=== PATIENT | female | born 1935 | race Caucasian/White ===

== ENCOUNTER 2016-08-29 14:42 | Emergency (ER) | payer BC, OTHER ==
[~2016-08-29] VITALS: Ht 165.1 cm; Wt 85.9 kg
[~2016-08-29 14:42] MED LIST: ASPCH81 PO; ATEN-173 PO; CYAN10005 PO; HYDUNK; MAGNTAB4 PO; [UNRECOGNIZED DRUG - OTHER]
[2016-08-29 14:44] VITALS: TEMP 36.7; Ht 165.1 cm; Wt 85.9 kg
--- NOTE | 2016-08-29 15:17 | EMERGENCY ROOM VISIT NOTE ---
History Report prepared by Kathia: Carlyn Lopez Under the Supervision of: Dr. Chemo Wright M.D. First contact with patient: 15:05 Chief Complaint: TACHYCARDIA Stated Complaint: HEART RACING,ANXIETY,PULSE RACING,DIZZINESS Nursing Triage Summary: Denies CP History of Present Illness The patient is a 81 year old female who presents to the Emergency Room with complaints of episodes of palpations that occur nearly everyday. The patient explains the sensation as anxiety and a startling feeling. She states that these episodes occur everyday. During an episode she experiences shortness of breath. The patient has trouble catching her breath during these episodes. She notes that she is prescribed Lorazepam 0.5 mg a night. Yesterday she took 2 pills to help control her anxiety. She denies pain, fevers or chills. The patient stopped taking 90 mg of Prednisone in February. Since then these symptoms have began and she is suffering with her potassium levels and elevated glucose. Source of History: patient Onset: everyday Position: other (global) Quality: other (palpations) Timing: other (episodes) Associated Symptoms: + SOB, No fevers, No chills Note: The patient notes trouble catching her breath. Review of Systems All systems have been listed, reviewed, and are negative other than those previously mentioned. Please see Additional Medical History Sheet. Past Medical & Surgical Medical Problems: (1) Breast cancer Surgical Problems: (1) S/P lumpectomy of breast Family History Hypertension Social History Smoking Status: Current Every Day Smoker Marital Status: Housing Status: lives with significant other Occupation Status: retired Current/Historical Medications Scheduled Amlodipine (Norvasc), 5 MG PO DAILY Atenolol (Tenormin), 25 MG PO DAILY Cholecalciferol (Vitamin D3), 1 CAP PO DAILY Cyanocobalamin (Vitamin B-12), 1,000 MCG PO DAILY Hydrochlorothiazide (Hctz), 50 MG PO DAY Lorazepam (Ativan), 0.5 MG PO PRN UD Magnesium Chloride (Mag64), 1 TAB PO BID Potassium Chloride (Micro-K Ext Rel), 10 MEQ PO BID Vitamin B Cmplx/Vitc/Folic Ac (Nephrocaps), 1 CAP PO DAILY Allergies Coded Allergies: Latex1 -Allergic Contact Dermititis (Verified Allergy, Unknown, RASH, ) Penicillins (Verified Allergy, Unknown, RASH, 03/28/09) Physical Exam Vital Signs Date Time Temp Pulse Resp B/P (MAP) Pulse Ox O2 Delivery O2 Flow Rate FiO2 08/29/16 17:44 80 17 165/80 91 Room Air 08/29/16 16:31 83 18 183/104 96 Room Air 08/29/16 14:59 87 08/29/16 14:47 94 Room Air 08/29/16 14:44 36.7 90 16 164/96 94 Room Air Physical Exam GENERAL: Patient does appear to be anxious. Patient awake, alert, oriented x 3. Patient follows commands. Patient does not appear toxic. Patient is adequately hydrated and well-nourished. SKIN: No erythema, pallor, cyanosis or rash HEENT: Normal head, pupils equal, reactive to light and accommodation. Ears normal. Oral cavity and posterior pharynx appear normal. Neck: Without adenopathy, no neck vein distention. Thyroid without masses or nodules palpated. LUNGS: Clear to auscultation. No wheezes, no rales, no rhonchi. HEART: No murmurs. No gallops. No rubs ABDOMEN: No masses, no rebound, no hepatomegaly or splenomegaly. EXTREMITIES: No signs of trauma. No pedal or pretibial edema. No calf or thigh tenderness. NEUROLOGIC: Cranial nerves II-XII within normal limits. No gross motor sensory function deficits. Medical Decision & Procedures ER Provider Diagnostic Interpretation: X ray results are stated below per my interpretation and the radiologist's interpretation. TWO VIEW CHEST CLINICAL HISTORY: Chest discomfort. Anxiety and tachycardia. FINDINGS: PA and lateral chest radiographs are obtained. No prior studies are available for comparison at the time of dictation. The heart is enlarged and there is atherosclerotic calcification of the thoracic aorta. The pulmonary vasculature is noncongested. Nodular interstitial thickening and nodularity suggested at the lung bases. No lobar consolidation or pleural effusion is seen. There is no pneumothorax. The skeletal structures are osteopenic. The bony thorax appears intact. Surgical clips are noted in the left breast. IMPRESSION: 1. Interstitial thickening is suggested at the lung bases. This is nonspecific and could represent a mild infectious/inflammatory pneumonitis. Clinical correlation will be required and radiographic follow-up to resolution is recommended. 2. Cardiomegaly without radiographic evidence of congestive failure. Electronically signed by: Alexei Gerber M.D. 08/29/2016 4:01 PM Dictated Date/Time: 08/29/2016 3:59 PM Laboratory Results 08/29/16 15:00 Red Blood Count 5.27, Mean Corpuscular Volume 89.9, Mean Corpuscular Hemoglobin 31.9, Mean Corpuscular Hemoglobin Concent 35.4, Mean Platelet Volume 12.8, Neutrophils (%) (Auto) 68.9, Lymphocytes (%) (Auto) 19.8, Monocytes (%) (Auto) 6.7, Eosinophils (%) (Auto) 2.9, Basophils (%) (Auto) 0.9, Neutrophils # (Auto) 5.22, Lymphocytes # (Auto) 1.50, Monocytes # (Auto) 0.51, Eosinophils # (Auto) 0.22, Basophils # (Auto) 0.07 08/29/16 15:00 Test 08/29/16 00:00 08/29/16 15:00 Urine Color YELLOW Urine Appearance CLEAR (CLEAR) Urine pH 6.0 (4.5-7.5) Urine Specific [place] 1.007 (1.000-1.030) Urine Protein NEG (NEG) Urine Glucose (UA) NEG (NEG) Urine Ketones NEG (NEG) Urine Occult Blood NEG (NEG) Urine Nitrite NEG (NEG) Urine Bilirubin NEG (NEG) Urine Urobilinogen NEG (NEG) Urine Leukocyte Esterase NEG (NEG) White Blood Count 7.58 K/uL (4.8-10.8) Red Blood Count 5.27 M/uL (4.2-5.4) Hemoglobin 16.8 g/dL (12.0-16.0) Hematocrit 47.4 % (37-47) Mean Corpuscular Volume 89.9 fL (80-100) Mean Corpuscular Hemoglobin 31.9 pg (25-34) Mean Corpuscular Hemoglobin Concent 35.4 g/dl (32-36) Platelet Count 63 K/uL (130-400) Mean Platelet Volume 12.8 fL (7.4-10.4) Neutrophils (%) (Auto) 68.9 % Lymphocytes (%) (Auto) 19.8 % Monocytes (%) (Auto) 6.7 % Eosinophils (%) (Auto) 2.9 % Basophils (%) (Auto) 0.9 % Neutrophils # (Auto) 5.22 K/uL (1.4-6.5) Lymphocytes # (Auto) 1.50 K/uL (1.2-3.4) Monocytes # (Auto) 0.51 K/uL (0.11-0.59) Eosinophils # (Auto) 0.22 K/uL (0-0.5) Basophils # (Auto) 0.07 K/uL (0-0.2) RDW Standard Deviation 43.9 fL (36.4-46.3) RDW Coefficient of Variation 13.3 % (11.5-14.5) Immature Granulocyte % (Auto) 0.8 % Immature Granulocyte # (Auto) 0.06 K/uL (0.00-0.02) Anion Gap 11.0 mmol/L (3-11) Est Creatinine Clear Calc Drug Dose 50.4 ml/min Estimated GFR () 63.6 Estimated GFR (Non- 54.9 BUN/Creatinine Ratio 13.8 (10-20) Calcium Level 9.1 mg/dl (8.5-10.1) Total Bilirubin 0.6 mg/dl (0.2-1) Aspartate Amino Transf (AST/SGOT) 21 U/L (15-37) Alanine Aminotransferase (ALT/SGPT) 23 U/L (12-78) Alkaline Phosphatase 66 U/L (45-117) Troponin I < 0.015 ng/ml (0-0.045) Total Protein 7.0 gm/dl (6.4-8.2) Albumin 3.4 gm/dl (3.4-5.0) Globulin 3.6 gm/dl (2.5-4.0) Albumin/Globulin Ratio 0.9 (0.9-2) Thyroid Stimulating Hormone (TSH) 1.260 uIu/ml (0.300-4.500) Laboratory results as stated above per my review. ECG Indication: palpitations Rate (beats per minute): 86 Rhythm: normal sinus Findings: no acute ischemic change, no ectopy ED Course 1506: Past medical records reviewed. The patient was evaluated in room C1. A complete history and physical examination was performed. 1720: I spoke with the patient about her test results. She is still feeling anxious. 1738: Upon reevaluation, the patient appeared to have improvement of her symptoms. I discussed today's findings with her. She verbalized agreement of the treatment plan. She was discharged home. Medical Decision Nurses notes reviewed. Medical history sheet reviewed. Differential diagnosis includes but is not limited to: anxiety, panic attack, myocardial infarction, chest wall pain, pericarditis, myocarditis, aortic emergencies, pulmonary embolism, congestive heart failure, GI causes, and other significant cardiopulmonary disorders. Medication Reconciliation: I attest that I have personally reviewed the patient' s current medication list. Blood Pressure Screening: Patient was found to have a slightly elevated blood pressure due to circumstances. I do not believe that the patient requires hypertension monitoring. Multiple labs, urinalysis, EKG and imaging were obtained. Please see above. The patient has no evidence of an acute cardiopulmonary event. She does have some slight atelectasis versus pneumonitis at the bases of her lungs that she is asymptomatic in regard to her lungs. Troponin is not elevated. EKG does not reveal any acute findings. Urinalysis is clean. The patient is very anxious and I believe all of her symptoms stem from that. The patient does have Ativan at home which she can take as needed. She is to follow-up with her family physician tomorrow. Impression Primary Impression: Anxiety Additional Impression: Hypokalemia Scribe Attestation The scribe's documentation has been prepared under my direction and personally reviewed by me in its entirety. I confirm that the note above accurately reflects all work, treatment, procedures, and medical decision making performed by me. Departure Information Dispostion Home / Self-Care Referrals Augustina Hernandez D.O. (PCP) Forms HOME CARE DOCUMENTATION FORM, IMPORTANT VISIT INFORMATION, WORK / SCHOOL INSTRUCTIONS Patient Instructions Anxiety Disorder, Diet High Potassium Ia, [facility] Additional Instructions Continue your current medications as prescribed. You may take 0.5 mg of Ativan every 6 hours as needed for anxiety. Follow-up with your family physician tomorrow. Increase potassium in your diet. Problem Qualifiers
[2016-08-29 15:25] LABS: BASO % 0.9 %; BASO ABS # 0.07 K/uL (0-0.2); EOS % 2.9 %; HEMATOCRIT 47.4 % (37-47); IG% 0.8 %; LYMPH % 19.8 %; MEAN CELL VOLUME 89.9 fL (80-100); MEAN CORPUSCULAR HEMOGLOBIN 31.9 pg (25-34); MEAN CORPUSCULAR HGB CONC 35.4 g/dl (32-36); MEAN PLATELET VOLUME 12.8 fL (7.4-10.4); MONO % 6.7 %; NEUT % 68.9 %; PLATELET COUNT 63 K/uL (130-400); RED BLOOD COUNT 5.27 M/uL (4.2-5.4); WHITE BLOOD COUNT 7.58 K/uL (4.8-10.8)
[2016-08-29 15:35] LABS: ALT/SGPT 23 U/L (12-78); BLOOD UREA NITROGEN 14 mg/dl (7-18); BUN/CREATININE RATIO 13.8 (10-20); CALCIUM 9.1 mg/dl (8.5-10.1); CARBON DIOXIDE 26 mmol/L (21-32); CHLORIDE 102 mmol/L (98-107); CREATININE 0.98 mg/dl (0.60-1.20); GLUCOSE 119 mg/dl (70-99); POTASSIUM 3.3 mmol/L (3.5-5.1); SODIUM 139 mmol/L (136-145)
[2016-08-29 15:46] LABS: ALB/GLOB RATIO 0.9 (0.9-2); ALKALINE PHOSPHATASE 66 U/L (45-117); AST/SGOT 21 U/L (15-37)
[2016-08-29] MEDS ORDERED: MAGN64TA4 PO (15:50)
[2016-08-29] MEDS ORDERED: HYDR50TA3 PO (15:50)
[2016-08-29] MEDS ORDERED: POTA10CA28 PO (15:50)
[2016-08-29] MEDS ORDERED: B-CO1CAP17 PO (15:50)
[2016-08-29] MEDS ORDERED: CYAN10005 PO (15:50)
[2016-08-29] MEDS ORDERED: LORA-741 PO (15:50)
[2016-08-29] MEDS ORDERED: AMLO-110 PO (15:50)
[2016-08-29] MEDS ORDERED: CHOL2000 PO (15:50)
[2016-08-29 15:53] LABS: COMPLETE YES
--- NOTE | 2016-08-29 16:02 | DIAGNOSTIC IMAGING REPORT ---
TWO VIEW CHEST CLINICAL HISTORY: Chest discomfort. Anxiety and tachycardia. FINDINGS: PA and lateral chest radiographs are obtained. No prior studies are available for comparison at the time of dictation. The heart is enlarged and there is atherosclerotic calcification of the thoracic aorta. The pulmonary vasculature is noncongested. Nodular interstitial thickening and nodularity suggested at the lung bases. No lobar consolidation or pleural effusion is seen. There is no pneumothorax. The skeletal structures are osteopenic. The bony thorax appears intact. Surgical clips are noted in the left breast. IMPRESSION: 1. Interstitial thickening is suggested at the lung bases. This is nonspecific and could represent a mild infectious/inflammatory pneumonitis. Clinical correlation will be required and radiographic follow-up to resolution is recommended. 2. Cardiomegaly without radiographic evidence of congestive failure. Electronically signed by: Alexei Gerber M.D. 08/29/2016 4:01 PM Dictated Date/Time: 08/29/2016 3:59 PM
[2016-08-29 16:50] LABS: URINE APPEARANCE CLEAR (CLEAR); URINE BILIRUBIN NEG (NEG); URINE COLOR YELLOW; URINE NITRITE NEG (NEG); URINE SPECIFIC GRAVITY 1.007 (1.000-1.030); UROBILINOGEN NEG (NEG); ZZURINE CULT IF INDIC CATH NO
[2016-08-29 16:52] LABS: MANUAL MICROSCOPIC REQUIRED? NO; REVIEW REQ? NO
[2016-08-29 17:44] VITALS: BP 165/80; PULSE 80; O2SAT 91
== END 2016-08-29 17:57 | disposition home or self-care (01) ==
LOC: C.EDB 14:43 → C.EDC 17:57
DX: F41.9 Anxiety disorder, unspecified (principal); E87.6 Hypokalemia; F17.200 Nicotine dependence, unspecified, uncomplicated

== ENCOUNTER → 2016-10-11 | Outpatient (CLI) | payer BC ==
[~2016-10-11] MED LIST changes: +AMLO-110 PO; -ASPCH81 PO; +B-CO1CAP17 PO; +CHOL2000 PO; +HYDR50TA3 PO; -HYDUNK; +LORA-741 PO; +MAGN64TA4 PO; -MAGNTAB4 PO; +POTA10CA28 PO; -[UNRECOGNIZED DRUG - OTHER]
--- NOTE | 2016-10-11 11:49 | DIAGNOSTIC IMAGING REPORT ---
CHEST 2 VIEWS ROUTINE CLINICAL HISTORY: ANXIETY, POLYCYTHEMIA, ABNORMAL CHEST X-RAY COMPARISON STUDY: Chest radiograph August 29, 2016. FINDINGS: Lung volumes are normal. No pneumothorax or pleural effusion is present. There is no evidence of pulmonary edema. Cardiomediastinal silhouette is stable. Lower lung predominant interstitial thickening and linear opacities has slightly improved since prior exam. IMPRESSION: Interval improvement in lower lung interstitial thickening. Residual findings suggest atelectasis. No acute cardiopulmonary findings. Electronically signed by: Mihai Carter M.D. 10/11/2016 11:48 AM Dictated Date/Time: 10/11/2016 11:46 AM
== END | disposition home or self-care (01) ==
LOC: C.RAD 11:03
PROVIDERS: ATTEND Family Medicine
DX: R93.8 Abnormal findings on diagnostic imaging of other specified body structures (principal); D75.1 Secondary polycythemia; F41.9 Anxiety disorder, unspecified

== ENCOUNTER → 2016-12-14 | Outpatient (CLI) | payer BC ==
[~2016-12-14] VITALS: Ht 162.6 cm; Wt 83.9 kg
[2016-12-14 13:14] VITALS: BP 160/79; PULSE 93; Ht 162.6 cm; Wt 83.9 kg
== END | disposition home or self-care (01) ==
LOC: C.NEUR 12:55
PROVIDERS: ATTEND Internal Medicine Pulmonary Disease
DX: G47.19 Other hypersomnia (principal); F41.9 Anxiety disorder, unspecified; D75.1 Secondary polycythemia; R53.83 Other fatigue; R06.83 Snoring

== ENCOUNTER → 2017-01-04 | Outpatient (CLI) | payer BC ==
--- NOTE | 2017-01-05 06:36 | PAP/PSG TECHNICIAN REPORT ---
[facility] Magazine Supervisor Polysomnogram Report Study name: None Report date: 01/05/2017 Study date: 01/04/2017 Referring Physician: MAKENNA FERNANDEZ D.O. Name: NANCY FANG Interpreting Physician: Manuel Payne M.D. Date of : 1935 Magazine Supervisor: Silvina Nix [facility]. Sex: Female Age: 81 StudyType: PSG Weight: 185 lbs Height: 81 years, Height 5' 4" Neck Circum: 16 INCHES BMI: 31.75 Medications: Atenolol 25 mg, B complex, Clonazepam 0.5 mg, Glucophage XR 500, HCTZ 50 mg, Lorazepam 0.5 mg, Mag 64, Norvasc 5 mg, Paroxetine 20 mg, Potassium Chloride ER 10 MEQ, Spironolactone 25 mg, Ventolin HFA 108 ( 90 Base), Vitamin B-12 1000 MCG, Vitamin D 2000 units Patient History 81 yr. old female here for a Diagnostic sleep study. Patient complains of not feeling rested and loud snoring. ESS 0/24. Parameters Monitored NPSG: E1-M2, E2-M1, Fp1-M2, Fp2-M1, F3-M2, F4-M2, F4-M1, C3-M2, C4-M2, C4-M1, O1-M2, O2-M2, O2-M1, T3-M2, T4-M1, P3-M2, P4-M1, CHIN1, CHIN2, HR, EKG, Legs, PFLOW, SNOR, FLOW, CFLOW, Tidal Volume, THOR, ABDO, SpO2, PLTH, CPRESS, ETCO2 Wave, ETCO2, pH Sleep Architecture Sleep Stages Time at Lights Off 11:01:04 PM STAGES Time (min.) TST (%) Time at Lights On 5:36:04 AM Wake 99.5 -- Total Recording Time (TRT) 395.00 min. N1 43.0 15 Total Sleep Period (TSP) 324.5 min. N2 252.5 85 Total Sleep Time (TST) 295.5min. N3 0.0 0 Awake Time 99.5 min. REM 0.0 0 Wake after Sleep Onset 29.0 min. Sleep Efficiency (SE) 75 % Sleep Onset Latency (NATHAN) 70.5 min. Number of Stage 1 Shifts None Awakenings 26 Stage Changes 84 Number of REM periods N/A REM 0.0 0 REM Latency NONE min. NREM 295.5 100 Body Position Analysis Supine Right Left Side Prone Vertical Total Sleep Time (min.) 135.4 0.0 175.0 174.99 0.0 54.1 Total Sleep Time (%) 41% 0% 59% 59 0% N/A% Total Sleep Time REM (min.) 0.0 0.0 0.0 None 0.0 0.0 Total Sleep Time NREM (min.) 120.5 0.0 175.0 None 0.0 0.0 Intermittent Wake (min.) 14.9 0.0 30.4 None 0.0 54.1 Total Sleep Period (%) 41% None None None None None Arousals Myoclonus (PLM) * Events Count Index Events Count Index Spontaneous 5 1 Events Awake (PLMW) 91 54.9 Respiratory 0 0.4 Events Asleep w/ Arousal (PLMA) 5 1.0 PLM 4 1 Events Asleep w/o Arousal (PLMS) 82 16.6 Snoring 2 0 Total Asleep 87 17.7 Total 11 2 Total 178 27 Respiratory Analysis * CA OA MA CH H RERA Total Count 0 1 0 0 5 0 6 Index 0.0 0.2 0.0 0 1.0 0 1.2 Mean Duration 0.0 10.5 0.0 0.00 19.7 0.0 18.2 Longest Duration 0.0 10.5 0.0 0.00 0.0 0.0 27.8 Respiratory Event Summary Total Supine ~Supine Right Left Prone REM NREM Apneas Count 1 1 0 N/A 0 N/A N/A 1 Index 0.2 0 0 N/A 0.0 N/A N/A 0 Hypopneas (4% Desat) Count 5 4 1 N/A 1 N/A N/A 5 Index 1.0 2.0 0 N/A 0.3 N/A N/A 1.0 Apneas & All Hypopneas Count 6 5 1 N/A 1 N/A N/A 6 Index 1.2 2 0 N/A 0 N/A N/A 1.2 Respiratory Events (Staff Services Manager+All Hyp+RERA) Count 6 5 1 N/A 1 N/A N/A 6 Index 1.2 2 0 N/A 0.3 N/A N/A 1.2 Respiratory Related Arousal Count 0 5 0 N/A 0 N/A N/A 2 Index 0.4 1 0 N/A 0 N/A N/A 0 Snoring Analysis Supine Right Left Prone REM NREM Total Snore duration 21.7 min Snores count 510 N/A 780 N/A N/A 1,290 1,290 Snore mean duration 1.0 Sec Snores index 254 N/A 267 N/A N/A 261.9 261.9 TST with snoring (%) 7.4% Desaturation Event Summary: Minimum %SpO2 Event Count Mean/Min/Max Duration(sec.) Desaturation Index % Time In Bed > 90 3 28.9 / 22.0 / 42.3 2.2 21.2 86 - 90 8 32.6 / 13.0 / 55.0 1.6 78.4 81 - 85 0 N/A 0.0 0.4 76 - 80 0 N/A 0.0 0.0 71 - 75 0 N/A 0.0 0.0 66 - 70 0 N/A 0.0 0.0 61 - 65 0 N/A 0.0 0.0 56 - 60 0 N/A 0.0 0.0 51 - 55 0 N/A 0.0 0.0 < 50 0 N/A 0.0 0.0 Total REM NREM Awake <50% 0.0 min. 0.0 min. 0.0 min. 0.0 min. 51 - 60% 0.0 min. 0.0 min. 0.0 min. 0.0 min. 61 - 70% 0.0 min. 0.0 min. 0.0 min. 0.0 min. 71 - 80% 0.0 min. 0.0 min. 0.0 min. 0.0 min. 81 - 90% 309.7 min. 0.0 min. 280.7 min. 29.0 min. 91 - 100% 83.4 min. 0.0 min. 14.8 min. 68.6 min. Average 89 0 88 91 Minimum SpO2 84 N/A 84 84 Desaturation Event Index 1.5 0.0 0.8 3.6 # Desat. Events below 89% 8 N/A 4 4 Time(%) with Saturation below 89% 46.6 0.0 42.3 4.3 Time(min.) with Saturation below 89% 183.2 0.0 166.5 16.7 Time (mins) REM (mins) NREM (mins) % of TST SpO2 Below 90% 4 N/A N4 81.0 SpO2 Below 88% 3 0 0 25 Heart Rate Analysis Min (bpm) Max (bpm) Average (bpm) Awake 57 81 72 NREM 55 85 65 REM N/A N/A N/A Overall 55 85 65 Supplemental O2 Values Minimum O2 level: None Value Start Time End Time Magazine Supervisor Comments Mrs. Fang slept in the left and supine positions. Cardiac arrhythmia and PLMs noted. No bruxism noted. Snoring was noted and scored as a 3 on a scale of 0 through 5. (0=no snoring, 5=snoring loud enough to be heard through a closed door or down the moore way) Mrs. Fang did not wake to use the restroom during the night. Mrs. Fang stated, that was a normal night. The final report will be interpreted and signed by a sleep physician. The completed physician report will then be placed in the patient medical record. Therapy (cm H2O) 0 TIB (min.) 395.0 TST (min.) 295.5 Sleep Onset (min.) 70.5 REM Onset From Sleep (min.) NONE Sleep Efficiency % 75 Wakefulness (%) 25 Wakefulness (min.) 99.5 NREM 1 (%) 15 NREM 1 (min.) 43.0 NREM 2 (%) 85 NREM 2 (min.) 252.5 NREM 3 (%) 0 NREM 3 (min.) 0.0 REM (%) 0 REM (min.) 0.0 # Arousals 11 Arousal Index 2 # Snore 1,290 Snore Index 261.9 AHI 1.2 AHI Supine 2 AHI Non-Supine 0 NREM AHI 1.2 REM AHI N/A RDI 1.2 # Obstructive Apnea 1 # Central Apnea 0 # Mixed Apnea 0 # Hypopneas 5 RERAs 0 Total Respiratory Events 8 Time Below SpO2 89% (min.) 166.5 Mean NREM SpO2 (%) 88 Mean REM SpO2 (%) N/A Mean Sleep SpO2 (%) 88 Min NREM SpO2 (%) 84 Min REM SpO2 (%) N/A Position Supine (min.) 135.4 Position Non-supine (min.) 175.0 LM Index Sleep 17.7 LM Index NREM 17.7 LM Index REM N/A Mean Heart Rate (bpm) 65 Min Heart Rate (bpm) 55
--- NOTE | 2017-01-06 11:27 | POLYSOMNOGRAPH REPORT ---
CLINICAL DATA: A 81-year-old female with BMI of 31.[address] Augustina Hernandez and myself for evaluation of not feeling rested and loud snoring. SLEEP ARCHITECTURE: Total sleep period was 324.5 minutes. Total sleep time was 295.5 minutes, all non-REM sleep. Sleep onset latency was delayed at 70.5 minutes. REM was not achieved. Sleep efficiency was 75%. Wake after sleep onset was 29 minutes. Sleep consisted of stage N1 15% and stage N2 85%. AROUSAL DATA: Eleven arousals recorded for an index of 2 per hour. PLM DATA: Mildly elevated limb movements during sleep were noted. There were 87 limb movements during sleep noted for an index of 17.7 per hour with arousal index of 1 per hour. RESPIRATORY DATA: There was no evidence of clinically significant sleep apnea seen. The AHI was 1.2. There was 1 obstructive apneic episode, 10.5 seconds in duration. There were 5 hypopneic episodes with a mean duration of 19.7 seconds. OXIMETRY DATA: Transient hypoxemia was seen. The oxygen fadi was 84% during REM. The mean saturation was 89%. Time below 88% was 3 minutes. EKG: Heart rates ranged from 55-85 beats per minute. Occasional PACs were noted. FIRE FIGHTING EQUIPMENT SPECIALIST'S COMMENTS: The patient slept in the right, left, and supine positions. Snoring was moderate, rated 3 on a scale of 1-5. IMPRESSION: No evidence of clinically significant sleep apnea/hypopnea. The patient does have a borderline low saturation with some minimal desaturation through the night. RECOMMENDATIONS: The patient should continue to practice good sleep hygiene. Discontinuation of smoking may also be of benefit. Clinical correlation is needed. CEDD
== END | disposition home or self-care (01) ==
LOC: C.NEUR 21:00
PROVIDERS: ATTEND Internal Medicine Pulmonary Disease
DX: F41.9 Anxiety disorder, unspecified (principal); G47.19 Other hypersomnia; R53.83 Other fatigue; D75.1 Secondary polycythemia; R06.83 Snoring

== ENCOUNTER 2021-03-28 15:49 | Inpatient (IN) ==
[2021-03-28] MEDS ORDERED: SODIUM CHLORIDE 0.9% 1000ML 1,000 ML IV SCH (16:30)
[2021-03-28 16:54] LABS: Hematocrit (blood only) 42.6 % (37-47); Hemoglobin 14.6 g/dL (12.0-16.0); Mean Corpuscular Hemoglobin 32.4 pg (25-34); Mean Corpuscular Hgb Conc 34.3 g/dL (32-36); Mean Corpuscular Volume 94.5 fL (80-100); Platelet Count 103 K/uL (130-400); RDW Coefficient of Variation 13.1 % (11.5-14.5); RDW Standard Deviation 45.5 fL (36.4-46.3); Red Blood Count 4.51 M/uL (4.2-5.4); White Blood Count 10.09 K/uL (4.8-10.8)
--- NOTE | 2021-03-28 16:56 | XRay Report ---
SINGLE VIEW CHEST CLINICAL HISTORY: Dyspnea. FINDINGS: An AP, portable, upright chest radiograph is compared to study dated 10/11/2016. The heart i s enlarged noting atherosclerotic calcification of the thoracic aorta. There is pulmonary vascular co ngestion. There is a layering left pleural effusion with left basilar consolidation. The right lung a ppears clear noting basilar atelectasis. No pneumothorax is seen. The skeletal structures are osteope isac. The bony thorax is grossly intact. Surgical clips are noted in the left axilla. IMPRESSION: 1. Cardiomegaly with pulmonary vascular congestion. 2. Layering left pleural effusion with associated left basilar consolidation. ACT 112: Negative or not required by law. Electronically signed by: Alexei Gerber M.D. 03/28/2021 4:55 PM
[2021-03-28 16:58] LABS: INR 1.2 (0.9-1.1); Partial Thromboplastin Ratio 1.2; Partial Thromboplastin Time 32.8 Seconds (21.0-31.0)
[2021-03-28 17:07] LABS: Troponin I 0.03 ng/ml (0-0.04)
[2021-03-28 17:11] LABS: Alanine Aminotransferase 7 U/L (7-52); Albumin Globulin Ratio 0.9 (0.9-2); Albumin Level 3.3 gm/dl (3.4-5.0); Alkaline Phosphatase 62 U/L (34-104); Anion Gap 10 (3-11); Aspartate Aminotransferase 16 U/L (13-39); BUN Creatinine Ratio 15.7 (10-20); Bilirubin,Total 2.8 mg/dl (0.2-1.0); Blood Urea Nitrogen 17 mg/dl (6-23); Calcium 9.2 mg/dl (8.5-10.1); Carbon Dioxide 26 mmol/L (21-32); Chloride 97 mmol/L (98-107); Est GFR (African American) 54.6 ml/min; Est GFR (Non-African American) 47.1 ml/min; Globulin 3.6 gm/dl (2.5-4.0); Glucose 141 mg/dl (70-99(Fasting)); Magnesium 1.4 mg/dl (1.7-2.4); Potassium 3.4 mmol/L (3.5-5.1); Sodium 133 mmol/L (136-145); Total Protein 6.9 gm/dl (6.0-8.3)
[2021-03-28 17:27] LABS: Basophils # (auto) 0.02 K/uL (0-0.2); Basophils % (auto) 0.2 %; Immature Granulocytes # (auto) 0.02 K/uL (0.00-0.02); Immature Granulocytes % (auto) 0.2 %; Lymphocytes # (auto) 0.48 K/uL (1.2-3.4); Lymphocytes % (auto) 4.8 %; Monocytes # (auto) 0.57 K/uL (0.11-0.59); Monocytes % (auto) 5.6 %; Neutrophils % (auto) 89.2 %
[2021-03-28] MEDS ORDERED: OPTIRAY 320 100ml IV ONE (18:01)
[2021-03-28] MEDS: MAGNESIUM SULFATE / D5W 1 GM/100 ML BAG IV SCH ×2 (18:09→18:39)
--- NOTE | 2021-03-28 19:07 | CT Scan Report ---
CT SCAN OF THE CHEST WITH IV CONTRAST CLINICAL HISTORY: Pleural effusion. left-sided chest pain. COMPARISON STUDY: Chest x-ray dated 03/28/2021. Abdominal CT dated 01/30/2016. TECHNIQUE: Following the IV administration of 95 cc of Optiray 320, CT scan of the thorax was perform ed from the thoracic inlet to the upper abdomen. Images are reviewed in the axial, sagittal, and loree nal planes. IV contrast was administered without complication. A dose lowering technique was utilize d adhering to the principles of ALARA. CT DOSE: 253.22 mGy.cm FINDINGS: Thyroid: Mildly enlarged and heterogeneous. Thoracic aorta: There is advanced atherosclerotic calcification of the thoracic aorta, which is vilma l in caliber and demonstrates standard 3-vessel arch anatomy. No dissection is seen. Pulmonary vasculature: The pulmonary trunk is normal in caliber. There are no filling defects identif ied in the central pulmonary vessels to indicate pulmonary embolus. Note that this examination was no t protocoled for evaluation of the pulmonary arteries. Heart: The heart is enlarged and without pericardial effusion. The coronary arteries, aortic valve le aflets, and mitral annulus are densely calcified. Lungs and pleural spaces: Evaluation of the lung parenchyma is degraded by motion artifact. Emphysema is noted. Consolidation/fibrosis is noted at the left apex on image #56. There is a moderate and at least partially loculated left pleural effusion with consolidation at the left lung base. A small ple ural effusion is seen on the right. Segmental atelectasis is noted in the right middle lobe. A 9 mm p ulmonary nodule in the right lower lobe as seen on image #172. Additional subcentimeter nodules at th e right lung base are seen on image #229 and at the right apex on image #59. No left-sided pulmonary lesion is clearly identified. Mediastinum: There is infiltrative soft tissue in the left superior mediastinum on image #33 measurin g 2.7 x 3.2 cm. This encases the left subclavian artery. There are several additional subcentimeter m ediastinal lymph nodes. Destiney: Clear. Axillae: There is an enhancing mass within the posterior left breast/infraaxillary region on axial im age #136. This measures 3.3 x 2.8 x 1.7 cm. Surgical clips are noted in the left axilla. A 2.3 x 1.5 cm lesion is seen in the deep left axilla on image #22. An enlarged right axillary node on image #84 measures 2.5 x 2.1 cm. Upper abdomen: A lesion within or adjacent to the left adrenal gland measures 5.0 x 3.4 cm. No right adrenal lesion is seen. An indeterminant soft tissue implant is seen posterior to the right lobe of t he liver below the diaphragm on image #273. This measures 2.6 x 1.6 cm. The spleen appears enlarged. Peritoneal nodularity is suggested in the left upper quadrant on image #254. Skeletal structures: The skeletal structures are osteopenic. No lytic or blastic bony lesions are see n. Degenerative change is noted in the shoulders and thoracic spine. Soft tissues: There are numerous enhancing soft tissue implants identified throughout the chest wall bilaterally. A 3.8 cm lesion in the right chest wall is seen on image #206 and a more inferiorly loca zaid lesion in the right chest wall on image #254 measures 3.2 cm. A 4.1 cm lesion in the left chest w all is seen on image #189, and a subcentimeter lesion in the posterior left chest wall as seen on marilynn ge #255. Numerous additional lesions are noted. Postoperative change and dermal thickening is noted i n the left breast. IMPRESSION: 1. Cardiomegaly and emphysema. 2. There is a moderate and at least partially loculated left pleural effusion with consolidation of t he left lower lung. Additionally, there is fibrotic change/consolidation at the left apex. Correlate clinically for evidence of pneumonia. 3. There is a small right pleural effusion. 4. There is evidence of widespread metastatic disease. There are numerous enhancing soft tissue lesio ns throughout the chest wall, as well as lesions within the posterior left breast/infraaxillary regio n, both axillae, the superior mediastinum, within or adjacent to the left adrenal gland, and within t he peritoneum posterior to the liver. Subcentimeter peritoneal implants are also suggested in the lef t upper quadrant. The primary site of neoplasm is not delineated. Correlate with the patient's oncolo gical history. 5. There are at least 3 pathologically indeterminant right pulmonary nodules which are also suspiciou s for metastatic disease. 6. No pleural lesions are clearly identified. 7. Postoperative change and dermal thickening is noted in the left breast. 8. Additional findings as above. ACT 112: Negative or not required by law. Electronically signed by: Alexei Gerber M.D. 03/28/2021 7:06 PM
[2021-03-28 19:29] LABS: Appearance Urine Clear (Clear); Bilirubin Urine Negative (Negative); Blood Urine Negative (Negative); Color Urine Yellow; Glucose Urine UA Negative (Negative); Ketones Urine Negative (Negative); Leukocyte Esterase Urine Negative (Negative); Nitrite Urine Negative (Negative); Protein Urine Negative (Negative); Specific Gravity Urine 1.022 (1.000-1.030); Urobilinogen Urine Negative (Negative)
[2021-03-28] MEDS ORDERED: NICOTINE 14 MG/24 HR PATCH TD STA (19:35)
--- NOTE | 2021-03-28 19:35 | History & Physical Report ---
Date of Service March 28, 2021 Assessment & Plan (1) Breast cancer: Plan: Elva is an 86-year-old female with a history of previous breast cancer s/p lumpectomy in 2001, type 2 diabetes, hypertension, obesity, previous R osteomyelitis of 5th toe, tobacco abuse who presents for L-sided chest pain, shortness of breath x several days, subsequently found to have evidence concerning for widespread metastatic disease on CT-Chest, with lesions noted throughout: the chest, posterior left breast, axillae, superior mediastinum, left adrenal gland, peritoneum posterior to the liver, and 3 pulmonary nodules. She requires admission primarily for management of her L-sided pleural effusion Hypoxia -- in setting of large L sided pleural effusion Patient has required approximately 2 L/min of nasal cannula since arrival for SpO2 between 88-90%; subjectively felt mildly short of breath. HR in 90s. Suspect to be largely secondary to left-sided pleural effusion. Patient also noted to have significant tobacco use history, over 100 pack years; emphysematous changes were also appreciated on CTchest, also likely contributing No signs or symptoms of DVT, though malignancy is noted. Wells 1. No signs of volume overload. Presentation not largely consistent with pneumonia; no leukocytosis, afebrile. Covid negative. Add pro-Luis Miguel, MRSA swab Plan as outlined below DuoNebs every 6 hours as needed Titrate oxygen as needed to maintain SPO2 over 92% Left-sided pleural effusion -- in the setting of suspected metastatic disease Clinically, patient reporting lateral left-sided chest pain for the last several days as well as increasing shortness of breath CT of the chest demonstrating "moderate and at least partially loculated left- sided pleural effusion with consolidation of the left lower lung." In the setting of metastatic disease, suspect that this is likely exudative and likely secondary to malignancy Radiology consulted for aid in pleurocentesis, draining/sampling this fluid and send off for cytology; can also consider pulmonology consultation in future if recurrence occurs/Pleurx needed Titrate oxygen as needed; minimal right now, respiratory status stable High Suspicion for Metastatic Disease In the setting of ongoing fatigue, weight loss, chills over the last several months CT-Chest demonstrating: "...evidence of widespread metastatic disease. There are numerous enhancing soft tissue lesions throughout the chest wall, as well as lesions within the posterior left breast/infraaxillary region, both axillae, the superior mediastinum, within or adjacent to the left adrenal gland, and within the peritoneum posterior to the liver. Subcentimeter peritoneal implants are also suggested in the left upper quadrant." Also noted is moderate/partially loculated left-sided pleural effusion with consolidation of the left lower lung Insetting of patient's known history of breast cancer, is well as changes noted within the left breast on scan, concerned that this may be primary site; review of outpatient records do appear that last mammogram was over 5 years ago. Attempt to sample/drain pleural effusion for further characterization, as above Patient informed of the results, as noted above. Will require hematology/oncology consultation once further characterized Weight Loss Patient reporting approximately 25 pound weight loss over the past year, also noted in outpatient notes In the setting of the above; likely due to ongoing metastatic disease and generalized inflammation Boost supplementation, consider band head saw operator consultation while here or as outpatient History of Breast Cancer -Review of records within our system (2001) reveal h/o [id number] ER+/WA+/[HER2/jenna]-neg IDC s/p lumpectomy and radiation in 2001, no chemo/immunotherapy Last mammogram appears to be over 5 years ago. See above. 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 Hyperbilirubinemia On arrival here, found to have total bilirubin 2.8 in setting of suspected Gilbert's, known radiologic cirrhosis thought to be secondary to NAFLD/WARREN Has followed with [facility] for this and cirrhosis. Elevated total bilirubin has been noted intermittently over the last number of years. Last measurement 1.1 in 12/2020. Their impression is secondary to Gilbert's, h/o cirrhosis noted. Ultrasound 02/2021 demonstrating cirrhosis without hepatic lesions Monitor while here Type 2 diabetes - last A1c 5.4% in 02/2021 via [facility] Hold home medications ACHS glucose checks for 1 day; if persistently over 140, consider adding SSI Hypertension Continue amlodipine, atenolol Anxiety Continue home Ativan, Paxil Hypokalemia, Hypomagnesemia Suspect secondary to poor p.o. intake recently. Encourage boost supplementation. Replete potassium, magnesium Code: Full code. Discussed at length with patient and her . They would like to think about this more as a family, but be marked as full code until discussed further Dispo: MedSurg with telemetry Diet: Carb consistent diet Prophylaxis: Lovenox (2) S/P lumpectomy of breast: (3) Encounter for pre-operative examination: (4) Type 2 diabetes mellitus, controlled: (5) Hypertension: (6) Obesity: (7) Metastatic cancer: (8) Hypoxia: History of Present Illness Primary Care Provider: Augustina Hernandez DO Stevenson is an 86-year-old female with a history of previous breast cancer s/p lumpectomy in 2001, type 2 diabetes, hypertension, obesity, R osteomyelitis of 5th toe, tobacco abuse (>100 pack-year), and hepatic cirrhosis who presents for L-sided chest pain, shortness of breath x several days. Patient says the pain is primarily located along her left midaxillary line/center of chest. It does not radiate and she denies substernal chest pain. She also endorses feeling more winded during this time. She denies leg pain or swelling. Denies recent travel. She says that over the last year, she has had a poor appetite and has lost approx. 25 lb. She denies nausea or vomiting. Her last mammogram appears to be over 5 years ago on review of [facility] records. She confirms this. She denies history of colon cancer screening in the past. She endorses smoking 2ppd x 50 years = >100pack-year history. No regular use of EtOH or recreational drugs. She underwent a lumpectomy in 2001 with subsequent radiation therapy but denies undergoing chemotherapy or immunotherapy at that time. On presentation, patient was found to be tachycardic with saturations in the low 90s. She did require 2 L of oxygen. Her K was 3.4 and Mg at 1.4. TBili noted to be elevated at 2.8. CT scan performed in the ED did demonstrate moderate left-sided loculated appearing pleural effusion alongside fibrotic change at the left apex. Further, there is evidence of widespread metastatic disease with lesions noted throughout the chest, posterior left breast, axillae, superior mediastinum, left adrenal gland, peritoneum posterior to the liver, and 3 pulmonary nodules concerning for metastatic disease. Allergies Allergy/AdvReac Type Severity Reaction Status Date / Time atorvastatin Allergy Mild aches Verified 03/28/21 16:26 cephalexin [From Keflex] Allergy Mild Aches,drows Verified 03/28/21 16:26 iness clarithromycin Allergy Mild Hives Verified 03/28/21 16:26 escitalopram [From Lexapro] Allergy Mild Shakiness Verified 03/28/21 16:26 fluoxetine Allergy Mild Increased Verified 03/28/21 16:26 anxiety latex Allergy Mild RASH Verified 03/28/21 16:26 lisinopril Allergy Mild Cough Verified 03/28/21 16:26 nefazodone [From Serzone] Allergy Mild ankle Verified 03/28/21 16:26 swelling olmesartan [From Benicar] Allergy Mild Rash Verified 03/28/21 16:26 paroxetine Allergy Mild Bad Verified 03/28/21 16:26 dreams, low energy Penicillins Allergy Mild RASH Verified 03/28/21 16:26 Home Medications Medication Instructions Recorded Confirmed Type cyanocobalamin (vitamin B-12) 1,000 mcg PO QDL tab 12/27/18 03/28/21 History 1,000 mcg tablet lorazepam 0.5 mg tablet 0.5 mg PO HS tab 12/27/18 03/28/21 History magnesium chloride 64 mg 64 mg PO BID tab 12/27/18 03/28/21 History (magnesium chloride) tablet,delayed release zdycastn-giy-moayox 5 mg-zeaxanth 1 cap PO QAM 04/28/20 03/28/21 History 1 mg-bilberry 7.5 mg-herbal capsule (Macular Health Formula) cholecalciferol (vitamin D3) 50 4,000 unit PO QDL cap 11/19/20 03/28/21 History mcg (2,000 unit) capsule atenolol 25 mg tablet 50 mg PO QAM tab 01/06/21 03/28/21 History blood sugar diagnostic (OneTouch 01/06/21 03/03/21 History Ultra Test) paroxetine HCl 10 mg tablet (Paxil) 10 mg PO QAM 01/06/21 03/28/21 History amlodipine 10 mg tablet 10 mg PO QAM 03/28/21 03/28/21 History potassium chloride 10 mEq 10 - 20 meq PO UD 03/28/21 03/28/21 History tablet,extended release(part/cryst) sitagliptin 100 mg tablet (Januvia) 100 mg 03/28/21 History Past Med/Surg History Medical History Anxiety Breast cancer, left breast 2001--SX AND RADIATION, NO CHEMO Chronic back pain Chronic ITP (idiopathic thrombocytopenia) Elevated bilirubin per pt reason for scheduled EGD Hearing deficit BILT Hypertension Obesity Spinal stenosis Statin myopathy Type 2 diabetes mellitus, controlled Surgical History Difficult airway for intubation SMALL AIRWAY H/O left breast biopsy History of angioplasty (~01/29/19) stenting of bilateral common iliac artery by Dr. Allred History of bilateral tubal ligation History of cholecystectomy History of dilatation and curettage History of tooth extraction WISDOM TEETH Hx of lumpectomy 2001--L BREAST CANCER Status post epidural steroid injection Family History Daughter Family history of reaction to anesthesia NAUSEA/VOMITING Social History Smoking Status: Current every day smoker Cigarettes Per Day: 15; Second Hand Exposure: No; Do You Dip or Chew Tobacco: No; Hx Alcohol Use: No Hx Substance Use: No Preferred Language: Cook Islander Communication Ability: Effective Cupola Worker Required: No Beliefs That Will Affect Care: None Current Living Situation: Spouse Other Information That Helps Us Care for You: No Feels Safe at Home: Yes Safety Concerns: Feels Safe At This Time Assistive Devices: Glasses Review of Systems Review of Systems: as per HPI Physical Exam Physical Exam: General: Well-appearing 86-year-old female in no acute distress HEENT: Trachea midline. Mucous membranes moist. No JVD Cardiac: Normal rate, regular rhythm. S1 and S2 are present with grade 1 out of 6 systolic ejection murmur best heard at the right upper sternal border Pulmonary: Easy respiratory effort with symmetric expansion of the chest. Nasal cannula in place. There are diminished lung sounds at the left base with associated crackles. Otherwise clear to auscultation throughout Abdominal: Abdomen is soft, nontender, nondistended to palpation Extremities: There is no significant peripheral edema in the lower extremities bilaterally Results & Data Results & Data ([facility]) Vital Signs (Past 12 Hours) Vital Signs Temp Pulse Pulse Resp BP BP Pulse Ox 03/28/21 17:53 92 03/28/21 17:50 91 H 22 146/82 H 88 L 03/28/21 16:51 93 03/28/21 16:44 92 03/28/21 15:53 36.8 C 92 H 20 149/64 H 90 Supervising Physician Co-Signing Physician Notes Attending addendum: I have physically seen this patient, have supervised the medical residents activities, and agree with the H&P unless as otherwise noted. Assessment and Plan: Hypoxia/large left loculated pleural effusion- Concern regarding malignant pleural effusion due to history of breast cancer and ongoing tobacco abuse Radiology consult for diagnostic/therapeutic thoracentesis Vancomycin IV and Zosyn IV Duonebs every 4 hours while awake and every 2 hours when necessary Nasal cannula oxygen, titrate to keep pulse ox 90-92% Follow results of all studies Consult pulmonology Electrolyte disturbances- Potassium 3.4 and magnesium 1.4 Replace via IV replacement, recheck laboratories in a.m. Tobacco abuse- Cessation counseling NicoDerm patch Remaining orders and notations as noted Resident Activity Tracking Resident Involvement: Resident Care Provided Care Provided: Adult Hospital Medicine
[2021-03-28] MEDS ORDERED: ONDANSETRON INJ 2 MG/ML 2 ML VIAL IV PRN (19:43)
[2021-03-28] MEDS ORDERED: POTASSIUM CHLORIDE CRTAB 20 MEQ TABCR PO STA (19:44)
[2021-03-28] MEDS ORDERED: MAGNESIUM SULFATE / D5W 1 GM/100 ML BAG IV ONE (19:44)
[2021-03-28] MEDS ORDERED: ENOXAPARIN INJ 40 MG/0.4 ML SYR SQ SCH (19:45)
[2021-03-28] MEDS: MAGNESIUM CHLORIDE 64MG DELAYED REL TAB PO SCH (22:08)
[2021-03-28] MEDS: LORazepam 0.5 MG TAB PO SCH (22:08)
[2021-03-28] MEDS: POTASSIUM CHLORIDE 10 MEQ TABCR PO SCH (22:09)
[2021-03-29 05:54] LABS: Albumin Globulin Ratio 0.9 (0.9-2); Albumin Level 2.9 gm/dl (3.4-5.0); BUN Creatinine Ratio 18.7 (10-20); Bilirubin,Total 2.5 mg/dl (0.2-1.0); Calcium 8.5 mg/dl (8.5-10.1); Creatinine Clr Calc Pharmacy 47.2 ml/min; Est GFR (African American) 67.1 ml/min; Est GFR (Non-African American) 57.9 ml/min; Globulin 3.1 gm/dl (2.5-4.0); Potassium 3.7 mmol/L (3.5-5.1)
[2021-03-29 06:02] LABS: Hematocrit (blood only) 39.8 % (37-47); Hemoglobin 13.5 g/dL (12.0-16.0); Mean Corpuscular Hemoglobin 31.8 pg (25-34); Mean Corpuscular Hgb Conc 33.9 g/dL (32-36); Mean Corpuscular Volume 93.6 fL (80-100); Mean Platelet Volume 12.3 fL (7.4-10.4); Platelet Count 91 K/uL (130-400); RDW Coefficient of Variation 13.2 % (11.5-14.5); RDW Standard Deviation 45.7 fL (36.4-46.3); Red Blood Count 4.25 M/uL (4.2-5.4); White Blood Count 6.95 K/uL (4.8-10.8)
[2021-03-29 06:03] LABS: Basophils # (auto) 0.02 K/uL (0-0.2); Basophils % (auto) 0.3 %; Eosinophils # (auto) 0.06 K/uL (0-0.5); Eosinophils % (auto) 0.9 %; Immature Granulocytes # (auto) 0.02 K/uL (0.00-0.02); Immature Granulocytes % (auto) 0.3 %; Lymphocytes # (auto) 0.56 K/uL (1.2-3.4); Lymphocytes % (auto) 8.1 %; Monocytes # (auto) 0.61 K/uL (0.11-0.59); Monocytes % (auto) 8.8 %; Neutrophils # (auto) 5.68 K/uL (1.4-6.5); Neutrophils % (auto) 81.6 %; Platelet Estimate Decreased (Normal); RBC Morphology Unremarkable
--- NOTE | 2021-03-29 06:45 | Hospitalist Progress Note ---
Date of Service March 29, 2021 Assessment & Plan (1) Breast cancer: Plan: Elva is an 86-year-old female with a history of previous breast cancer s/p lumpectomy in 2001, type 2 diabetes, hypertension, obesity, previous R osteomyelitis of 5th toe, tobacco abuse who presents for L-sided chest pain, shortness of breath x several days, subsequently found to have evidence concerning for widespread metastatic disease on CT-Chest, with lesions noted throughout: the chest, posterior left breast, axillae, superior mediastinum, left adrenal gland, peritoneum posterior to the liver, and 3 pulmonary nodules. She requires admission primarily for management of her L-sided pleural effusion Hypoxia -- in setting of large L sided pleural effusion Patient has required approximately 2 L/min of nasal cannula since arrival for SpO2 between 88-90%; subjectively felt mildly short of breath. HR in 90s. Suspect to be largely secondary to left-sided pleural effusion. Patient also noted to have significant tobacco use history, over 100 pack years; emphysematous changes were also appreciated on CTchest, also likely contributing No signs or symptoms of DVT, though malignancy is noted. Wells 1. No signs of volume overload. Presentation not largely consistent with pneumonia; no leukocytosis, afebrile. Covid negative. Add pro-Luis Miguel, MRSA swab Plan as outlined below DuoNebs every 6 hours as needed Titrate oxygen as needed to maintain SPO2 over 92% Left-sided pleural effusion -- in the setting of suspected metastatic disease Clinically, patient reporting lateral left-sided chest pain for the last several days as well as increasing shortness of breath CT of the chest demonstrating "moderate and at least partially loculated left- sided pleural effusion with consolidation of the left lower lung." In the setting of metastatic disease, suspect that this is likely exudative and likely secondary to malignancy Radiology consulted for aid in pleurocentesis, draining/sampling this fluid and send off for cytology; can also consider pulmonology consultation in future if recurrence occurs/Pleurx needed Titrate oxygen as needed; minimal right now, respiratory status stable High Suspicion for Metastatic Disease In the setting of ongoing fatigue, weight loss, chills over the last several months CT-Chest demonstrating: "...evidence of widespread metastatic disease. There are numerous enhancing soft tissue lesions throughout the chest wall, as well as lesions within the posterior left breast/infraaxillary region, both axillae, the superior mediastinum, within or adjacent to the left adrenal gland, and within the peritoneum posterior to the liver. Subcentimeter peritoneal implants are also suggested in the left upper quadrant." Also noted is moderate/partially loculated left-sided pleural effusion with consolidation of the left lower lung Insetting of patient's known history of breast cancer, is well as changes noted within the left breast on scan, concerned that this may be primary site; review of outpatient records do appear that last mammogram was over 5 years ago. Attempt to sample/drain pleural effusion for further characterization, as above Patient informed of the results, as noted above. Will require hematology/oncology consultation once further characterized Weight Loss Patient reporting approximately 25 pound weight loss over the past year, also noted in outpatient notes In the setting of the above; likely due to ongoing metastatic disease and generalized inflammation Boost supplementation, consider blocker hand consultation while here or as outpatient History of Breast Cancer -Review of records within our system (2001) reveal h/o [id number] ER+/NM+/[HER2/jenna]-neg IDC s/p lumpectomy and radiation in 2001, no chemo/immunotherapy Last mammogram appears to be over 5 years ago. See above. 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 Hyperbilirubinemia On arrival here, found to have total bilirubin 2.8 in setting of suspected Gilbert's, known radiologic cirrhosis thought to be secondary to NAFLD/WARREN Has followed with [facility] for this and cirrhosis. Elevated total bilirubin has been noted intermittently over the last number of years. Last measurement 1.1 in 12/2020. Their impression is secondary to Gilbert's, h/o cirrhosis noted. Ultrasound 02/2021 demonstrating cirrhosis without hepatic lesions Monitor while here Type 2 diabetes - last A1c 5.4% in 02/2021 via [facility] Hold home medications ACHS glucose checks for 1 day; if persistently over 140, consider adding SSI Hypertension Continue amlodipine, atenolol Anxiety Continue home Ativan, Paxil Hypokalemia, Hypomagnesemia Suspect secondary to poor p.o. intake recently. Encourage boost supplementation. Replete potassium, magnesium Code: Full code. Discussed at length with patient and her . They would like to think about this more as a family, but be marked as full code until discussed further Dispo: MedSurg with telemetry Diet: Carb consistent diet Prophylaxis: Lovenox (2) S/P lumpectomy of breast: (3) Encounter for pre-operative examination: (4) Type 2 diabetes mellitus, controlled: (5) Hypertension: (6) Obesity: (7) Metastatic cancer: (8) Hypoxia: Admission and Anticipated Discharge Date Admission Date: March 28, 2021 Results & Data Results & Data ([facility]) Vital Signs (Past 12 Hours) Vital Signs Temp Pulse Pulse Resp BP BP Pulse Ox 03/29/21 03:23 36.9 C 68 16 146/68 H 93 03/29/21 03:18 88 03/28/21 23:56 87 03/28/21 21:30 36.6 C 85 18 157/69 H 95 03/28/21 20:20 88 24 141/68 H 94 03/28/21 19:47 94 03/28/21 19:00 95 H 20 146/73 H 91
[2021-03-29] MEDS: ATENOLOL 50 MG TABLET PO SCH (07:46)
[2021-03-29] MEDS: POTASSIUM CHLORIDE 10 MEQ TABCR PO SCH ×2 (07:46→20:48)
[2021-03-29] MEDS: CYANOCOBALAMIN (B-12) 500 MCG TABLET PO SCH (07:47)
[2021-03-29] MEDS: CHOLECALCIFEROL 1,000 UNITS 25 MCG TAB PO SCH (07:47)
[2021-03-29] MEDS: PARoxetine HCL 10 MG TAB PO SCH (07:47)
[2021-03-29] MEDS: amLODIPine BESYLATE 5 MG TAB PO SCH (07:47)
[2021-03-29] MEDS: MAGNESIUM CHLORIDE 64MG DELAYED REL TAB PO SCH ×2 (07:47→20:46)
--- NOTE | 2021-03-29 08:17 | Hospitalist Progress Note ---
Date of Service March 29, 2021 Assessment & Plan (1) Breast cancer: Plan: Elva is an 86-year-old female with a history of previous breast cancer s/p lumpectomy and radiation in 2001, type 2 diabetes, hypertension & 100 pack-yr history who presented to the ED with L-sided chest pain, of breath x several days, subsequently found to have a large loculated L pleural effusion with evidence concerning for widespread metastatic disease on CT-Chest. Acute Hypoxic Respiratory Failure-- in the setting of suspected metastatic disease Patient reported left-sided chest pain and shortness of breath requiring oxygen supplementation (2L/min NS) on admission Suspect to be largely secondary to left-sided pleural effusion. Patient also noted to have 100 pack-yr history of tobacco use; emphysematous changes were also appreciated on CTchest, also likely contributing No signs or symptoms of DVT, though malignancy is noted. Wells 1; Revised Cherokee Score 6 Presentation not largely consistent with pneumonia; negative Pro-Luis Miguel; no leukocytosis, afebrile. Covid negative; MRSA negative CT of the chest demonstrating "moderate and at least partially loculated left- sided pleural effusion with consolidation of the left lower lung." In the setting of metastatic disease, suspect that this is likely exudative and secondary to malignancy Thoracentesis today (03/29) with cytology to follow DuoNebs every 6 hours as needed Titrate oxygen as needed; minimal right now, respiratory status stable Undifferentiated Metastatic Cancer In the setting of ongoing fatigue, 25 lb unintentional weight loss over course of last year, chills over the last several months CT-Chest demonstrating evidence of widespread metastatic disease In setting of patient's known history of breast cancer, is well as changes noted within the left breast on scan, concerned that this may be primary site Attempt to sample/drain pleural effusion for further characterization, as above Patient informed of the results; will need oncology follow-up outpatient with Dr. 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 On admission, 2.8 CTAP as described above, also to evaluate liver/gallbladder pathology Trend LFTs while admitted History of Breast Cancer -Review of records within our system (2001) reveal h/o [id number] ER+/RI+/[HER2/jenna]-neg IDC s/p lumpectomy and radiation in 2001, no chemo/immunotherapy Last mammogram appears to be over 5 years ago. See above. Type 2 diabetes - last A1c 5.4% in 02/2021 via [facility] Hold home medications ACHS glucose checks for 1 day; if persistently over 140, consider adding SSI Hypertension Continue amlodipine, atenolol Anxiety Continue home Ativan, Paxil Hypokalemia, Hypomagnesemia Resolved. Suspect secondary to poor p.o. intake recently. Continue to encourage boost supplementation. Code: Full code. Discussed at length with patient and her . They would like to think about this more as a family, but be marked as full code until discussed further Dispo: MedSurg with telemetry Diet: Carb consistent diet; Boost supplementation Prophylaxis: Holding Lovenox at this time given thoracentesis (2) S/P lumpectomy of breast: (3) Encounter for pre-operative examination: (4) Type 2 diabetes mellitus, controlled: (5) Hypertension: (6) Obesity: (7) Metastatic cancer: (8) Hypoxia: Admission and Anticipated Discharge Date Admission Date: March 28, 2021 Supervising Physician Co-Signing Physician Notes Resident Attestation: I have seen the patient with Student Doctor Jermain and agree with the assessment and plan as detailed above. Plan as follows, else see above documentation. 86 yo F with 100 pack year smoking history, Hx breast cancer admitted for acute hypoxic respiratory failure and found to have undifferentiated metastatic cancer. Patient is well developed, no acute distress. RUSB systolic murmur. Decreased breath sounds in left lower lung field. Exam otherwise noncontributory. Acute hypoxic respiratory failure: Doing well on 2LNC. Thoracentesis to remove pleural effusion to improve breathing. Incentive spirometry. Pain control with Tylenol/Toradol (declines opiate medications). No evidence of PE or infection. Metastatic cancer: Unknown primary, however most suspicious of breast cancer primary given Hx ER+RI+HER2- breast cancer vs. lung cancer given long smoking history. Thoracentesis and cytology today with Oncology referral in the outpatient setting. CTAP and CT Head to evaluate for distant mets. Hyperbilirubinemia, cirrhosis: Hx of, however significant elevation from baseline (Tbili 2.8 on admit). CTAP for new liver pathology, daily LFTs. No evidence of hepatic encephalopathy. Jovanna Benites D.O. Attending Physician Attestation: I personally examined the patient and verified all gore points of history and exam, discussed case, and agree with decision making with Dr Benites and Josiah GANNON Seen during and after thoracentesispatient tolerated well. Has a decent amount of chest painworse with a deep breath. Extensive discussions headed by Dr. Benites in regards to diagnosis and next steps. Patient and expressed understanding and asked very good questions. We answered to the best of our ability. Vitals noted, in general she is awake and alert hard of hearing but seems to be oriented no distress. HEENT normocephalic atraumatic mucous membranes moist. Breathing unlabored no accessory muscle use good effort. Large volume taken off during thoracentesis. No focal neuro deficits outside of hard of hearing Hypoxiaappears to be due to large effusion, possibly also splinted breathing due to pain. Pain itself seems most likely due to metastatic disease. Metastatic disease either recurrence of breast or primary lungto be determinedhopefully cytology from thoracentesis will provide answers, if not than chest lesions are probably the most accessible for tissue biopsy. Continue pain control, oxygen, supportive care. Work towards home. otherwise as above Subjective Elva is feeling okay this morning. Her breathing and pain on the L side of her chest feels about the same. She states that she has had some diarrhea since arriving last night which she attributes to taking the magnesium. Denies any chills, night sweats, headache, sore throat, cough, hemoptysis, palpitations, abd pain, nausea, or vomiting. Review of Systems Review of Systems: see HPI Physical Exam Constitutional: WN/WD, lying comfortably in bed no acute distress Eyes: PERRL, no scleral icterus Respiratory: Symmetric chest rise, no appreciated increased work of breathing or accessory muscle use. Upper lung newby clear to auscultation bilaterally. Decreased lung sounds in L middle and lower lung new[place], with crackles heard on L side. R lower lung field diminished sounds. Cardiovascular: regular rate and rhythm. 2/6 holosystolic murmur heard best at left upper sternal border. no rubs or gallops. Skin: no rashes, warm and dry Results & Data Results & Data ([facility]) Vital Signs (Past 12 Hours) Vital Signs Temp Pulse Pulse Resp BP BP Pulse Ox 03/29/21 07:11 37.0 C 79 16 136/47 L 91 03/29/21 03:23 36.9 C 68 16 146/68 H 93 03/29/21 03:18 88 03/28/21 23:56 87 03/28/21 21:30 36.6 C 85 18 157/69 H 95 03/28/21 20:20 88 24 141/68 H 94 Resident Activity Tracking Resident Involvement: Resident Care Provided Care Provided: Adult Hospital Medicine
[2021-03-29] MEDS ORDERED: NON-FORMULARY MEDICATION (Mv-Mn-Lutein-Zeax-Bilber-Hb277 [Macular Health Formula] 5-1-7.5 PO SCH (09:00)
--- NOTE | 2021-03-29 09:03 | Pulmonary Consultation ---
Date of Consultation March 29, 2021 Assessment & Plan (1) Pleural effusion: (2) COPD (chronic obstructive pulmonary disease): (3) Abnormal chest CT: (4) Multiple pulmonary nodules: (5) Acute respiratory failure with hypoxia: CT chest 03/28/2021 personally reviewed: Bilateral pleural effusion appreciated, more on the left side with compression atelectasis of the left lower lobe Radiation fibrosis of the left upper lobe is also appreciated Left superior mediastinal lymphadenopathy which encases the left subclavian artery --Bilateral pleural effusion with acute hypoxic respiratory failure More on the left side Likely from underlying malignancy Patient does seem to have cardiomegaly on the CT chest --> recommend 2D echo For thoracentesis today --Abnormal chest CT with multiple pulmonary nodules Patient does seem to have left upper lobe fibrosis from radiation therapy Pulmonary nodules bilaterally Likely representing metastatic disease Possibility of breast cancer with metastasis is on the higher side especially given the history of breast CA in the past Lung cancer is also in the differential --COPD with active smoking We will start Anoro on a daily basis Encouraged to quit smoking Plan: Follow-up labs and cytology from thoracentesis If more tissue is needed then would recommend to have the breast mass or the axillary lymph node biopsied Oral prognosis of the patient is guarded Pain management Recommend palliative care consult as well Case discussed with primary team Please note the above document was generated using voice recognition software. It may contain grammatical, syntax or spelling errors.Any formal questions or co ncerns about the content, text or information contained within the body of this dictation should be directly addressed to the provider for clarification. History of Present Illness Attending Physician: Renzo Box DO History of Present Illness 86-year-old female presented to the hospital with complaints of shortness of breath and generalized lethargy Past medical history: Left-sided breast CA 2002 s/p lumpectomy and radiation, type 2 diabetes, hypertension Patient complains of left-sided chest pain and shortness of breath which has been going on for several days. CT chest was done in the ED which showed bilateral pleural effusion with pulmonary nodules as well as nodule in the left axilla. Pulmonary clinic consulted for pleural effusion At the time of examination patient was lying in the left decubitus position. She is complained of left-sided chest pain which was worse when she took deep breaths. Denied any headache, no nausea or vomiting She does complain of significant weight loss which is approximately 25 pounds in the 6-8 months No nausea vomiting, no blurry vision, no dysuria, no diarrhea. Social history: Greater than [id number] smoking history, currently smoking a pack a day. Allergies Allergy/AdvReac Type Severity Reaction Status Date / Time atorvastatin Allergy Mild aches Verified 03/28/21 16:26 cephalexin [From Keflex] Allergy Mild Aches,drows Verified 03/28/21 16:26 iness clarithromycin Allergy Mild Hives Verified 03/28/21 16:26 escitalopram [From Lexapro] Allergy Mild Shakiness Verified 03/28/21 16:26 fluoxetine Allergy Mild Increased Verified 03/28/21 16:26 anxiety latex Allergy Mild RASH Verified 03/28/21 16:26 lisinopril Allergy Mild Cough Verified 03/28/21 16:26 nefazodone [From Serzone] Allergy Mild ankle Verified 03/28/21 16:26 swelling olmesartan [From Benicar] Allergy Mild Rash Verified 03/28/21 16:26 paroxetine Allergy Mild Bad Verified 03/28/21 16:26 dreams, low energy Penicillins Allergy Mild RASH Verified 03/28/21 16:26 Home Medications Medication Instructions Recorded Confirmed Type cyanocobalamin (vitamin B-12) 1,000 mcg PO QDL tab 12/27/18 03/28/21 History 1,000 mcg tablet lorazepam 0.5 mg tablet 0.5 mg PO HS tab 12/27/18 03/28/21 History magnesium chloride 64 mg 64 mg PO BID tab 12/27/18 03/28/21 History (magnesium chloride) tablet,delayed release [id number] 5 mg-zeaxanth 1 cap PO QAM 04/28/20 03/28/21 History 1 mg-bilberry 7.5 mg-herbal capsule (Macular Health Formula) cholecalciferol (vitamin D3) 50 4,000 unit PO QDL cap 11/19/20 03/28/21 History mcg (2,000 unit) capsule atenolol 25 mg tablet 50 mg PO QAM tab 01/06/21 03/28/21 History blood sugar diagnostic (OneTouch 01/06/21 03/03/21 History Ultra Test) paroxetine HCl 10 mg tablet (Paxil) 10 mg PO QAM 01/06/21 03/28/21 History amlodipine 10 mg tablet 10 mg PO QAM 03/28/21 03/28/21 History potassium chloride 10 mEq 10 - 20 meq PO UD 03/28/21 03/28/21 History tablet,extended release(part/cryst) sitagliptin 100 mg tablet (Januvia) 100 mg 03/28/21 History Patient History Medical History Anxiety Breast cancer, left breast 2001--SX AND RADIATION, NO CHEMO Chronic back pain Chronic ITP (idiopathic thrombocytopenia) Elevated bilirubin per pt reason for scheduled EGD Hearing deficit BILT Hypertension Obesity Spinal stenosis Statin myopathy Type 2 diabetes mellitus, controlled Surgical History Difficult airway for intubation SMALL AIRWAY H/O left breast biopsy History of angioplasty (~01/29/19) stenting of bilateral common iliac artery by Dr. Allred History of bilateral tubal ligation History of cholecystectomy History of dilatation and curettage History of tooth extraction WISDOM TEETH Hx of lumpectomy 2001--L BREAST CANCER Status post epidural steroid injection Family History Daughter Family history of reaction to anesthesia NAUSEA/VOMITING Social History Smoking Status: Current every day smoker Cigarettes Per Day: 15; Second Hand Exposure: No; Do You Dip or Chew Tobacco: No; Hx Alcohol Use: No Hx Substance Use: No Preferred Language: [place]ese Communication Ability: Effective Mining Analyst Required: No Beliefs That Will Affect Care: None Current Living Situation: Spouse Other Information That Helps Us Care for You: No Feels Safe at Home: Yes Safety Concerns: Feels Safe At This Time Assistive Devices: Glasses Review of Systems Review of Systems: All systems reviewed & are unremarkable except as noted in HPI & below Physical Exam Physical Exam: Constitutional: No acute distress HEENT: EOMI, PERRLA Respiratory system: Decreased air entry bilaterally, no wheeze, LAMA, positive crackles bilateral lower lobes CVS: S1-S2 positive, positive 2 out of 6 murmur appreciated best at the aorta Abdomen: Soft, nontender, nondistended, positive bowel sounds x4 Extremities: +2 pulses bilaterally radialis/ dorsalis pedis, no cyanosis, no edema Neuro: Awake alert oriented x3 Psych: Normal mood and affect G/U: No Bray Skin: no rashes, warm and dry Lymphatic: no cervical or axillary lymphadenopathy Results & Data Results & Data ([facility]) Vital Signs (Past 12 Hours) Vital Signs Temp Pulse Pulse Resp BP Pulse Ox 03/29/21 07:11 37.0 C 79 16 136/47 L 91 03/29/21 03:23 36.9 C 68 16 146/68 H 93 03/29/21 03:18 88 03/28/21 23:56 87 03/28/21 21:30 36.6 C 85 18 157/69 H 95 Laboratory Results 03/29/21 05:18 03/29/21 05:18 PG Care Time/CCT Total # of Minutes Spent Total Time Spent with Patient: Total time spent is greater than 50% in coordination of care (as documented) at patient's floor/unit and/or counseling patient: Coding Level of Care Code 75714 Initial Inpt Care Lvl 3 Diagnoses Pleural effusion J90 COPD (chronic obstructive pulmonary disease) J44.[address] R93.89 Multiple pulmonary nodules R91.8 Acute respiratory failure with hypoxia J96.01
--- NOTE | 2021-03-29 09:20 | Electrocardiogram Report ---
Test Reason : Blood Pressure : / mmHG Vent. Rate : 081 BPM Atrial Rate : 081 BPM P-R Int : 156 ms QRS Dur : 084 ms QT Int : 410 ms P-R-T Axes : 038 002 018 degrees QTc Int : 476 ms Normal sinus rhythm Normal ECG When compared with ECG of 29-AUG-2016 14:58, No significant change was found Confirmed by Hilton Soliman ([id number]) on 03/29/2021 9:20:09 AM Referred By: REFERRED SELF Confirmed By:Hilton Soliman
--- NOTE | 2021-03-29 09:24 | Emergency Department Note ---
Impression & Plan Hypoxia, Metastatic adenocarcinoma, Pleural effusion, Tobacco abuse disorder, H/O malignant neoplasm of breast ED Provider Note CHIEF COMPLAINT: Left-sided chest pain, productive cough HISTORY OF PRESENT ILLNESS: This 86-year-old female patient presents to the emergency department with complaints of left-sided chest discomfort that began yesterday as well as a productive cough. She states it is a clearish sputum. The pain is worse with activity, deep breathing and coughing. She denies any fevers or chills. Patient does monitor her pulse ox quite frequently at home. states it has been dropping into the high 80s, particularly when she lies on her right side. The patient is a heavy smoker, up to 2 packs/day. She does have a remote history of breast cancer 20 years ago. Patient was resistant to coming to the hospital today but agreed at the encouragement of her . She denies any substernal chest pressure or radiation of the discomfort into her jaw or arms. She denies nausea and diaphoresis. REVIEW OF SYSTEMS: A review of systems was performed with positives and pertinent negatives listed in the history of present illness. 10 systems were reviewed and are otherwise negative. ALLERGIES: see below MEDICATIONS: see below PMH: see below SOCIAL HISTORY: see below DDx: Cardiac ischemia, aortic dissection, pulmonary embolism, pneumothorax, pneumonia, pericarditis, myocarditis, esophageal rupture, GERD, cholecystitis, pancreatitis, musculoskeletal, as well as other pathologies. PHYSICAL EXAM: Vital signs reviewed. Pulse ox noted to be about 90%, sitting up on room air. General: Well-appearing, elderly 86-year-old female, in no significant distress. HEENT: No scleral icterus, PERRLA, neck supple. Atraumatic. Cardiovascular: Tachycardic rate and regular rhythm, no extra sounds. Pulmonary: Normal work of breathing on room air, diminished left-sided basilar breath sounds crackles to the mid and upper lung nebwy bilaterally. Abdomen: Soft, nontender, nondistended, positive bowel sounds. Musculoskeletal: Atraumatic, no peripheral edema. Neurologic: Patient awake alert and oriented x 3, speech is clear Skin: Warm, dry, no rash EMERGENCY DEPARTMENT COURSE/MDM: This patient was evaluated and appeared to be in no significant distress. Patient seems to be very anxious at baseline but otherwise fairly well-appearing. Patient was placed on a ekg monitor and noted to be in a sinus tachycardia. IV access was obtained and laboratory work was drawn. EKG reveals no evidence of acute ischemia. chest x-ray was performed and reveals a left-sided pleural effusion. Given the patient's heavy smoking history, CT scan of the chest was then performed and reveals diffuse metastatic disease. The patient did become hypoxic to 88% on room air. She will require further diagnostic testing likely thoracentesis. I did discuss the results with the patient and her at the bedside. She has remained stable on 2 L nasal cannula oxygen. Patient was referred to the inpatient team for further evaluation and management. MONITORING: An order for cardiac monitoring was placed and the patient is noted to be in a normal sinus rhythm at 91 beats per minute. RADIOLOGY: See below EKG: Normal sinus rhythm [address] segments, normal axis. Slightly prolonged QTC of 476. No PVC, no PAC. DISPOSITION: Admission Past Med/Surg History Medical History Anxiety Breast cancer, left breast 2001--SX AND RADIATION, NO CHEMO Chronic back pain Chronic ITP (idiopathic thrombocytopenia) Elevated bilirubin per pt reason for scheduled EGD Hearing deficit BILT Hypertension Obesity Spinal stenosis Statin myopathy Type 2 diabetes mellitus, controlled Surgical History Difficult airway for intubation SMALL AIRWAY H/O left breast biopsy History of angioplasty (~01/29/19) stenting of bilateral common iliac artery by Dr. Allred History of bilateral tubal ligation History of cholecystectomy History of dilatation and curettage History of tooth extraction WISDOM TEETH Hx of lumpectomy 2001--L BREAST CANCER Status post epidural steroid injection Family History Daughter Family history of reaction to anesthesia NAUSEA/VOMITING Social History Smoking Status: Current every day smoker Cigarettes Per Day: 15; Second Hand Exposure: No; Do You Dip or Chew Tobacco: No; Hx Alcohol Use: No Hx Substance Use: No Preferred Language: Macedonian Communication Ability: Effective Party Plan Sales Agent Required: No Beliefs That Will Affect Care: None Current Living Situation: Spouse Other Information That Helps Us Care for You: No Feels Safe at Home: Yes Safety Concerns: Feels Safe At This Time Assistive Devices: Glasses, Hearing Aid - Bilateral, Hearing Aid - Left and Hearing Aid - Right Allergies Allergies Allergy/AdvReac Type Severity Reaction Status Date / Time atorvastatin Allergy Mild aches Verified 03/28/21 16:26 cephalexin [From Keflex] Allergy Mild Aches,drows Verified 03/28/21 16:26 iness clarithromycin Allergy Mild Hives Verified 03/28/21 16:26 escitalopram [From Lexapro] Allergy Mild Shakiness Verified 03/28/21 16:26 fluoxetine Allergy Mild Increased Verified 03/28/21 16:26 anxiety latex Allergy Mild RASH Verified 03/28/21 16:26 lisinopril Allergy Mild Cough Verified 03/28/21 16:26 nefazodone [From Serzone] Allergy Mild ankle Verified 03/28/21 16:26 swelling olmesartan [From Benicar] Allergy Mild Rash Verified 03/28/21 16:26 paroxetine Allergy Mild Bad Verified 03/28/21 16:26 dreams, low energy Penicillins Allergy Mild RASH Verified 03/28/21 16:26 Home Meds Home Medications Medication Instructions Recorded Confirmed cyanocobalamin (vitamin B-12) 1,000 mcg PO QDL tab 12/27/18 03/28/21 1,000 mcg tablet lorazepam 0.5 mg tablet 0.5 mg PO HS tab 12/27/18 03/28/21 magnesium chloride 64 mg 64 mg PO BID tab 12/27/18 03/28/21 (magnesium chloride) tablet,delayed release [id number] 5 mg-zeaxanth 1 cap PO QAM 04/28/20 03/28/21 1 mg-bilberry 7.5 mg-herbal capsule (Macular Health Formula) cholecalciferol (vitamin D3) 50 4,000 unit PO QDL cap 11/19/20 03/28/21 mcg (2,000 unit) capsule atenolol 25 mg tablet 50 mg PO QAM tab 01/06/21 03/28/21 blood sugar diagnostic (OneTouch 01/06/21 03/03/21 Ultra Test) paroxetine HCl 10 mg tablet (Paxil) 10 mg PO QAM 01/06/21 03/28/21 amlodipine 10 mg tablet 10 mg PO QAM 03/28/21 03/28/21 potassium chloride 10 mEq 10 - 20 meq PO UD 03/28/21 03/28/21 tablet,extended release(part/cryst) sitagliptin 100 mg tablet (Januvia) 100 mg 03/28/21 Results & Data (ED) Vital Signs Vital Signs - 24 hr 03/28/21 15:53 03/28/21 16:44 03/28/21 16:51 Temperature 36.8 C Temperature Source Temporal Artery Scan Pulse Rate 92 H Pulse Rate [Apical] Pulse Rhythm [Apical] Pulse Strength [Apical] Respiratory Rate 20 Respiratory Effort / Characteristics Spontaneous Respiratory Depth Normal Respiratory Pattern Regular Blood Pressure 149/64 H Blood Pressure [Right Arm] Blood Pressure Mean 92 Blood Pressure Mean [Right Arm] Blood Pressure Position [Right Arm] Pulse Oximetry 90 92 93 Oxygen Delivery Method Room Air Room Air Room Air Oxygen Flow Rate 0 Sepsis Recent Fever Within 48 Hours No Sepsis New/Unexplained Change in Mental Status No Sepsis Action Taken by Nursing No Action Required 03/28/21 17:50 03/28/21 17:53 03/28/21 19:00 Temperature Temperature Source Pulse Rate Pulse Rate [Apical] 91 H 95 H Pulse Rhythm [Apical] Regular Pulse Strength [Apical] Normal Respiratory Rate 22 20 Respiratory Effort / Characteristics Non-Labored Respiratory Depth Normal Respiratory Pattern Regular Blood Pressure Blood Pressure [Right Arm] 146/82 H 146/73 H Blood Pressure Mean Blood Pressure Mean [Right Arm] 103 97 Blood Pressure Position [Right Arm] Lying Pulse Oximetry 88 L 92 91 Oxygen Delivery Method Room Air Nasal Cannula Nasal Cannula Oxygen Flow Rate 0 2 2 Sepsis Recent Fever Within 48 Hours Sepsis New/Unexplained Change in Mental Status Sepsis Action Taken by Nursing Laboratory Data Attestation: I reviewed the patient's lab results. Result diagrams: 03/29/21 05:18 03/29/21 05:18 Lab Results 03/28/21 03/28/21 03/28/21 Range/Units 16:33 16:33 16:33 WBC 10.09 (4.8-10.8) K/uL RBC 4.51 (4.2-5.4) M/uL Hgb 14.6 (12.0-16.0) g/dL Hct 42.6 (37-47) % MCV 94.5 (80-100) fL MCH 32.4 (25-34) pg MCHC 34.3 (32-36) g/dL RDW Std Deviation 45.5 (36.4-46.3) fL RDW Coeff of Ej 13.1 (11.5-14.5) % Plt Count 103 L (130-400) K/uL MPV 13.0 H (7.4-10.4) fL Immature Gran % (Auto) 0.2 % Neut % (Auto) 89.2 % Lymph % (Auto) 4.8 % [place] % (Auto) 5.6 % Eos % (Auto) 0.0 % Baso % (Auto) 0.2 % Neut # (Auto) 9.00 H (1.4-6.5) K/uL Lymph # (Auto) 0.48 L (1.2-3.4) K/uL [place] # (Auto) 0.57 (0.11-0.59) K/uL Eos # (Auto) 0.00 (0-0.5) K/uL Baso # (Auto) 0.02 (0-0.2) K/uL Immature Gran # (Auto) 0.02 (0.00-0.02) K/uL PT 12.0 (9.0-12.0) Seconds INR 1.2 H (0.9-1.1) APTT 32.8 H (21.0-31.0) Seconds PTT Ratio 1.2 Sodium 133 L (136-145) mmol/L Potassium 3.4 L (3.5-5.1) mmol/L Chloride 97 L (98-107) mmol/L Carbon Dioxide 26 (21-32) mmol/L Anion Gap 10 (3-11) BUN 17 (6-23) mg/dl Creatinine 1.08 (0.6-1.2) mg/dl Est Cr Clr Drug Dosing Not Reportable Est GFR ( Amer) 54.6 ml/min Est GFR (Non-Af Amer) 47.1 ml/min BUN/Creatinine Ratio 15.7 (10-20) Glucose 141 H (70-99(Fasting)) mg/dl Calcium 9.2 (8.5-10.1) mg/dl Magnesium 1.4 L (1.7-2.4) mg/dl Total Bilirubin 2.8 H (0.2-1.0) mg/dl AST 16 (13-39) U/L ALT 7 (7-52) U/L Alkaline Phosphatase 62 (34-104) U/L Troponin I 0.03 (0-0.04) ng/ml Total Protein 6.9 (6.0-8.3) gm/dl Albumin 3.3 L (3.4-5.0) gm/dl Globulin 3.6 (2.5-4.0) gm/dl Albumin/Globulin Ratio 0.9 (0.9-2) Procalcitonin (0-0.5) ng/ml Urine Color Urine Appearance (Clear) Urine pH (4.5-7.5) Ur Specific [place] (1.000-1.030) Urine Protein (Negative) Urine Glucose (UA) (Negative) Urine Ketones (Negative) Urine Blood (Negative) Urine Nitrite (Negative) Urine Bilirubin (Negative) Urine Urobilinogen (Negative) Ur Leukocyte Esterase (Negative) SARS-CoV-2, RNA, NAAT (NEGATIVE) 03/28/21 03/28/21 03/28/21 Range/Units 16:33 16:41 19:18 WBC (4.8-10.8) K/uL RBC (4.2-5.4) M/uL Hgb (12.0-16.0) g/dL Hct (37-47) % MCV (80-100) fL MCH (25-34) pg MCHC (32-36) g/dL RDW Std Deviation (36.4-46.3) fL RDW Coeff of Ej (11.5-14.5) % Plt Count (130-400) K/uL MPV (7.4-10.4) fL Immature Gran % (Auto) % Neut % (Auto) % Lymph % (Auto) % [place] % (Auto) % Eos % (Auto) % Baso % (Auto) % Neut # (Auto) (1.4-6.5) K/uL Lymph # (Auto) (1.2-3.4) K/uL [place] # (Auto) (0.11-0.59) K/uL Eos # (Auto) (0-0.5) K/uL Baso # (Auto) (0-0.2) K/uL Immature Gran # (Auto) (0.00-0.02) K/uL PT (9.0-12.0) Seconds INR (0.9-1.1) APTT (21.0-31.0) Seconds PTT Ratio Sodium (136-145) mmol/L Potassium (3.5-5.1) mmol/L Chloride (98-107) mmol/L Carbon Dioxide (21-32) mmol/L Anion Gap (3-11) BUN (6-23) mg/dl Creatinine (0.6-1.2) mg/dl Est Cr Clr Drug Dosing Est GFR ( Amer) ml/min Est GFR (Non-Af Amer) ml/min BUN/Creatinine Ratio (10-20) Glucose (70-99(Fasting)) mg/dl Calcium (8.5-10.1) mg/dl Magnesium (1.7-2.4) mg/dl Total Bilirubin (0.2-1.0) mg/dl AST (13-39) U/L ALT (7-52) U/L Alkaline Phosphatase (34-104) U/L Troponin I (0-0.04) ng/ml Total Protein (6.0-8.3) gm/dl Albumin (3.4-5.0) gm/dl Globulin (2.5-4.0) gm/dl Albumin/Globulin Ratio (0.9-2) Procalcitonin 0.13 (0-0.5) ng/ml Urine Color Yellow Urine Appearance Clear (Clear) Urine pH 6.0 (4.5-7.5) Ur Specific [place] 1.022 (1.000-1.030) Urine Protein Negative (Negative) Urine Glucose (UA) Negative (Negative) Urine Ketones Negative (Negative) Urine Blood Negative (Negative) Urine Nitrite Negative (Negative) Urine Bilirubin Negative (Negative) Urine Urobilinogen Negative (Negative) Ur Leukocyte Esterase Negative (Negative) SARS-CoV-2, RNA, NAAT NEGATIVE (NEGATIVE) Administered Medications Amlodipine Besylate (Amlodipine Besylate 5 Mg Tab) 10 mg PO [facility] Stop: 04/28/21 08:59 Last Admin: 03/29/21 07:47 Dose: 10 mg Documented by: [id number] Atenolol (Atenolol 50 Mg Tablet) 50 mg PO [facility] Stop: 04/28/21 08:59 Last Admin: 03/29/21 07:46 Dose: 50 mg Documented by: [id number] Cyanocobalamin (Cyanocobalamin 500 Mcg Tablet (Vitamin B-12)) 1,000 mcg PO QDL [facility] Stop: 04/28/21 11:29 Last Admin: 03/29/21 07:47 Dose: 1,000 mcg Documented by: [id number] Enoxaparin Sodium (Enoxaparin Inj 40 Mg/0.4 Ml Syr) 40 mg SQ Q24H [facility] Stop: 04/27/21 19:44 Last Admin: 03/28/21 22:09 Dose: 40 mg Documented by: [id number] Lorazepam (Lorazepam 0.5 Mg Tab) 0.5 mg PO HS [facility] Stop: 04/27/21 20:59 Last Admin: 03/28/21 22:08 Dose: 0.5 mg Documented by: [id number] Magnesium Chloride (Magnesium Chloride 64mg Delayed Rel Tab) 64 mg PO BID [facility] Stop: 04/27/21 20:59 Last Admin: 03/29/21 07:47 Dose: 64 mg Documented by: [id number] Admin: 03/28/21 22:08 Dose: 64 mg Documented by: [id number] Miscellaneous (Remove Nicoderm Patch) 1 ea N/A DAILY@0859 [facility] Stop: 04/28/21 08:58 Last Admin: 03/29/21 07:48 Dose: 1 ea Documented by: [id number] Paroxetine HCl (Paroxetine Hcl 10 Mg Tab) 10 mg PO QAM [facility] Stop: 04/28/21 08:59 Last Admin: 03/29/21 07:47 Dose: 10 mg Documented by: [id number] Potassium Chloride (Potassium Chloride 10 Meq Tabcr) 20 meq PO QAM [facility] Stop: 04/28/21 08:59 Last Admin: 03/29/21 07:46 Dose: 20 meq Documented by: [id number] Potassium Chloride (Potassium Chloride 10 Meq Tabcr) 10 meq PO PM [facility] Stop: 04/27/21 20:59 Last Admin: 03/28/21 22:09 Dose: 10 meq Documented by: [id number] Vitamin D (Cholecalciferol 1,000 Units 25 Mcg Tab) 4,000 units PO QDL [facility] Stop: 04/28/21 11:29 Last Admin: 03/29/21 07:47 Dose: 4,000 units Documented by: [id number] Discontinued Medications Sodium Chloride (Nss 1000ml) 1,000 mls @ 100 mls/hr IV .Q10H [facility] Stop: 03/29/21 02:29 Last Infusion: 03/29/21 03:15 Dose: 0 mls/hr Documented by: [id number] Admin: 03/28/21 16:43 Dose: 100 mls/hr Documented by: [id number] Magnesium Sulfate/Dextrose (Magnesium Sulfate / D5w) 1 gm in 100 mls @ 200 mls/hr IV Q30M [facility] Stop: 03/28/21 18:47 Last Infusion: 03/28/21 19:20 Dose: 0 mls/hr Documented by: [id number] Admin: 03/28/21 18:39 Dose: 200 mls/hr Documented by: [id number] Infusion: 03/28/21 18:39 Dose: 200 mls/hr Documented by: [id number] Admin: 03/28/21 18:09 Dose: 200 mls/hr Documented by: [id number] Magnesium Sulfate/Dextrose (Magnesium Sulfate / D5w) 1 gm in 100 mls @ 50 mls/hr IV ONE ONE Stop: 03/28/21 21:43 Last Infusion: 03/28/21 22:13 Dose: 0 mls/hr Documented by: [id number] Admin: 03/28/21 19:58 Dose: 50 mls/hr Documented by: [id number] Ioversol (Optiray 320 100ml) 95 ml IV ONCE ONE Stop: 03/28/21 18:02 Last Admin: 03/28/21 18:01 Dose: 1 ml Documented by: [id number] Nicotine (Nicotine 14 Mg/24 Hr Patch) 14 mg TD NOW STA Stop: 03/28/21 19:36 Last Admin: 03/28/21 19:46 Dose: 14 mg Documented by: [id number] Potassium Chloride (Potassium Chloride Crtab 20 Meq Tabcr) 40 meq PO NOW STA Stop: 03/28/21 19:45 Last Admin: 03/28/21 19:59 Dose: 40 meq Documented by: [id number] Imaging Data Radiologist's Impression: Chest X-Ray 03/28/21 16:23 SINGLE VIEW CHEST CLINICAL HISTORY: Dyspnea. FINDINGS: An AP, portable, upright chest radiograph is compared to study dated 10/11/2016. The heart is enlarged noting atherosclerotic calcification of the thoracic aorta. There is pulmonary vascular congestion. There is a layering left pleural effusion with left basilar consolidation. The right lung appears clear noting basilar atelectasis. No pneumothorax is seen. The skeletal structures are osteopenic. The bony thorax is grossly intact. Surgical clips are noted in the left axilla. IMPRESSION: 1. Cardiomegaly with pulmonary vascular congestion. 2. Layering left pleural effusion with associated left basilar consolidation. ACT 112: Negative or not required by law. Electronically signed by: Alexei Gerber M.D. 03/28/2021 4:[address] 03/28/21 17:48 CT SCAN OF THE CHEST WITH IV CONTRAST CLINICAL HISTORY: Pleural effusion. left-sided chest pain. COMPARISON STUDY: Chest x-ray dated 03/28/2021. Abdominal CT dated 01/30/2016. TECHNIQUE: Following the IV administration of 95 cc of Optiray 320, CT scan of the thorax was performed from the thoracic inlet to the upper abdomen. Images are reviewed in the axial, sagittal, and coronal planes. IV contrast was administered without complication. A dose lowering technique was utilized adhering to the principles of ALARA. CT DOSE: 253.22 mGy.cm FINDINGS: Thyroid: Mildly enlarged and heterogeneous. Thoracic aorta: There is advanced atherosclerotic calcification of the thoracic aorta, which is normal in caliber and demonstrates standard 3-vessel arch anatomy. No dissection is seen. Pulmonary vasculature: The pulmonary trunk is normal in caliber. There are no filling defects identified in the central pulmonary vessels to indicate pulmonary embolus. Note that this examination was not protocoled for evaluation of the pulmonary arteries. Heart: The heart is enlarged and without pericardial effusion. The coronary arteries, aortic valve leaflets, and mitral annulus are densely calcified. Lungs and pleural spaces: Evaluation of the lung parenchyma is degraded by motion artifact. Emphysema is noted. Consolidation/fibrosis is noted at the left apex on image #56. There is a moderate and at least partially loculated left pleural effusion with consolidation at the left lung base. A small pleural effusion is seen on the right. Segmental atelectasis is noted in the right middle lobe. A 9 mm pulmonary nodule in the right lower lobe as seen on image #172. Additional subcentimeter nodules at the right lung base are seen on image #229 and at the right apex on image #59. No left-sided pulmonary lesion is clearly identified. Mediastinum: There is infiltrative soft tissue in the left superior mediastinum on image #33 measuring 2.7 x 3.2 cm. This encases the left subclavian artery. There are several additional subcentimeter mediastinal lymph nodes. [place]ine[place]: Clear. Axillae: There is an enhancing mass within the posterior left breast/infraaxillary region on axial image #136. This measures 3.3 x 2.8 x 1.7 cm. Surgical clips are noted in the left axilla. A 2.3 x 1.5 cm lesion is seen in the deep left axilla on image #22. An enlarged right axillary node on image #84 measures 2.5 x 2.1 cm. Upper abdomen: A lesion within or adjacent to the left adrenal gland measures 5.0 x 3.4 cm. No right adrenal lesion is seen. An indeterminant soft tissue implant is seen posterior to the right lobe of the liver below the diaphragm on image #273. This measures 2.6 x 1.6 cm. The spleen appears enlarged. Peritoneal nodularity is suggested in the left upper quadrant on image #254. Skeletal structures: The skeletal structures are osteopenic. No lytic or blastic bony lesions are seen. Degenerative change is noted in the shoulders and thoracic spine. Soft tissues: There are numerous enhancing soft tissue implants identified throughout the chest wall bilaterally. A 3.8 cm lesion in the right chest wall is seen on image #206 and a more inferiorly located lesion in the right chest wall on image #254 measures 3.2 cm. A 4.1 cm lesion in the left chest wall is seen on image #189, and a subcentimeter lesion in the posterior left chest wall as seen on image #255. Numerous additional lesions are noted. Postoperative change and dermal thickening is noted in the left breast. IMPRESSION: 1. Cardiomegaly and emphysema. 2. There is a moderate and at least partially loculated left pleural effusion with consolidation of the left lower lung. Additionally, there is fibrotic change/consolidation at the left apex. Correlate clinically for evidence of pneumonia. 3. There is a small right pleural effusion. 4. There is evidence of widespread metastatic disease. There are numerous enhancing soft tissue lesions throughout the chest wall, as well as lesions within the posterior left breast/infraaxillary region, both axillae, the superior mediastinum, within or adjacent to the left adrenal gland, and within the peritoneum posterior to the liver. Subcentimeter peritoneal implants are also suggested in the left upper quadrant. The primary site of neoplasm is not delineated. Correlate with the patient's oncological history. 5. There are at least 3 pathologically indeterminant right pulmonary nodules which are also suspicious for metastatic disease. 6. No pleural lesions are clearly identified. 7. Postoperative change and dermal thickening is noted in the left breast. 8. Additional findings as above. ACT 112: Negative or not required by law. Electronically signed by: Alexei Gerber M.D. 03/28/2021 7:06 PM Blood Pressure Blood Pressure Findings: Elevated blood pressure Blood Pressure Disposition: further management by hospitalist Discharge Plan Visit Data Chief Complaint: Rib Injury/Pain Stated Complaint: LOW OXYGEN, HIGH HR, RIB PAIN ED Provider: Adriana Fuentes Discharge Problem: Hypoxia, Metastatic adenocarcinoma, Pleural effusion, Tobacco abuse disorder, H /O malignant neoplasm of breast Patient Disposition: Admitted As Inpatient Discharge Instructions Interventions: ED Discharge Assessment Last Done: 03/28/21 20:20
[2021-03-29] MEDS ORDERED: LORazepam 0.5 MG TAB PO STA (09:45)
[2021-03-29] MEDS: ACETAMINOPHEN 325 MG TAB PO PRN (10:46)
[2021-03-29] MEDS ORDERED: KETOROLAC TROMETHAMINE 15 MG/ML VIAL IV ONE (14:36)
[2021-03-29] MEDS ORDERED: KETOROLAC TROMETHAMINE 15 MG/ML VIAL ONE (14:41)
--- NOTE | 2021-03-29 15:10 | XRay Report ---
XR chest 1V portable CLINICAL HISTORY: Status post left thoracentesis. Evaluate for pneumothorax.. COMPARISON STUDY: 03/28/2021 TECHNIQUE: 1 view of the chest FINDINGS: Single frontal view of the chest demonstrates the heart size to again be enlarged. Compared to previo us study, there is evidence for left thoracentesis with residual left pleural effusion still present. There is no evidence for pneumothorax. There is again evidence for right basilar atelectasis. The re mainder of the lungs are clear. There is no evidence for right pleural effusion. There is no evidence for vascular congestion. There is no acute osseous pathology. IMPRESSION: Status post left thoracentesis with no evidence for pneumothorax. There is significant re sidual left pleural effusion and left basilar atelectasis. ACT 112: Negative or not required by law. Electronically signed by: Redd Vega M.D. 03/29/2021 3:08 PM
--- NOTE | 2021-03-29 15:11 | Procedure Note ---
Procedure Note Date of Service March 29, 2021 Note Procedure: Diagnostic therapeutic ultrasound-guided catheter thoracentesis Dermatology Sales Representative: Dr. Ezio Zabala Indication: Left-sided pleural effusion Consent: Signed by patient and verified with timeout prior to procedure Anesthesia: 1% lidocaine without epinephrine local. Procedure: Consent was verified and timeout performed. Appropriate imaging studies were reviewed prior to the procedure. Patient was placed in a seated position and limited thoracic ultrasound was performed of the left chest. See separate imaging. Appropriate site above the diaphragm for thoracentesis was selected. The skin was prepped and draped in normal sterile fashion. Lidocaine was used for local analgesia. Fluid was aspirated via the finder needle. A small skin julius was made with the scalpel and the catheter over the needle apparatus was advanced over the rib into the pleural space. Using the syringe one-way valve system, a total of 950 mL's of dark cloudy sanguinous fluid was removed. The catheter was removed and observed to be intact. A sterile dressing was applied. Post procedure chest x-ray was ordered. Fluid was sent for labs, culture and cytology. Complications: None Blood loss: None Coding CPT Codes Pulmonary/Thoracic - Pulmonary and Thoracic: 58989 Thoracentesis w imaging ([id number]) [facility] [place]Charges) Pulmonary/Thoracic Procedure 1: Pulmonary and Thoracic: 55449 Thoracentesis w imaging
[2021-03-29 15:34] LABS: Glucose Pleural Fluid 106 mg/dl
[2021-03-29 15:40] LABS: Amylase Pleural Fluid 17 U/L; LDH Pleural Fluid 288 U/L; Total Protein Pleural Fluid 3.4 g/dl
--- NOTE | 2021-03-29 15:42 | Billing Data ---
Date of Service March 29, 2021 Coding Level of Care Code 89570 Subseq Hosp Care Lvl 3
[2021-03-29 16:20] LABS: Albumin Level 2.9 gm/dl (3.4-5.0); Bilirubin,Total 2.3 mg/dl (0.2-1.0); Total Protein 6.1 gm/dl (6.0-8.3)
[2021-03-29 16:40] LABS: Appearance Pleural Fluid HAZY; Basophils, Fluid 0 %; Color Pleural Fluid AMBER; Eosinophils, Fluid 0 %; Lymphocytes, Fluid 7 %; Mono,Macrophage,Mesothelial 8 %; Neutrophils, Fluid 85 %; RBC Pleural Fluid (A) 15000 /uL; Source Pleural Fluid LEFT LUNG; WBC Pleural Fluid (A) 10904 /uL
[2021-03-29] MEDS: LIDOCAINE 5% 1 PATCH TD SCH (16:45)
--- NOTE | 2021-03-29 20:23 | Billing Data ---
Date of Service March 29, 2021 Coding Level of Care Code 72168 Initial Inpt Care Lvl 3
[2021-03-29] MEDS: LORazepam 0.5 MG TAB PO SCH (20:45)
[2021-03-29] MEDS ORDERED: KETOROLAC TROMETHAMINE 15 MG/ML VIAL IV PRN (21:00)
--- NOTE | 2021-03-30 06:05 | Hospitalist Progress Note ---
Date of Service March 30, 2021 Assessment & Plan (1) Breast cancer: Plan: Elva is an 86-year-old female with a history of previous breast cancer s/p lumpectomy and radiation in 2001, type 2 diabetes, hypertension & 100 pack-yr tobacco history who presented with L-sided chest pain and SOB subsequently found to have a moderate loculated L pleural effusion. There is concern for widespread metastatic disease on CT chest, primary source unknown. Acute hypoxic respiratory failure - sec to pleural effusion - continue NC O2 to keep SaO2 >88% Left pleural effusion, Empyema - Moderate L pleural effusion w/ partial loculation s/p thoracentesis 03/29/20 w/ therapeutic relief. -Pleural fluid + for Light's criteria, c/w exudative. -Prelim culture w/ alpha strep. - Starting on Unasyn, chosen because GI upset from clindamycin. Penicillin rash was during childhood. -Per pulmonology, pigtail catheter planned for 03/31/21. - Pleural fluid Pathology pending, Concern of Cancer In the setting of ongoing fatigue, 25 lb unintentional weight loss over course of last year, chills over the last several months - Because of pleural fluid above not showing malignancy: ordered US guided FNA biopsy of left axillary/breast mass and lymph nodes; plan is to determine primary source of mets. This will allow for further goals of care discussion. - CT abd w/ concern for lymphoma - CT head was neg for mets. 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 On admission, 2.8 Trend LFTs while admitted -Low MELD score History of Breast Cancer -Review of records within our system (2001) reveal h/o [id number] ER+/FL+/[HER2/jenna]-neg IDC s/p lumpectomy and radiation in 2001, no chemo/immunotherapy Last mammogram appears to be over 5 years ago. See above. Hyponatremia - x months. Follow BMP. 133->131. Type 2 diabetes - last A1c 5.4% in 02/2021 Hold home medications. ACHS glucose checks for 1 day; SSI not indicated per review of BSGs Hypertension Continue amlodipine, atenolol Anxiety Continue home Ativan, Paxil Hypokalemia, Hypomagnesemia, resolved -Continue 20meq KCl. Follow BMP. Tobacco use disorder - Daily nicotine patch 14mg severe protein-calorie malnutrition - nutrition consult Code: Full code Dispo: MedSurg with telemetry Diet: Regular diet. Boost supplement PRN, dietary consulted. NPO after midnight Prophylaxis: Lovenox held while awaiting pigtail cath placement (2) S/P lumpectomy of breast: (3) Encounter for pre-operative examination: (4) Type 2 diabetes mellitus, controlled: (5) Hypertension: (6) Obesity: (7) Metastatic cancer: (8) Hypoxia: (9) Hyponatremia: Admission and Anticipated Discharge Date Admission Date: March 28, 2021 Supervising Physician Co-Signing Physician Notes Resident Physician Supervision Note: I independently interviewed and examined the patient and verified the gore history and physical, reviewed labs and image studies and agree with resident Dr. Corral findings and care plan. Subjective Feels tired. Breathing is ok. Hungry. No chest pain or fever. Denies other ROS. Only has some pain at mid chest while coughing. Otherwise no pain. Not com plaining of the L upper rib pain she presented w/ on admission. Review of Systems Review of Systems: All systems reviewed & are unremarkable except as noted in HPI & below Physical Exam Physical Exam: General: Grossly A&O. NAD. Cooperative. Eating breakfast. HEENT: Atraumatic, normocephalic. Pulm: Faint crackles and diminished at LLB. Otherwise clear. No respiratory distress. Cardiac: RRR, -mrg. No BLE. Abdominal: Nontender, nondistended, soft. No abd pain. Results & Data Results & Data ([facility]) Vital Signs (Past 12 Hours) Vital Signs 94-96 on 2L NC. BP 150s/50s x2. Temp Pulse Pulse Resp BP Pulse Ox 03/30/21 04:00 36.4 C L 72 18 150/52 H 94 03/29/21 23:00 36.8 C 86 18 138/67 94 03/29/21 22:30 71 03/29/21 19:00 37.0 C 72 18 127/55 L 95 Laboratory Results cbc stable; Hb 12.8 down from 14.6 at admisison. Plts 93 stable. Hold placed on prn toradol. Aptt 33.5H slightly increased (cirrhosis). Na 131, was 133 at admission. K 3.7. Cr .94. t bili 2.5->2.3->1.6. path pending. Pleural fluid c/w exudative. 03/28 ecg nsr. Diagnostic Findings 03/28 cxr: 1. Cardiomegaly with pulmonary vascular congestion. 2. Layering left pleural effusion with associated left basilar consolidation. 03/[address]: IMPRESSION: 1. Cardiomegaly and emphysema. 2. There is a moderate and at least partially loculated left pleural effusion with consolidation of the left lower lung. Additionally, there is fibrotic change/consolidation at the left apex. Correlate clinically for evidence of pneumonia. 3. There is a small right pleural effusion. 4. There is evidence of widespread metastatic disease. There are numerous enhancing soft tissue lesions throughout the chest wall, as well as lesions within the posterior left breast/infraaxillary region, both axillae, the superior mediastinum, within or adjacent to the left adrenal gland, and within the peritoneum posterior to the liver. Subcentimeter peritoneal implants are also suggested in the left upper quadrant. The primary site of neoplasm is not delineated. Correlate with the patient's oncological history. 5. There are at least 3 pathologically indeterminant right pulmonary nodules which are also suspicious for metastatic disease. 6. No pleural lesions are clearly identified. 7. Postoperative change and dermal thickening is noted in the left breast. 03/[address] neg 03/30 ct abd 1. Multiple scattered peritoneal and retroperitoneal nodules as described above. These demonstrate slight increased density and therefore likely represent lymphoma. Tissue sampling recommended for confirmation. 2. Redemonstration of the moderate left and small right pleural effusions which are better appreciated on the recent chest CT. 3. Cirrhotic liver with mild splenomegaly. 4. No bowel wall thickening or obstruction. 5. Additional findings as described above. Resident Activity Tracking Resident Involvement: Resident Care Provided Care Provided: [facility] Medicine
[2021-03-30 06:19] LABS: Hematocrit (blood only) 37.8 % (37-47); Hemoglobin 12.8 g/dL (12.0-16.0); Mean Corpuscular Hemoglobin 32.2 pg (25-34); Mean Corpuscular Hgb Conc 33.9 g/dL (32-36); Platelet Count 93 K/uL (130-400); RDW Coefficient of Variation 13.2 % (11.5-14.5); RDW Standard Deviation 46.3 fL (36.4-46.3); Red Blood Count 3.98 M/uL (4.2-5.4); White Blood Count 5.81 K/uL (4.8-10.8)
[2021-03-30 06:20] LABS: INR 1.1 (0.9-1.1); Partial Thromboplastin Ratio 1.3; Partial Thromboplastin Time 33.5 Seconds (21.0-31.0); Prothrombin Time 11.4 Seconds (9.0-12.0)
[2021-03-30 06:35] LABS: Albumin Globulin Ratio 0.9 (0.9-2); Albumin Level 2.8 gm/dl (3.4-5.0); BUN Creatinine Ratio 25.5 (10-20); Bilirubin,Total 1.6 mg/dl (0.2-1.0); Calcium 8.7 mg/dl (8.5-10.1); Creatinine Clr Calc Pharmacy 45.7 ml/min; Est GFR (African American) 64.6 ml/min; Est GFR (Non-African American) 55.7 ml/min; Potassium 3.7 mmol/L (3.5-5.1); Total Protein 5.8 gm/dl (6.0-8.3)
[2021-03-30 06:52] LABS: Basophils # (auto) 0.02 K/uL (0-0.2); Basophils % (auto) 0.3 %; Eosinophils # (auto) 0.05 K/uL (0-0.5); Eosinophils % (auto) 0.9 %; Immature Granulocytes # (auto) 0.02 K/uL (0.00-0.02); Immature Granulocytes % (auto) 0.3 %; Lymphocytes # (auto) 0.52 K/uL (1.2-3.4); Monocytes # (auto) 0.42 K/uL (0.11-0.59); Monocytes % (auto) 7.2 %; Neutrophils # (auto) 4.78 K/uL (1.4-6.5); Neutrophils % (auto) 82.3 %
[2021-03-30] MEDS ORDERED: OPTIRAY 320 100ml IV ONE (07:24)
[2021-03-30] MEDS: MAGNESIUM CHLORIDE 64MG DELAYED REL TAB PO SCH ×2 (07:45→21:01)
[2021-03-30] MEDS: CHOLECALCIFEROL 1,000 UNITS 25 MCG TAB PO SCH (07:45)
--- NOTE | 2021-03-30 07:48 | CT Scan Report ---
CT head/brain wo con CLINICAL HISTORY: metastatic undifferentiated cancer Technique: Contiguous axial CT images of the head were acquired from the base of the skull to the greg lele without intravenous contrast administration. Images were viewed in brain, subdural and bone [facility]. Automated dose lowering techniques and/or adjustment according to patient size were utilized for this exam. Comparison: None available at the time of this dictation. Findings: The ventricles, basal cisterns, and cerebral sulci are normal. There is no acute intracranial hemorrh age or evidence of acute territorial infarction. Neither mass effect, shift of the midline structures , nor abnormal extra-axial fluid collections are shown. Imaged portions of the paranasal sinuses and mastoid air cells are clear. The orbits appear normal. There are no acute fractures of the calvaria or scalp swelling. Impression: No acute intracranial hemorrhage, no evidence of acute territorial infarction or other acute intracra nial disease process. ACT 112: Negative or not required by law. Electronically signed by: Raj Guerra M.D. 03/30/2021 7:47 AM
[2021-03-30] MEDS: ATENOLOL 50 MG TABLET PO SCH (07:54)
[2021-03-30] MEDS: amLODIPine BESYLATE 5 MG TAB PO SCH (07:54)
[2021-03-30] MEDS: LIDOCAINE 5% 1 PATCH TD SCH (07:54)
[2021-03-30] MEDS: CYANOCOBALAMIN (B-12) 500 MCG TABLET PO SCH (07:54)
[2021-03-30] MEDS: PARoxetine HCL 10 MG TAB PO SCH (07:54)
[2021-03-30] MEDS: POTASSIUM CHLORIDE 10 MEQ TABCR PO SCH ×2 (07:55→21:01)
[2021-03-30] MEDS: UMECLIDINIUM/VILANTEROL 62.5/25MCG 7 PUFFS/INHALER INH SCH (07:55)
--- NOTE | 2021-03-30 08:37 | CT Scan Report ---
ABDOMEN AND PELVIS CT WITH IV AND ORAL CONTRAST CT DOSE: 1123.08 mGy.cm HISTORY: metastatic cancer, nonalcoholic fatty liver disease, elevated TBili TECHNIQUE: Multiaxial CT images of the abdomen and pelvis were performed following the use of intrave nous and oral contrast. A dose lowering technique was utilized adhering to the principles of ALARA. COMPARISON STUDY: Chest CT 03/28/2021. Abdominal CT 01/30/2016. FINDINGS: Partially visualize moderate left and small right pleural effusion is are again noted. The heart remains mildly enlarged. Consolidation within the left lung base favors compressive atelectasis from the pleural effusion. Mild thickening of the distal esophagus, unchanged. There are few subcent imeter pulmonary nodule within the right lung which are better appreciated on the prior chest CT. No pneumoperitoneum. No pneumatosis. No fractures or suspicious osseous lesions identified within the ab domen or pelvis. Mild body wall edema. There are few scattered slightly hyperdense subcutaneous nodul es within the abdomen. Dominant subcutaneous nodule within the left flank on image 17 measures 4.9 x 0.8 cm. Prior cholecystectomy. Cirrhotic liver with mild splenomegaly. No hepatic or splenic lesions. Coarse calcifications within the pancreatic head consistent with chronic pancreatitis. This has prog ressed in the interval. No evidence for acute pancreatitis. Stable 2 cm cyst within the right kidney. No hydronephrosis. Hyperdensity within the bladder could be due to prior contrast. Calcified plaque within the mildly ectatic abdominal aorta. The uterus and bilateral adnexa are unremarkable. Colonic diverticulosis. No evidence for acute diverticulitis. No bowel wall thickening or obstruction. Normal appendix. There are multiple scattered peritoneal and retroperitoneal soft tissue nodule/masses. The majority of these demonstrate subtle increased density. There are few small subcapsular soft tissue masses at the spleen and liver. There is an additional large retroperitoneal lesion which encases the left renal pelvis and left renal vessels and is best seen on image 176. This measures 4.3 x 3.3 cm. There is a large soft tissue lesion within the left upper quadrant adjacent to the adrenal gland violet uring 5.1 x 3.6 cm. Additional large lesion is superior to the right iliac crest on image 237 and elle sures 4.0 x 2.2 cm. There is a soft tissue mass encasing the right iliac vessels measuring 4.5 x 4.0 cm. IMPRESSION: 1. Multiple scattered peritoneal and retroperitoneal nodules as described above. These demonstrate sl ight increased density and therefore likely represent lymphoma. Tissue sampling recommended for confi rmation. 2. Redemonstration of the moderate left and small right pleural effusions which are better appreciate d on the recent chest CT. 3. Cirrhotic liver with mild splenomegaly. 4. No bowel wall thickening or obstruction. 5. Additional findings as described above. ACT 112: Negative or not required by law. Electronically signed by: Desean Sanchez M.D. 03/30/2021 8:36 AM
[2021-03-30] MEDS ORDERED: NICOTINE 14 MG/24 HR PATCH TD STA (14:43)
--- NOTE | 2021-03-30 14:55 | Ultrasound Report ---
ULTRASOUND-GUIDED FINE-NEEDLE ASPIRATION OF A LEFT CHEST WALL MASS HISTORY: Early biopsy to find out type of cancer. L chest, COMPARISON: None. PROCEDURE: Written informed consent was obtained. The neck was prepped and draped in the usual steril e fashion. 1% lidocaine was used for local anesthesia. A total of 2 passes using a 22-gauge needle w ere made through the left chest wall mass under ultrasound guidance. In addition, 2 separate core nee dle biopsies using an 18-gauge by 1 cm biopsy device were also performed. Specimens were given to the on-site pathologist who determined adequate tissue for diagnosis. The patient tolerated the procedur e well. There were no immediate complication. IMPRESSION: Successful ultrasound-guided fine-needle aspiration and core biopsy of a left chest wall mass. ACT 112: Negative or not required by law. Electronically signed by: Desean Sanchez M.D. 03/30/2021 2:54 PM
--- NOTE | 2021-03-30 15:34 | Pulmonology Progress Note ---
Date of Service March 30, 2021 Assessment & Plan (1) Pleural effusion: (2) COPD (chronic obstructive pulmonary disease): (3) Abnormal chest CT: (4) Multiple pulmonary nodules: (5) Acute respiratory failure with hypoxia: Plan: 86-year-old female with a history of extensive tobacco abuse and breast cancer presenting to the hospital due to shortness of breath and a SIRS- like condition. Thoracentesis from yesterday yielded a positive fluid culture with alpha strep. This would indicate a parapneumonic effusion/empyema. I called the primary team and recommended initiation of clindamycin given her allergy to penicillins. Will likely pursue pigtail catheter placement and drainage tomorrow. Please continue to hold Lovenox. Her CT chest and abdomen are concerning for widespread malignancy. She underwent an ultrasound-guided FNA/core needle biopsy of the left-sided subcutaneous chest wall mass. Cytology from the pleural fluid is also pending. Thank you for the consultation. Pulmonary will continue to follow along with you. Admission and Anticipated Discharge Date Admission Date: March 28, 2021 Subjective Patient seen and examined today. Notes improvement in shortness of breath today. Denies chest pain. I saw the patient in the ultrasound suite today prior to her subcutaneous biopsy of the mass. I asked the water resources technical officer to look at her left pleural effusion. I did visualize a moderate size left pleural effusion with compressive atelectasis noted. Effusion appears to be free- flowing. Review of Systems Review of Systems: All systems reviewed & are unremarkable except as noted in HPI & below Physical Exam Physical Exam: Constitutional: No acute distress HEENT: EOMI, PERRLA Respiratory system: Decreased air entry bilaterally, no wheeze, positive crackles bilateral lower lobes CVS: S1-S2 positive, positive 2 out of 6 murmur appreciated best at the aorta Abdomen: Soft, nontender, nondistended, positive bowel sounds x4 Extremities: +2 pulses bilaterally radialis/ dorsalis pedis, no cyanosis, no edema Neuro: Awake alert oriented x3 Psych: Normal mood and affect G/U: No Bray Skin: no rashes, warm and dry Results & Data Results & Data ([facility]) Vital Signs (Past 12 Hours) Vital Signs Temp Pulse Pulse Resp BP Pulse Ox 03/30/21 08:18 36.7 C 72 18 155/56 H 96 03/30/21 07:00 90 03/30/21 04:00 36.4 C L 72 18 150/52 H 94 PG Care Time/CCT Total # of Minutes Spent Total Time Spent with Patient: Total time spent is greater than 50% in coordination of care (as documented) at patient's floor/unit and/or counseling patient: Coding Level of Care Code 48038 Subseq Hosp Care Lvl 3 Diagnoses Pleural effusion J90 COPD (chronic obstructive pulmonary disease) J44.[address] R93.89 Multiple pulmonary nodules R91.8 Acute respiratory failure with hypoxia J96.01
[2021-03-30] MEDS: AMPICILLIN/SULBACTAM SOD 3,000 MG in 0.9 % SODIUM CHLORIDE 100 ML IV SCH ×2 (17:22→23:45)
--- NOTE | 2021-03-30 19:25 | XCELERA ---
[id number] \\[id number]
[2021-03-30] MEDS: LORazepam 0.5 MG TAB PO SCH (21:01)
[2021-03-31] MEDS: AMPICILLIN/SULBACTAM SOD 3,000 MG in 0.9 % SODIUM CHLORIDE 100 ML IV SCH ×3 (05:36→18:39)
[2021-03-31 07:11] LABS: Hematocrit (blood only) 35.9 % (37-47); Mean Corpuscular Hemoglobin 31.6 pg (25-34); Mean Corpuscular Hgb Conc 33.4 g/dL (32-36); Mean Corpuscular Volume 94.5 fL (80-100); Mean Platelet Volume 12.7 fL (7.4-10.4); Platelet Count 117 K/uL (130-400); RDW Coefficient of Variation 13.4 % (11.5-14.5); RDW Standard Deviation 46.4 fL (36.4-46.3); White Blood Count 7.86 K/uL (4.8-10.8)
[2021-03-31 07:15] LABS: Basophils # (auto) 0.02 K/uL (0-0.2); Basophils % (auto) 0.3 %; Eosinophils # (auto) 0.02 K/uL (0-0.5); Eosinophils % (auto) 0.3 %; Immature Granulocytes # (auto) 0.02 K/uL (0.00-0.02); Immature Granulocytes % (auto) 0.3 %; Lymphocytes # (auto) 0.57 K/uL (1.2-3.4); Lymphocytes % (auto) 7.3 %; Monocytes # (auto) 0.73 K/uL (0.11-0.59); Monocytes % (auto) 9.3 %; Neutrophils % (auto) 82.5 %
[2021-03-31 07:16] LABS: Albumin Globulin Ratio 0.9 (0.9-2); Albumin Level 2.6 gm/dl (3.4-5.0); BUN Creatinine Ratio 25.9 (10-20); Bilirubin,Total 1.4 mg/dl (0.2-1.0); Calcium 8.2 mg/dl (8.5-10.1); Creatinine Clr Calc Pharmacy 46.1 ml/min; Est GFR (African American) 72.9 ml/min; Est GFR (Non-African American) 62.9 ml/min; Globulin 2.8 gm/dl (2.5-4.0); Magnesium 1.6 mg/dl (1.7-2.4); Potassium 3.8 mmol/L (3.5-5.1); Total Protein 5.4 gm/dl (6.0-8.3)
--- NOTE | 2021-03-31 07:22 | Hospitalist Progress Note ---
Date of Service March 31, 2021 Assessment & Plan (1) Breast cancer: Plan: Elva is an 86-year-old female with a history of previous breast cancer s/p lumpectomy and radiation in 2001, type 2 diabetes, hypertension & 100 pack-yr tobacco history who presented with L-sided chest pain and SOB subsequently found to have a moderate loculated L pleural effusion. There is concern for widespread metastatic disease on CT chest, primary source unknown. Acute hypoxic respiratory failure - sec to pleural effusion - continue NC O2 to keep SaO2 >90% Left pleural effusion, Empyema - Moderate L pleural effusion w/ partial loculation s/p thoracentesis 03/29/20 w/ therapeutic relief. - Pleural fluid + for Light's criteria, c/w exudative. - Prelim culture w/ strep pneumo, few. - Starting on Unasyn, chosen because GI upset from clindamycin. Penicillin rash was during childhood. - Pigtail catheter placed 03/31/21. Possible hemothorax. Will follow cxr and h/h. - Pleural fluid pathology: Sheets of PMN leukocytes consistent with an empyema and sheets of degenerate mesothelial cells are seen. Microscopy: Malignant cells are not seen. In sum, the changes are consistent with an empyema. Concern of Metastatic Cancer In the setting of ongoing fatigue, 25 lb unintentional weight loss over course of last year, chills over the last several months - Because of pleural fluid above not showing malignancy: ordered US guided FNA biopsy of left axillary/breast mass and lymph nodes; plan is to determine primary source of mets. This will allow for further goals of care discussion. - CT chest concerning for mets. "numerous enhancing soft tissue lesions throughout the chest wall, as well as lesions within the posterior left breast/infraaxillary region, both axillae, the superior mediastinum, within or adjacent to the left adrenal gland, and within the peritoneum posterior to the liver. Subcentimeter peritoneal implants are also suggested in the left upper quadrant." There are also 3 pathologically indeterminate right pulmonary nodules. - CT abd w/ concern for lymphoma - CT head was neg for mets. 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 See above. Hyponatremia - x months. Follow BMP. 133->131>129. SIADH could be contributor, but follow for now. Hypomagnesemia - Repleting Type 2 diabetes - last A1c 5.4% in 02/2021 Hold home medications. ACHS glucose checks for 1 day; SSI not indicated per review of BSGs Hypertension Continue amlodipine, atenolol Anxiety Continue home Ativan, Paxil Hypokalemia, Hypomagnesemia, resolved -Continue 20meq KCl. Follow BMP. Tobacco use disorder - Daily nicotine patch 14mg severe protein-calorie malnutrition - nutrition consult Code: Full code Dispo: MedSurg with telemetry Diet: DM2 diet Prophylaxis: Lovenox held in setting of possible hemothorax (2) S/P lumpectomy of breast: (3) Encounter for pre-operative examination: (4) Type 2 diabetes mellitus, controlled: (5) Hypertension: (6) Obesity: (7) Metastatic cancer: (8) Hypoxia: (9) Hyponatremia: Admission and Anticipated Discharge Date Admission Date: March 28, 2021 Supervising Physician Co-Signing Physician Notes Resident Physician Supervision Note: I independently interviewed and examined the patient and verified the gore history and physical, reviewed labs and image studies and agree with resident Dr. Corral findings and care plan. To review route and duration of abx treatment in am. Subjective Feels better than yesterday. Less SOB when she moves around. No complaints. Mild epigas pain when coughing. No L breast/chest wall pain. Review of Systems Review of Systems: All systems reviewed & are unremarkable except as noted in HPI & below Physical Exam Physical Exam: General: Grossly A&O. NAD. Cooperative. Eating breakfast. HEENT: Atraumatic, normocephalic. Pulm: Very diminished at LLB. Otherwise clear. No respiratory distress. Cardiac: RRR. 3/6 murmur at aortic area. No BLE. Abdominal: Nontender, nondistended, soft. No abd pain. Results & Data Results & Data ([facility]) Vital Signs (Past 12 Hours) Vital Signs 91-97 on 2L NC. 98 HR x1. Fever 38.1C at 19:34. Temp Pulse Pulse Resp BP Pulse Ox 03/31/21 03:31 37.4 C 60 18 134/55 L 97 03/31/21 01:53 85 03/31/21 00:25 36.8 C 80 20 156/61 H 94 Laboratory Results cbc stable. wbc 5.81->7.86. Plts stable 117. Chronic HypoNa slightly worsening. 133->131->129. K 3.8. Cr stable 0.85. Mg 1.6. 03/29 pleural fluid w/ few alpha strep. many wbcs on gram stain. 03/30 echo EF 65-70. No RWMA. Moderate concentric LVH. Mild biatrial dilation. Mild aortic stenosis. Normal estimated RVSP. Resident Activity Tracking Resident Involvement: Resident Care Provided Care Provided: Adult [facility] Medicine
[2021-03-31] MEDS: PARoxetine HCL 10 MG TAB PO SCH (08:38)
[2021-03-31] MEDS: ATENOLOL 50 MG TABLET PO SCH (08:38)
[2021-03-31] MEDS: LIDOCAINE 5% 1 PATCH TD SCH (08:39)
[2021-03-31] MEDS: amLODIPine BESYLATE 5 MG TAB PO SCH (08:39)
[2021-03-31] MEDS: MAGNESIUM CHLORIDE 64MG DELAYED REL TAB PO SCH ×2 (08:39→20:56)
[2021-03-31] MEDS: NICOTINE 14 MG/24 HR PATCH TD SCH (08:40)
[2021-03-31] MEDS: UMECLIDINIUM/VILANTEROL 62.5/25MCG 7 PUFFS/INHALER INH SCH (08:40)
[2021-03-31] MEDS: POTASSIUM CHLORIDE 10 MEQ TABCR PO SCH ×2 (08:43→20:59)
[2021-03-31] MEDS ORDERED: LIDOCAINE 1% LOCAL 20 ML VIAL ONE (12:09)
[2021-03-31] MEDS: CYANOCOBALAMIN (B-12) 500 MCG TABLET PO SCH (13:03)
[2021-03-31] MEDS: CHOLECALCIFEROL 1,000 UNITS 25 MCG TAB PO SCH (13:04)
--- NOTE | 2021-03-31 13:32 | XRay Report ---
XR chest 1V portable CLINICAL HISTORY: status post procedure. However, the type of procedure was not provided. COMPARISON STUDY: 03/29/2021 TECHNIQUE: 1 view of the chest FINDINGS: Single frontal view of the chest demonstrates the heart to again be enlarged. Compared to previous st udy, there is again a moderately large left pleural effusion and left lower lobe atelectasis/collapse . Compared to previous study, there is now what appears to be loculated pleural fluid along the left lateral chest wall more superiorly. The left upper lobe and right hemithorax are otherwise clear. The re is no evidence for pneumothorax. There is no evidence for right pleural effusion. There is no evid ence for vascular congestion. There is no acute osseous pathology. IMPRESSION: Moderately large left pleural effusion with compressive atelectasis/collapse of the left lower lobe is again seen and essentially unchanged. There now appears to be more loculated fluid more superiorly and laterally on the left. There is no evidence for pneumothorax. ACT 112: Negative or not required by law. Electronically signed by: Redd Vega M.D. 03/31/2021 1:31 PM
--- NOTE | 2021-03-31 14:05 | Procedure Note ---
Procedure Note Date of Service March 31, 2021 Note INDICATION: Left empyema/pleural effusion PROCEDURE: Left-sided tube thoracotomy DATE: 03/31/2021 TIME: 12:03 PM PROVIDER: Alexei Bacon PA-C CONSENT: Was obtained prior to the procedure by Alexei Bacon PA-C as delegated by Dr. Tim and placed on the chart PROCEDURE SUMMARY: Bedside ultra sound was performed to identify an appropriate puncture site. Images were saved to the [employer] system. A time out was performed. The patient was prepped and draped in a sterile manner using chlorhexidine scrub after the appropriate level was confirmed by ultrasound. 1% lidocaine was used to numb the region. A finder needle was then used under negative pressure to locate fluid and instill lidocaine into the pleural space. A wire was then passed through the needle into the space. The needle was removed. A small incision was made with a #10 scalpel along the wire. The patient was then serially dilated with 8, 10, 12 hebrew dilators without difficulty. A skater pigtail catheter was then threaded onto the wire. As the catheter was being advanced into the pleural space there was resistance. The catheter was removed and I attempted to dilate with a 14 Mexican dilator and also met resistance. The wire was removed and found to be bent and kinked. A dilator kit was then obtained from the ICU. Fluid was easily found and wire was advanced again through the needle. I then attempted to pass a catheter and the wire was too short. I then attempted a pneumothorax tube (8 Mexican) and also met resistance and some pain from the patient. At this time, the procedure was aborted. The incision site was then covered with 2 x 2 gauze and nylon tape with no evidence of bleeding. A post procedure chest x-ray was obtained and showed no evidence of pneumothorax. Dr. Tim was informed and the patient was agreeable to try again later today with Dr. Tim. The patient tolerated the procedure well with no shortness of breath, no hypotension, no increase in heart rate, and no other acute symptoms. She was on telemetry the entire procedure. Coding CPT Codes Pulmonary/Thoracic - Pulmonary and Thoracic: 23316 Tube thoracostomy ([id number]) Pulmonary/Thoracic - Pulmonary and Thoracic: 29519 US, Chest, real time with imaging documentation ([id number]) [facility] [place] Procedure Codes (Ch[place]es) Pulmonary/Thoracic Procedure 1: Pulmonary and Thoracic: 55727 Tube thoracostomy Procedure 2: Pulmonary and Thoracic: 54476 US, Chest, real time with imaging documentation
--- NOTE | 2021-03-31 17:16 | Pulmonology Progress Note ---
Date of Service March 31, 2021 Assessment & Plan (1) Pleural effusion: (2) COPD (chronic obstructive pulmonary disease): (3) Abnormal chest CT: (4) Multiple pulmonary nodules: (5) Acute respiratory failure with hypoxia: Plan: 86-year-old female with a history of extensive tobacco abuse and breast cancer presenting to the hospital due to shortness of breath and a SIRS- like condition. Thoracentesis from 03/29/2021 yielded Streptococcus pneumonia. Pigtail catheter placed at bedside today in the left hemithorax. Proximately 400 cc of serosanguineous fluid has been suctioned as of now. We will leave this to her drain to -20 cm H2O and repeat a chest x-ray tomorrow. She will likely need TPA/dornase instilled through the pleural catheter to evacuate the pleural effusion which appears to be an empyema. There may also be a pneumothorax component to this as well given the prior pigtail catheter insertion attempt earlier today and possibly related to the chest wall mass needle biopsy from yesterday. Her hemoglobin has remained stable. Hemodynamically she is stable as well. Please continue to hold anticoagulation. Agree with Unasyn at this time for antibiotic coverage. Biopsy results from the chest wall mass are pending. Metastatic malignancy remains high on the differential. Would recommend an MRI of the brain to to rule out metastatic brain lesions. Thank you for the consultation. Pulmonary will continue to follow along with you. Admission and Anticipated Discharge Date Admission Date: March 28, 2021 Subjective Patient seen and examined. She is remained stable. Denies any shortness of breath at rest, but does have dyspnea with exertion. She is spiking temperature 38.1 C. Review of Systems Review of Systems: All systems reviewed & are unremarkable except as noted in HPI & below Physical Exam Physical Exam: Constitutional: No acute distress HEENT: EOMI, PERRLA Respiratory system: Decreased air entry bilaterally, no wheeze, positive crackles bilateral lower lobes CVS: S1-S2 positive, positive 2 out of 6 murmur appreciated best at the aorta Abdomen: Soft, nontender, nondistended, positive bowel sounds x4 Extremities: +2 pulses bilaterally radialis/ dorsalis pedis, no cyanosis, no edema Neuro: Awake alert oriented x3 Psych: Normal mood and affect G/U: No Bray Skin: no rashes, warm and dry Results & Data Results & Data ([facility]) Vital Signs (Past 12 Hours) Vital Signs Temp Pulse Pulse Resp BP Pulse Ox 03/31/21 15:36 38.1 C H 79 18 150/64 H 91 03/31/21 14:55 81 03/31/21 13:17 37.0 C 82 18 124/62 95 03/31/21 11:52 73 03/31/21 07:44 37.1 C 72 18 121/56 L 95 PG Care Time/CCT Total # of Minutes Spent Total Time Spent with Patient: Total time spent is greater than 50% in coordination of care (as documented) at patient's floor/unit and/or counseling patient: Coding Level of Care Code 35780 Subseq Hosp Care Lvl 3 Diagnoses Pleural effusion J90 COPD (chronic obstructive pulmonary disease) J44.[address] R93.89 Multiple pulmonary nodules R91.8 Acute respiratory failure with hypoxia J96.01
--- NOTE | 2021-03-31 17:16 | Procedure Note ---
Procedure Note Date of Service March 31, 2021 Note PIGTAIL CATHETER PLACEMENT NOTE: Procedure: Pigtail Catheter Chest Tube Placement Indication: Left empyema Anesthesia: 15 ml Lidocaine 1% Written consent was obtained and placed on the chart. Timeout was done prior to the procedure. Prior to procedure, chest x-ray films were reviewed by myself and demonstrated moderate sized left pleural effusion with a possible hemothorax component A time-out was completed verifying correct patient, procedure, site, positioning, and implant(s) or special equipment if applicable. Utilizing bedside ultrasound, chest wall was evaluated for location for optimal chest tube placement. Location between the fifth and sixth ribs were marked on the skin using gentle pressure. The left sided chest wall was prepped with chlorhexidine and draped in the typical sterile fashion. 15 mL of 1% Lidocaine without epinephrine was used to anesthetize the skin down to the dorsal surface of the fifth rib. Pleural fluid return confirmed entry into the pleural space. Lidocaine was injected into the pleural space for increased anesthetization. Introducer needle on syringe was inserted in perpendicular fashion taking care to ride just above the dorsal surface of the sixth rib. Entry into the pleural space was heralded by pleural fluid return into the syringe while under gentle aspiration. Guide wire was advanced into the pleural space without resistance and the introducer needle was subsequently removed. Scalpel was used to make small incision of the superficial tissue, parallel to the direction of the rib anatomy. Dilator was advanced uneventfully over the guide wire into the pleural space. 14 Lao Pigtail Catheter was inserted into the pleural space. Inner introducer and guide wire were removed. Drain was immediately connected to pre-prepared BRYN pleur-evac system. Pigtail was sutured securely in place and sterile dressing was applied. Chest tube was placed to -20 cmH2O suction. Patient tolerated procedure well. Blood Loss: Minimal Complications: None Post procedure Chest X-ray was ordered. Pleural fluid will be sent for cultures, cytology and chemistries. I probability of a hemothorax. Coding
[2021-03-31 17:29] LABS: Hematocrit (blood only) 39.2 % (37-47); Hemoglobin 13.3 g/dL (12.0-16.0); Mean Corpuscular Hgb Conc 33.9 g/dL (32-36); Mean Corpuscular Volume 94.5 fL (80-100); Mean Platelet Volume 12.3 fL (7.4-10.4); Platelet Count 131 K/uL (130-400); RDW Coefficient of Variation 13.3 % (11.5-14.5); RDW Standard Deviation 45.7 fL (36.4-46.3); Red Blood Count 4.15 M/uL (4.2-5.4); White Blood Count 10.71 K/uL (4.8-10.8)
--- NOTE | 2021-03-31 17:30 | XRay Report ---
XR chest 1V portable CLINICAL HISTORY: s/p pigtail cath TECHNIQUE: Single frontal radiograph of the chest was obtained. Comparison: Comparison is made to chest radiograph 03/31/2021 FINDINGS: There has been interval placement of a left pigtail catheter. Calcified aortic knob is seen. Interval decrease in left pleural effusion. No evidence of pleural effusion or pneumothorax. IMPRESSION: Status post left pleural catheter with decrease in left pleural effusion. No pneumothorax is seen. ACT 112: Negative or not required by law. Electronically signed by: Raj Guerra M.D. 03/31/2021 5:29 PM
[2021-03-31] MEDS: ACETAMINOPHEN 325 MG TAB PO PRN ×2 (17:40→20:59)
[2021-03-31 17:41] LABS: Appearance Pleural Fluid CLOUDY; Color Pleural Fluid RED; RBC Pleural Fluid (A) 250000 /uL; Source Pleural Fluid LEFT LUNG; WBC Pleural Fluid (A) 1117 /uL
[2021-03-31 17:47] LABS: Glucose Pleural Fluid 48 mg/dl; LDH Pleural Fluid 432 U/L; Total Protein Pleural Fluid 3.6 g/dl
[2021-03-31 18:42] LABS: Basophils, Fluid 0 %; Eosinophils, Fluid 1 %; Lymphocytes, Fluid 6 %; Mono,Macrophage,Mesothelial 6 %; Neutrophils, Fluid 87 %
[2021-03-31] MEDS: MAGNESIUM SULFATE / D5W 1 GM/100 ML BAG IV SCH ×2 (20:55→20:56)
[2021-03-31] MEDS: LORazepam 0.5 MG TAB PO SCH (20:59)
[2021-04-01] MEDS: AMPICILLIN/SULBACTAM SOD 3,000 MG in 0.9 % SODIUM CHLORIDE 100 ML IV SCH ×4 (01:32→17:57)
[2021-04-01 07:08] LABS: Hematocrit (blood only) 35.5 % (37-47); Hemoglobin 11.8 g/dL (12.0-16.0); Mean Corpuscular Hemoglobin 31.5 pg (25-34); Mean Corpuscular Hgb Conc 33.2 g/dL (32-36); Mean Corpuscular Volume 94.7 fL (80-100); Mean Platelet Volume 12.8 fL (7.4-10.4); Platelet Count 110 K/uL (130-400); RDW Coefficient of Variation 13.3 % (11.5-14.5); RDW Standard Deviation 46.1 fL (36.4-46.3); Red Blood Count 3.75 M/uL (4.2-5.4)
--- NOTE | 2021-04-01 07:19 | Hospitalist Progress Note ---
Date of Service April 01, 2021 Assessment & Plan (1) Breast cancer: Plan: Elva is an 86-year-old female with a history of previous breast cancer s/p lumpectomy and radiation in 2001, type 2 diabetes, hypertension & 100 pack-yr tobacco history who presented with L-sided chest pain and SOB subsequently found to have a moderate loculated L pleural effusion. CT chest w/ multiple enhancing lesions; working differential is lymphoma (more likely) vs metastatic disease. Acute hypoxic respiratory failure - secondary to pleural effusion - continue NC O2 to keep SaO2 >90% Left pleural effusion, Empyema - Moderate L pleural effusion w/ partial loculation s/p thoracentesis 03/29/20 w/ therapeutic relief. - Pleural fluid + for Light's criteria, c/w exudative. - culture w/ strep pneumo, few. - Starting on Unasyn, chosen because GI upset from clindamycin. Penicillin rash was during childhood. - Pigtail catheter placed 03/31/21. Hemothorax. Follow serial cxrs. MIST2 protocol. - No cancer cell on path Concern Lymphoma vs Metastatic Cancer In the setting of ongoing fatigue, 25 lb unintentional weight loss over course of last year, chills over the last several months - Because of pleural fluid above not showing malignancy: ordered US guided FNA biopsy of left axillary/breast mass and lymph nodes; plan is to determine primary source of mets. This will allow for further goals of care discussion. - CT chest concerning for mets. "numerous enhancing soft tissue lesions throughout the chest wall, as well as lesions within the posterior left breast/infraaxillary region, both axillae, the superior mediastinum, within or adjacent to the left adrenal gland, and within the peritoneum posterior to the liver. Subcentimeter peritoneal implants are also suggested in the left upper quadrant." There are also 3 pathologically indeterminate right pulmonary nodules. - CT head was neg for mets. - Oncology consult placed - outpatient follow. to get immunoglobulin level in setting of pneumonia for need of IVIG - will follow up on lab order in am. - Left chest wall mass FNA cytology: "The main differential is a follicular lymphoma versus a diffuse large B-cell lymphoma." - in conjunction w/ CT abd concerning for lymphoma, concern for stage III-IV lymphoma - Ordered MRI brain to r/o brain mets History of Breast Cancer - Review of records within our system (2001) reveal h/o [id number] ER+/HI+/[HER2/jenna]-neg IDC s/p lumpectomy and radiation in 2001, no chemo/immunotherapy - Last mammogram appears to be over 5 years ago. 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 Follow BMP. Hypomagnesemia - Repleted. Hold PO Mg because w/ diarrhea. Recheck in AM. Hypokalemia -Continue 20meq KCl. Follow BMP. Type 2 diabetes - last A1c 5.4% in 02/2021 Hold home medications. ACHS glucose checks for 1 day; SSI not indicated per review of BSGs Hypertension Continue amlodipine, atenolol Anxiety Continue home Ativan, Paxil Tobacco use disorder - Daily nicotine patch 14mg Severe protein-calorie malnutrition - nutrition consult Code: Full code Dispo: MedSurg with telemetry Diet: DM2 diet Prophylaxis: Lovenox held in setting of possible hemothorax PT/OT ordered (2) S/P lumpectomy of breast: (3) Encounter for pre-operative examination: (4) Type 2 diabetes mellitus, controlled: (5) Hypertension: (6) Obesity: (7) Metastatic cancer: (8) Hypoxia: (9) Hyponatremia: Admission and Anticipated Discharge Date Admission Date: March 28, 2021 Supervising Physician Co-Signing Physician Notes Resident Physician Supervision Note: I independently interviewed and examined the patient and verified the gore history and physical, reviewed labs and image studies and agree with resident Dr. Corral findings and care plan. Subjective Patient has achy discomfort 7/10 intensity at L chest tube. She is also complaining of diarrhea. She slept somewhat last night. She has mild stomach upset from eating breakfast. Review of Systems Review of Systems: All systems reviewed & are unremarkable except as noted in HPI & below Physical Exam Physical Exam: General: Grossly A&O. NAD. Cooperative. HEENT: Atraumatic, normocephalic. Pulm: Very diminished at LLB. Otherwise clear. No respiratory distress. Cardiac: RRR. 3/6 murmur at aortic and pulmonic areas. No BLE. R banda slightly TTP. Abdominal: Nontender, nondistended, soft. No abd pain. Integ: L lateral back has bndage over chest tube site. Bandage c/d/i. Results & Data Results & Data ([facility]) Vital Signs (Past 12 Hours) Vital Signs vitals reviewed. 92-95% on 1L NC. 38.1C x1 at 1536 03/31/21 Temp Pulse Pulse Resp BP Pulse Ox 04/01/21 04:18 36.4 C L 64 18 127/56 L 92 04/01/21 00:00 69 03/31/21 23:48 36.3 C L 66 18 111/56 L 95 03/31/21 19:34 98 H 19 167/77 H 92 Laboratory Results wbc 10.71->5.30. Hb 13.3->11.8. plts 131->110, stable, chronic. bmp pending. 03/31 cxr w/p Pleurx cath w/ L pleural effusion cytology of left chest wall mass FNA: The cytology slides show a notable mix of small to large lymphocytes with focal aggregations. Flow cytometry has a prominent clonal B-cell population which demonstrates dim/partial expression of CD10. The main differential is a follicular lymphoma versus a diffuse large B- cell lymphoma. Additional FISH studies are being performed and the results of these studies will be correlated into the final report. There is no evidence of metastatic breast carcinoma. blood culture: pending. no new results Diagnostic Findings Chest CT 04/01/21 07:40 CT chest diagnostic wo con CLINICAL HISTORY: eval left pleural effusion . Pleural catheter in place. COMPARISON STUDY: 03/28/2021 and portable chest from 04/01/2021 CT DOSE: 215.57 mGy.cm TECHNIQUE: Standard CT of the Chest was performed without IV contrast. A dose lowering technique was utilized adhering to the principles of ALARA. FINDINGS: Airway: The airway is clear. No endobronchial lesion is identified. Lungs and pleural: Compared to the previous CT examination, left pleural base catheter is seen at the left lung base. There is only slight interval decrease in the amount of pleural fluid present despite the catheter in place. Additionally, there is now loculated pleural fluid present worst superolaterally and within the major fissure. There is again atelectasis/collapse present involving the left lower lobe. Slight increased aeration is present. The remainder of the left hemithorax is clear. Small to moderate size right pleural effusion is again seen and unchanged. There is atelectasis at the right lung base as well. The remainder of the right hemithorax is clear. There is no change in right lower lobe pulmonary nodule as seen on image 244 the current study. Previously identified 9 mm right lower lobe pulmonary nodule is not seen in a be excluded by fluid. 5 mm right apical pulmonary nodule is again seen on image 71. No new pulmonary nodules are identified. Mediastinum: There is no evidence for pathologic adenopathy on these limited noncontrast images. There is again soft tissue density seen in the superior mediastinum to the left which is not well seen on these noncontrast images. Heart size is mildly enlarged. There is extensive coronary artery calcification and calcification of the aortic and mitral valves. The thoracic aorta is within normal limits. Extensive atherosclerotic calcification is present. There is no evidence for pericardial effusion. Surgical clips are again seen in left axilla. Stable soft tissue density is again seen along the left lateral chest wall. Upper abdomen: The adrenal glands are normal bilaterally. Osseous structures: There is no acute osseous pathology. IMPRESSION: 1. Compared to the previous CT examination, placement of a left pleural-based catheter is present. However, there is only slight interval decrease in the size of the left pleural effusion. 2. There is now a more loculated component more superiorly and laterally and there is loculated fluid seen within the fissure. 3. Compressive atelectasis/collapse of the left lower lobe is again seen with slight increased aeration. 4. There is a stable right pleural effusion with right basilar atelectasis. 5. Additional nonacute findings are again seen as delineated above. ACT 112: Negative or not required by law. Electronically signed by: Redd Vega M.D. 04/01/2021 10:47 AM Chest X-Ray 04/01/21 08:00 XR chest 1V not portable at 11:45 AM CLINICAL HISTORY: Follow-up loculated left pleural effusion. COMPARISON STUDY: 04/01/2021 at 7:[address] of the chest from 04/01/2021 TECHNIQUE: 1 view of the chest FINDINGS: Single frontal view of the chest demonstrates the cardiomediastinal silhouette to be within normal limits. Compared to the previous examination, there appears to have been adjustment of the patient's left pigtail catheter. There is interval decrease in moderate-sized left pleural effusion. Loculated pleural fluid more superiorly is unchanged. There is no evidence for pneumothorax. There is no evidence for right pleural effusion. No confluent alveolar opacities are identified. There is no evidence for vascular congestion. There is no acute osseous pathology. IMPRESSION: Compared to the earlier examination, there appears to have been ad justment of the pigtail catheter at the left lung base with interval decrease in left pleural effusion. There is no evidence for pneumothorax. Loculated pleural fluid is again seen more superiorly on the left. There is also again noted to be loculated fluid within the major fissure on the left. There is again left basilar atelectasis as well. ACT 112: Negative or not required by law. Electronically signed by: Redd Vega M.D. 04/01/2021 1:20 PM Resident Activity Tracking Resident Involvement: Resident Care Provided Care Provided: Adult Hospital Medicine
[2021-04-01 07:29] LABS: Albumin Globulin Ratio 0.8 (0.9-2); Albumin Level 2.4 gm/dl (3.4-5.0); BUN Creatinine Ratio 26.2 (10-20); Bilirubin,Total 0.9 mg/dl (0.2-1.0); Calcium 8.2 mg/dl (8.5-10.1); Creatinine Clr Calc Pharmacy 46.7 ml/min; Est GFR (Non-African American) 63.8 ml/min; Globulin 2.9 gm/dl (2.5-4.0); Magnesium 1.9 mg/dl (1.7-2.4); Potassium 3.6 mmol/L (3.5-5.1); Total Protein 5.3 gm/dl (6.0-8.3)
[2021-04-01 07:32] LABS: Basophils # (auto) 0.01 K/uL (0-0.2); Basophils % (auto) 0.2 %; Eosinophils # (auto) 0.08 K/uL (0-0.5); Eosinophils % (auto) 1.5 %; Immature Granulocytes # (auto) 0.04 K/uL (0.00-0.02); Immature Granulocytes % (auto) 0.8 %; Lymphocytes # (auto) 0.41 K/uL (1.2-3.4); Lymphocytes % (auto) 7.7 %; Monocytes # (auto) 0.48 K/uL (0.11-0.59); Monocytes % (auto) 9.1 %; Neutrophils # (auto) 4.28 K/uL (1.4-6.5); Neutrophils % (auto) 80.7 %
[2021-04-01] MEDS: ATENOLOL 50 MG TABLET PO SCH (08:46)
[2021-04-01] MEDS: MAGNESIUM CHLORIDE 64MG DELAYED REL TAB PO SCH ×2 (08:47→08:51)
[2021-04-01] MEDS: NICOTINE 14 MG/24 HR PATCH TD SCH (08:47)
[2021-04-01] MEDS: PARoxetine HCL 10 MG TAB PO SCH (08:47)
[2021-04-01] MEDS: amLODIPine BESYLATE 5 MG TAB PO SCH (08:47)
[2021-04-01] MEDS: UMECLIDINIUM/VILANTEROL 62.5/25MCG 7 PUFFS/INHALER INH SCH (08:48)
[2021-04-01] MEDS: POTASSIUM CHLORIDE 10 MEQ TABCR PO SCH ×2 (08:50→19:55)
[2021-04-01] MEDS: LIDOCAINE 5% 1 PATCH TD SCH (08:52)
--- NOTE | 2021-04-01 09:06 | XRay Report ---
XR chest 1V portable CLINICAL HISTORY: Left chest tube. COMPARISON STUDY: Chest CT March 28, 2021. Chest radiograph March 31, 2021. FINDINGS: Left basilar pleural catheter is in place. Persistent left pleural effusion is noted. This effusion is decreased when compared to chest radiograph prior to catheter placement. This is similar to exam following catheter placement on March 31, 2021. Suspected loculated component is again note d. Cardiomegaly is noted. There is no pneumothorax. Pulmonary vascular congestion persists. IMPRESSION: Left basilar pleural catheter in place. Persistent left pleural effusion with suspected loculated component. No pneumothorax. ACT 112: Negative or not required by law. Electronically signed by: Mihai Carter M.D. 04/01/2021 9:05 AM
--- NOTE | 2021-04-01 10:48 | CT Scan Report ---
CT chest diagnostic wo con CLINICAL HISTORY: eval left pleural effusion . Pleural catheter in place. COMPARISON STUDY: 03/28/2021 and portable chest from 04/01/2021 CT DOSE: 215.57 mGy.cm TECHNIQUE: Standard CT of the Chest was performed without IV contrast. A dose lowering technique was utilized adhering to the principles of ALARA. FINDINGS: Airway: The airway is clear. No endobronchial lesion is identified. Lungs and pleural: Compared to the previous CT examination, left pleural base catheter is seen at the left lung base. There is only slight interval decrease in the amount of pleural fluid present despit e the catheter in place. Additionally, there is now loculated pleural fluid present worst superolater ally and within the major fissure. There is again atelectasis/collapse present involving the left lower lobe. Slight increased aeration is present. The remainder of the left hemithorax is clear. Small to moderate size right pleural effusion is again seen and unchanged. There is atelectasis at th e right lung base as well. The remainder of the right hemithorax is clear. There is no change in right lower lobe pulmonary nodule as seen on image 244 the current study. Previ ously identified 9 mm right lower lobe pulmonary nodule is not seen in a be excluded by fluid. 5 mm r ight apical pulmonary nodule is again seen on image 71. No new pulmonary nodules are identified. Mediastinum: There is no evidence for pathologic adenopathy on these limited noncontrast images. Ther e is again soft tissue density seen in the superior mediastinum to the left which is not well seen on these noncontrast images. Heart size is mildly enlarged. There is extensive coronary artery calcific ation and calcification of the aortic and mitral valves. The thoracic aorta is within normal limits. Extensive atherosclerotic calcification is present. There is no evidence for pericardial effusion. Surgical clips are again seen in left axilla. Stable soft tissue density is again seen along the left lateral chest wall. Upper abdomen: The adrenal glands are normal bilaterally. Osseous structures: There is no acute osseous pathology. IMPRESSION: 1. Compared to the previous CT examination, placement of a left pleural-based catheter is present. Ho wever, there is only slight interval decrease in the size of the left pleural effusion. 2. There is now a more loculated component more superiorly and laterally and there is loculated fluid seen within the fissure. 3. Compressive atelectasis/collapse of the left lower lobe is again seen with slight increased aerati on. 4. There is a stable right pleural effusion with right basilar atelectasis. 5. Additional nonacute findings are again seen as delineated above. ACT 112: Negative or not required by law. Electronically signed by: Redd Vega M.D. 04/01/2021 10:47 AM
--- NOTE | 2021-04-01 11:09 | Pulmonology Progress Note ---
Date of Service April 01, 2021 Assessment & Plan (1) Pleural effusion: (2) COPD (chronic obstructive pulmonary disease): (3) Abnormal chest CT: (4) Multiple pulmonary nodules: (5) Acute respiratory failure with hypoxia: Plan: Attending: Dr. Tim Pression: 86-year-old female with a history of extensive tobacco abuse and breast cancer presenting to the hospital due to shortness of breath and a SIRS-like condition. Status post placement of left pleural pigtail catheter in place to suction at -20 mmHg Thoracentesis from 03/29/2021 yielded Streptococcus pneumonia. We will leave catheter to drain to -20 cm H2O. Will start TPA/dornase instilled through the pleural catheter using MIST 2 protocol to evacuate the pleural effusion which appears to be an empyema. Her hemoglobin has remained stable. Hemodynamically she is stable as well. Please continue to hold anticoagulation. Follow chest x-ray for 4 days. Continue with Unasyn at this time for antibiotic coverage. Biopsy results from the chest wall mass suggest lymphoma. Patient advised of possible diagnosis today. Oncology consulted today. Appreciate their input. Would recommend an MRI of the brain to to rule out metastatic brain lesions. Patient COPD appears to be stable. Continue Umeclidinium/Vilanterol 1 puff daily. Maintain SaO2 between 88 and 92%. Continue nicotine patch for tobacco abuse history. Continue to encourage complete abstinence of tobacco use. Thank you for the consultation. Pulmonary will continue to follow along with you. Please refer to Dr. Tim's addendum for further recommendations. Admission and Anticipated Discharge Date Admission Date: March 28, 2021 Supervising Physician Co-Signing Physician Notes Patient seen and examined with the YUNG. Agree with the note as above. Subjective: Patient describes chest pain around the insertion site of the pigtail catheter and pleuritic-like pain. Physical exam: Constitutional: No acute distress HEENT: EOMI, PERRLA Respiratory system: Decreased air entry bilaterally, no wheeze, positive crackles bilateral lower lobes CVS: S1-S2 positive, positive 2 out of 6 murmur appreciated best at the aorta Abdomen: Soft, nontender, nondistended, positive bowel sounds x4 Extremities: +2 pulses bilaterally radialis/ dorsalis pedis, no cyanosis, no edema Neuro: Awake alert oriented x3 Psych: Normal mood and affect Assessment/plan: Patient with serosanguineous drainage from the pigtail catheter. We will obtain a CBC to monitor for signs of blood loss. Preliminary diagnosis from pathology of the lung mass is suggestive of lymphoma. Oncology consult is placed. Cultures from the pleural fluid are suggestive of Streptococcus pneumonia. Continue with antibiotic treatment. We will continue with serial chest x-rays. Continue with dornase and TPA instillation into the pleural catheter unless hemoglobin has dropped. We will continue to follow along with you. Subjective Attending: Dr. Tim Patient seen and examined in room 287. She is sleeping comfortable on my arrival. She was easily arousable. Patient denies any significant discomfort in the chest. Chest tube is secure at the left flank. Patient denies any further fever, chills, sweats, rigors. No significant cough. No new complaints. Review of Systems Review of Systems: All systems reviewed & are unremarkable except as noted in Subjective Physical Exam Physical Exam: GENERAL : No acute distress EYES: No icterus, gaze conjugate NOSE: No evidence of epistaxis MOUTH: No lesions or candidiasis NECK: Supple LUNGS: Decreased breath sounds at the left base some crackles. No bronchospasm or rhonchi appreciated BACK: Chest tube is secure. No evidence of bleeding through the dressing or tape. HEART: Regular, rate controlled ABDOMEN: Soft, NT, ND, BS Present EXTREMITIES: No LE edema, pedal pulses intact NEURO: A&OX3 Results & Data Results & Data ([facility]) Vital Signs (Past 12 Hours) Vital Signs Temp Pulse Pulse Resp BP Pulse Ox 04/01/21 09:09 71 04/01/21 07:24 36.7 C 72 16 186/69 H 92 04/01/21 04:18 36.4 C L 64 18 127/56 L 92 04/01/21 00:00 69 03/31/21 23:48 36.3 C L 66 18 111/56 L 95 Laboratory Results 04/01/21 06:48 04/01/21 06:48 INR 1.1 (0.9-1.1) 03/30/21 05:53 Diagnostic Findings Chest X-Ray 03/31/21 13:05 XR chest 1V portable CLINICAL HISTORY: status post procedure. However, the type of procedure was not provided. COMPARISON STUDY: 03/29/2021 TECHNIQUE: 1 view of the chest FINDINGS: Single frontal view of the chest demonstrates the heart to again be enlarged. Compared to previous study, there is again a moderately large left pleural effusion and left lower lobe atelectasis/collapse. Compared to previous study, there is now what appears to be loculated pleural fluid along the left lateral chest wall more superiorly. The left upper lobe and right hemithorax are otherwise clear. There is no evidence for pneumothorax. There is no evidence for right pleural effusion. There is no evidence for vascular congestion. There is no acute osseous pathology. IMPRESSION: Moderately large left pleural effusion with compressive atelectasis/collapse of the left lower lobe is again seen and essentially unchanged. There now appears to be more loculated fluid more superiorly and laterally on the left. There is no evidence for pneumothorax. ACT 112: Negative or not required by law. Electronically signed by: Redd Vega M.D. 03/31/2021 1:31 PM Chest X-Ray 03/31/21 17:06 XR chest 1V portable CLINICAL HISTORY: s/p pigtail cath TECHNIQUE: Single frontal radiograph of the chest was obtained. Comparison: Comparison is made to chest radiograph 03/31/2021 FINDINGS: There has been interval placement of a left pigtail catheter. Calcified aortic knob is seen. Interval decrease in left pleural effusion. No evidence of pleural effusion or pneumothorax. IMPRESSION: Status post left pleural catheter with decrease in left pleural effusion. No pneumothorax is seen. ACT 112: Negative or not required by law. Electronically signed by: Raj Guerra M.D. 03/31/2021 5:29 PM Chest X-Ray 04/01/21 07:00 XR chest 1V portable CLINICAL HISTORY: Left chest tube. COMPARISON STUDY: Chest CT March 28, 2021. Chest radiograph March 31, 2021. FINDINGS: Left basilar pleural catheter is in place. Persistent left pleural effusion is noted. This effusion is decreased when compared to chest radiograph prior to catheter placement. This is similar to exam following catheter placement on March 31, 2021. Suspected loculated component is again noted. Cardiomegaly is noted. There is no pneumothorax. Pulmonary vascular congestion persists. IMPRESSION: Left basilar pleural catheter in place. Persistent left pleural effusion with suspected loculated component. No pneumothorax. ACT 112: Negative or not required by law. Electronically signed by: Mihai Carter M.D. 04/01/2021 9:[address] 04/01/21 07:40 CT chest diagnostic wo con CLINICAL HISTORY: eval left pleural effusion . Pleural catheter in place. COMPARISON STUDY: 03/28/2021 and portable chest from 04/01/2021 CT DOSE: 215.57 mGy.cm TECHNIQUE: Standard CT of the Chest was performed without IV contrast. A dose lowering technique was utilized adhering to the principles of ALARA. FINDINGS: Airway: The airway is clear. No endobronchial lesion is identified. Lungs and pleural: Compared to the previous CT examination, left pleural base catheter is seen at the left lung base. There is only slight interval decrease in the amount of pleural fluid present despite the catheter in place. Additionally, there is now loculated pleural fluid present worst superolaterally and within the major fissure. There is again atelectasis/collapse present involving the left lower lobe. Slight increased aeration is present. The remainder of the left hemithorax is clear. Small to moderate size right pleural effusion is again seen and unchanged. There is atelectasis at the right lung base as well. The remainder of the right hemithorax is clear. There is no change in right lower lobe pulmonary nodule as seen on image 244 the current study. Previously identified 9 mm right lower lobe pulmonary nodule is not seen in a be excluded by fluid. 5 mm right apical pulmonary nodule is again seen on image 71. No new pulmonary nodules are identified. Mediastinum: There is no evidence for pathologic adenopathy on these limited noncontrast images. There is again soft tissue density seen in the superior mediastinum to the left which is not well seen on these noncontrast images. Heart size is mildly enlarged. There is extensive coronary artery calcification and calcification of the aortic and mitral valves. The thoracic aorta is within normal limits. Extensive atherosclerotic calcification is present. There is no evidence for pericardial effusion. Surgical clips are again seen in left axilla. Stable soft tissue density is again seen along the left lateral chest wall. Upper abdomen: The adrenal glands are normal bilaterally. Osseous structures: There is no acute osseous pathology. IMPRESSION: 1. Compared to the previous CT examination, placement of a left pleural-based catheter is present. However, there is only slight interval decrease in the size of the left pleural effusion. 2. There is now a more loculated component more superiorly and laterally and there is loculated fluid seen within the fissure. 3. Compressive atelectasis/collapse of the left lower lobe is again seen with slight increased aeration. 4. There is a stable right pleural effusion with right basilar atelectasis. 5. Additional nonacute findings are again seen as delineated above. ACT 112: Negative or not required by law. Electronically signed by: Redd Vega M.D. 04/01/2021 10:47 AM PG Care Time/CCT Total # of Minutes Spent Total Time Spent with Patient: Total time spent is greater than 50% in coordination of care (as documented) at patient's floor/unit and/or counseling patient: 45 minutes Coding Level of Care Code 60378 Subseq Hosp Care Lvl 3 Diagnoses Pleural effusion J90 COPD (chronic obstructive pulmonary disease) J44.[address] R93.89 Multiple pulmonary nodules R91.8 Acute respiratory failure with hypoxia J96.01 Time Spent (min) 45
[2021-04-01] MEDS: CHOLECALCIFEROL 1,000 UNITS 25 MCG TAB PO SCH ×2 (11:39→16:45)
[2021-04-01] MEDS: CYANOCOBALAMIN (B-12) 500 MCG TABLET PO SCH ×2 (11:39→16:45)
[2021-04-01] MEDS: ALTEPLASE, RECOMBINANT 10 MG in SYRINGE 50 ML IPL SCH (11:51)
[2021-04-01] MEDS: DORNASE ALFA 5 ML in SYRINGE 25 ML IPL SCH (13:02)
--- NOTE | 2021-04-01 13:21 | XRay Report ---
XR chest 1V not portable at 11:45 AM CLINICAL HISTORY: Follow-up loculated left pleural effusion. COMPARISON STUDY: 04/01/2021 at 7:[address] of the chest from 04/01/2021 TECHNIQUE: 1 view of the chest FINDINGS: Single frontal view of the chest demonstrates the cardiomediastinal silhouette to be within normal li mits. Compared to the previous examination, there appears to have been adjustment of the patient's le ft pigtail catheter. There is interval decrease in moderate-sized left pleural effusion. Loculated pl eural fluid more superiorly is unchanged. There is no evidence for pneumothorax. There is no evidence for right pleural effusion. No confluent alveolar opacities are identified. There is no evidence for vascular congestion. There is no acute osseous pathology. IMPRESSION: Compared to the earlier examination, there appears to have been adjustment of the pigtail catheter at the left lung base with interval decrease in left pleural effusion. There is no evidence for pneumothorax. Loculated pleural fluid is again seen more superiorly on the left. There is also a gain noted to be loculated fluid within the major fissure on the left. There is again left basilar at electasis as well. ACT 112: Negative or not required by law. Electronically signed by: Redd Vega M.D. 04/01/2021 1:20 PM
[2021-04-01] MEDS: oxyCODONE HCL IR 5 MG TAB (IMMEDIATE RELEASE) PO PRN (16:43)
[2021-04-01 17:38] LABS: Basophils # (auto) 0.03 K/uL (0-0.2); Basophils % (auto) 0.4 %; Eosinophils # (auto) 0.06 K/uL (0-0.5); Eosinophils % (auto) 0.8 %; Hematocrit (blood only) 37.8 % (37-47); Hemoglobin 12.7 g/dL (12.0-16.0); Immature Granulocytes # (auto) 0.03 K/uL (0.00-0.02); Immature Granulocytes % (auto) 0.4 %; Lymphocytes # (auto) 0.45 K/uL (1.2-3.4); Lymphocytes % (auto) 5.7 %; Mean Corpuscular Hemoglobin 31.7 pg (25-34); Mean Corpuscular Hgb Conc 33.6 g/dL (32-36); Mean Corpuscular Volume 94.3 fL (80-100); Monocytes # (auto) 0.61 K/uL (0.11-0.59); Monocytes % (auto) 7.7 %; Neutrophils # (auto) 6.74 K/uL (1.4-6.5); Nucleated RBC # (auto) 0.02 K/uL (0-0); Nucleated RBC % (auto) 0.2 %; Platelet Count 131 K/uL (130-400); RDW Coefficient of Variation 13.3 % (11.5-14.5); RDW Standard Deviation 46.1 fL (36.4-46.3); Red Blood Count 4.01 M/uL (4.2-5.4); White Blood Count 7.92 K/uL (4.8-10.8)
[2021-04-01] MEDS ORDERED: LORazepam 0.5 MG/1 ML VIAL IV STA (18:14)
--- NOTE | 2021-04-01 18:29 | Consultation Report ---
DATE OF SERVICE: 04/01/2021. REASON FOR CONSULTATION: CT chest concerning for metastatic disease. HISTORY OF PRESENT ILLNESS: Ms. Fernandez is an 86-year-old female with medical history significant for ITP, for which she is status post 4 doses of weekly rituximab in 2018, history of left breast cancer, status post lumpectomy and adjuvant radiation treatment. The patient was most recently being followed at [facility] by Dr. Rausch and Beba Youngblood for monoclonal gammopathy . She presented to the ER on 03/28/2021 with complaints of left-sided chest pain. CT chest obtained on 03/28/2021 revealed moderate left-sided pleural effusion with consolidation of the left lung as well as numerous enhancing small soft tissue lesions throughout the chest wall, posterior left breast/infra-axillary region, bilateral axilla, superior mediastinum, within or adjacent to the left adrenal gland and within the peritoneum posterior to the liver as well as subcentimeter peritoneal implants in the left upper quadrant of the abdomen. CT chest also revealed at least 3 pathologically indeterminate right pulmonary nodules, which were suspicious for metastatic disease. CT abdomen and pelvis performed on 03/30/2021 revealed multiple scattered peritoneal and retroperitoneal nodules with slightly increased density, likely representing a lymphoma as well as redemonstration of moderate left and small right pleural effusions. On 03/29/2021, she underwent left-sided thoracentesis due to hypoxia, in which 950 mL of dark cloudy sanguineous fluid was removed. Cytology was, however, negative for malignancy. On 03/31/2021, she had a left pigtail catheter placed. 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 During my evaluation of the patient today, she denies fever, chills, drenching night sweats or palpable lymphadenopathy. She endorses about 25 pounds of weight loss over the past 1 year, which she attributes to poor appetite. PAST MEDICAL HISTORY: 1. Left breast cancer, status post lumpectomy and adjuvant radiation treatment in 2001. 2. 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 3. Hypertension. 4. Type 2 diabetes mellitus. PAST SURGICAL HISTORY: 1. Cholecystectomy. 2. History of lumpectomy. MEDICATIONS PRIOR TO ADMISSION: 1. Vitamin B12, 1000 mcg p.o. daily. 2. Atenolol 50 mg p.o. daily. 3. Paroxetine 10 mg p.o. daily. 4. Amlodipine 10 mg p.o. daily. 5. Sitagliptin 100 mg daily. ALLERGIES: 1. ATORVASTATIN. 2. KEFLEX. 3. CLARITHROMYCIN. 4. ESCITALOPRAM. 5. FLUOXETINE. 6. LISINOPRIL. 7. OLMESARTAN. 8. PAROXETINE. 9. PENICILLIN. SOCIAL HISTORY: Endorses history of smoking. Denies alcohol and illicit drug use. FAMILY HISTORY: Significant family history of ITP. REVIEW OF SYSTEMS: CONSTITUTIONAL: Positive for 25 pounds weight loss. Denies fever, chills, or night sweats. EYES: Negative for change in vision. ENT: Negative for epistaxis, nasal discharge, or sore throat. CARDIOVASCULAR: Endorses occasional shortness of breath and chest pain. RESPIRATORY: Endorses shortness of breath. No hemoptysis or cough. GASTROINTESTINAL: Endorses abdominal pain. Denies change in bowel habits, nausea or vomiting. GENITOURINARY: Negative. NEUROLOGICAL: Endorses occasional headaches. Denies weakness or dizziness. LYMPHATICS/HEMATOLOGIC: Denies palpable adenopathy. PHYSICAL EXAMINATION: VITAL SIGNS: Blood pressure 157/67, heart rate 80, respiratory rate 15, temperature 36.6, oxygen saturation 92% on 1 liter nasal cannula. EYES: Eyes are without conjunctival erythema or icterus. ENT: External examination was negative for masses. RESPIRATORY: Lung sounds were generally clear bilaterally. CARDIOVASCULAR: Heart was regular rate and rhythm without significant murmur, gallops, or rubs. GASTROINTESTINAL: No palpable hepatosplenomegaly. ABDOMEN: Soft with normal bowel sounds. LYMPHATIC: Palpable left axillary adenopathy LABORATORIES: CBC from 04/01/2021 revealed white cell count of 5.3, hemoglobin of 11.8, hematocrit of 35.5, and platelet count of 110. Chemistry significant for sodium of 132, BUN of 22 and creatinine of 0.84 with calcium of 8.2. IMAGING STUDIES: CT chest on 03/28/2021, impression: 1. Cardiomegaly and emphysema. 2. Moderate and at least partially loculated left pleural effusion with consolidation of the left lung. Additionally, there is fibrotic change/consolidation at the left apex. Correlate clinically for evidence of pneumonia. 3. There is a small right pleural effusion. 4. There is evidence of widespread metastatic disease. There are numerous enhancing soft tissue lesions throughout the chest wall as well as lesions within the posterior left breast/infra-axillary region, both axilla, the superior mediastinum, within or adjacent to the left adrenal gland and within the peritoneum posterior to the liver. Subcentimeter peritoneal implants also suggested in the left upper quadrant. The primary site of neoplasm is not delineated. Correlate with the patient's oncologic history. 5. There are at least 3 pathologically indeterminate right pulmonary nodules, which are suspicious for metastatic disease. 6. No pleural lesions are clearly identified. 7. Postoperative change and dermal thickening noted in the left breast. CT abdomen and pelvis on 03/30/2021, impression: 1. Multiple scattered peritoneal and retroperitoneal nodules as described above. These demonstrate slight increased density and therefore likely represent lymphoma. Tissue sampling recommended for confirmation. 2. Redemonstration of the moderate left and small right pleural effusions, which are better appreciated in the recent chest CT. 3. Cirrhotic liver with mild splenomegaly. 4. No bowel wall thickening, no obstruction. CT head on 03/30/2021 revealed no acute intracranial hemorrhage, no evidence of acute territorial infarction or other acute intracranial processes. IMPRESSION: 1. Recently diagnosed lymphoma (DLBCL vs follicular) with additional FISH studies pending. 2. History of idiopathic thrombocytopenic purpura. 3. History of left breast cancer, status post lumpectomy. 4. Secondary polycythemia. 5. 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 Elderly female who presented with respiratory symptoms and was found to have widely metastatic lesions on CT imaging. Biopsy of left chest wall lesion is highly suggestive of CD10 positive B-cell lymphoma with differentials being follicular lymphoma versus diffuse large B-cell lymphoma. Additional FISH studies are pending, which would be helpful in differentiating whether she has follicular lymphoma versus more aggressive diffuse large B-cell lymphoma. Clinically, , I suspect that she has more aggressive diffuse large B-cell lymphoma. I explained to the patient that if FISH studies confirm diffuse large B-cell lymphoma, she would require outpatient PET/CT to evaluate the extent of disease. Treatment will most likely consist of combination chemotherapy with R- CHOP if diffuse large B-cell lymphoma is confirmed. Given her advanced age, we would, however, treat her with mini R-CHOP. If she is, however, found to have follicular lymphoma, could treat her with bendamustine and rituximab, which is fairly well tolerated in the elderly. PLAN: 1. Will schedule outpatient PET/CT. 2. Follow up on additional FISH studies, which are pending. Thank you for this consult. Oncology will follow the patient while in the hospital and set up followup upon discharge from hospital. Please feel free to call if you have any further questions. Job ID: [id number] [facility]
[2021-04-01] MEDS: LORazepam 0.5 MG TAB PO SCH (19:53)
[2021-04-01] MEDS ORDERED: GADOBUTROL 65ML VIAL IV ONE (21:27)
[2021-04-02] MEDS: ALTEPLASE, RECOMBINANT 10 MG in SYRINGE 50 ML IPL SCH ×2 (00:08→13:21)
[2021-04-02] MEDS: AMPICILLIN/SULBACTAM SOD 3,000 MG in 0.9 % SODIUM CHLORIDE 100 ML IV SCH ×4 (00:23→17:25)
[2021-04-02] MEDS: DORNASE ALFA 5 ML in SYRINGE 25 ML IPL SCH ×2 (01:13→14:59)
--- NOTE | 2021-04-02 07:06 | Hospitalist Progress Note ---
Date of Service April 02, 2021 Assessment & Plan (1) Breast cancer: Plan: Elva is an 86-year-old female with a history of previous breast cancer s/p lumpectomy and radiation in 2001, MGUS, type 2 diabetes, hypertension & 100 pack-yr tobacco history who presented with L-sided chest pain and SOB subsequently found to have a moderate loculated L pleural effusion. CT chest w/ multiple enhancing lesions; most likely 2/2 lymphoma. Acute hypoxic respiratory failure - secondary to pleural effusion - continue NC O2 to keep SaO2 >90% Left pleural effusion, Empyema - Moderate L pleural effusion w/ partial loculation s/p thoracentesis 03/29/20 w/ therapeutic relief. - Pleural fluid + for Light's criteria, c/w exudative. - culture w/ strep pneumo, few. - Continue Unasyn, chosen because GI upset from clindamycin. Penicillin rash was during childhood. - Pigtail catheter placed 03/31/21. Hemothorax. Follow serial cxrs. MIST2 protocol. - No cancer cell on path Lymphoma In the setting of ongoing fatigue, 25 lb unintentional weight loss over course of last year, chills over the last several months - CT chest concerning for mets. "numerous enhancing soft tissue lesions through out the chest wall, as well as lesions within the posterior left breast/infraaxillary region, both axillae, the superior mediastinum, within or adjacent to the left adrenal gland, and within the peritoneum posterior to the liver. Subcentimeter peritoneal implants are also suggested in the left upper quadrant." There are also 3 pathologically indeterminate right pulmonary nodules. - Because of pleural fluid above not showing malignancy: ordered US guided FNA biopsy of left axillary/breast mass and lymph nodes; plan is to determine primary source of mets. This will allow for further goals of care discussion. - Left chest wall mass FNA cytology: "The main differential is a follicular lymphoma versus a diffuse large B-cell lymphoma." - in conjunction w/ CT abd concerning for lymphoma, concern for late stage lymphoma - CT head was neg for mets. - Peripheral smear ordered - Oncology consult placed - outpatient follow. waiting on FISH studies - 04/01/21 brain MRI: no parenchymal mets. "1.2 cm T1 hypointense focus within the right frontal bone. Although indeterminate, this is probably benign. A skeletal metastasis is within the differential but considered unlikely." Diarrhea - ordered c diff testing History of Breast Cancer - Review of records within our system (2001) reveal h/o [id number] ER+/PA+/[HER2/jenna]-neg IDC s/p lumpectomy and radiation in 2001, no chemo/immunotherapy - Last mammogram appears to be over 5 years ago. 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 Follow BMP. Hypomagnesemia - Repleted. Hold PO Mg because w/ diarrhea. Recheck in AM. Hypokalemia -Continue 20meq KCl. Follow BMP. Type 2 diabetes - last A1c 5.4% in 02/2021 Hold home medications. ACHS glucose checks for 1 day; SSI not indicated per review of BSGs Hypertension Continue amlodipine, atenolol Anxiety Continue home Ativan, Paxil Tobacco use disorder - Daily nicotine patch 14mg Severe protein-calorie malnutrition - nutrition consult Code: Full code Dispo: MedSurg with telemetry Diet: DM2 diet Prophylaxis: Lovenox held in setting of hemothorax PT/OT ordered (2) S/P lumpectomy of breast: (3) Encounter for pre-operative examination: (4) Type 2 diabetes mellitus, controlled: (5) Hypertension: (6) Obesity: (7) Metastatic cancer: (8) Hypoxia: (9) Hyponatremia: Admission and Anticipated Discharge Date Admission Date: March 28, 2021 Supervising Physician Co-Signing Physician Notes Resident Physician Supervision Note: I independently interviewed and examined the patient and verified the gore history and physical, reviewed labs and image studies and agree with resident Dr. Corral findings and care plan. Subjective Feeling fatigued. Slept well last night. States the oxycodone yesterday afternoon helped her pain significantly. Currently, not complaining of pain at L pleurex cath site while sitting in chair. Denies SOB of chest pain. Ate breakfast. Continues to have frequent diarrhea, q2h despite PO Mg held. Review of Systems Review of Systems: All systems reviewed & are unremarkable except as noted in HPI & below Physical Exam Physical Exam: General: Grossly A&O. NAD. Cooperative. HEENT: Atraumatic, normocephalic. Pulm: R lung field and L upper lung field w/ faint insp crackles. No respiratory distress. Cardiac: RRR. 3/6 murmur at aortic and pulmonic areas. No BLE. Bilat shins slightly TTP. Abdominal: Nontender, nondistended, soft. No abd pain. Integ: L lateral back has bandage over chest tube site. Bandage c/d/i. Results & Data Results & Data ([facility]) Vital Signs (Past 12 Hours) Vital Signs 95% on 1.5L NC. vitals reviewed. Temp Pulse Pulse Resp BP Pulse Ox 04/02/21 04:56 36.6 C 73 20 129/70 95 04/01/21 23:42 36.8 C 89 20 116/67 95 04/01/21 22:51 89 04/01/21 19:32 36.9 C 89 18 145/75 H 91 Laboratory Results cbc stable. Na 131 stable 2/6 pleural fluid w/ few strep pneumo, pansensitive Diagnostic Findings Brain MRI 04/01/21 13:26 MRI OF THE BRAIN WITHOUT AND WITH IV CONTRAST CLINICAL HISTORY: Weakness. History of breast cancer. Evaluate for metastatic disease. COMPARISON STUDY: Head CT March 30, 2021. TECHNIQUE: Utilizing a 1.5 Olga magnet and dedicated coil, multiplanar, multiecho imaging of the brain was performed pre and postcontrast administration. IV administration of 7 mL of Gadavist contrast was uneventful. FINDINGS: There are no foci of restricted diffusion to suggest acute infarct. No acute intracranial hemorrhage, midline shift or mass effect is present. Ventricular system is unremarkable. Basal cisterns are patent. There are no extra-axial collections. Flow-voids for the major intracranial vessels are present. There is no intracranial mass or pathologic enhancement. This exam is mildly compromised by motion artifact. White matter T2 hyperintense foci suggest small vessel disease. There is mild atrophy. Note is made of a 1.2 cm T1 hypointense focus within the medial right frontal bone shown on axial T1- weighted sequence image . No additional calvarial lesions are present. IMPRESSION: 1. No acute intracranial findings. 2. No parenchymal metastases identified. 3. 1.2 cm T1 hypointense focus within the right frontal bone. Although indeterminate, this is probably benign. A skeletal metastasis is within the differential but considered unlikely. ACT 112: Negative or not required by law. Electronically signed by: Mihai Carter M.D. 04/02/2021 9:01 AM Chest X-Ray 04/02/21 08:00 XR chest 1V portable CLINICAL HISTORY: Loculated left pleural effusion TECHNIQUE: Single frontal radiograph of the chest was obtained. Comparison: Comparison is made to chest one view 04/01/2021 FINDINGS: No lines and tubes are seen. Calcified aortic knob is seen. Interval mild reduction in left lower lobe airspace opacity there are possible small bilateral pleural effusions, decreased from prior exam. IMPRESSION: Left lower lung airspace opacity is somewhat improved from prior exam. Left pleural effusion is markedly reduced. ACT 112: Negative or not required by law. Electronically signed by: Raj Guerra M.D. 04/02/2021 9:31 AM Resident Activity Tracking Resident Involvement: Resident Care Provided Care Provided: Adult Hospital Medicine
[2021-04-02 08:01] LABS: Basophils % (auto) 0.5 %; Eosinophils % (auto) 1.2 %; Hematocrit (blood only) 35.4 % (37-47); Immature Granulocytes % (auto) 0.9 %; Lymphocytes % (auto) 9.3 %; Mean Corpuscular Hgb Conc 33.9 g/dL (32-36); Mean Corpuscular Volume 94.4 fL (80-100); Mean Platelet Volume 12.4 fL (7.4-10.4); Monocytes % (auto) 11.6 %; Neutrophils # (auto) 4.33 K/uL (1.4-6.5); Neutrophils % (auto) 76.5 %; Platelet Count 129 K/uL (130-400); RDW Coefficient of Variation 13.4 % (11.5-14.5); RDW Standard Deviation 46.5 fL (36.4-46.3); Red Blood Count 3.75 M/uL (4.2-5.4); White Blood Count 5.67 K/uL (4.8-10.8)
[2021-04-02 08:02] LABS: Basophils # (auto) 0.03 K/uL (0-0.2); Eosinophils # (auto) 0.07 K/uL (0-0.5); Immature Granulocytes # (auto) 0.05 K/uL (0.00-0.02); Lymphocytes # (auto) 0.53 K/uL (1.2-3.4); Monocytes # (auto) 0.66 K/uL (0.11-0.59)
[2021-04-02 08:34] LABS: BUN Creatinine Ratio 23.9 (10-20); Calcium 7.9 mg/dl (8.5-10.1); Creatinine Clr Calc Pharmacy 48.5 ml/min; Est GFR (African American) 69.9 ml/min; Est GFR (Non-African American) 60.3 ml/min; Magnesium 1.7 mg/dl (1.7-2.4); Potassium 3.8 mmol/L (3.5-5.1)
--- NOTE | 2021-04-02 09:03 | Magnetic Resonance Report ---
MRI OF THE BRAIN WITHOUT AND WITH IV CONTRAST CLINICAL HISTORY: Weakness. History of breast cancer. Evaluate for metastatic disease. COMPARISON STUDY: Head CT March 30, 2021. TECHNIQUE: Utilizing a 1.5 Olga magnet and dedicated coil, multiplanar, multiecho imaging of the br ain was performed pre and postcontrast administration. IV administration of 7 mL of Gadavist contras t was uneventful. FINDINGS: There are no foci of restricted diffusion to suggest acute infarct. No acute intracranial h emorrhage, midline shift or mass effect is present. Ventricular system is unremarkable. Basal cistern s are patent. There are no extra-axial collections. Flow-voids for the major intracranial vessels are present. There is no intracranial mass or pathologic enhancement. This exam is mildly compromised by motion artifact. White matter T2 hyperintense foci suggest small vessel disease. There is mild atrop hy. Note is made of a 1.2 cm T1 hypointense focus within the medial right frontal bone shown on axial T1-weighted sequence image 22 of 24. No additional calvarial lesions are present. IMPRESSION: 1. No acute intracranial findings. 2. No parenchymal metastases identified. 3. 1.2 cm T1 hypointense focus within the right frontal bone. Although indeterminate, this is probab ly benign. A skeletal metastasis is within the differential but considered unlikely. ACT 112: Negative or not required by law. Electronically signed by: Mihai Carter M.D. 04/02/2021 9:01 AM
[2021-04-02] MEDS: amLODIPine BESYLATE 5 MG TAB PO SCH (09:29)
[2021-04-02] MEDS: LIDOCAINE 5% 1 PATCH TD SCH (09:30)
[2021-04-02] MEDS: ATENOLOL 50 MG TABLET PO SCH (09:30)
[2021-04-02] MEDS: NICOTINE 14 MG/24 HR PATCH TD SCH (09:32)
[2021-04-02] MEDS: PARoxetine HCL 10 MG TAB PO SCH (09:33)
--- NOTE | 2021-04-02 09:33 | XRay Report ---
XR chest 1V portable CLINICAL HISTORY: Loculated left pleural effusion TECHNIQUE: Single frontal radiograph of the chest was obtained. Comparison: Comparison is made to chest one view 04/01/2021 FINDINGS: No lines and tubes are seen. Calcified aortic knob is seen. Interval mild reduction in left lower lob e airspace opacity there are possible small bilateral pleural effusions, decreased from prior exam. IMPRESSION: Left lower lung airspace opacity is somewhat improved from prior exam. Left pleural effusion is marke dly reduced. ACT 112: Negative or not required by law. Electronically signed by: Raj Guerra M.D. 04/02/2021 9:31 AM
[2021-04-02] MEDS: POTASSIUM CHLORIDE 10 MEQ TABCR PO SCH ×2 (09:34→21:08)
[2021-04-02] MEDS: UMECLIDINIUM/VILANTEROL 62.5/25MCG 7 PUFFS/INHALER INH SCH (09:35)
[2021-04-02] MEDS: CYANOCOBALAMIN (B-12) 500 MCG TABLET PO SCH (11:46)
[2021-04-02] MEDS: oxyCODONE HCL IR 5 MG TAB (IMMEDIATE RELEASE) PO PRN ×2 (11:54)
[2021-04-02] MEDS: CHOLECALCIFEROL 1,000 UNITS 25 MCG TAB PO SCH (12:15)
--- NOTE | 2021-04-02 14:08 | Pulmonology Progress Note ---
Date of Service April 02, 2021 Assessment & Plan (1) Pleural effusion: (2) COPD (chronic obstructive pulmonary disease): (3) Abnormal chest CT: (4) Multiple pulmonary nodules: (5) Acute respiratory failure with hypoxia: Plan: Attending: Dr. Tim Pression: 86-year-old female with a history of extensive tobacco abuse and breast cancer presenting to the hospital due to shortness of breath and a SIRS-like condition. Status post placement of left pleural pigtail catheter in place to suction at -20 mmHg Thoracentesis from 03/29/2021 yielded pansensitive Streptococcus pneumonia. We will leave catheter to drain to -20 cm H2O. Dose #3 of TPA/dornase today at noon. Continue MIST 2 protocol to evacuate the pleural effusion which appears to be an empyema. Her hemoglobin has remained stable. Hemodynamically she is stable as well. Please continue to hold anticoagulation. Follow chest x-ray for 4 days. Continue with Unasyn at this time for antibiotic coverage. Biopsy results from the chest wall mass suggest lymphoma. Patient advised of possible diagnosis today. Oncology consulted today. Appreciate their input. MRI of the brain without metastatic brain lesions. There is a 1.2 cm hypointense focus within the right frontal bone which may be metastasis but unlikely. Patient COPD appears to be stable. Continue Umeclidinium/Vilanterol (AC/LABA) 1 puff daily. Maintain SaO2 between 88 and 92%. Continue nicotine patch for tobacco abuse history. Continue to encourage complete abstinence of tobacco use. Thank you for the consultation. Pulmonary will continue to follow along with you. Admission and Anticipated Discharge Date Admission Date: March 28, 2021 Supervising Physician Co-Signing Physician Notes Chart reviewed. Agree with the note as outlined above. Subjective Attending: Dr. Tim Patient seen and examined in room 287. She is somewhat lethargic after receiving oxycodone and pre-treatment for MRI this morning. She does arouse to verbal stimuli. She states that her breathing is about the same as yesterday. No significant chest pain. No pain at the pigtail catheter insertion site. She continues to drain into a [facility] and has 750 mL of serosanguineous fluid in the container at this point there is no evidence of air leak. She denies any fever, chills. No new acute complaints. Review of Systems Review of Systems: All systems reviewed & are unremarkable except as noted in Subjective Physical Exam Physical Exam: GENERAL : No acute distress EYES: No icterus, gaze conjugate NOSE: No evidence of epistaxis MOUTH: No lesions or candidiasis NECK: Supple LUNGS: CTA B/L, no wheezes, rales or rhonchi BACK: Pigtail catheter site secure. No bleeding or drainage through dressing. HEART: Regular, rate controlled ABDOMEN: Soft, NT, ND, BS Present EXTREMITIES: No LE edema, pedal pulses intact NEURO: A&OX3 Results & Data Results & Data ([facility]) Vital Signs (Past 12 Hours) Vital Signs Temp Pulse Pulse Resp BP Pulse Ox Pulse Ox 04/02/21 11:27 93 04/02/21 07:21 72 04/02/21 07:15 36.6 C 75 20 147/67 H 94 04/02/21 04:56 36.6 C 73 20 129/70 95 Critical Care Results & Data Vital Signs (Past 12 Hours) Vital Signs Temp Pulse Pulse Resp BP Pulse Ox Pulse Ox 04/02/21 11:27 93 04/02/21 07:21 72 04/02/21 07:15 36.6 C 75 20 147/67 H 94 04/02/21 04:56 36.6 C 73 20 129/70 95 Lab & Micro Results (Past 24 Hours) RBC 3.37 M/uL (4.2-5.4) L 04/03/21 WBC 4.28 K/uL (4.8-10.8) L 04/03/21 Hgb 10.7 g/dL (12.0-16.0) L 04/03/21 Hct 32.2 % (37-47) L 04/03/21 MCV 95.5 fL (80-100) 04/03/21 MCH 31.8 pg (25-34) 04/03/21 MCHC 33.2 g/dL (32-36) 04/03/21 RDW Standard Deviation 46.9 fL (36.4-46.3) H 04/03/21 RDW Coefficient of Variation 13.4 % (11.5-14.5) 04/03/21 Plt Count 140 K/uL (130-400) 04/03/21 MPV 12.3 fL (7.4-10.4) H 04/03/21 Neutrophils (%) (Auto) 69.5 % 04/03/21 Lymphocytes (%) (Auto) 16.1 % 04/03/21 Monocytes # (Auto) 0.40 K/uL (0.11-0.59) 04/03/21 Eosinophils # (Auto) 0.16 K/uL (0-0.5) 04/03/21 Immature Granulocyte % (Auto) 0.9 % 04/03/21 Neutrophils # (Auto) 2.97 K/uL (1.4-6.5) 04/03/21 Lymphocytes # (Auto) 0.69 K/uL (1.2-3.4) L 04/03/21 Monocytes # (Auto) 0.40 K/uL (0.11-0.59) 04/03/21 Eosinophils # (Auto) 0.16 K/uL (0-0.5) 04/03/21 Basophils # (Auto) 0.02 K/uL (0-0.2) 04/03/21 Immature Granulocyte # (Auto) 0.04 K/uL (0.00-0.02) H 04/03/21 Na 134 mmol/L (136-145) L 04/03/21 K 4.0 mmol/L (3.5-5.1) 04/03/21 Cl 103 mmol/L (98-107) 04/03/21 CO2 25 mmol/L (21-32) 04/03/21 Anion Gap 6 (3-11) 04/03/21 BUN 22 mg/dl (6-23) 04/03/21 Creatinine 1.01 mg/dl (0.6-1.2) 04/03/21 Estimated GFR ( Amer) 59.2 ml/min 04/03/21 Estimated GFR (Non-Af Amer) 51.1 ml/min 04/03/21 BUN/Creatinine Ratio 21.8 (10-20) H 04/03/21 Glu 111 mg/dl (70-99(Fasting)) H 04/03/21 Ca 7.7 mg/dl (8.5-10.1) L 04/03/21 Total Bilirubin 0.6 mg/dl (0.2-1.0) 04/03/21 AST 23 U/L (13-39) 04/03/21 ALT 11 U/L (7-52) 04/03/21 Alkaline Phosphatase 50 U/L (34-104) 04/03/21 TP 4.7 gm/dl (6.0-8.3) L 04/03/21 Albumin 2.2 gm/dl (3.4-5.0) L 04/03/21 Globulin 2.5 gm/dl (2.5-4.0) 04/03/21 Albumin/Globulin Ratio 0.9 (0.9-2) 04/03/21 Calcium Level 7.7 mg/dl (8.5-10.1) L 04/03/21 06:38 04/03/21 Microbiology 03/31/21 16:45 Gram Stain - Final Pleural Fluid Aerobic and Anaerobic Culture - Preliminary No growth to date. Diagnostic Findings (Past 24 Hours) Brain MRI 04/01/21 13:26 MRI OF THE BRAIN WITHOUT AND WITH IV CONTRAST CLINICAL HISTORY: Weakness. History of breast cancer. Evaluate for metastatic disease. COMPARISON STUDY: Head CT March 30, 2021. TECHNIQUE: Utilizing a 1.5 Olga magnet and dedicated coil, multiplanar, multiecho imaging of the brain was performed pre and postcontrast administration. IV administration of 7 mL of Gadavist contrast was uneventful. FINDINGS: There are no foci of restricted diffusion to suggest acute infarct. No acute intracranial hemorrhage, midline shift or mass effect is present. Ventricular system is unremarkable. Basal cisterns are patent. There are no extra-axial collections. Flow-voids for the major intracranial vessels are present. There is no intracranial mass or pathologic enhancement. This exam is mildly compromised by motion artifact. White matter T2 hyperintense foci suggest small vessel disease. There is mild atrophy. Note is made of a 1.2 cm T1 hypointense focus within the medial right frontal bone shown on axial T1- weighted sequence image . No additional calvarial lesions are present. IMPRESSION: 1. No acute intracranial findings. 2. No parenchymal metastases identified. 3. 1.2 cm T1 hypointense focus within the right frontal bone. Although indeterminate, this is probably benign. A skeletal metastasis is within the differential but considered unlikely. ACT 112: Negative or not required by law. Electronically signed by: Mihai Carter M.D. 04/02/2021 9:01 AM Chest X-Ray 04/02/21 08:00 XR chest 1V portable CLINICAL HISTORY: Loculated left pleural effusion TECHNIQUE: Single frontal radiograph of the chest was obtained. Comparison: Comparison is made to chest one view 04/01/2021 FINDINGS: No lines and tubes are seen. Calcified aortic knob is seen. Interval mild reduction in left lower lobe airspace opacity there are possible small bilateral pleural effusions, decreased from prior exam. IMPRESSION: Left lower lung airspace opacity is somewhat improved from prior exam. Left pleural effusion is markedly reduced. ACT 112: Negative or not required by law. Electronically signed by: Raj Guerra M.D. 04/02/2021 9:31 AM I & O Totals 24 Hours 04/01/21 04/02/21 04/03/21 06:59 06:59 06:59 Intake Total 852.833 / 670.717 3955 / 1577 108 / 108 Output Total 666 / 666 1852 / 1852 Balance 186.833 / 186.833 -275 / -275 108 / 108 Cumulative 03/28/21 15:49 thru 04/02/21 13:25 Intake Total 5091.833 Output Total 2568 Balance 2523.833 RT Ventilator Mngmt (Last Documented) Ventilator Ordered Settings Respiratory Rate 20 04/02/21 07:15 Ventilator - PT Measurements Respiratory Rate 20 PG Care Time/CCT Total # of Minutes Spent Total Time Spent with Patient: Total time spent is greater than 50% in coordination of care (as documented) at patient's floor/unit and/or counseling patient: 30 minutes Coding Level of Care Code 47122 Subseq Hosp Care Lvl 2 Diagnoses Pleural effusion J90 COPD (chronic obstructive pulmonary disease) J44.[address] R93.89 Multiple pulmonary nodules R91.8 Acute respiratory failure with hypoxia J96.01 Time Spent (min) 30
[2021-04-02] MEDS: LORazepam 0.5 MG TAB PO SCH (21:06)
[2021-04-03] MEDS: ALTEPLASE, RECOMBINANT 10 MG in SYRINGE 50 ML IPL SCH ×2 (00:09→12:35)
[2021-04-03] MEDS: AMPICILLIN/SULBACTAM SOD 3,000 MG in 0.9 % SODIUM CHLORIDE 100 ML IV SCH ×4 (00:18→17:21)
[2021-04-03] MEDS: DORNASE ALFA 5 ML in SYRINGE 25 ML IPL SCH ×2 (01:21→16:51)
[2021-04-03] MEDS: POTASSIUM CHLORIDE 10 MEQ TABCR PO SCH ×3 (02:09→20:10)
[2021-04-03 07:07] LABS: Basophils # (auto) 0.02 K/uL (0-0.2); Basophils % (auto) 0.5 %; Eosinophils # (auto) 0.16 K/uL (0-0.5); Eosinophils % (auto) 3.7 %; Hematocrit (blood only) 32.2 % (37-47); Hemoglobin 10.7 g/dL (12.0-16.0); Immature Granulocytes # (auto) 0.04 K/uL (0.00-0.02); Immature Granulocytes % (auto) 0.9 %; Lymphocytes # (auto) 0.69 K/uL (1.2-3.4); Lymphocytes % (auto) 16.1 %; Mean Corpuscular Hemoglobin 31.8 pg (25-34); Mean Corpuscular Hgb Conc 33.2 g/dL (32-36); Mean Corpuscular Volume 95.5 fL (80-100); Mean Platelet Volume 12.3 fL (7.4-10.4); Monocytes % (auto) 9.3 %; Neutrophils # (auto) 2.97 K/uL (1.4-6.5); Neutrophils % (auto) 69.5 %; Platelet Count 140 K/uL (130-400); RDW Coefficient of Variation 13.4 % (11.5-14.5); RDW Standard Deviation 46.9 fL (36.4-46.3); Red Blood Count 3.37 M/uL (4.2-5.4); White Blood Count 4.28 K/uL (4.8-10.8)
[2021-04-03 07:26] LABS: Albumin Globulin Ratio 0.9 (0.9-2); Albumin Level 2.2 gm/dl (3.4-5.0); BUN Creatinine Ratio 21.8 (10-20); Bilirubin,Total 0.6 mg/dl (0.2-1.0); Calcium 7.7 mg/dl (8.5-10.1); Creatinine Clr Calc Pharmacy 42.9 ml/min; Est GFR (African American) 59.2 ml/min; Est GFR (Non-African American) 51.1 ml/min; Globulin 2.5 gm/dl (2.5-4.0); Total Protein 4.7 gm/dl (6.0-8.3)
[2021-04-03] MEDS: NICOTINE 14 MG/24 HR PATCH TD SCH (08:03)
[2021-04-03] MEDS: PARoxetine HCL 10 MG TAB PO SCH (08:04)
[2021-04-03] MEDS: LIDOCAINE 5% 1 PATCH TD SCH (08:04)
[2021-04-03] MEDS: amLODIPine BESYLATE 5 MG TAB PO SCH (08:04)
[2021-04-03] MEDS: ATENOLOL 50 MG TABLET PO SCH (08:04)
[2021-04-03] MEDS: UMECLIDINIUM/VILANTEROL 62.5/25MCG 7 PUFFS/INHALER INH SCH (08:05)
--- NOTE | 2021-04-03 08:39 | XRay Report ---
XR chest 1V portable HISTORY: Loculated left pleural effusion COMPARISON: Chest 2/stent is 22. FINDINGS: No pneumothorax. There are small bilateral pleural effusions, unchanged. Left basilar pleur al catheter is unchanged in position. Left basilar densities also persist. The heart remains mildly e nlarged. Mild emphysema. There is a tortuous thoracic aorta, unchanged. IMPRESSION: 1. No change in the small bilateral pleural effusions and left base airspace opacity. 2. Left basilar pleural catheter is unchanged in position. No definite pneumothorax. ACT 112: Negative or not required by law. Electronically signed by: Desean Sanchez M.D. 04/03/2021 8:38 AM
--- NOTE | 2021-04-03 11:34 | Hospitalist Progress Note ---
Date of Service April 03, 2021 Assessment & Plan (1) Breast cancer: Plan: Elva is an 86-year-old female with a history of previous breast cancer s/p lumpectomy and radiation in 2001, MGUS, type 2 diabetes, hypertension & 100 pack-yr tobacco history who presented with L-sided chest pain and SOB subsequently found to have a moderate loculated L pleural effusion. CT chest w/ multiple enhancing lesions; most likely 2/2 lymphoma. Acute hypoxic respiratory failure: - secondary to pleural effusion - continue NC O2 to Maintain SaO2 between 88 and 92%. Left pleural effusion, Empyema: - Moderate L pleural effusion w/ partial loculation s/p thoracentesis 03/29/20 w/ therapeutic relief. - Pleural fluid + for Light's criteria, c/w exudative. - culture w/ strep pneumo - Continue Unasyn, chosen because GI upset from clindamycin. Penicillin rash was during childhood. - s/p Left Pigtail catheter placed 03/31/21 to suction at -20 mmHg. Hemothorax. Follow serial cxrs. - Pulm continuing MIST2 protocol series - Continue TPA/dornase instillation via chest tube to promote evacuation of the empyema. Nurse to allow the TPA to dwell for 4 hours prior to reopening the chest tube to suction. - No cancer cell on path COPD - Continue Umeclidinium/Vilanterol (ICS/LABA) 1 puff daily. Lymphoma: - Considered metastatic cancer, less likely given biopsy results - In the setting of ongoing fatigue, 25 lb unintentional weight loss over course of last year, chills over the last several months - Because of pleural fluid above not showing malignancy: ordered US guided FNA biopsy of left axillary/breast mass and lymph nodes; plan is to determine primary source of mets. This will allow for further goals of care discussion. - CT chest concerning for mets - CT head was neg for mets - Peripheral smear ordered - Oncology consult placed - outpatient follow. waiting on FISH studies - Left chest wall mass FNA cytology: "The main differential is a follicular lymphoma versus a diffuse large B-cell lymphoma." - in conjunction w/ CT abd concerning for lymphoma, concern for late stage lymphoma - 04/01/21 brain MRI: no parenchymal mets. "1.2 cm T1 hypointense focus within the right frontal bone. Although indeterminate, this is probably benign. A skeletal metastasis is within the differential but considered unlikely." Diarrhea: - ordered c diff testing History of Breast Cancer: - Review of records within our system (2001) reveal h/o [id number] ER+/NM+/[HER2/jenna]-neg IDC s/p lumpectomy and radiation in 2001, no chemo/immunotherapy - Last mammogram appears to be over 5 years ago. 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 - Follow BMP Hypokalemia: - Continue 20meq KCl. - Follow BMP Type 2 diabetes: last A1c 5.4% in 02/2021 - Hold home medications. ACHS glucose checks for 1 day; SSI not indicated per review of BSGs Hypertension: - Continue amlodipine, atenolol Anxiety: - Continue home Ativan, Paxil Tobacco use disorder: - Daily nicotine patch 14mg Severe protein-calorie malnutrition: - nutrition consult Diet: Carb consistent Code: Full code DVT ppx: Lovenox held in setting of hemothorax while undergoing MIST2 protocol (2) S/P lumpectomy of breast: (3) Encounter for pre-operative examination: (4) Type 2 diabetes mellitus, controlled: (5) Hypertension: (6) Obesity: (7) Metastatic cancer: (8) Hypoxia: (9) Hyponatremia: Admission and Anticipated Discharge Date Admission Date: March 28, 2021 Supervising Physician Co-Signing Physician Notes Resident Physician Supervision Note: I independently interviewed and examined the patient and verified the gore history and physical, reviewed labs and image studies and agree with resident Dr. Rich findings and care plan. Subjective Reports that she is doing well this morning, with no acute concerns. Exhausted as the chest tube limits her ability to sleep like she normally would. Review of Systems Review of Systems: All systems reviewed & are unremarkable except as noted in Subjective Physical Exam Constitutional: WD/WN, vitals as above Eyes: PERRL, conjunctivae normal, anicteric sclerae Respiratory: able to speak in complete sentences; no respiratory distress and no labored breathing Auscultation: no crackles, no rales, no rhonchi and no wheezes Cardiovascular: Rate/Rhythm: regular rate and regular rhythm Heart Sounds: no gallop, no murmur and no cardiac rub Vessels: normal peripheral pulses; no JVD Extremities: no edema Gastrointestinal (Abdomen): Inspection/Auscultation: abdomen normal to inspection; abdomen not distended and + abnormal bowel sounds Percussion/Palpation: abdomen soft; abdomen nontender and no guarding Skin: no rashes, warm and dry Psychiatric: Orientation: alert and oriented x 3 Results & Data Results & Data ([facility]) Vital Signs (Past 12 Hours) Vital Signs Temp Pulse Pulse Resp BP Pulse Ox 04/03/21 08:10 36.7 C 74 20 129/68 94 04/03/21 08:00 69 04/03/21 04:12 36.9 C 73 20 110/66 97 04/02/21 23:55 36.8 C 72 20 136/72 95 Laboratory Results 04/03/21 04/03/21 04/03/21 Range/Units 16:23 11:28 07:53 WBC (4.8-10.8) K/uL RBC (4.2-5.4) M/uL Hgb (12.0-16.0) g/dL Hct (37-47) % MCV (80-100) fL MCH (25-34) pg MCHC (32-36) g/dL RDW Std Deviation (36.4-46.3) fL RDW Coeff of Ej (11.5-14.5) % Plt Count (130-400) K/uL MPV (7.4-10.4) fL Immature Gran % (Auto) % Neut % (Auto) % Lymph % (Auto) % Taylor % (Auto) % Eos % (Auto) % Baso % (Auto) % Neut # (Auto) (1.4-6.5) K/uL Lymph # (Auto) (1.2-3.4) K/uL Taylor # (Auto) (0.11-0.59) K/uL Eos # (Auto) (0-0.5) K/uL Baso # (Auto) (0-0.2) K/uL Immature Gran # (Auto) (0.00-0.02) K/uL Sodium (136-145) mmol/L Potassium (3.5-5.1) mmol/L Chloride (98-107) mmol/L Carbon Dioxide (21-32) mmol/L Anion Gap (3-11) BUN (6-23) mg/dl Creatinine (0.6-1.2) mg/dl Est Cr Clr Drug Dosing ml/min Est GFR ( Amer) ml/min Est GFR (Non-Af Amer) ml/min BUN/Creatinine Ratio (10-20) Glucose (70-99(Fasting)) mg/dl POC Glucose 124 H 144 H 133 H (70-99) mg/dl Calcium (8.5-10.1) mg/dl Total Bilirubin (0.2-1.0) mg/dl AST (13-39) U/L ALT (7-52) U/L Alkaline Phosphatase (34-104) U/L Total Protein (6.0-8.3) gm/dl Albumin (3.4-5.0) gm/dl Globulin (2.5-4.0) gm/dl Albumin/Globulin Ratio (0.9-2) 04/03/21 04/03/21 04/02/21 Range/Units 06:38 06:38 20:04 WBC 4.28 L (4.8-10.8) K/uL RBC 3.37 L (4.2-5.4) M/uL Hgb 10.7 L (12.0-16.0) g/dL Hct 32.2 L (37-47) % MCV 95.5 (80-100) fL MCH 31.8 (25-34) pg MCHC 33.2 (32-36) g/dL RDW Std Deviation 46.9 H (36.4-46.3) fL RDW Coeff of Ej 13.4 (11.5-14.5) % Plt Count 140 (130-400) K/uL MPV 12.3 H (7.4-10.4) fL Immature Gran % (Auto) 0.9 % Neut % (Auto) 69.5 % Lymph % (Auto) 16.1 % Taylor % (Auto) 9.3 % Eos % (Auto) 3.7 % Baso % (Auto) 0.5 % Neut # (Auto) 2.97 (1.4-6.5) K/uL Lymph # (Auto) 0.69 L (1.2-3.4) K/uL Taylor # (Auto) 0.40 (0.11-0.59) K/uL Eos # (Auto) 0.16 (0-0.5) K/uL Baso # (Auto) 0.02 (0-0.2) K/uL Immature Gran # (Auto) 0.04 H (0.00-0.02) K/uL Sodium 134 L (136-145) mmol/L Potassium 4.0 (3.5-5.1) mmol/L Chloride 103 (98-107) mmol/L Carbon Dioxide 25 (21-32) mmol/L Anion Gap 6 (3-11) BUN 22 (6-23) mg/dl Creatinine 1.01 (0.6-1.2) mg/dl Est Cr Clr Drug Dosing 42.9 ml/min Est GFR ( Amer) 59.2 ml/min Est GFR (Non-Af Amer) 51.1 ml/min BUN/Creatinine Ratio 21.8 H (10-20) Glucose 111 H (70-99(Fasting)) mg/dl POC Glucose 151 H (70-99) mg/dl Calcium 7.7 L (8.5-10.1) mg/dl Total Bilirubin 0.6 (0.2-1.0) mg/dl AST 23 (13-39) U/L ALT 11 (7-52) U/L Alkaline Phosphatase 50 (34-104) U/L Total Protein 4.7 L (6.0-8.3) gm/dl Albumin 2.2 L (3.4-5.0) gm/dl Globulin 2.5 (2.5-4.0) gm/dl Albumin/Globulin Ratio 0.9 (0.9-2) Medications Administered Current Inpatient Medications Acetaminophen (Acetaminophen 325 Mg Tab) 650 mg PO Q4H PRN PRN Reason: pain/fever Stop: 04/27/21 19:42 Last Admin: 03/31/21 20:59 Dose: 650 mg Documented by: Amlodipine Besylate (Amlodipine Besylate 5 Mg Tab) 10 mg PO [facility] Stop: 04/28/21 08:59 Last Admin: 04/03/21 08:04 Dose: 10 mg Documented by: Atenolol (Atenolol 50 Mg Tablet) 50 mg PO [facility] Stop: 04/28/21 08:59 Last Admin: 04/03/21 08:04 Dose: 50 mg Documented by: Cyanocobalamin (Cyanocobalamin 500 Mcg Tablet (Vitamin B-12)) 1,000 mcg PO QDL [facility] Stop: 04/28/21 11:29 Last Admin: 04/03/21 11:51 Dose: 1,000 mcg Documented by: Enoxaparin Sodium (Enoxaparin Inj 40 Mg/0.4 Ml Syr) 40 mg SQ Q24H [facility] Stop: 04/27/21 19:44 Last Admin: 03/28/21 22:09 Dose: 40 mg Documented by: Ampicillin Sodium/Sulbactam Sodium 3,000 mg/ Sodium Chloride 108 mls @ 200 mls/hr IV Q6H [facility]; Protocol Stop: 04/06/21 17:59 Last Infusion: 04/03/21 12:22 Dose: Infused Documented by: Alteplase, Recombinant 10 mg/ (Syringe) 60 mls @ 0.0006 mls/min IPL Q12H [facility]; Protocol Stop: 04/04/21 11:59 Last Admin: 04/03/21 12:35 Dose: 0.0006 mls/min Documented by: Dornase Alexander 5 ml/ Syringe 30 mls @ 0.0006 mls/min IPL Q12H [facility]; Protocol Stop: 05/08/21 21:19 Last Admin: 04/03/21 16:51 Dose: 0.0006 mls/min Documented by: Lidocaine (Lidocaine 5% 1 Patch) 1 patch TD QAM [facility] Stop: 04/28/21 15:44 Last Admin: 04/03/21 08:04 Dose: 1 patch Documented by: Lorazepam (Lorazepam 0.5 Mg Tab) 0.5 mg PO HS [facility] Stop: 04/27/21 20:59 Last Admin: 04/02/21 21:06 Dose: 0.5 mg Documented by: Magnesium Chloride (Magnesium Chloride 64mg Delayed Rel Tab) 64 mg PO BID [facility] Stop: 04/27/21 20:59 Last Admin: 04/01/21 08:51 Dose: Not Given Documented by: Miscellaneous (Remove Nicoderm Patch) 1 ea N/A DAILY@0859 [facility] Stop: 04/28/21 08:58 Last Admin: 04/03/21 08:04 Dose: 1 ea Documented by: Miscellaneous (Remove Lidoderm Patch) 1 ea N/A DAILY@2100 [facility] Stop: 04/28/21 20:59 Last Admin: 04/02/21 21:06 Dose: 1 ea Documented by: Miscellaneous (Remove Nicoderm Patch) 1 ea N/A DAILY@0859 [facility] Stop: 04/30/21 08:58 Last Admin: 04/03/21 08:04 Dose: Not Given Documented by: Nicotine (Nicotine 14 Mg/24 Hr Patch) 14 mg TD QAM [facility] Stop: 04/30/21 08:59 Last Admin: 04/03/21 08:03 Dose: 14 mg Documented by: Ondansetron HCl (Ondansetron Inj 2 Mg/Ml 2 Ml Vial) 4 mg IV Q6H PRN PRN Reason: Nausea Stop: 04/27/21 19:42 Oxycodone HCl (Oxycodone Hcl Ir 5 Mg Tab (Immediate Release)) 5 mg PO Q6H PRN PRN Reason: Pain Stop: 04/12/21 11:54 Last Admin: 04/02/21 11:54 Dose: 5 mg Documented by: Paroxetine HCl (Paroxetine Hcl 10 Mg Tab) 10 mg PO QAM [facility] Stop: 04/28/21 08:59 Last Admin: 04/03/21 08:04 Dose: 10 mg Documented by: Potassium Chloride (Potassium Chloride 10 Meq Tabcr) 20 meq PO QAM [facility] Stop: 04/28/21 08:59 Last Admin: 04/03/21 08:08 Dose: 20 meq Documented by: Potassium Chloride (Potassium Chloride 10 Meq Tabcr) 10 meq PO PM [facility] Stop: 04/27/21 20:59 Last Admin: 04/03/21 02:09 Dose: Not Given Documented by: Umeclidinium/Vilanterol (Umeclidinium/Vilanterol 62.5/25mcg 7 Puffs/Inhaler) 1 puffs INH DAILY [facility] Stop: 04/29/21 08:59 Last Admin: 04/03/21 08:05 Dose: 1 puffs Documented by: Vitamin D (Cholecalciferol 1,000 Units 25 Mcg Tab) 4,000 units PO QDL [facility] Stop: 04/28/21 11:29 Last Admin: 04/03/21 11:51 Dose: 4,000 units Documented by: Resident Activity Tracking Resident Involvement: Resident Care Provided Care Provided: Adult Hospital Medicine
[2021-04-03] MEDS: CYANOCOBALAMIN (B-12) 500 MCG TABLET PO SCH (11:51)
[2021-04-03] MEDS: CHOLECALCIFEROL 1,000 UNITS 25 MCG TAB PO SCH (11:51)
--- NOTE | 2021-04-03 14:19 | Pulmonology Progress Note ---
Date of Service April 03, 2021 Assessment & Plan (1) Pleural effusion: (2) COPD (chronic obstructive pulmonary disease): (3) Abnormal chest CT: (4) Multiple pulmonary nodules: (5) Acute respiratory failure with hypoxia: Plan: Impression: 86-year-old female with a history of extensive tobacco abuse and breast cancer presenting to the hospital due to shortness of breath and a SIRS-like condition. Status post placement of left pleural pigtail benson ter in place to suction at -20 mmHg Thoracentesis from 03/29/2021 yielded pansensitive Streptococcus pneumonia. Continue TPA/dornase instillation via chest tube to promote evacuation of the empyema. I have instructed the nurse to allow the TPA to dwell for 4 hours prior to reopening the chest tube to suction. Chest wall biopsy revealed evidence of lymphoma. Appreciate oncology input. Continue with Unasyn at this time for antibiotic coverage. COPD appears to be stable. Continue Umeclidinium/Vilanterol (ICS/LABA) 1 puff daily. Maintain SaO2 between 88 and 92%. Continue nicotine patch for tobacco abuse history. Continue to encourage complete abstinence of tobacco use. Pulmonary will continue to follow along with you. Admission and Anticipated Discharge Date Admission Date: March 28, 2021 Subjective Patient seen and examined today. Minimal shortness of breath at rest. Tolerating her diet well. Minimal pain around the pigtail insertion site. No acute events overnight. Requiring 1 to 2 L of oxygen via nasal cannula Review of Systems Review of Systems: All systems reviewed & are unremarkable except as noted in Subjective Physical Exam Physical Exam: GENERAL : No acute distress EYES: No icterus, gaze conjugate NOSE: No evidence of epistaxis MOUTH: No lesions or candidiasis NECK: Supple LUNGS: CTA B/L, no wheezes, rales or rhonchi BACK: Pigtail catheter site secure. No bleeding or drainage through dressing. HEART: Regular, rate controlled ABDOMEN: Soft, NT, ND, BS Present EXTREMITIES: No LE edema, pedal pulses intact NEURO: A&OX3 Results & Data Results & Data ([facility]) Vital Signs (Past 12 Hours) Vital Signs Temp Pulse Pulse Resp BP Pulse Ox 04/03/21 11:47 36.6 C 72 20 136/72 96 04/03/21 08:10 36.7 C 74 20 129/68 94 04/03/21 08:00 69 04/03/21 04:12 36.9 C 73 20 110/66 97 PG Care Time/CCT Total # of Minutes Spent Total Time Spent with Patient: Total time spent is greater than 50% in coordination of care (as documented) at patient's floor/unit and/or counseling patient: Coding Level of Care Code 39837 Subseq Hosp Care Lvl 2 Diagnoses Pleural effusion J90 COPD (chronic obstructive pulmonary disease) J44.[address] R93.89 Multiple pulmonary nodules R91.8 Acute respiratory failure with hypoxia J96.01
[2021-04-03] MEDS: LORazepam 0.5 MG TAB PO SCH (20:06)
[2021-04-03] MEDS: oxyCODONE HCL IR 5 MG TAB (IMMEDIATE RELEASE) PO PRN (23:33)
[2021-04-04] MEDS: ALTEPLASE, RECOMBINANT 10 MG in SYRINGE 50 ML IPL SCH (00:14)
[2021-04-04] MEDS: AMPICILLIN/SULBACTAM SOD 3,000 MG in 0.9 % SODIUM CHLORIDE 100 ML IV SCH ×5 (00:24→23:52)
[2021-04-04] MEDS: DORNASE ALFA 5 ML in SYRINGE 25 ML IPL SCH (04:11)
--- NOTE | 2021-04-04 08:01 | XRay Report ---
XR chest 1V portable HISTORY: Loculated left pleural effusion COMPARISON: Chest 04/03/2021. FINDINGS: No pneumothorax. Left basilar pleural catheter is unchanged in position. Small bilateral pl eural effusions and a left base airspace opacity are not significantly changed. Emphysema. The heart remains mildly enlarged. There is mild central pulmonary vascular congestion without overt edema. IMPRESSION: No change in the small bilateral pleural effusions, left base airspace opacity, and left pleural cath eter. ACT 112: Negative or not required by law. Electronically signed by: Desean Sanchez M.D. 04/04/2021 8:00 AM
[2021-04-04 08:26] LABS: Basophils # (auto) 0.03 K/uL (0-0.2); Basophils % (auto) 0.7 %; Eosinophils # (auto) 0.14 K/uL (0-0.5); Eosinophils % (auto) 3.4 %; Hemoglobin 9.7 g/dL (12.0-16.0); Immature Granulocytes # (auto) 0.05 K/uL (0.00-0.02); Immature Granulocytes % (auto) 1.2 %; Lymphocytes # (auto) 0.47 K/uL (1.2-3.4); Lymphocytes % (auto) 11.3 %; Mean Corpuscular Hemoglobin 30.9 pg (25-34); Mean Corpuscular Hgb Conc 32.3 g/dL (32-36); Mean Corpuscular Volume 95.5 fL (80-100); Mean Platelet Volume 12.6 fL (7.4-10.4); Monocytes # (auto) 0.46 K/uL (0.11-0.59); Monocytes % (auto) 11.1 %; Neutrophils % (auto) 72.3 %; Platelet Count 149 K/uL (130-400); RDW Coefficient of Variation 13.4 % (11.5-14.5); RDW Standard Deviation 46.9 fL (36.4-46.3); Red Blood Count 3.14 M/uL (4.2-5.4); White Blood Count 4.15 K/uL (4.8-10.8)
[2021-04-04 08:45] LABS: Albumin Globulin Ratio 0.9 (0.9-2); Albumin Level 2.2 gm/dl (3.4-5.0); BUN Creatinine Ratio 19.8 (10-20); Bilirubin,Total 0.7 mg/dl (0.2-1.0); Calcium 7.8 mg/dl (8.5-10.1); Creatinine Clr Calc Pharmacy 46.8 ml/min; Est GFR (African American) 67.1 ml/min; Est GFR (Non-African American) 57.9 ml/min; Globulin 2.4 gm/dl (2.5-4.0); Magnesium 1.4 mg/dl (1.7-2.4); Potassium 3.7 mmol/L (3.5-5.1); Total Protein 4.6 gm/dl (6.0-8.3)
--- NOTE | 2021-04-04 10:05 | Hospitalist Progress Note ---
Date of Service April 04, 2021 Assessment & Plan (1) Acute respiratory failure with hypoxia: Plan: 86-year-old female with a history of previous breast cancer s/p lumpectomy and radiation in 2001, MGUS, type 2 diabetes, hypertension & 100 pack-yr tobacco history who presented with L-sided chest pain and SOB subsequently found to have a moderate loculated L pleural effusion. CT chest w/ multiple enhancing lesions; most likely 2/2 lymphoma. Acute hypoxic respiratory failure: - secondary to pleural effusion - continue NC O2 to Maintain O2 saturation between 88 and 92%. Left pleural effusion, empyema: - Moderate L pleural effusion w/ partial loculation s/p thoracentesis 03/29/20 w/ therapeutic relief. - Pleural fluid culture w/ strep pneumo - Continue Unasyn, chosen because GI upset from clindamycin. Penicillin rash was during childhood. - s/p Left Pigtail catheter placed 03/31/21 to suction at -20 mmHg. Hemothorax. Follow serial cxrs. - Pulm. continuing MIST2 protocol series - Continue TPA/dornase instillation via chest tube to promote evacuation of the empyema. Nurse to allow the TPA to dwell for 4 hours prior to reopening the chest tube to suction. COPD - Continue Umeclidinium/Vilanterol (ICS/LABA) 1 puff daily. Lymphoma: - Considered metastatic cancer, less likely given biopsy results - In the setting of ongoing fatigue, 25 lb unintentional weight loss over course of last year, chills over the last several months - Because of pleural fluid above not showing malignancy: ordered US guided FNA biopsy of left axillary/breast mass and lymph nodes; plan is to determine primary source of mets. This will allow for further goals of care discussion. - CT chest concerning for mets - CT head was neg for mets - Peripheral smear, with Lymphopenia - Oncology consult placed - outpatient follow. waiting on FISH studies - Left chest wall mass FNA cytology: "The main differential is a follicular lymphoma versus a diffuse large B-cell lymphoma." - in conjunction w/ CT abd. concerning for lymphoma, concern for late stage lymphoma - 04/01/21 brain MRI: no parenchymal mets. "1.2 cm T1 hypointense focus within the right frontal bone. Although indeterminate, this is probably benign. A skeletal metastasis is within the differential but considered unlikely." Diarrhea: - resolved. History of Breast Cancer: - Review of records within our system (2001) reveal h/o [id number] ER+/NH+/[HER2/jenna]-neg IDC s/p lumpectomy and radiation in 2001, no chemo/immunotherapy - Last mammogram appears to be over 5 years ago. 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 - Follow BMP Hypokalemia, resolved - Continue 20meq KCl. - Follow BMP Type 2 diabetes:last A1c 5.4% in 02/2021 - Hold home medications. ACHS glucose checks for 1 day; SSI not indicated per review of BSGs Hypertension: - Continue amlodipine, atenolol Anxiety: - Continue home Ativan, Paxil Tobacco use disorder: - Daily nicotine patch 14mg Severe protein-calorie malnutrition: - nutrition consult Diet: Carb consistent Code: Full code DVT ppx.: Lovenox held in setting of hemothorax while undergoing MIST2 protocol (2) Multiple pulmonary nodules: (3) Abnormal chest CT: (4) COPD (chronic obstructive pulmonary disease): (5) Hypoxia: (6) Metastatic adenocarcinoma: (7) Pleural effusion: (8) Tobacco abuse disorder: (9) H/O malignant neoplasm of breast: (10) Hypoxia: (11) Metastatic cancer: (12) Statin myopathy: (13) Obesity: (14) Hypertension: (15) Type 2 diabetes mellitus, controlled: (16) Encounter for pre-operative examination: (17) Breast cancer: (18) S/P lumpectomy of breast: Admission and Anticipated Discharge Date Admission Date: March 28, 2021 Supervising Physician Co-Signing Physician Notes Resident Physician Supervision Note: I independently interviewed and examined the patient and verified the gore history and physical, reviewed labs and image studies and agree with resident Dr. Araya findings and care plan. Marbella Fernandez was doing, "okay" today. She did note that she was tired and had some diarrhea that she attributed to Magnesium that she was given. She asked about her MRI brain scan that was done earlier during this admission, and we reviewed the findings. She had no questions or concerns after talking this morning. Daughter, Rox was updated today, she would like to be updated with any changed. #[phone]. Review of Systems Review of Systems: Constitutional: denies fevers, chills admits fatigue Cardiac: denies chest pain, palpitations GI: denies nausea, vomiting, constipations admits diarrhea Physical Exam Constitutional: + not well developed, + not well nourished and no acute distress Eyes: PERRL, conjunctivae normal, anicteric sclerae ENMT: external ear and nose normal, oropharynx normal Neck: normal visual inspection Respiratory: normal respiratory effort, lungs clear to auscultation Cardiovascular: RRR, no murmur, no edema Gastrointestinal (Abdomen): normal bowel sounds, soft, nontender, no hepatosplenomegaly Musculoskeletal: no cyanosis or clubbing, extremities motor strength 5/5 Skin: no rashes, warm and dry Neurologic: no focal motor deficits Psychiatric: Orientation: alert Affect: + flat affect Insight: good insight Judgement: good judgement Results & Data Results & Data ([facility]) Vital Signs (Past 12 Hours) Vital Signs Temp Pulse Pulse Resp BP Pulse Ox 04/04/21 07:43 36.7 C 79 16 133/65 94 04/04/21 03:07 36.7 C 68 18 129/70 96 04/04/21 00:00 91 H 04/03/21 22:12 36.7 C 92 H 18 135/63 95 Resident Activity Tracking Resident Involvement: Resident Care Provided Care Provided: Adult [facility] Medicine
[2021-04-04] MEDS: PARoxetine HCL 10 MG TAB PO SCH (10:06)
[2021-04-04] MEDS: amLODIPine BESYLATE 5 MG TAB PO SCH (10:06)
[2021-04-04] MEDS: ATENOLOL 50 MG TABLET PO SCH (10:06)
[2021-04-04] MEDS: NICOTINE 14 MG/24 HR PATCH TD SCH (10:07)
[2021-04-04] MEDS: LIDOCAINE 5% 1 PATCH TD SCH (10:07)
[2021-04-04] MEDS: UMECLIDINIUM/VILANTEROL 62.5/25MCG 7 PUFFS/INHALER INH SCH (10:08)
[2021-04-04] MEDS: POTASSIUM CHLORIDE 10 MEQ TABCR PO SCH ×2 (10:12→20:35)
[2021-04-04] MEDS: CHOLECALCIFEROL 1,000 UNITS 25 MCG TAB PO SCH (11:43)
[2021-04-04] MEDS: CYANOCOBALAMIN (B-12) 500 MCG TABLET PO SCH (11:44)
--- NOTE | 2021-04-04 14:08 | Pulmonology Progress Note ---
Date of Service April 04, 2021 Assessment & Plan (1) Pleural effusion: (2) COPD (chronic obstructive pulmonary disease): (3) Abnormal chest CT: (4) Multiple pulmonary nodules: (5) Acute respiratory failure with hypoxia: Plan: Attending: Dr. Tim Impression: 86-year-old female with a history of extensive tobacco abuse and breast cancer presenting to the hospital due to shortness of breath and a SIRS-like condition. Status post placement of left pleural pigtail catheter in place to suction at -20 mmHg Thoracentesis from 03/29/2021 yielded pansensitive Streptococcus pneumonia. We will leave catheter to drain to -20 cm H2O. Completed Mist2 protocol. Will discontinue drain once drainage is less than 150 cc per 24 hours. Continue daily chest x-ray. Continue with Unasyn at this time for antibiotic coverage. Biopsy results from the chest wall mass suggest lymphoma. MRI of the brain without metastatic brain lesions. There is a 1.2 cm hypointense focus within the right frontal bone which may be metastasis but unlikely. Patient's COPD appears to be stable. Continue Umeclidinium/Vilanterol (ICS/LABA) 1 puff daily. Maintain SaO2 between 88 and 92%. Thank you for the consultation. Pulmonary will continue to follow along with you. Admission and Anticipated Discharge Date Admission Date: March 28, 2021 Subjective Patient seen and examined. Saturating well on 2 L nasal cannula. No overnight events. Continues to drain from the chest tube. Review of Systems Review of Systems: All systems reviewed & are unremarkable except as noted in HPI & below Physical Exam Physical Exam: GENERAL : No acute distress EYES: No icterus, gaze conjugate NOSE: No evidence of epistaxis MOUTH: No lesions or candidiasis NECK: Supple LUNGS: CTA B/L, no wheezes, rales or rhonchi BACK: Pigtail catheter site secure. No bleeding or drainage through dressing. HEART: Regular, rate controlled ABDOMEN: Soft, NT, ND, BS Present EXTREMITIES: No LE edema, pedal pulses intact NEURO: A&OX3 Results & Data Results & Data ([facility]) Vital Signs (Past 12 Hours) Vital Signs Temp Pulse Pulse Resp BP Pulse Ox 04/04/21 11:30 36.9 C 88 18 134/76 98 04/04/21 07:43 36.7 C 79 16 133/65 94 02/12/22 06:20 72 04/04/21 03:07 36.7 C 68 18 129/70 96 PG Care Time/CCT Total # of Minutes Spent Total Time Spent with Patient: Total time spent is greater than 50% in coordination of care (as documented) at patient's floor/unit and/or counseling patient: Coding Level of Care Code 05302 Subseq Hosp Care Lvl 2 Diagnoses Pleural effusion J90 COPD (chronic obstructive pulmonary disease) J44.[address] R93.89 Multiple pulmonary nodules R91.8 Acute respiratory failure with hypoxia J96.01
[2021-04-04] MEDS: LORazepam 0.5 MG TAB PO SCH (20:36)
[2021-04-04] MEDS: oxyCODONE HCL IR 5 MG TAB (IMMEDIATE RELEASE) PO PRN (20:45)
[2021-04-05] MEDS: AMPICILLIN/SULBACTAM SOD 3,000 MG in 0.9 % SODIUM CHLORIDE 100 ML IV SCH ×4 (05:37→23:19)
--- NOTE | 2021-04-05 06:57 | Hospitalist Progress Note ---
Date of Service April 05, 2021 Assessment & Plan (1) Hyponatremia: Plan: 86-year-old female with a history of previous breast cancer s/p lumpectomy and radiation in 2001, MGUS, type 2 diabetes, hypertension & 100 pack-yr tobacco history who presented with L-sided chest pain and SOB subsequently found to have a moderate loculated L pleural effusion. CT chest w/ multiple enhancing lesions; most likely 2/2 lymphoma. Acute hypoxic respiratory failure: - secondary to pleural effusion - continue NC O2 to Maintain O2 saturation between 88 and 92%. Left pleural effusion, empyema: - Moderate L pleural effusion w/ partial loculation s/p thoracentesis 03/29/20 w/ therapeutic relief. - Pleural fluid culture w/ strep pneumo - Continue Unasyn, chosen because GI upset from clindamycin. Penicillin rash was during childhood. - s/p Left Pigtail catheter placed 03/31/21 to suction at -20 mmHg. Hemothorax. Follow serial cxrs. - Pulm. continuing MIST2 protocol series - Continue TPA/dornase instillation via chest tube to promote evacuation of the empyema. Nurse to allow the TPA to dwell for 4 hours prior to reopening the chest tube to suction. COPD - Continue Umeclidinium/Vilanterol (ICS/LABA) 1 puff daily. Lymphoma: - Considered metastatic cancer, less likely given biopsy results - In the setting of ongoing fatigue, 25 lb unintentional weight loss over course of last year, chills over the last several months - Because of pleural fluid above not showing malignancy: ordered US guided FNA biopsy of left axillary/breast mass and lymph nodes; plan is to determine primary source of mets. This will allow for further goals of care discussion. - CT chest concerning for mets - CT head was neg for mets - Peripheral smear, with Lymphopenia - Oncology consult placed - outpatient follow. waiting on FISH studies - Left chest wall mass FNA cytology: "The main differential is a follicular lymphoma versus a diffuse large B-cell lymphoma." - in conjunction w/ CT abd. concerning for lymphoma, concern for late stage lymphoma - 04/01/21 brain MRI: no parenchymal mets. "1.2 cm T1 hypointense focus within the right frontal bone. Although indeterminate, this is probably benign. A skeletal metastasis is within the differential but considered unlikely." Diarrhea: - resolved. History of Breast Cancer: - Review of records within our system (2001) reveal h/o [id number] ER+/GA+/[HER2/jenna]-neg IDC s/p lumpectomy and radiation in 2001, no chemo/immunotherapy - Last mammogram appears to be over 5 years ago. 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 - Follow BMP Hypokalemia, resolved - Continue 20meq KCl. - Follow BMP Type 2 diabetes:last A1c 5.4% in 02/2021 - Hold home medications. ACHS glucose checks for 1 day; SSI not indicated per review of BSGs Hypertension: - Continue amlodipine, atenolol Anxiety: - Continue home Ativan, Paxil Tobacco use disorder: - Daily nicotine patch 14mg Severe protein-calorie malnutrition: - nutrition consult Diet: Carb consistent Code: Full code DVT ppx.: Lovenox held in setting of hemothorax while undergoing MIST2 protocol (2) Acute respiratory failure with hypoxia: (3) Multiple pulmonary nodules: (4) Abnormal chest CT: (5) COPD (chronic obstructive pulmonary disease): (6) Hypoxia: (7) Metastatic adenocarcinoma: (8) Pleural effusion: (9) H/O malignant neoplasm of breast: (10) Hypoxia: (11) Metastatic cancer: (12) Statin myopathy: (13) Hypertension: (14) Type 2 diabetes mellitus, controlled: Admission and Anticipated Discharge Date Admission Date: March 28, 2021 Supervising Physician Co-Signing Physician Notes Resident Physician Supervision Note: I independently interviewed and examined the patient and verified the gore history and physical, reviewed labs and image studies and agree with resident Dr. Araya findings and care plan. Subjective Elva Fernandez is doing, "okay" this morning. She had no questions for me. Review of Systems Review of Systems: Constitutional: denies fevers, chills admits fatigue Cardiac: denies chest pain, palpitations GI: denies nausea, vomiting, constipations admits diarrhea Physical Exam Constitutional: + not well developed, + not well nourished and no acute distress Eyes: PERRL, conjunctivae normal, anicteric sclerae ENMT: external ear and nose normal, oropharynx normal Neck: normal visual inspection Respiratory: normal respiratory effort, lungs clear to auscultation Cardiovascular: RRR, no murmur, no edema Gastrointestinal (Abdomen): normal bowel sounds, soft, nontender, no hepatosplenomegaly Musculoskeletal: no cyanosis or clubbing, extremities motor strength 5/5 Skin: no rashes, warm and dry Neurologic: no focal motor deficits Psychiatric: Orientation: alert Affect: + flat affect Insight: good insight Judgement: good judgement Results & Data Results & Data ([facility]) Vital Signs (Past 12 Hours) Vital Signs Temp Pulse Pulse Resp BP Pulse Ox 04/05/21 05:09 71 04/05/21 02:24 36.9 C 67 18 120/69 93 04/04/21 22:21 36.8 C 72 18 120/68 95 04/04/21 19:21 36.9 C 82 20 119/68 95
[2021-04-05 07:49] LABS: Basophils # (auto) 0.02 K/uL (0-0.2); Basophils % (auto) 0.6 %; Eosinophils # (auto) 0.18 K/uL (0-0.5); Eosinophils % (auto) 5.1 %; Hematocrit (blood only) 28.6 % (37-47); Hemoglobin 9.3 g/dL (12.0-16.0); Immature Granulocytes # (auto) 0.07 K/uL (0.00-0.02); Lymphocytes # (auto) 0.49 K/uL (1.2-3.4); Lymphocytes % (auto) 13.8 %; Mean Corpuscular Hemoglobin 30.9 pg (25-34); Mean Corpuscular Hgb Conc 32.5 g/dL (32-36); Mean Platelet Volume 12.1 fL (7.4-10.4); Monocytes # (auto) 0.33 K/uL (0.11-0.59); Monocytes % (auto) 9.3 %; Neutrophils # (auto) 2.46 K/uL (1.4-6.5); Neutrophils % (auto) 69.2 %; Platelet Count 152 K/uL (130-400); RDW Coefficient of Variation 13.4 % (11.5-14.5); RDW Standard Deviation 46.3 fL (36.4-46.3); Red Blood Count 3.01 M/uL (4.2-5.4); White Blood Count 3.55 K/uL (4.8-10.8)
[2021-04-05 08:14] LABS: BUN Creatinine Ratio 15.1 (10-20); Calcium 7.9 mg/dl (8.5-10.1); Creatinine Clr Calc Pharmacy 49.9 ml/min; Est GFR (African American) 71.9 ml/min; Potassium 3.8 mmol/L (3.5-5.1)
[2021-04-05] MEDS: UMECLIDINIUM/VILANTEROL 62.5/25MCG 7 PUFFS/INHALER INH SCH (08:34)
[2021-04-05] MEDS: amLODIPine BESYLATE 5 MG TAB PO SCH (08:34)
[2021-04-05] MEDS: PARoxetine HCL 10 MG TAB PO SCH (08:34)
[2021-04-05] MEDS: ATENOLOL 50 MG TABLET PO SCH (08:34)
[2021-04-05] MEDS: LIDOCAINE 5% 1 PATCH TD SCH (08:37)
[2021-04-05] MEDS: NICOTINE 14 MG/24 HR PATCH TD SCH (08:37)
[2021-04-05] MEDS: POTASSIUM CHLORIDE 10 MEQ TABCR PO SCH ×2 (08:42→20:13)
--- NOTE | 2021-04-05 10:03 | XRay Report ---
XR chest 1V portable CLINICAL HISTORY: follow up pleural effusion TECHNIQUE: Single frontal radiograph of the chest was obtained. Comparison: Comparison is made to chest one view 04/04/2021 FINDINGS: Lines and tubes are stable. Calcified aortic knob is seen. Cardiomegaly is seen. Stable airspace opac ities most prominent left lower lobe. No evidence of significant pleural effusion. No pneumothorax. IMPRESSION: Stable left lower lobe airspace opacity likely representing atelectasis with or without superimposed aspiration/pneumonia. Stable left chest tube. ACT 112: Negative or not required by law. Electronically signed by: Raj Guerra M.D. 04/05/2021 10:01 AM
[2021-04-05] MEDS: CYANOCOBALAMIN (B-12) 500 MCG TABLET PO SCH (12:09)
[2021-04-05] MEDS: CHOLECALCIFEROL 1,000 UNITS 25 MCG TAB PO SCH (12:09)
--- NOTE | 2021-04-05 14:13 | Pulmonology Progress Note ---
Date of Service April 05, 2021 Assessment & Plan (1) Pleural effusion: (2) COPD (chronic obstructive pulmonary disease): (3) Abnormal chest CT: (4) Multiple pulmonary nodules: (5) Acute respiratory failure with hypoxia: Plan: Attending: Dr. Tim Impression: 86-year-old female with a history of extensive tobacco abuse and breast cancer presenting to the hospital due to shortness of breath and a SIRS-like condition. Status post placement of left pleural pigtail catheter in place to suction at -20 mmHg Thoracentesis from 03/29/2021 yielded pansensitive Streptococcus pneumonia. We will leave catheter to drain to -20 cm H2O. Completed Mist2 protocol. Will discontinue drain once drainage is less than 150 cc per 24 hours. Drainage has slowed down. Instructed the bedside nurse to flush the pigtail catheter with 20 to 30 cc of saline. Can likely discontinue catheter tomorrow if no further drainage. Continue with Unasyn at this time for antibiotic coverage. Can likely transition to p.o. antibiotics for 2 to 3 weeks upon discharge. Biopsy results from the chest wall mass suggest lymphoma. MRI of the brain without metastatic brain lesions. There is a 1.2 cm hypointense focus within the right frontal bone which may be metastasis but unlikely. Patient's COPD appears to be stable. Continue Umeclidinium/Vilanterol (ICS/LABA) 1 puff daily. Maintain SaO2 between 88 and 92%. Thank you for the consultation. Pulmonary will continue to follow along with you. Admission and Anticipated Discharge Date Admission Date: March 28, 2021 Subjective Patient seen and examined. Denies any shortness of breath. Does have some pain around the catheter insertion site. No recent fevers or chills. Review of Systems Review of Systems: All systems reviewed & are unremarkable except as noted in HPI & below Physical Exam Physical Exam: GENERAL : No acute distress EYES: No icterus, gaze conjugate NOSE: No evidence of epistaxis MOUTH: No lesions or candidiasis NECK: Supple LUNGS: CTA B/L, no wheezes, rales or rhonchi BACK: Pigtail catheter site secure. No bleeding or drainage through dressing. HEART: Regular, rate controlled ABDOMEN: Soft, NT, ND, BS Present EXTREMITIES: No LE edema, pedal pulses intact NEURO: A&OX3 Results & Data Results & Data ([facility]) Vital Signs (Past 12 Hours) Vital Signs Temp Pulse Pulse Resp BP Pulse Ox 04/05/21 11:00 36.8 C 84 20 114/68 96 04/05/21 07:51 36.7 C 71 20 131/68 92 04/05/21 07:21 67 04/05/21 05:09 71 04/05/21 02:24 36.9 C 67 18 120/69 93 PG Care Time/CCT Total # of Minutes Spent Total Time Spent with Patient: Total time spent is greater than 50% in coordination of care (as documented) at patient's floor/unit and/or counseling patient: Coding Level of Care Code 33299 Subseq Hosp Care Lvl 2 Diagnoses Pleural effusion J90 COPD (chronic obstructive pulmonary disease) J44.[address] R93.89 Multiple pulmonary nodules R91.8 Acute respiratory failure with hypoxia J96.01
[2021-04-05] MEDS: LORazepam 0.5 MG TAB PO SCH (20:09)
--- NOTE | 2021-04-06 03:56 | Communication Note ---
Date of Service: April 06, 2021 Night resident note Was notified by RN that patient had a 4.3 second pause seen on telemetry; however, on review of telemetry, there appeared to be three p waves during the pause. Vital signs remained stable and patient was asleep at the time. Due to concern for high-degree AV block, I ordered pacer pad placement in addition to holding patient's atenolol and amlodipine. Theo Sawyer MD, PGY-2
[2021-04-06] MEDS: AMPICILLIN/SULBACTAM SOD 3,000 MG in 0.9 % SODIUM CHLORIDE 100 ML IV SCH (05:31)
[2021-04-06 06:08] LABS: Basophils # (auto) 0.04 K/uL (0-0.2); Basophils % (auto) 1.4 %; Eosinophils # (auto) 0.18 K/uL (0-0.5); Eosinophils % (auto) 6.5 %; Hematocrit (blood only) 28.9 % (37-47); Hemoglobin 9.4 g/dL (12.0-16.0); Immature Granulocytes # (auto) 0.06 K/uL (0.00-0.02); Immature Granulocytes % (auto) 2.2 %; Lymphocytes # (auto) 0.42 K/uL (1.2-3.4); Lymphocytes % (auto) 15.2 %; Mean Corpuscular Hemoglobin 31.2 pg (25-34); Mean Corpuscular Hgb Conc 32.5 g/dL (32-36); Mean Platelet Volume 11.7 fL (7.4-10.4); Monocytes # (auto) 0.23 K/uL (0.11-0.59); Monocytes % (auto) 8.3 %; Neutrophils # (auto) 1.84 K/uL (1.4-6.5); Neutrophils % (auto) 66.4 %; Platelet Count 161 K/uL (130-400); RDW Coefficient of Variation 13.2 % (11.5-14.5); RDW Standard Deviation 46.2 fL (36.4-46.3); Red Blood Count 3.01 M/uL (4.2-5.4); White Blood Count 2.77 K/uL (4.8-10.8)
[2021-04-06 06:35] LABS: BUN Creatinine Ratio 13.4 (10-20); Calcium 7.8 mg/dl (8.5-10.1); Creatinine Clr Calc Pharmacy 51.9 ml/min; Est GFR (African American) 76.2 ml/min; Est GFR (Non-African American) 65.7 ml/min; Potassium 3.7 mmol/L (3.5-5.1)
[2021-04-06] MEDS: UMECLIDINIUM/VILANTEROL 62.5/25MCG 7 PUFFS/INHALER INH SCH (08:37)
[2021-04-06] MEDS: PARoxetine HCL 10 MG TAB PO SCH (08:38)
[2021-04-06] MEDS: LIDOCAINE 5% 1 PATCH TD SCH ×2 (08:38→08:44)
[2021-04-06] MEDS: NICOTINE 14 MG/24 HR PATCH TD SCH (08:39)
[2021-04-06] MEDS: POTASSIUM CHLORIDE 10 MEQ TABCR PO SCH ×2 (08:40→20:54)
--- NOTE | 2021-04-06 09:31 | XRay Report ---
XR chest 1V portable CLINICAL HISTORY: daily f/u of chest tube TECHNIQUE: Single frontal radiograph of the chest was obtained. Comparison: Comparison is made to chest one view 04/05/2021 FINDINGS: Stable left chest tube. Calcified aortic knob is seen. Bilateral atelectasis is seen. No significant left pleural effusion is seen. No pneumothorax. IMPRESSION: Stable position of left chest tube without evidence of pneumothorax. Bilateral atelectasis is seen. ACT 112: Negative or not required by law. Electronically signed by: Raj Guerra M.D. 04/06/2021 9:29 AM
--- NOTE | 2021-04-06 09:31 | Pulmonology Progress Note ---
Date of Service April 06, 2021 Assessment & Plan (1) Acute respiratory failure with hypoxia: (2) Abnormal chest CT: (3) COPD (chronic obstructive pulmonary disease): (4) Pleural effusion: Plan: Impression: 86-year-old female with COPD presenting with pneumococcal empyema status post drainage. She is doing well clinically. Recommendations: 1. Pneumococcal empyema: Minimal output from chest tube over the last 24 hours with stable chest x-ray. Chest tube was pulled this morning without adverse event. Adhesive dressing was applied. The patient tolerated the procedure well. Recommend continued antibiotics for an additional 7 days. No indication for anaerobic coverage so we will discontinue Unasyn and transition to oral amoxicillin. Would recommend follow-up PA and lateral chest x-ray in 1 to 2weeks with her primary care provider. 2. COPD: No evidence of acute bronchospasm. Continue Anoro. No indication for additional steroids. 3. Hypoxemia: Improved significantly. Would assess for supplemental oxygen prior to discharge with formal oxygen desaturation study. Next for the opportunity participating in the care of this patient. Feel free to contact us if we can be of additional assistance, otherwise pulmonary will sign off at this point time. Admission and Anticipated Discharge Date Admission Date: March 28, 2021 Subjective Patient seen and examined. EMR reviewed. Discussed with off going pulmonologcarlos frazier. The patient states that she is feeling well this morning. She denies any chest pain. She is not had any significant output from her chest tube. Her x-ray demonstrates stability with minimal residual left-sided effusion. She has not had any fevers chills or night sweats overnight. Review of Systems Review of Systems: All systems reviewed & are unremarkable except as noted in Subjective Physical Exam Constitutional: WD/WN, vitals as above Neck: trachea midline, no thyromegaly Respiratory: normal respiratory effort, lungs clear to auscultation Cardiovascular: RRR, no murmur, no edema Gastrointestinal (Abdomen): normal bowel sounds, soft, nontender, no hepatosplenomegaly Musculoskeletal: Extremities: extremities normal to inspection Skin: no rashes, warm and dry Neurologic: Nonfocal exam Lymphatic: no cervical lymphadenopathy Results & Data Results & Data ([facility]) Vital Signs (Past 12 Hours) Vital Signs Temp Pulse Pulse Pulse Resp BP Pulse Ox 04/06/21 07:32 36.5 C 68 12 142/72 H 94 04/06/21 07:10 63 04/06/21 04:46 73 04/06/21 04:33 36.6 C 70 18 119/52 L 96 04/05/21 23:10 36.8 C 73 18 115/54 L 95 Laboratory Results 04/06/21 05:37 04/06/21 05:37 Diagnostic Findings Chest x-ray today was independently reviewed. It demonstrates stable placement of the left-sided chest tube with minimal effusion. Chronic changes again noted, not significantly different from prior PG Care Time/CCT Total # of Minutes Spent Total Time Spent with Patient: Total time spent is greater than 50% in coordination of care (as documented) at patient's floor/unit and/or counseling patient: Coding Level of Care Code 92418 Subseq Hosp Care Lvl 3 Diagnoses Acute respiratory failure with hypoxia J96.[address] R93.89 COPD (chronic obstructive pulmonary disease) J44.9 Pleural effusion J90
[2021-04-06] MEDS: CHOLECALCIFEROL 1,000 UNITS 25 MCG TAB PO SCH (12:16)
[2021-04-06] MEDS: CYANOCOBALAMIN (B-12) 500 MCG TABLET PO SCH (12:16)
[2021-04-06] MEDS ORDERED: POTASSIUM CHLORIDE CRTAB 20 MEQ TABCR PO STA (13:38)
--- NOTE | 2021-04-06 13:46 | Medical Student Progress Note ---
Date of Service April 06, 2021 Assessment & Plan (1) Pleural effusion: Plan: 86-year-old female with a history of previous breast cancer s/p lumpectomy and radiation in 2001, MGUS, type 2 diabetes, hypertension & 100 pack-yr tobacco history who presented with empyema s/p drainage and lymphoma. Acute hypoxic respiratory failure: - secondary to pleural effusion - continue NC O2 to Maintain O2 saturation between 88 and 92% as needed. Left pleural effusion, empyema: - Moderate L pleural effusion w/ partial loculation - Pleural fluid culture w/ strep pneumo - Unasyn downgraded to amoxicillin - Pigtail catheter removed 04/06/21 Complete heart block - 4.3-second pause with 3 visible P-waves on telemetry - Holding atenolol and amlodipine - Electrolytes repleted - Continue external pacer pads and telemetry - Consult placed for PSYCHIATRIC cardiology Lymphoma: - Considered metastatic cancer, less likely given biopsy results - In the setting of ongoing fatigue, 25 lb unintentional weight loss over course of last year, chills over the last several months - CT head was neg for mets - Peripheral smear, with Lymphopenia - Oncology consult placed - outpatient follow. waiting on FISH studies. CD10+ - Left chest wall mass FNA cytology: "The main differential is a follicular lymphoma versus a diffuse large B-cell lymphoma." - 04/01/21 brain MRI: no parenchymal mets. "1.2 cm T1 hypointense focus within the right frontal bone. Although indeterminate, this is probably benign. A skeletal metastasis is within the differential but considered unlikely." COPD - Continue Umeclidinium/Vilanterol (ICS/LABA) 1 puff daily. Diarrhea: - resolved. History of Breast Cancer: - Review of records within our system (2001) reveal h/o [id number] ER+/DE+/[HER2/jenna]-neg IDC s/p lumpectomy and radiation in 2001, no chemo/immunotherapy - Last mammogram appears to be over 5 years ago. 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 - Follow BMP Hypokalemia, resolved - Continue 20meq KCl. - Follow BMP Type 2 diabetes:last A1c 5.4% in 02/2021 - Hold home medications. ACHS glucose checks for 1 day; SSI not indicated per review of BSGs Hypertension: - Continue amlodipine, atenolol Anxiety: - Continue home Ativan, Paxil Tobacco use disorder: - Daily nicotine patch 14mg Severe protein-calorie malnutrition: - nutrition consult Diet: Carb consistent Code: Full code DVT ppx.: Lovenox held in setting of recent hemothorax. SCDs ordered. (2) Hyponatremia: (3) Acute respiratory failure with hypoxia: (4) Multiple pulmonary nodules: (5) Abnormal chest CT: (6) COPD (chronic obstructive pulmonary disease): (7) Hypoxia: (8) Tobacco abuse disorder: (9) H/O malignant neoplasm of breast: (10) Hypoxia: (11) Metastatic cancer: (12) Statin myopathy: (13) Obesity: (14) Hypertension: (15) Type 2 diabetes mellitus, controlled: (16) Metastatic adenocarcinoma: Admission and Anticipated Discharge Date Admission Date: March 28, 2021 Supervising Attestation I personally examined the patient and verified all gore points of history and exam, discussed case, and agree with decision making with Fred Hunter MS2 sleeping. pause noted. cardiology input pending vitals noted nad sleeping breathing unlabored no pallor empyema, recurrent lymphoma, hypoxia - improving. continue current care pause - adjust meds, replace mag, cardiology input pending waekness - ongoing PT/OT eval and treat. goal is home DVT proph - lovenox otherwise as above Subjective Reports fatigue, minimal appetite. No SOB or chest pain. Eating small amounts but food does not taste good. Has not been using NC for oxygen supplementation today; she has not felt she has needed it. Patient expressed interest in establishing with [facility] as outpatient. Review of Systems Review of Systems: as per subjective Physical Exam Physical Exam: not on supplemental oxygen Constitutional: no acute distress Eyes: PERRL, conjunctivae normal, anicteric sclerae Respiratory: no respiratory distress Auscultation: lungs clear to auscultation bilaterally and + diminished lung sounds (bilateral bases) mildly shallow breaths without increased work of breathing Cardiovascular: Rate/Rhythm: regular rate and regular rhythm Heart Sounds: + murmur (grade 2/6 systolic, best auscultated at R upper sternal border) Vessels: normal peripheral pulses Extremities: + edema (1+) Gastrointestinal (Abdomen): Inspection/Auscultation: abdomen not distended Percussion/Palpation: + hepatosplenomegaly (questionable) and + abdominal mass (LUQ and RLQ); no guarding Skin: no pallor Trauma: + contusion (various stages of healing, left back) Neurologic: PERRL, EOMI, accommodation nl, no face palsy, no dysarthria moves all extremities and awake Psychiatric: A+Ox3, euthymic affect Results & Data ([facility]) Vital Signs (Past 12 Hours) Vital Signs Temp Pulse Pulse Pulse Resp BP Pulse Ox 04/06/21 11:53 36.7 C 80 18 128/70 92 04/06/21 07:32 36.5 C 68 12 142/72 H 94 04/06/21 07:10 63 04/06/21 04:46 73 04/06/21 04:33 36.6 C 70 18 119/52 L 96
[2021-04-06] MEDS: AMOXICILLIN 500 MG CAP PO SCH ×2 (14:35→21:14)
[2021-04-06 15:20] LABS: Lyme Ab IgG w/WB Rflx Negative (Negative); Lyme Ab IgM w/WB Rflx Negative (Negative)
[2021-04-06] MEDS: MAGNESIUM SULFATE / D5W 1 GM/100 ML BAG IV SCH ×2 (16:10→18:11)
--- NOTE | 2021-04-06 18:17 | Billing Data ---
Date of Service April 06, 2021 Coding Level of Care Code 35186 Subseq Hosp Care Lvl 1
[2021-04-06] MEDS: LORazepam 0.5 MG TAB PO SCH (20:50)
--- NOTE | 2021-04-06 22:47 | Electrocardiogram Report ---
Test Reason : Blood Pressure : / mmHG Vent. Rate : 071 BPM Atrial Rate : 071 BPM P-R Int : 134 ms QRS Dur : 082 ms QT Int : 438 ms P-R-T Axes : 015 025 040 degrees QTc Int : 475 ms Normal sinus rhythm Septal infarct , age undetermined Abnormal ECG When compared with ECG of 28-MAR-2021 16:31, No significant change was found Confirmed by Meño Kennedy ([id number]) on 04/06/2021 10:47:28 PM Referred By: REFERRED SELF Confirmed By:Meño Kennedy
[2021-04-07 06:45] LABS: Basophils # (auto) 0.03 K/uL (0-0.2); Eosinophils # (auto) 0.21 K/uL (0-0.5); Eosinophils % (auto) 6.9 %; Hematocrit (blood only) 28.4 % (37-47); Hemoglobin 9.3 g/dL (12.0-16.0); Immature Granulocytes # (auto) 0.04 K/uL (0.00-0.02); Immature Granulocytes % (auto) 1.3 %; Lymphocytes # (auto) 0.48 K/uL (1.2-3.4); Lymphocytes % (auto) 15.7 %; Mean Corpuscular Hemoglobin 31.4 pg (25-34); Mean Corpuscular Hgb Conc 32.7 g/dL (32-36); Mean Corpuscular Volume 95.9 fL (80-100); Monocytes # (auto) 0.27 K/uL (0.11-0.59); Monocytes % (auto) 8.8 %; Neutrophils # (auto) 2.03 K/uL (1.4-6.5); Neutrophils % (auto) 66.3 %; Platelet Count 186 K/uL (130-400); RDW Coefficient of Variation 13.4 % (11.5-14.5); RDW Standard Deviation 46.3 fL (36.4-46.3); Red Blood Count 2.96 M/uL (4.2-5.4); White Blood Count 3.06 K/uL (4.8-10.8)
[2021-04-07 07:37] LABS: BUN Creatinine Ratio 10.1 (10-20); Creatinine Clr Calc Pharmacy 48.1 ml/min; Est GFR (Non-African American) 59.5 ml/min; Potassium 4.2 mmol/L (3.5-5.1)
[2021-04-07] MEDS: MAGNESIUM SULFATE / D5W 1 GM/100 ML BAG IV SCH ×2 (08:09→10:38)
[2021-04-07] MEDS: POTASSIUM CHLORIDE CRTAB 20 MEQ TABCR PO STA ×2 (08:09→11:25)
[2021-04-07] MEDS: UMECLIDINIUM/VILANTEROL 62.5/25MCG 7 PUFFS/INHALER INH SCH (08:10)
[2021-04-07] MEDS: NICOTINE 14 MG/24 HR PATCH TD SCH (08:11)
[2021-04-07] MEDS: PARoxetine HCL 10 MG TAB PO SCH (08:11)
[2021-04-07] MEDS: LIDOCAINE 5% 1 PATCH TD SCH (08:12)
[2021-04-07] MEDS: POTASSIUM CHLORIDE 10 MEQ TABCR PO SCH (08:39)
--- NOTE | 2021-04-07 09:21 | Cardiology Consultation ---
Date of Consultation April 07, 2021 Assessment & Plan (1) Tachy-génesis syndrome: Impression: 1. 4 second sinus pause on the monitor 04/06 while sleeping. PAT overnight 04/06- 04/07 2. Palpitations secondary to PVC and PAC on Holter monitor. Also with two 4 beat runs of Vtach without symptoms. No afib/flutter 09/2020. 3. 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 Strep pneumoniae pneumonia with empyema 5. Htn 6. ITP 7. Tobacco use Ms. Fernandez's pause coupled with her runs of PAT likely represents tachy-génesis syndrome and AV node dysfunction. At this point, with metastasis throughout her chest, I would not be in a glover to put a pacemaker in. She can resume her atenolol. She should remain on the equipment monitor phototypesetting. She can remove the pacer pads placed after her pause. Her Lyme antibody test was negative. If she has undiagnosed sleep apnea, that may also have contributed to the pause. I have recommended sleep studies in the past but she has declined. Her blood pressure has been problematic outpatient especially with her numerous drug intolerances. She can resume her amlodipine. Blood pressures have been somewhat labile while inpatient. She continues to use tobacco daily. Agree with nicotine patch and encourage cessation though thus far she has not been interested in quitting. Her electrolytes are wnl. TSH is wnl. Echo was reviewed and revealed normal LVF, no wma, mild aortic stenosis. Last EKG 04/06 shows NSR. History of Present Illness Attending Physician: Renzo Box DO History of Present Illness Ms. Fernandez presented to the emergency department on 03/28 for hypoxia. She was subsequently found to have empyema which grew strep pneumoniae after thoracentesis. No malignant cells in the pleural fluid on path. Her chest tube was removed on 04/06. She also had a chest wall biopsy after CT showed concerning signs of metastasis. Biopsy path shows B cell lymphoma vs follicular lymphoma (less likely). cobbler upper before last she had a 4 second pause on the monitor while sleeping. She has been feeling some flutters at times. Review of her telemetry show some short runs of PAT. No chest pain. No edema. No lightheadedness. Allergies Allergy/AdvReac Type Severity Reaction Status Date / Time atorvastatin Allergy Mild aches Verified 03/28/21 16:26 cephalexin [From Keflex] Allergy Mild Aches,drows Verified 03/28/21 16:26 iness clarithromycin Allergy Mild Hives Verified 03/28/21 16:26 escitalopram [From Lexapro] Allergy Mild Shakiness Verified 03/28/21 16:26 fluoxetine Allergy Mild Increased Verified 03/28/21 16:26 anxiety latex Allergy Mild RASH Verified 03/28/21 16:26 lisinopril Allergy Mild Cough Verified 03/28/21 16:26 nefazodone [From Serzone] Allergy Mild ankle Verified 03/28/21 16:26 swelling olmesartan [From Benicar] Allergy Mild Rash Verified 03/28/21 16:26 paroxetine Allergy Mild Bad Verified 03/28/21 16:26 dreams, low energy Penicillins Allergy Mild RASH Verified 03/28/21 16:26 Home Medications Medication Instructions Recorded Confirmed Type cyanocobalamin (vitamin B-12) 1,000 mcg PO QDL tab 12/27/18 03/28/21 History 1,000 mcg tablet lorazepam 0.5 mg tablet 0.5 mg PO HS tab 12/27/18 03/28/21 History magnesium chloride 64 mg 64 mg PO BID tab 12/27/18 03/28/21 History (magnesium chloride) tablet,delayed release [id number] 5 mg-zeaxanth 1 cap PO QAM 04/28/20 03/28/21 History 1 mg-bilberry 7.5 mg-herbal capsule ([employer] Formula) cholecalciferol (vitamin D3) 50 4,000 unit PO QDL cap 11/19/20 03/28/21 History mcg (2,000 unit) capsule atenolol 25 mg tablet 50 mg PO QAM tab 01/06/21 03/28/21 History blood sugar diagnostic (OneTouch 01/06/21 03/03/21 History Ultra Test) paroxetine HCl 10 mg tablet (Paxil) 10 mg PO QAM 01/06/21 03/28/21 History amlodipine 10 mg tablet 10 mg PO QAM 03/28/21 03/28/21 History potassium chloride 10 mEq 10 - 20 meq PO UD 03/28/21 03/28/21 History tablet,extended release(part/cryst) sitagliptin 100 mg tablet (Januvia) 100 mg 03/28/21 History Patient History Medical History Anxiety Breast cancer, left breast 2001--SX AND RADIATION, NO CHEMO Chronic back pain Chronic ITP (idiopathic thrombocytopenia) Elevated bilirubin per pt reason for scheduled EGD Hearing deficit BILT Hypertension Obesity Spinal stenosis Statin myopathy Type 2 diabetes mellitus, controlled Surgical History Difficult airway for intubation SMALL AIRWAY H/O left breast biopsy History of angioplasty (~01/29/19) stenting of bilateral common iliac artery by Dr. Allred History of bilateral tubal ligation History of cholecystectomy History of dilatation and curettage History of tooth extraction WISDOM TEETH Hx of lumpectomy 2001--L BREAST CANCER Status post epidural steroid injection Family History Daughter Family history of reaction to anesthesia NAUSEA/VOMITING Social History Smoking Status: Current every day smoker Cigarettes Per Day: 15; Second Hand Exposure: No; Do You Dip or Chew Tobacco: No; Hx Alcohol Use: No Hx Substance Use: No Preferred Language: Kinyarwanda Communication Ability: Effective Cook Taco Required: No Beliefs That Will Affect Care: None Current Living Situation: Spouse Other Information That Helps Us Care for You: No Feels Safe at Home: Yes Safety Concerns: Feels Safe At This Time Assistive Devices: Glasses, Hearing Aid - Bilateral and Walker Review of Systems Review of Systems: All systems reviewed & are unremarkable except as noted in HPI & below Physical Exam Constitutional: WD/WN, vitals as above Respiratory: normal respiratory effort, lungs clear to auscultation Cardiovascular: Rate/Rhythm: regular rate and regular rhythm Heart Sounds: + murmur (rusb 3/6 systolic murmur) Extremities: no edema Results & Data ([facility]) Vital Signs (Past 12 Hours) Vital Signs Temp Pulse Pulse Resp BP Pulse Ox 04/07/21 07:36 36.3 C L 81 20 156/77 H 92 04/07/21 06:25 152/68 H 91 04/07/21 03:59 36.6 C 87 18 133/71 96 04/07/21 00:51 93 H 04/06/21 23:26 36.6 C 78 18 128/65 92
[2021-04-07] MEDS: AMOXICILLIN 500 MG CAP PO SCH ×2 (10:38→15:13)
[2021-04-07] MEDS: CYANOCOBALAMIN (B-12) 500 MCG TABLET PO SCH (10:39)
[2021-04-07] MEDS: CHOLECALCIFEROL 1,000 UNITS 25 MCG TAB PO SCH (10:39)
--- NOTE | 2021-04-07 11:05 | Discharge Summary ---
Date of Service April 07, 2021 Admission HPI Per Admitting Provider Elva is an 86-year-old female with a history of previous breast cancer s/p lumpectomy in 2001, type 2 diabetes, hypertension, obesity, R osteomyelitis of 5th toe, tobacco abuse (>100 pack-year), and hepatic cirrhosis who presents for L-sided chest pain, shortness of breath x several days. Patient says the pain is primarily located along her left midaxillary line/center of chest. It does not radiate and she denies substernal chest pain. She also endorses feeling more winded during this time. She denies leg pain or swelling. Denies recent travel. She says that over the last year, she has had a poor appetite and has lost approx. 25 lb. She denies nausea or vomiting. Her last mammogram appears to be over 5 years ago on review of [facility] records. She confirms this. She denies history of colon cancer screening in the past. She endorses smoking 2ppd x 50 years = >100pack-year history. No regular use of EtOH or recreational drugs. She underwent a lumpectomy in 2001 with subsequent radiation therapy but denies undergoing chemotherapy or immunotherapy at that time. On presentation, patient was found to be tachycardic with saturations in the low 90s. She did require 2 L of oxygen. Her K was 3.4 and Mg at 1.4. TBili noted to be elevated at 2.8. CT scan performed in the ED did demonstrate moderate left-sided loculated appearing pleural effusion alongside fibrotic change at the left apex. Further, there is evidence of widespread metastatic disease with lesions noted throughout the chest, posterior left breast, axillae, superior mediastinum, left adrenal gland, peritoneum posterior to the liver, and 3 pulmonary nodules concerning for metastatic disease. Admission Exam Per Admitting Provider General: Well-appearing 86-year-old female in no acute distress HEENT: Trachea midline. Mucous membranes moist. No JVD Cardiac: Normal rate, regular rhythm. S1 and S2 are present with grade 1 out of 6 systolic ejection murmur best heard at the right upper sternal border Pulmonary: Easy respiratory effort with symmetric expansion of the chest. Nasal cannula in place. There are diminished lung sounds at the left base with asso ciated crackles. Otherwise clear to auscultation throughout Abdominal: Abdomen is soft, nontender, nondistended to palpation Extremities: There is no significant peripheral edema in the lower extremities bilaterally Principal Diagnosis empyema and lymphoma Discharge Exam General: Grossly A&O. NAD. Cooperative. Asking questions. HEENT: Atraumatic, normocephalic. Pulm: CTAB. Aeration improved at LLB compared to prior day's exam. Cardiac: RRR. 3/6 murmur at aortic and pulmonic areas. Integ: Warm, dry, intact. Discharge Data Allergies Allergy/AdvReac Type Severity Reaction Status Date / Time atorvastatin Allergy Mild aches Verified 03/28/21 16:26 cephalexin [From Keflex] Allergy Mild Aches,drows Verified 03/28/21 16:26 iness clarithromycin Allergy Mild Hives Verified 03/28/21 16:26 escitalopram [From Lexapro] Allergy Mild Shakiness Verified 03/28/21 16:26 fluoxetine Allergy Mild Increased Verified 03/28/21 16:26 anxiety latex Allergy Mild RASH Verified 03/28/21 16:26 lisinopril Allergy Mild Cough Verified 03/28/21 16:26 nefazodone [From Serzone] Allergy Mild ankle Verified 03/28/21 16:26 swelling olmesartan [From Benicar] Allergy Mild Rash Verified 03/28/21 16:26 paroxetine Allergy Mild Bad Verified 03/28/21 16:26 dreams, low energy Penicillins Allergy Mild RASH Verified 03/28/21 16:26 Consultations 03/28/21 20:09 ED Decision to Admit Stat 03/28/21 21:48 Consult Pulmonology Routine 03/31/21 10:22 Consult Oncology Routine 04/01/21 10:09 Consult Oncology Routine 04/06/21 14:26 Consult Cardiology Routine Ordered Studies 04/07/21 06:33 04/07/21 06:[address] 03/28/21 17:48 CT SCAN OF THE CHEST WITH IV CONTRAST CLINICAL HISTORY: Pleural effusion. left-sided chest pain. COMPARISON STUDY: Chest x-ray dated 03/28/2021. Abdominal CT dated 01/30/2016. TECHNIQUE: Following the IV administration of 95 cc of Optiray 320, CT scan of the thorax was performed from the thoracic inlet to the upper abdomen. Images are reviewed in the axial, sagittal, and coronal planes. IV contrast was administered without complication. A dose lowering technique was utilized adhering to the principles of ALARA. CT DOSE: 253.22 mGy.cm FINDINGS: Thyroid: Mildly enlarged and heterogeneous. Thoracic aorta: There is advanced atherosclerotic calcification of the thoracic aorta, which is normal in caliber and demonstrates standard 3-vessel arch anatomy. No dissection is seen. Pulmonary vasculature: The pulmonary trunk is normal in caliber. There are no filling defects identified in the central pulmonary vessels to indicate pulmonary embolus. Note that this examination was not protocoled for evaluation of the pulmonary arteries. Heart: The heart is enlarged and without pericardial effusion. The coronary arteries, aortic valve leaflets, and mitral annulus are densely calcified. Lungs and pleural spaces: Evaluation of the lung parenchyma is degraded by motion artifact. Emphysema is noted. Consolidation/fibrosis is noted at the left apex on image #56. There is a moderate and at least partially loculated left pleural effusion with consolidation at the left lung base. A small pleural effusion is seen on the right. Segmental atelectasis is noted in the right middle lobe. A 9 mm pulmonary nodule in the right lower lobe as seen on image #172. Additional subcentimeter nodules at the right lung base are seen on image #229 and at the right apex on image #59. No left-sided pulmonary lesion is clearly identified. Mediastinum: There is infiltrative soft tissue in the left superior mediastinum on image #33 measuring 2.7 x 3.2 cm. This encases the left subclavian artery. There are several additional subcentimeter mediastinal lymph nodes. Destiney: Clear. Axillae: There is an enhancing mass within the posterior left breas t/infraaxillary region on axial image #136. This measures 3.3 x 2.8 x 1.7 cm. Surgical clips are noted in the left axilla. A 2.3 x 1.5 cm lesion is seen in the deep left axilla on image #22. An enlarged right axillary node on image #84 measures 2.5 x 2.1 cm. Upper abdomen: A lesion within or adjacent to the left adrenal gland measures 5.0 x 3.4 cm. No right adrenal lesion is seen. An indeterminant soft tissue implant is seen posterior to the right lobe of the liver below the diaphragm on image #273. This measures 2.6 x 1.6 cm. The spleen appears enlarged. Peritoneal nodularity is suggested in the left upper quadrant on image #254. Skeletal structures: The skeletal structures are osteopenic. No lytic or blastic bony lesions are seen. Degenerative change is noted in the shoulders and tho racic spine. Soft tissues: There are numerous enhancing soft tissue implants identified throughout the chest wall bilaterally. A 3.8 cm lesion in the right chest wall is seen on image #206 and a more inferiorly located lesion in the right chest wall on image #254 measures 3.2 cm. A 4.1 cm lesion in the left chest wall is seen on image #189, and a subcentimeter lesion in the posterior left chest wall as seen on image #255. Numerous additional lesions are noted. Postoperative change and dermal thickening is noted in the left breast. IMPRESSION: 1. Cardiomegaly and emphysema. 2. There is a moderate and at least partially loculated left pleural effusion with consolidation of the left lower lung. Additionally, there is fibrotic change/consolidation at the left apex. Correlate clinically for evidence of pneumonia. 3. There is a small right pleural effusion. 4. There is evidence of widespread metastatic disease. There are numerous enhancing soft tissue lesions throughout the chest wall, as well as lesions within the posterior left breast/infraaxillary region, both axillae, the superior mediastinum, within or adjacent to the left adrenal gland, and within the peritoneum posterior to the liver. Subcentimeter peritoneal implants are also suggested in the left upper quadrant. The primary site of neoplasm is not delineated. Correlate with the patient's oncological history. 5. There are at least 3 pathologically indeterminant right pulmonary nodules which are also suspicious for metastatic disease. 6. No pleural lesions are clearly identified. 7. Postoperative change and dermal thickening is noted in the left breast. 8. Additional findings as above. ACT 112: Negative or not required by law. Electronically signed by: Alexei Gerber M.D. 03/28/2021 7:06 PM Abdomen/Pelvis CT 03/30/21 07:[address] WITH IV AND ORAL CONTRAST CT DOSE: 1123.08 mGy.cm HISTORY: metastatic cancer, nonalcoholic fatty liver disease, elevated TBili TECHNIQUE: Multiaxial CT images of the abdomen and pelvis were performed follo wing the use of intravenous and oral contrast. A dose lowering technique was utilized adhering to the principles of ALARA. COMPARISON STUDY: Chest CT 03/28/2021. Abdominal CT 01/30/2016. FINDINGS: Partially visualize moderate left and small right pleural effusion is are again noted. The heart remains mildly enlarged. Consolidation within the left lung base favors compressive atelectasis from the pleural effusion. Mild thickening of the distal esophagus, unchanged. There are few subcentimeter p ulmonary nodule within the right lung which are better appreciated on the prior chest CT. No pneumoperitoneum. No pneumatosis. No fractures or suspicious osseous lesions identified within the abdomen or pelvis. Mild body wall edema. There are few scattered slightly hyperdense subcutaneous nodules within the abdomen. Dominant subcutaneous nodule within the left flank on image 17 measures 4.9 x 0.8 cm. Prior cholecystectomy. Cirrhotic liver with mild splenomegaly. No hepatic or splenic lesions. Coarse calcifications within the pancreatic head consistent with chronic pancreatitis. This has progressed in the interval. No evidence for acute pancreatitis. Stable 2 cm cyst within the right kidney. No hydronephrosis. Hyperdensity within the bladder could be due to prior contrast. Calcified plaque within the mildly ectatic abdominal aorta. The uterus and bilateral adnexa are unremarkable. Colonic diverticulosis. No evidence for acute diverticulitis. No bowel wall thickening or obstruction. Normal appendix. There are multiple scattered peritoneal and retroperitoneal soft tissue nodule/masses. The majority of these demonstrate subtle increased density. There are few small subcapsular soft tissue masses at the spleen and liver. There is an additional large retroperitoneal lesion which encases the left renal pelvis and left renal vessels and is best seen on image 176. This measures 4.3 x 3.3 cm. There is a large soft tissue lesion within the left upper quadrant adjacent to the adrenal gland measuring 5.1 x 3.6 cm. Additional large lesion is superior to the right iliac crest on image 237 and measures 4.0 x 2.2 cm. There is a soft tissue mass encasing the right iliac vessels measuring 4.5 x 4.0 cm. IMPRESSION: 1. Multiple scattered peritoneal and retroperitoneal nodules as described above. These demonstrate slight increased density and therefore likely represent lymphoma. Tissue sampling recommended for confirmation. 2. Redemonstration of the moderate left and small right pleural effusions which are better appreciated on the recent chest CT. 3. Cirrhotic liver with mild splenomegaly. 4. No bowel wall thickening or obstruction. 5. Additional findings as described above. ACT 112: Negative or not required by law. Electronically signed by: Desean Sanchez M.D. 03/30/2021 8:[address] 03/30/21 07:00 CT head/brain wo con CLINICAL HISTORY: metastatic undifferentiated cancer Technique: Contiguous axial CT images of the head were acquired from the base of the skull to the vertex without intravenous contrast administration. Images were viewed in brain, subdural and bone windows. Automated dose lowering techniques and/or adjustment according to patient size were utilized for this exam. Comparison: None available at the time of this dictation. Findings: The ventricles, basal cisterns, and cerebral sulci are normal. There is no acute intracranial hemorrhage or evidence of acute territorial infarction. Neither m ass effect, shift of the midline structures, nor abnormal extra-axial fluid collections are shown. Imaged portions of the paranasal sinuses and mastoid air cells are clear. The orbits appear normal. There are no acute fractures of the calvaria or scalp swelling. Impression: No acute intracranial hemorrhage, no evidence of acute territorial infarction or other acute intracranial disease process. ACT 112: Negative or not required by law. Electronically signed by: Raj Guerra M.D. 03/30/2021 7:47 AM Electronically signed by: Mihai Carter M.D. 04/01/2021 9:[address] 04/01/21 07:40 CT chest diagnostic wo con CLINICAL HISTORY: eval left pleural effusion . Pleural catheter in place. COMPARISON STUDY: 03/28/2021 and portable chest from 04/01/2021 CT DOSE: 215.57 mGy.cm TECHNIQUE: Standard CT of the Chest was performed without IV contrast. A dose lowering technique was utilized adhering to the principles of ALARA. FINDINGS: Airway: The airway is clear. No endobronchial lesion is identified. Lungs and pleural: Compared to the previous CT examination, left pleural base catheter is seen at the left lung base. There is only slight interval decrease in the amount of pleural fluid present despite the catheter in place. A dditionally, there is now loculated pleural fluid present worst superolaterally and within the major fissure. There is again atelectasis/collapse present involving the left lower lobe. Slight increased aeration is present. The remainder of the left hemithorax is clear. Small to moderate size right pleural effusion is again seen and unchanged. There is atelectasis at the right lung base as well. The remainder of the right hemithorax is clear. There is no change in right lower lobe pulmonary nodule as seen on image 244 the current study. Previously identified 9 mm right lower lobe pulmonary nodule is not seen in a be excluded by fluid. 5 mm right apical pulmonary nodule is again seen on image 71. No new pulmonary nodules are identified. Mediastinum: There is no evidence for pathologic adenopathy on these limited noncontrast images. There is again soft tissue density seen in the superior mediastinum to the left which is not well seen on these noncontrast images. Heart size is mildly enlarged. There is extensive coronary artery calcification and calcification of the aortic and mitral valves. The thoracic aorta is within normal limits. Extensive atherosclerotic calcification is present. There is no evidence for pericardial effusion. Surgical clips are again seen in left axilla. Stable soft tissue density is again seen along the left lateral chest wall. Upper abdomen: The adrenal glands are normal bilaterally. Osseous structures: There is no acute osseous pathology. IMPRESSION: 1. Compared to the previous CT examination, placement of a left pleural-based catheter is present. However, there is only slight interval decrease in the size of the left pleural effusion. 2. There is now a more loculated component more superiorly and laterally and there is loculated fluid seen within the fissure. 3. Compressive atelectasis/collapse of the left lower lobe is again seen with slight increased aeration. 4. There is a stable right pleural effusion with right basilar atelectasis. 5. Additional nonacute findings are again seen as delineated above. ACT 112: Negative or not required by law. Electronically signed by: Redd Vega M.D. 04/01/2021 10:47 AM Brain MRI 04/01/21 13:26 MRI OF THE BRAIN WITHOUT AND WITH IV CONTRAST CLINICAL HISTORY: Weakness. History of breast cancer. Evaluate for metastatic disease. COMPARISON STUDY: Head CT March 30, 2021. TECHNIQUE: Utilizing a 1.5 Olga magnet and dedicated coil, multiplanar, multiecho imaging of the brain was performed pre and postcontrast administration. IV administration of 7 mL of Gadavist contrast was uneventful. FINDINGS: There are no foci of restricted diffusion to suggest acute infarct. No acute intracranial hemorrhage, midline shift or mass effect is present. Ventricular system is unremarkable. Basal cisterns are patent. There are no extra-axial collections. Flow-voids for the major intracranial vessels are present. There is no intracranial mass or pathologic enhancement. This exam is mildly compromised by motion artifact. White matter T2 hyperintense foci suggest small vessel disease. There is mild atrophy. Note is made of a 1.2 cm T1 hypo intense focus within the medial right frontal bone shown on axial T1-weighted sequence image . No additional calvarial lesions are present. IMPRESSION: 1. No acute intracranial findings. 2. No parenchymal metastases identified. 3. 1.2 cm T1 hypointense focus within the right frontal bone. Although indeterminate, this is probably benign. A skeletal metastasis is within the differential but considered unlikely. ACT 112: Negative or not required by law. Electronically signed by: Mihai Carter M.D. 04/02/2021 9:01 AM Hospital Course (1) Hyponatremia: 86-year-old female with a history of previous breast cancer s/p lumpectomy and radiation in 2001, MGUS, type 2 diabetes, hypertension & 100 pack-yr tobacco history who presented with L-sided chest pain and SOB subsequently found to have a moderate loculated L pleural effusion. CT chest w/ multiple enhancing lesions; most likely 2/2 lymphoma per biopsy of chest wall mass. Admission dates: 03/28/21- 04/07/21. Acute hypoxic respiratory failure, resolved: - secondary to pleural effusion - was on 2L O2 during most of stay, but weaned to room air after resolution of pleural effusion. Passed 2 step (home oxygen test) prior to dispo. Left pleural effusion, empyema: - Moderate L pleural effusion w/ partial loculation - Pleural fluid culture w/ strep pneumo - IV Unasyn downgraded to PO amoxicillin, to be completed on 04/13/21. - Follow up with 2 view CXR in 1-2 weeks. - s/p Left Pigtail catheter placed 03/31/21 to suction at -20 mmHg. - Completed MIST2 protocol. Pigtail catheter removed 04/06/21. Hemothorax, resolved. Tachy-génesis syndrome - 4.3-second pause with 3 visible P-waves on telemetry 04/05-04/06 overnight. Consistent w/ complete heart block. Most likely 2/2 tachy-génesis syndrome and AV node dysfunction. - 04/06-04/07 overnight w/ 3 ~10-15 runs of atrial tachycardia up to 130s, w/ mildly symptomatic palpitations. Reviewed strip, more suggestive of atrial tach than afib; difficult to see p waves, but appeared ~regular). - Holding atenolol/diltiazem (per chart review, atenolol changed to diltiazem last month by cardiology). Deferring to PCP/cardio to restart if needed. - Instructed patient to obtain smart watch or similar monitoring device. If insufficient, may need event monitor / Holter. - Can consider sleep study as KYLEE could be contributory - Electrolytes repleted, goal K of 4.0 and Mg of 2.0. - [facility] cardiology whom patient follows as outpatient for HTN and palpitations) consulted while inpatient. Per cardiology, given current mild presentation and less favorable for pacemaker placement in context of lymphoma, defer at this time. - 03/30/21 echo: EF 65-70%. No RWMA. Moderate concentric LVH. Mild biatrial dilation. Mild . Normal estimated RVSP. Lymphoma: - Initially considered metastatic cancer given CT chest results, but less likely given biopsy showing lymphoma. - In the setting of ongoing fatigue, 25 lb unintentional weight loss over course of last year, chills over the last several months - CT head was neg for mets - Peripheral smear, with Lymphopenia - Left chest wall mass FNA cytology: "The main differential is a follicular lymphoma versus a diffuse large B-cell lymphoma." - 04/01/21 brain MRI: no parenchymal mets. "1.2 cm T1 hypointense focus within the right frontal bone. Although indeterminate, this is probably benign. A skeletal metastasis is within the differential but considered unlikely." - [facility] ([facility] consulted while inpatient. As time of consult, awaiting FISH studies to differentiate follicular vs DLBL. Tentative plan if DLBL was for outpatient PET/CT and RCHOP vs mini RCHOP. CD10+. FISH suggestive of DLBL. Patient will establish w/ [facility] heme/onc as outpatient. Will need records transferred. COPD - Anoro Ellipta- Umeclidinium/Vilanterol (ICS/LABA) 1 puff daily provided while inpatient. Will defer to PCP regarding which inhaler will be covered by insurance. Diarrhea: - resolved. History of Breast Cancer: - Review of records within our system (2001) reveal h/o [id number] ER+/AL+/[HER2/jenna]-neg IDC s/p lumpectomy and radiation in 2001, no chemo/immunotherapy. - Last mammogram appears to be over 5 years ago. 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 Hyponatremia: - Chronic, stable. Hypokalemia, resolved Type 2 diabetes:last A1c 5.4% in 02/2021 - Resume home regimen. Patient did not require sliding scale while inpatient. Hypertension: - Continue amlodipine. D/c atenolol/dilt as per above. Anxiety: - Continue home Ativan Paxil Tobacco use disorder: - Current smoker. Continue smoking cessation counseling. Patient was full code during this admission. (2) Acute respiratory failure with hypoxia: (3) Multiple pulmonary nodules: (4) Abnormal chest CT: (5) COPD (chronic obstructive pulmonary disease): (6) Hypoxia: (7) Metastatic adenocarcinoma: (8) Pleural effusion: (9) H/O malignant neoplasm of breast: (10) Metastatic cancer: (11) Statin myopathy: (12) Hypertension: (13) Type 2 diabetes mellitus, controlled: Total Time Total Time Spent Total Time Spent (In Minutes): <30 Discharge Plan Discharge Items Patient Disposition: Home - Home Health Services Reason For Visit: CHEST PAIN, SOB Discharge Diagnosis: empyema and lymphoma Activity: Per Instructions section Non-emergency contact: Primary Care Provider Call non-emergency contact if: you have any medication questions, your symptoms worsen and you have a fever Follow-up/Referrals: Augustina Hernandez DO [Primary Care Provider] - 04/09/21 10:30 am () David Ballesteros MD [Surgeon] - (Patient will need to establish as a new patient with oncology to be seen within 2-3 weeks. A referral has been sent to Dr. Jen segura's office on your behalf; they should call you after you return home with appointment information. If you do not hear from them within one week, please call their office at #[phone] to follow up.) Diet: Carb Consistent or DM2 Addtl Attending Provider Instructions: Hi Ms. Fernandez, You were admitted to [facility] for left chest wall pain and shortness of breath from empyema, collection of infected fluid around your lungs. This was drained with a chest tube and you were treated with IV antibiotics. You are also diagnosed with lymphoma, per biopsy sample. Please follow up with oncology as an outpatient. 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 Oncology in the hospital recommended outpa tient PET/CT to evaluated extent of the disease. Per prior discussion, R-CHOP combination chemotherapy is usually used for this type of lymphoma. Given your age, R-mini-CHOP may be considered. You requested to be referred to [facility] with Dr. David Ballesteros. You will be contacted with an appointment in several days. If you do not hear back, please call . empyema: resolved. Complete 6.5 more days of amoxicillin. I have sent the prescription to your pharmacy; 20 tablets, take 1 tablet 3 times a day or every 8 hours. Start the first dose around 6 PM tonight (04/07/21) tachy-génesis syndrome While in the hospital, you had a 4.3 second pause of complete heart block. We held your atenolol and the following night, you had several runs of fast heart rate (atrial tachycardia) and palpitations. We asked [facility] cardiology to evaluate you while in the hospital. 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 This worsens over time and patients with this will eventually need a pacemaker when severe. We will hold off at this time because of the mild severity and because of the untreated lymphoma. 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 Please check your pulse rate and/or use a smartwatch to note your heart rate when/if you are experiencing palpitations. Your PCP may consider extended heart monitoring (event monitor) in the future. Please do not take either atenolol or diltiazem unless your PCP decides to restart. Call to schedule an appointment with Dr. George. While in the hospital, you were treated with an inhaler (Anoro Ellipta) for your COPD. I did not continue this upon your discharge home as insurance coverage varies. You may continue your existing inhaler. Follow up w/ your PCP regarding inhalers for COPD. Follow up w/ PCP Dr. Hernandez (appointment on 04/09/21 10:30AM). Repeat 2 view chest xray in 1-2 weeks. It is also very important to follow up with oncology. Return precautions: Contact your PCP if you experience dizziness or light headedness. Pending Studies at Discharge: No Stand-Alone Forms: My [facility], Smoking Cessation Medications and DC Order Prescriptions: New amoxicillin 500 mg Capsule 500 mg PO TID 7 Days Qty: 20 RF: 0 Continued cyanocobalamin (vitamin B-12) 1,000 mcg tablet 1,000 mcg PO QDL RF: 0 lorazepam 0.5 mg tablet 0.5 mg PO HS RF: 0 magnesium chloride 64 mg tablet,delayed release (DR/EC) 64 mg PO BID RF: 0 cholecalciferol (vitamin D3) 50 mcg (2,000 unit) capsule 4,000 unit PO QDL RF: 0 paroxetine HCl [Paxil] 10 mg tablet 10 mg PO QAM RF: 0 (DME) OneTouch Ultra Test Strip See Rx Instructions .Route RF: 0 Macular Health Formula 5-1-7.5 mg Capsule 1 cap PO QAM RF: 0 amlodipine 10 mg tablet 10 mg PO QAM RF: 0 Januvia 100 mg tablet 100 mg RF: 0 potassium chloride 10 mEq tablet,ER particles/crystals 10 - 20 meq PO UD RF: 0 Discontinued atenolol 25 mg tablet 50 mg PO QAM RF: 0 Discharge Orders: Discharge Order (Routine); Ordered 04/07/21 Ordered By: Victor Manuel Corral Admission Data Admit Date/Time: 03/28/21 19:43 Attending Provider: Renzo Box Admit Provider: Renzo Valadez Primary Care Provider: Augustina Hernandez Other Providers: Chilango Rangel ; Ezio Zabala ; Devonte Rausch V. ; Debbi Ritter ; Beba Youngblood ; Celina Tello ; Jaspreet Eddy ; Dylan Workman ; Jennifer Painter ; [place],No Attending ; Letitia Richards ; Emanuel George ; [facility] Other Interventions: Discharge Summary Assessment (RN) Last Done: 04/07/21 14:39 Supervising Physician Co-Signing Physician Notes I personally examined the patient and verified all gore points of history and exam, discussed case, and agree with decision making with Dr Corral feeling better feels up to going home vitals noted nad heent nc at mmm breathing unlabored no accessory muscles good effort skin no rashes no pallor or icterus strep empyema - tube out, finihs PO abx recurrent lymphoma - oupt oncology follow up 4 second sinus pause -tachybrady - ongoing monitoring and outpt f/u. will hold atenolol for now since it's been on hold for ~2 days wihtout much tachycardia, outpt rhythm monitoring otherwise as above Home Health Attestation I certify that this patient is under my care and that I, or a physicians tourist information assistant working with me, had a face to-face encounter that meets the home health [id number] encounter requirements with this patient. The encounter with the patient was in whole, or in part, for the following medical condition, which is the primary reason for home health care (list medical condition): COPD, PLueral Effusion I certify that, based on my findings, the following services are medically necessary home health services: My clinical findings support the need for the above services because: OT Assess ADL Status and Restore Function w ADLs PT Gait and Balance Training, Strengthening and Safety Skilled Nsg Assessment Skilled Nsg Assess Pt Illness, Disease and Sx Monitoring Further, I certify that my clinical findings support that this patient is homebound (i.e. absences from home require considerable and taxing effort and are for medical reasons or samaritan services or infrequently or of short duration when for other reasons) because: Poor Endurance; SOB Minimal Exertion Transportation Assistance/Unable to Leave Home Unassisted Certification for Home Health Services: Based on the above findings, I certify that this patient is confined to the home and needs intermittent group home care, physical therapy and/or speech therapy or continues to need occupational therapy. The patient is under my care, and I have initiated the establishment of the plan of care. This patient will be followed by a physician who will periodically review the plan of care. Resident Activity Tracking Resident Involvement: Resident Care Provided Care Provided: Adult [facility] Medicine
[2021-04-07] MEDS: amLODIPine BESYLATE 5 MG TAB PO SCH (11:09)
--- NOTE | 2021-04-07 17:27 | Billing Data ---
Date of Service April 07, 2021 Coding Level of Care Code D/C DAY MANAGEMENT <30 MINS
== END 2021-04-07 15:36 | disposition home health service (06) | DRG 177 ==
LOC: ED 15:49 → EDINP 19:43 → SUATTDRO 19:43 → 2N 20:20

== ENCOUNTER 2022-09-17 16:30 | Inpatient (IN) ==
--- NOTE | 2022-09-17 16:46 | ED Triage Note ---
Date of Service September 17, 2022 History of Present Illness This patient was briefly evaluated while in triage. An abbreviated physical exam was performed. This patient is a 87-year-old Female who presents to the ED for evaluation of dyspnea and upper abd/lower chest pain into her back. She took 2 tylenol earlier today. Hard time laying down. She feels dyspnea when laying flat. Referred today by Dr. Carroll. Being tx for lymphoma. Recently finished medication for lymphome about 1 week ago. Physical Exam GENERAL: 87 year old female. In no acute distress. SKIN: No lesions or rashes. HEART: Regular rate and rhythm. LUNGS: Clear to auscultation. ABDOMEN: Bowel sounds normoactive. No guarding or rigidity. No tenderness of palpation. NEURO: Alert and oriented. No deficits. MUSCULOSKELETAL: No deformities to inspection of the extremities. PSYCH: Patient is pleasant and answers all questions appropriately. Initial orders for labs and / or imaging were placed and patient was placed in the waiting area until a bed is available. Please see further documentation for the full ED course.
--- NOTE | 2022-09-17 18:05 | XRay Report ---
XR chest 1V not portable HISTORY: 87 years-old Female Chest pain in lower chest/upper abd pain acute chest pain COMPARISON: PET CT 09/09/2022 TECHNIQUE: PA view of the chest FINDINGS: 4 cm right upper lobe mass again noted. Emphysema. No pneumothorax. Moderate to large right pleural e ffusion with right lung volume loss and right basilar opacities. The left lung is generally clear. Pu lmonary vascular congestion. Left axillary surgical clips. Degenerative changes of the shoulders and spine. IMPRESSION: 1. Cardiomegaly with pulmonary vascular congestion. 2. Moderate to large right pleural effusion with right lung volume loss. The right pleural effusion h as increased in size compared to the 09/09/2022 exam 3. Right upper lobe mass again noted. 4. Emphysema. ACT 112: Negative or not required by law. The above report was generated using voice recognition software. It may contain grammatical, syntax o r spelling errors. Electronically signed by: Jero Tripathi M.D. 09/17/2022 6:03 PM
[2022-09-17] MEDS ORDERED: ONDANSETRON INJ 2 MG/ML 2 ML VIAL IV STA (18:26)
--- NOTE | 2022-09-17 18:35 | Emergency Department Note ---
Impression & Plan Pleural effusion, Hypoxia, Chest pain, Mass of right lung ED Provider Note NAME: NANCY FANG AGE: 87 SEX: F : 1935 ARRIVES VIA: Walk-In INFORMANT: Patient, ED PROVIDER(S): Saqib Moseley DO CHIEF COMPLAINT: Chest pain HPI: The patient is an 87-year-old female who has a history of cancer who presented to the emergency department at the request of her pulmonary physician for an evaluation. The patient has a history of B-cell lymphoma as well as COPD. She had a history of metastatic adenocarcinoma as well. The patient states that she started having chest pain and difficulty breathing over the course the last month. This is slowly been worsening. She had a recent PET scan which did show extensive metastatic disease. The patient started noticing cough difficulty breathing and chest pain. She called her primary care physic galen. She was told to go to the emergency department for a CAT scan of her chest. ROS: See above HPI for pertinent positives & negatives. A total of 10 systems reviewed and were otherwise negative. PAST MEDICAL HISTORY: See Below PAST SURGICAL HISTORY: See Below FAMILY HISTORY: See Below SOCIAL HISTORY: See Below HOME MEDICATIONS: See Below ALLERGIES: See Below VITALS: See Below PHYSICAL EXAMINATION: GENERAL: The patient is awake and alert. She is somewhat anxious appearing appears to be uncomfortable. EYES: The conjunctivae are clear. The pupils are round and reactive. EARS, NOSE, MOUTH AND THROAT: The nose is without any evidence of any deformity. NECK: The neck is nontender and supple. RESPIRATORY: Diminished breath sounds are noted in the right lung field. There were rales at the left base. There was conversational dyspnea noted. CARDIOVASCULAR: Regular rate and rhythm noted there no murmurs rubs or gallops normal S1 normal S2. GASTROINTESTINAL: The abdomen is soft. Abdomen is nontender. MUSCULOSKELETAL/EXTREMITIES: There is no evidence of gross deformity full range of motion is noted in the hips and shoulders. SKIN: Pedal edema was noted bilaterally. Skin is warm and dry. NEUROLOGIC: Patient is awake alert and oriented x3. MEDICAL DECISION MAKING: The patient is an 87-year-old female who has a history of metastatic cancer who presented to the emergency department for chest pain and trouble breathing. The patient had a PET scan recently that was abnormal. The patient was aware of this. The patient started having problems with chest pain. She called her primary pulmonary physician and was instructed to go to the emergency department. The patient was sent for rule out pulmonary embolism. She does have a large pleural effusion on chest x-ray. On CT there was no signs of venous thromboembolic disease or pulmonary embolism. The patient was treated with supplemental oxygen as well as pain medication. I discussed the patient's laboratory and radiographic studies with her. I discussed her condition with the on-call [facility]. They have agreed to evaluate the patient in the emergency department for further management and disposition Triage Nursing notes reviewed. Prior medical records reviewed Vital Signs: reviewed and remarkable for hypoxia Differential diagnosis: Cardiac ischemia, aortic dissection, pulmonary embolism, pneumothorax, pneumonia, pericarditis, myocarditis, esophageal rupture, GERD, cholecystitis, pancreatitis, musculoskeletal, as well as other pathologies. ER treatment provided: See below Diagnostics interpreted by me: ECG: EKG was obtained in the emergency department. My interpretation is normal sinus rhythm at 78 bpm. There is no ectopy. Anterior T wave inversions are noted. This was compared to a tracing from April 06, 2021. No changes were noted. Cardiac Monitoring: An order was placed for continuous cardiac monitoring. The monitor shows a rate of 85 bpm with sinus rhythm Laboratory studies: As stated above and show below. Imaging studies: See below. Radiographic imaging was reviewed by myself Consultation(s): I discussed this case with Jaspreet who is on for the [facility] group. Past Med/Surg History Medical History Anxiety Breast cancer, left breast 2001--SX AND RADIATION, NO CHEMO Chronic back pain Chronic ITP (idiopathic thrombocytopenia) Elevated bilirubin per pt reason for scheduled EGD Hearing deficit BILT Hypertension Obesity Osteomyelitis of fifth toe of left foot Spinal stenosis Statin myopathy Type 2 diabetes mellitus, controlled Surgical History Difficult airway for intubation SMALL AIRWAY H/O left breast biopsy History of angioplasty (~01/29/19) stenting of bilateral common iliac artery by Dr. Allred History of bilateral tubal ligation History of cholecystectomy History of dilatation and curettage History of tooth extraction WISDOM TEETH Hx of lumpectomy 2001--L BREAST CANCER Status post epidural steroid injection Family History Daughter Family history of reaction to anesthesia NAUSEA/VOMITING Social History Smoking Status: Current every day smoker Tobacco Type: Cigarettes Age Started Using Tobacco: 32; packs per day: 1; Cigarettes Per Day: 1 pack per day- none this am,; Second Hand Exposure: No; Do You Dip or Chew Tobacco: No; Hx Alcohol Use: No Hx Substance Use: No Preferred Language: Estonian Communication Ability: Effective Automated Logistics Specialist Required: No Beliefs That Will Affect Care: None Current Living Situation: Spouse Feels Safe at Home: Yes Assistive Devices: Glasses, Hearing Aid - Left and Hearing Aid - Right Allergies Allergies Allergy/AdvReac Type Severity Reaction Status Date / Time cephalexin [From Keflex] Allergy Mild Aches,drows Verified 09/17/22 19:40 iness clarithromycin Allergy Mild Hives Verified 09/17/22 19:40 fluoxetine Allergy Mild Increased Verified 09/17/22 19:40 anxiety latex Allergy Mild RASH Verified 09/17/22 19:40 olmesartan [From Benicar] Allergy Mild Rash Verified 09/17/22 19:40 Penicillins Allergy Mild RASH Verified 09/17/22 19:40 doxycycline AdvReac Intermediate Gastrointestinal Verified 09/17/22 21:54 Upset tiotropium AdvReac Intermediate Anxiety Verified 09/17/22 21:55 [From Spiriva with HandiHaler] atorvastatin AdvReac Mild aches Verified 09/17/22 21:55 escitalopram [From Lexapro] AdvReac Mild Shakiness Verified 09/17/22 21:55 lisinopril AdvReac Mild Cough Verified 09/17/22 21:55 nefazodone [From Serzone] AdvReac Mild ankle Verified 09/17/22 21:55 swelling paroxetine AdvReac Mild Bad Verified 09/17/22 21:55 dreams, low energy Home Meds Home Medications Medication Instructions Recorded Confirmed lorazepam 0.5 mg tablet (Ativan) 0.5 mg PO TID PRN Anxiety 12/27/18 09/17/22 magnesium chloride 64 mg 64 mg PO BID 12/27/18 09/17/22 (magnesium chloride) tablet,delayed release cholecalciferol (vitamin D3) 50 2,000 unit PO QDL 11/19/20 09/17/22 mcg (2,000 unit) capsule blood sugar diagnostic (OneTouch 01/06/21 09/17/22 Ultra Test strips) amlodipine 10 mg tablet 10 mg PO QAM 03/28/21 09/17/22 potassium chloride 10 mEq 20 meq PO QAM 03/28/21 09/17/22 tablet,extended release(part/cryst) sitagliptin phosphate 100 mg 100 mg PO DAILY 03/28/21 09/17/22 tablet (Januvia) acyclovir 400 mg tablet 400 mg PO AMHS 09/17/22 09/17/22 atenolol 25 mg tablet 25 mg PO QAM 09/17/22 09/17/22 cyanocobalamin (vitamin B-12) 1,000 mcg PO DAILY 09/17/22 09/17/22 1,000 mcg tablet (Vitamin B-12) edrbldec-tpn-bnywjd 5 mg-zeaxanth 1 cap PO DAILY 09/17/22 09/17/22 1 mg-bilberry 7.5 mg-herbal capsule ([employer] Formula) omeprazole 20 mg capsule,delayed 20 mg PO DAILY PRN Acid Reflux 09/17/22 09/17/22 release umeclidinium 62.5 mcg/actuation 1 inh inhalation DAILY 09/17/22 09/17/22 blister powder for inhalation (Incruse Ellipta) Previous Rx's Medication Instructions Recorded Flutter Valve #1 ea 05/20/21 albuterol sulfate 90 mcg/actuation 2 puff inhalation Q6H PRN 05/20/21 aerosol inhaler Shortness Of Breath Or Wheezing #18 grams umeclidinium 62.5 mcg/actuation 1 inh inhalation DAILY #30 ea 04/23/22 blister powder for inhalation (Incruse Ellipta) Results & Data (ED) Vital Signs Vital Signs - 24 hr 09/17/22 16:44 09/17/22 20:13 09/17/22 16:49 Temperature 36.7 C Temperature Source Temporal Artery Scan Pulse Rate 92 H 87 Pulse Rate from SpO2 Sensor Respiratory Rate 21 Respiratory Effort / Characteristics Non-Labored Blood Pressure 142/73 H Blood Pressure Mean 96 Pulse Oximetry 91 92 Oxygen Delivery Method Room Air Nasal Cannula Oxygen Flow Rate 3 Sepsis Recent Fever Within 48 Hours No Sepsis New/Unexplained Change in Mental Status N/A Sepsis Action Taken by Nursing No Action Required 09/17/22 18:40 09/17/22 19:00 09/17/22 19:00 Temperature Temperature Source Pulse Rate 94 H 90 Pulse Rate from SpO2 Sensor 94 H 90 Respiratory Rate 17 17 Respiratory Effort / Characteristics Blood Pressure 121/58 L Blood Pressure Mean 79 Pulse Oximetry 95 93 Oxygen Delivery Method Nasal Cannula Nasal Cannula Oxygen Flow Rate 3 3 Sepsis Recent Fever Within 48 Hours Sepsis New/Unexplained Change in Mental Status Sepsis Action Taken by Nursing 09/17/22 19:30 09/17/22 19:30 09/17/22 20:00 Temperature Temperature Source Pulse Rate 88 91 H Pulse Rate from SpO2 Sensor 89 Respiratory Rate 18 24 Respiratory Effort / Characteristics Blood Pressure 130/60 Blood Pressure Mean 83 Pulse Oximetry 93 Oxygen Delivery Method Nasal Cannula Oxygen Flow Rate 3 Sepsis Recent Fever Within 48 Hours Sepsis New/Unexplained Change in Mental Status Sepsis Action Taken by Nursing 09/17/22 20:01 09/17/22 20:01 09/17/22 20:30 Temperature Temperature Source Pulse Rate 92 H Pulse Rate from SpO2 Sensor 94 H Respiratory Rate 17 Respiratory Effort / Characteristics Blood Pressure 142/78 H 129/59 L Blood Pressure Mean 99 82 Pulse Oximetry 87 L Oxygen Delivery Method Nasal Cannula Oxygen Flow Rate 3 Sepsis Recent Fever Within 48 Hours Sepsis New/Unexplained Change in Mental Status Sepsis Action Taken by Nursing 09/17/22 20:30 09/17/22 21:00 09/17/22 21:00 Temperature Temperature Source Pulse Rate 73 91 H Pulse Rate from SpO2 Sensor 73 91 H Respiratory Rate 20 21 Respiratory Effort / Characteristics Blood Pressure 132/70 Blood Pressure Mean 90 Pulse Oximetry 92 94 Oxygen Delivery Method Nasal Cannula Nasal Cannula Oxygen Flow Rate 6 6 Sepsis Recent Fever Within 48 Hours Sepsis New/Unexplained Change in Mental Status Sepsis Action Taken by Nursing 09/17/22 21:30 09/17/22 21:30 Temperature Temperature Source Pulse Rate 85 Pulse Rate from SpO2 Sensor 85 Respiratory Rate 22 Respiratory Effort / Characteristics Blood Pressure 126/57 L Blood Pressure Mean 80 Pulse Oximetry 94 Oxygen Delivery Method Nasal Cannula Oxygen Flow Rate 6 Sepsis Recent Fever Within 48 Hours Sepsis New/Unexplained Change in Mental Status Sepsis Action Taken by Longterm Medications Current Medication List: was personally reviewed by me Laboratory Data Attestation: I reviewed the patient's lab results. 09/17/22 18:10 09/17/22 18:10 Lab Results 09/17/22 09/17/2209/17/23 Range/Units 18:10 18:10 18:10 WBC 6.94 (4.8-10.8) K/ul RBC 4.86 (4.20-5.40) M/uL Hgb 15.2 (12.0-16.0) g/dl Hct 45.1 (37.0-47.0) % MCV 92.8 (80.0-100.0) fL MCH 31.3 (25.0-34.0) pg MCHC 33.7 (32.0-36.0) g/dL RDW Std Deviation 44.3 (36.4-46.3) fL RDW Coeff of Ej 13.0 (11.5-14.5) % Plt Count 152 (130-400) K/uL MPV 12.2 (9.4-12.4) fL Immature Gran % (Auto) 1.3 % Neut % (Auto) 83.4 % Lymph % (Auto) 6.9 % [place] % (Auto) 5.8 % Eos % (Auto) 1.4 % Baso % (Auto) 1.2 % Neut # (Auto) 5.79 (1.40-6.50) K/uL Lymph # (Auto) 0.48 L (1.2-3.4) K/uL [place] # (Auto) 0.40 (0.11-0.59) K/uL Eos # (Auto) 0.10 (0-0.50) K/uL Baso # (Auto) 0.08 (0-0.2) K/uL Immature Gran # (Auto) 0.09 (0.01-0.20) K/uL PT 12.2 H (9.0-12.0) Seconds INR 1.1 (0.9-1.1) APTT 28.5 (21.0-31.0) Seconds PTT Ratio 1.0 Sodium 132 L (136-145) mmol/L Potassium 3.9 (3.5-5.1) mmol/L Chloride 99 (98-107) mmol/L Carbon Dioxide 22 (21-32) mmol/L Anion Gap 11 (3-11) BUN 15 (6-23) mg/dl Creatinine 0.97 (0.6-1.2) mg/dl Est Cr Clr Drug Dosing 42.3 ml/min Est GFR ( Amer) 61.7 ml/min Est GFR (Non-Af Amer) 53.3 ml/min BUN/Creatinine Ratio 15.5 (10-20) Glucose 128 H (70-99(Fasting)) mg/dl Calcium 9.4 (8.6-10.3) mg/dl Magnesium 1.7 (1.7-2.4) mg/dl Total Bilirubin 1.5 H (0.2-1.0) mg/dl AST 30 (13-39) U/L ALT 15 (7-52) U/L Alkaline Phosphatase 99 (34-104) U/L Troponin I High Sens 12.8 (0-14) pg/ml Total Protein 6.9 (6.0-8.3) gm/dl Albumin 3.7 (3.4-5.0) gm/dl Globulin 3.2 (2.5-4.0) gm/dl Albumin/Globulin Ratio 1.2 (0.9-2) Lipase 20 (11-82) U/L Administered Medications Fentanyl Citrate (Fentanyl Citrate Pf 100 Mcg/2 Ml Vial) 50 mcg IV Q15M PRN PRN Reason: Pain Stop: 10/01/22 18:25 Last Admin: 09/17/22 20:18 Dose: 50 mcg Documented By: Admin: 09/17/22 18:42 Dose: 50 mcg Documented By: LAKHWINDER Discontinued Medications Ioversol (Ioversol 350 Mg 125ml Prefilled Syringe) 118 ml IV ONCE ONE Stop: 09/17/22 19:47 Last Admin: 09/17/22 19:47 Dose: 118 ml Documented By: LISA Ondansetron HCl (Ondansetron Inj 2 Mg/Ml 2 Ml Vial) 4 mg IV NOW STA Stop: 09/17/22 18:27 Last Admin: 09/17/22 18:43 Dose: 4 mg Documented By: LAKHWINDER Imaging Data Attestation: I personally reviewed and interpreted this imaging study as follows: My Impression: 1 view chest x-ray was obtained in the emergency department. My interpretation is large right pleural effusion, final report below. Radiologist's Impression: Chest X-Ray 09/17/22 16:49 XR chest 1V not portable HISTORY: 87 years-old Female Chest pain in lower chest/upper abd pain acute chest pain COMPARISON: PET CT 09/09/2022 TECHNIQUE: PA view of the chest FINDINGS: 4 cm right upper lobe mass again noted. Emphysema. No pneumothorax. Moderate to large right pleural effusion with right lung volume loss and right basilar opacities. The left lung is generally clear. Pulmonary vascular congestion. Left axillary surgical clips. Degenerative changes of the shoulders and spine. IMPRESSION: 1. Cardiomegaly with pulmonary vascular congestion. 2. Moderate to large right pleural effusion with right lung volume loss. The right pleural effusion has increased in size compared to the 09/09/2022 exam 3. Right upper lobe mass again noted. 4. Emphysema. ACT 112: Negative or not required by law. The above report was generated using voice recognition software. It may contain grammatical, syntax or spelling errors. Electronically signed by: Jero Tripathi M.D. 09/17/2022 6:03 PM Chest CTA 09/17/22 18:26 Exam(s): CTA CHEST IV Amt: 118ml EXAM: CT Chest With Intravenous Contrast CLINICAL HISTORY: Reason for exam: [facility]. TECHNIQUE: Axial computed tomographic images of the chest with intravenous contrast. CTDI is 30.71 mGy and DLP is 489.36 mGy-cm. Automated exposure control was utilized for the study. A dose lowering technique was utilized adhering to the principles of ALARA. COMPARISON: 01/07/2022 FINDINGS: Pulmonary arteries: Unremarkable. No pulmonary embolism. Aorta: No acute findings. No thoracic aortic aneurysm. Lungs: 3.4 x 2.9 x 3.4 cm right upper lobe pulmonary mass new since prior exam. Pleural space: Large right pleural effusion with compressive atelectasis of the right lower lobe. Additionally there is nodularity seen within the right pleural effusion concerning for metastatic disease. No pneumothorax. Heart: Unremarkable. No cardiomegaly. No significant pericardial effusion. No evidence of RV dysfunction. Mediastinum: New right hilar and mediastinal lymphadenopathy measuring up to 2.1 cm in the subcarinal region and 1.4 cm in the right hilum.. Bones/joints: No acute fracture. No dislocation. Soft tissues: Unremarkable. Lymph nodes: Unremarkable. No enlarged lymph nodes. Adrenals: Limited evaluation of upper abdomen demonstrates a large left adrenal gland. IMPRESSION: 1. Right upper lobe pulmonary mass likely representing primary lung neoplasm with metastatic lymphadenopathy. 2. Probable left adrenal gland metastatic lesion as well. Electronically signed by: Renzo Gaytan MD 09/17/22 20:35 PM Discharge Plan Visit Data Chief Complaint: Flank Pain Stated Complaint: FLANK/BACK PAIN, POSSIBLE BLOOD CLOT; REF BY DOC ED Provider: Saqib Moseley Discharge Problem: Pleural effusion, Hypoxia, Chest pain, Mass of right lung Patient Disposition: Being Evaluated by Hospitalist Forms Stand Alone Forms: [facility] Prescriptions Prescriptions: No Action lorazepam [Ativan] 0.5 mg tablet 0.5 mg PO TID PRN (Reason: Anxiety) magnesium chloride 64 mg tablet,delayed release (DR/EC) 64 mg PO BID cholecalciferol (vitamin D3) 50 mcg (2,000 unit) capsule 2,000 unit PO QDL (DME) OneTouch Ultra Test Strip See Rx Instructions .Route Rx Instructions: test 1 time daily Incruse Ellipta 62.5 mcg/actuation blister with device 1 inh inhalation DAILY Qty: 30 7RF albuterol sulfate 90 mcg/actuation HFA aerosol inhaler 2 puff inhalation Q6H PRN (Reason: Shortness Of Breath Or Wheezing) Qty: 18 3RF (DME) Flutter Valve Device See Rx Instructions .MEDSUPPLY Qty: 1 0RF Rx Instructions: Use it every 6 hours when awake. amlodipine 10 mg tablet 10 mg PO QAM Januvia 100 mg tablet 100 mg PO DAILY potassium chloride 10 mEq tablet,ER particles/crystals 20 meq PO QAM atenolol 25 mg tablet 25 mg PO QAM cyanocobalamin (vitamin B-12) [Vitamin B-12] 1,000 mcg Tablet 1,000 mcg PO DAILY acyclovir 400 mg tablet 400 mg PO AMHS Rx Instructions: Patient does not remember this med. In [facility] it was ordered 09/15/22 & is also filled in dr 1st omeprazole 20 mg capsule,delayed release(DR/EC) 20 mg PO DAILY PRN (Reason: Acid Reflux) Incruse Ellipta 62.5 mcg/actuation blister with device 1 inh INHALATION DAILY Macular Health Formula 5-1-7.5 mg Capsule 1 cap PO DAILY Referrals Referrals: Augustina Hernandez DO [Primary Care Provider] -
[2022-09-17] MEDS: fentaNYL citrate PF 100 MCG/2 ML VIAL IV PRN ×2 (18:42→20:18)
[2022-09-17 18:54] LABS: Basophils # (auto) 0.08 K/uL (0-0.2); Basophils % (auto) 1.2 %; Eosinophils % (auto) 1.4 %; Hematocrit (blood only) 45.1 % (37.0-47.0); Hemoglobin 15.2 g/dl (12.0-16.0); Immature Granulocytes # (auto) 0.09 K/uL (0.01-0.20); Immature Granulocytes % (auto) 1.3 %; Lymphocytes # (auto) 0.48 K/uL (1.2-3.4); Lymphocytes % (auto) 6.9 %; Mean Corpuscular Hemoglobin 31.3 pg (25.0-34.0); Mean Corpuscular Hgb Conc 33.7 g/dL (32.0-36.0); Mean Corpuscular Volume 92.8 fL (80.0-100.0); Mean Platelet Volume 12.2 fL (9.4-12.4); Monocytes % (auto) 5.8 %; Neutrophils # (auto) 5.79 K/uL (1.40-6.50); Neutrophils % (auto) 83.4 %; Platelet Count 152 K/uL (130-400); RDW Standard Deviation 44.3 fL (36.4-46.3); Red Blood Count 4.86 M/uL (4.20-5.40); White Blood Count 6.94 K/ul (4.8-10.8)
[2022-09-17 19:00] LABS: Albumin Globulin Ratio 1.2 (0.9-2); Albumin Level 3.7 gm/dl (3.4-5.0); BUN Creatinine Ratio 15.5 (10-20); Bilirubin,Total 1.5 mg/dl (0.2-1.0); Calcium 9.4 mg/dl (8.6-10.3); Creatinine Clr Calc Pharmacy 42.3 ml/min; Est GFR (African American) 61.7 ml/min; Est GFR (Non-African American) 53.3 ml/min; Globulin 3.2 gm/dl (2.5-4.0); Magnesium 1.7 mg/dl (1.7-2.4); Potassium 3.9 mmol/L (3.5-5.1); Total Protein 6.9 gm/dl (6.0-8.3)
[2022-09-17 19:06] LABS: Troponin I High Sensitivity 12.8 pg/ml (0-14)
[2022-09-17 19:20] LABS: INR 1.1 (0.9-1.1); Partial Thromboplastin Time 28.5 Seconds (21.0-31.0); Prothrombin Time 12.2 Seconds (9.0-12.0)
[2022-09-17] MEDS ORDERED: IOVERSOL 350 MG 125mL Prefilled Syringe IV ONE (19:46)
--- NOTE | 2022-09-17 20:36 | CT Scan Report ---
Exam(s): CTA CHEST IV Amt: 118ml EXAM: CT Chest With Intravenous Contrast CLINICAL HISTORY: Reason for exam: sent by [employer] for CT. TECHNIQUE: Axial computed tomographic images of the chest with intravenous contrast. CTDI is 30.71 mGy and DLP is 489.36 mGy-cm. Automated exposure control was utilized for the study. A dose lowering technique was utilized adhering to the principles of ALARA. COMPARISON: 01/07/2022 FINDINGS: Pulmonary arteries: Unremarkable. No pulmonary embolism. Aorta: No acute findings. No thoracic aortic aneurysm. Lungs: 3.4 x 2.9 x 3.4 cm right upper lobe pulmonary mass new since prior exam. Pleural space: Large right pleural effusion with compressive atelectasis of the right lower lobe. Additionally there is nodularity seen within the right pleural effusion concerning for metastatic disease. No pneumothorax. Heart: Unremarkable. No cardiomegaly. No significant pericardial effusion. No evidence of RV dysfunction. Mediastinum: New right hilar and mediastinal lymphadenopathy measuring up to 2.1 cm in the subcarinal region and 1.4 cm in the right hilum.. Bones/joints: No acute fracture. No dislocation. Soft tissues: Unremarkable. Lymph nodes: Unremarkable. No enlarged lymph nodes. Adrenals: Limited evaluation of upper abdomen demonstrates a large left adrenal gland. IMPRESSION: 1. Right upper lobe pulmonary mass likely representing primary lung neoplasm with metastatic lymphadenopathy. 2. Probable left adrenal gland metastatic lesion as well. Electronically signed by: Renzo Gaytan MD 09/17/22 20:35 PM
[2022-09-17] MEDS ORDERED: SODIUM CHLORIDE 0.9% 1000ML 500 ML IV ONE (20:57)
--- NOTE | 2022-09-17 21:32 | History & Physical Report ---
Date of Service September 17, 2022 Assessment & Plan (1) Acute respiratory failure with hypoxia: Plan: -Admit to the PCU on tele and pulse oximetry -Currently comfortable and stable on 3-4L NC, not on home O2 therapy -Has been having progressive SOB, orthopnea, and VINSON over the past few months -Noted to have a right pleural effusion with right lung volume loss, CTA of the chest was read as "Right upper lobe pulmonary mass likely representing primary lung neoplasm with metastatic lymphadenopathy. Probable left adrenal gland metastatic lesion as well." -CTA of the chest was negative for PE -No focal consolidation on CXR or CTA of the chest, no leukocytosis, will add on procal for further evaluation but hold abx for now -Will add on full respiratory biofire for further evaluation -Pulmonary consult placed as patient will likely need a thoracentesis and poss ible plurex cath -Prn O2 to keep SpO2 between 88-92% -Incentive spirometry, flutter therapy, scheduled DuoNebs -Will hold chemical DVT PPX in preparation for thoracentesis tomorrow -HH, DMII diet -AM CBC, CMP, Mag, PT/INR (2) B-cell lymphoma: Plan: -Patient follows with Dr. Ballesteros of [facility] [place] [facility] for B-cell lymphoma -Recently had a PET scan with significant metastases -Consulting [facility] [place] [facility] for further discussions with the Patient and her as I am concerned that they do not understand the extent of her disease -Would strongly consider a palliative medicine consult after she is seen by Oncology (3) Pleural effusion: Plan: -See acute hypoxic respiratory failure (4) Back pain: Plan: -Patient has been having progressively worsening thoracic back pain over the past 2-3 months -No red flag symptoms -Likely due to bone metastases but cannot rule out the chronic pancreatitis noted on her PET scan from 09/09 -Scheduled tylenol, lidocaine patch, q4h prn IV 0.5 mg dilaudid for severe pain -PRN Narcan on board for narcotic overdose -Consider palliative medicine consult (5) Abdominal pain: Plan: -Patient has been having progressive epigastric/upper abdominal pain over the past 2-3 weeks -Denies recent vomiting or GI symptoms -Likely related to her widely metastatic disease -Cannot rule out possible pain from chronic pancreatitis, lipase WNL today -Has been having bowel movements and passing gas -Patient's abdominal exam is currently benign, she would like to wait until tomorrow for additional abdominal imaging -If no improvement in discomfort overnight then would obtain CT of the abd/pelvis tomorrow -Pain control as described in back pain -Will give 40 mg PO pantoprazole now then continue daily for possible GERD/gastritis (6) Elevated bilirubin: Plan: -Total bili elevated at 1.5 -Has been higher in the past -No sclera icterus or jaundice, benign abd exam -Will differ abdominal imaging until tomorrow if needed as she is stable -Follow daily CMP (7) COPD (chronic obstructive pulmonary disease): Plan: -Continue home breathing treatments -Scheduled duonebs -Pulm Hygiene -Full biofire -Pulmonology consult placed (8) Tobacco abuse disorder: Plan: -Still smoking 1-2 PPD -Explained to patient that she would not be able to smoke if requiring O2 therapy at home -Also explained the importance of smoking cessation if she wants to go through with further cancer treatment -Patient declined the need for nicotine patch at this time (9) Type 2 diabetes mellitus, controlled: Plan: -Hold Jardiance -Monitor BSG ACHS, goal is 110-160 -Start 5 units lantus BID, CF of 50, hold CR for now to avoid hypoglycemia -DMII, HH diet -Adjust regimen as needed (10) Hypertension: Plan: -Currently stable -Will continue carvedilol but hold amlodipine for now to avoid hypotension while on narcotics for pain (11) Hyponatremia: Plan: -Noted to be 132 today -Likely due to poor oral intake and possible SIADH from her malignancy -Did not receive the 500 mL NSS bolus as previously thought -Follow repeat CMP in the am for now Plan The patient was discussed with Dr. Rosales at the time of the admission History of Present Illness Chief Complaint: Low back pain, abd pain, SOB Primary Care Provider: DO Elva Andre is an 87 year old female with a PMH significant for Left-sided breast CA 2001 s/p lumpectomy and radiation, B-cell lymphoma diagnosed 03/30/2021 S/P Rituxan therapy, type 2 diabetes, hypertension,ITP, tachy-génesis syndrome and tobacco abuse who presented to the [facility] ED on 09/17 due to back pain, abdominal pain, and SOB. In the ED the patient was found to be hypoxic at 87% on RA but otherwise stable. Labs were significant for a lymphocyte count of 0.48, sodium of 132, total bili of 1.5. Xray of the chest was read as "1. Cardiomegaly with pulmonary vascular congestion. 2. Moderate to large right pleural effusion with right lung volume loss. The right pleural effusion has increased in size compared to the 09/09/2022 exam 3. Right upper lobe mass again noted. 4. Emphysema.". CTA of the chest was read as "Negative for PE, 1. Right upper lobe pulmonary mass likely representing primary lung neoplasm with metastatic lymphadenopathy. 2. Probable left adrenal gland metastatic lesion as well.". Prior to admission the patient was given a 500 mL NSS bolus and 50 mcg of IV fentanyl. At the time of the exam the patient was sitting in bed in no acute distress with her sitting bedside, history was obtained from both. The patient is very hard of hearing. The patient states that she knows about her recurrent malignancy and states that she is working with Dr. Ballesteros to setup mediport placement and chemotherapy next month. She states that she has had progressive SOB, VINSON, orthopnea, upper abdominal pain, and mid back pain over the past few weeks. She does not use oxygen at baseline and is still smoking approximately 1- 2 PPD. She denies recent fever, chills, productive cough, nausea, vomiting, dysuria, hematuria, melena, diarrhea, and recent trauma. She has noticed significant loss of appetite and feelings of early satiety for the past 2-3 months. During our discussion I was concerned that the patient and her were unaware of the severity of her malignancy and the significant amount of metastases she has been having. She knows that she has the right lung mass but did not understand previously that she has extensive metastases to the bone, liver, pelvis, and adrenal glands, and mediastinal lymph nodes. I also explained that she was noted to have chronic pancreatitis on her PET scan from 09/09. She and her were very surprised by the extent of her disease burden at this time. I explained to her that we will need to have her evaluated for thoracentesis to have the fluid from her lungs drained and that she may need a catheter moving forward if she continues to have these issues. We had a long discussion regarding code status, the patient and her would like her to be a DNR/DNI as they do not think that her quality of life would be adequate if she were to undergo CPR and or intubation. Please refer to Dr. Rosales's attestation for any changes to the treatment plan Allergies Allergy/AdvReac Type Severity Reaction Status Date / Time cephalexin [From Keflex] Allergy Mild Aches,drows Verified 09/17/22 19:40 iness clarithromycin Allergy Mild Hives Verified 09/17/22 19:40 fluoxetine Allergy Mild Increased Verified 09/17/22 19:40 anxiety latex Allergy Mild RASH Verified 09/17/22 19:40 olmesartan [From Benicar] Allergy Mild Rash Verified 09/17/22 19:40 Penicillins Allergy Mild RASH Verified 09/17/22 19:40 doxycycline AdvReac Intermediate Gastrointestinal Verified 09/17/22 21:54 Upset tiotropium AdvReac Intermediate Anxiety Verified 09/17/22 21:55 [From Spiriva with HandiHaler] atorvastatin AdvReac Mild aches Verified 09/17/22 21:55 escitalopram [From Lexapro] AdvReac Mild Shakiness Verified 09/17/22 21:55 lisinopril AdvReac Mild Cough Verified 09/17/22 21:55 nefazodone [From Serzone] AdvReac Mild ankle Verified 09/17/22 21:55 swelling paroxetine AdvReac Mild Bad Verified 09/17/22 21:55 dreams, low energy Home Medications Medication Instructions Recorded Confirmed Type lorazepam 0.5 mg tablet (Ativan) 0.5 mg PO TID PRN Anxiety 12/27/18 09/17/22 History magnesium chloride 64 mg 64 mg PO BID 12/27/18 09/17/22 History (magnesium chloride) tablet,delayed release cholecalciferol (vitamin D3) 50 2,000 unit PO QDL 11/19/20 09/17/22 History mcg (2,000 unit) capsule blood sugar diagnostic (OneTouch 01/06/21 09/17/22 History Ultra Test strips) amlodipine 10 mg tablet 10 mg PO QAM 03/28/21 09/17/22 History potassium chloride 10 mEq 20 meq PO QAM 03/28/21 09/17/22 History tablet,extended release(part/cryst) sitagliptin phosphate 100 mg 100 mg PO DAILY 03/28/21 09/17/22 History tablet (Januvia) Flutter Valve #1 ea 05/20/21 09/17/22 Rx albuterol sulfate 90 mcg/actuation 2 puff inhalation Q6H PRN 05/20/21 09/17/22 Rx aerosol inhaler Shortness Of Breath Or Wheezing #18 grams umeclidinium 62.5 mcg/actuation 1 inh inhalation DAILY #30 ea 04/23/22 09/17/22 Rx blister powder for inhalation (Incruse Ellipta) acyclovir 400 mg tablet 400 mg PO AMHS 09/17/22 09/17/22 History atenolol 25 mg tablet 25 mg PO QAM 09/17/22 09/17/22 History cyanocobalamin (vitamin B-12) 1,000 mcg PO DAILY 09/17/22 09/17/22 History 1,000 mcg tablet (Vitamin B-12) [id number]-[id number] 5 mg-zeaxanth 1 cap PO DAILY 09/17/22 09/17/22 History 1 mg-bilberry 7.5 mg-herbal capsule (Macular Health Formula) omeprazole 20 mg capsule,delayed 20 mg PO DAILY PRN Acid Reflux 09/17/22 09/17/22 History release umeclidinium 62.5 mcg/actuation 1 inh inhalation DAILY 09/17/22 09/17/22 History blister powder for inhalation (Incruse Ellipta) Past Med/Surg History Medical History (Updated 09/17/22 @ 23:20 by Jaspreet Morris PA-C) Anxiety Breast cancer, left breast 2001--SX AND RADIATION, NO CHEMO Chronic back pain Chronic ITP (idiopathic thrombocytopenia) Elevated bilirubin per pt reason for scheduled EGD Hearing deficit BILT Hypertension Obesity Osteomyelitis of fifth toe of left foot Spinal stenosis Statin myopathy Type 2 diabetes mellitus, controlled Surgical History Difficult airway for intubation SMALL AIRWAY H/O left breast biopsy History of angioplasty (~01/29/19) stenting of bilateral common iliac artery by Dr. Allred History of bilateral tubal ligation History of cholecystectomy History of dilatation and curettage History of tooth extraction WISDOM TEETH Hx of lumpectomy 2001--L BREAST CANCER Status post epidural steroid injection Family History Daughter Family history of reaction to anesthesia NAUSEA/VOMITING Social History Smoking Status: Current every day smoker Tobacco Type: Cigarettes Age Started Using Tobacco: 32; packs per day: 1; Cigarettes Per Day: 1 pack per day- none this am,; Second Hand Exposure: No; Do You Dip or Chew Tobacco: No; Hx Alcohol Use: No Hx Substance Use: No Preferred Language: Liberian Communication Ability: Effective Can Filling And Closing Machine Tender Required: No Beliefs That Will Affect Care: None Current Living Situation: Spouse Feels Safe at Home: Yes Assistive Devices: Glasses, Hearing Aid - Left and Hearing Aid - Right Physical Exam Physical Exam: Physical Exam: General: In no acute distress, stated age, cachectic and chronically ill appearing HEENT: Normocephalic, atraumatic, no scleral icterus, pupils around round, symmetrical, and reactive to light, moist mucus membranes, trachea midline, no thyromegaly Chest/Pulm: No respiratory distress, currently comfortable on 3-4L NC, symmetrical chest expansion, decreased breath sounds in the RLL and RML, expiratory wheezing noted in all other lung [place] Cardiac: RRR, no murmurs noted Abdomen: Negative for significant ascites, non-distended, normoactive bowel sounds, soft, non-tender to palpation throughout Musculoskeletal: Symmetrical and without signs of acute trauma, upper and lower extremities with full ROM, no atrophy, spasticity, or flaccidity Extremities: patient with tenderness to palpation over the thoracic spine without step offs or crepitus Skin: Warm, dry, no rashes , lesions, or scars noted Neuro: Alert and oriented to person, place, month, year, and president, no focal defects, no tremors noted Psych: No acute distress, calm and cooperative during the exam Results & Data Results & Data Vital Signs (Past 12 Hours) Vital Signs Temp Pulse Resp BP Pulse Ox O2 Del Method O2 Flow Rate 09/17/22 20:30 73 20 92 Nasal Cannula 6 09/17/22 20:30 129/59 L 09/17/22 20:01 142/78 H 09/17/22 20:01 92 H 17 87 L Nasal Cannula 3 09/17/22 20:00 91 H 24 09/17/22 19:30 88 18 93 Nasal Cannula 3 09/17/22 19:30 130/60 07/28/23 19:00 90 17 93 Nasal Cannula 3 09/17/22 19:00 121/58 L 09/17/22 18:40 94 H 17 95 Nasal Cannula 3 09/17/22 16:49 92 Nasal Cannula 3 09/17/22 20:13 87 09/17/22 16:44 36.7 C 92 H 21 142/73 H 91 Room Air Laboratory Results Abnormal lab results 09/17/22 09/17/22 09/17/22 Range/Units 18:10 18:10 18:10 Lymph # (Auto) 0.48 L (1.2-3.4) K/uL PT 12.2 H (9.0-12.0) Seconds Sodium 132 L (136-145) mmol/L Glucose 128 H (70-99(Fasting)) mg/dl Total Bilirubin 1.5 H (0.2-1.0) mg/dl Diagnostic Findings Chest X-Ray 09/17/22 16:49 XR chest 1V not portable HISTORY: 87 years-old Female Chest pain in lower chest/upper abd pain acute chest pain COMPARISON: PET CT 09/09/2022 TECHNIQUE: PA view of the chest FINDINGS: 4 cm right upper lobe mass again noted. Emphysema. No pneumothorax. Moderate to large right pleural effusion with right lung volume loss and right basilar opacities. The left lung is generally clear. Pulmonary vascular congestion. Left axillary surgical clips. Degenerative changes of the shoulders and spine. IMPRESSION: 1. Cardiomegaly with pulmonary vascular congestion. 2. Moderate to large right pleural effusion with right lung volume loss. The right pleural effusion has increased in size compared to the 09/09/2022 exam 3. Right upper lobe mass again noted. 4. Emphysema. ACT 112: Negative or not required by law. The above report was generated using voice recognition software. It may contain grammatical, syntax or spelling errors. Electronically signed by: Jero Tripathi M.D. 09/17/2022 6:03 PM Chest CTA 09/17/22 18:26 Exam(s): CTA CHEST IV Amt: 118ml EXAM: CT Chest With Intravenous Contrast CLINICAL HISTORY: Reason for exam[facility] TECHNIQUE: Axial computed tomographic images of the chest with intravenous contrast. CTDI is 30.71 mGy and DLP is 489.36 mGy-cm. Automated exposure control was utilized for the study. A dose lowering technique was utilized adhering to the principles of ALARA. COMPARISON: 01/07/2022 FINDINGS: Pulmonary arteries: Unremarkable. No pulmonary embolism. Aorta: No acute findings. No thoracic aortic aneurysm. Lungs: 3.4 x 2.9 x 3.4 cm right upper lobe pulmonary mass new since prior exam. Pleural space: Large right pleural effusion with compressive atelectasis of the right lower lobe. Additionally there is nodularity seen within the right pleural effusion concerning for metastatic disease. No pneumothorax. Heart: Unremarkable. No cardiomegaly. No significant pericardial effusion. No evidence of RV dysfunction. Mediastinum: New right hilar and mediastinal lymphadenopathy measuring up to 2.1 cm in the subcarinal region and 1.4 cm in the right hilum.. Bones/joints: No acute fracture. No dislocation. Soft tissues: Unremarkable. Lymph nodes: Unremarkable. No enlarged lymph nodes. Adrenals: Limited evaluation of upper abdomen demonstrates a large left adrenal gland. IMPRESSION: 1. Right upper lobe pulmonary mass likely representing primary lung neoplasm with metastatic lymphadenopathy. 2. Probable left adrenal gland metastatic lesion as well. Electronically signed by: Renzo Gaytan MD 09/17/22 20:35 PM ECG Additional Comments: Normal sinus rhythm Cannot rule out Anterior infarct (cited on or before 06-APR-2021) Abnormal ECG When compared with ECG of 06-APR-2021 07:29, Questionable change in initial forces of Anterior leads Code Status & VTE Plan Code Status DNR/DNI Supervising Physician Co-Signing Physician Notes Patient seen and examined, chart reviewed, case discussed with Jaspreet Morris PA-C and I agree with the assessment and plan as above except as otherwise noted Labs and images reviewed Elva is seen at the bedside with her present. She has a history of B- cell lymphoma, left-sided breast cancer s/p lumpectomy and radiation, type II DM, ITP, tachybradycardia syndrome who presented with hypoxia and weakness and who was found to have a right upper lobe mass and suspected left adrenal metastatic lesion consistent with metastatic lymphadenopathy with prior PET scan showing multiple scattered soft tissue masses, extensive hepatic metastasis, and bony metastasis. Suspect her shortness of breath is worsened due to right upper lobe pulmonary mass with associated large pleural effusion likely metastatic exudative effusion. Pt is pending a mediport next month for potential initiation of chemotherapy. Pt reports she did not realize the extend of her metastasis, is hopeful treatment can extend he rlife and improve quality. R lung sounds diminished at bedside consistent with large R pleural effusion. Pulm consulted for thorocentesis eval. Oncology consulted. Agree w/ assessment and management above. PG Care Time/CCT Total # of Minutes Spent Total Time Spent with Patient: Total time spent is greater than 50% in coordination of care (as documented) at patient's floor/unit and/or counseling patient: [place] [address] INT INP/OBS CARE 3/75MIN Patient Type Established Medical Decision Making High Complexity Diagnoses Acute respiratory failure with hypoxia J96.01 B-cell lymphoma C85.10 Pleural effusion J90 Back pain M54.9 Abdominal pain R10.9 Elevated bilirubin R17 COPD (chronic obstructive pulmonary disease) J44.9 Tobacco abuse disorder Z72.0 Type 2 diabetes mellitus, controlled E11.9 Hypertension I10 Hyponatremia E87.1
[2022-09-17] MEDS ORDERED: NALOXONE HCL 0.4 MG/1 ML VIAL/CARP IV PRN (22:53)
[2022-09-17] MEDS ORDERED: LIDOCAINE 5% 1 PATCH TD STA (22:53)
[2022-09-17] MEDS ORDERED: GLUCOSE 10 TAB/TUBE PO PRN (22:55)
[2022-09-17] MEDS ORDERED: GLUCAGON FOR INJ 1 MG VIAL SQ PRN (22:55)
[2022-09-17] MEDS ORDERED: GLUCOSE 40% GEL 15 GM TUBE PO PRN (22:55)
[2022-09-17] MEDS ORDERED: DEXTROSE 50% 50 ML SYRINGE IV PRN (22:55)
[2022-09-17] MEDS ORDERED: CARBOHYDRATES FOR HYPOGLYCEMIA PO PRN (22:55)
[2022-09-17] MEDS ORDERED: PANTOprazole 40 MG TAB PO STA (23:21)
[2022-09-18 00:27] LABS: Adenovirus PCR Not Detected (NotDetected); Bordetella parapertussis PCR Not Detected (NotDetected); Bordetella pertussis PCR Not Detected (NotDetected); Chlamydia pneumoniae PCR Not Detected (NotDetected); Coronavirus 229E PCR Not Detected (NotDetected); Coronavirus CoV-2 (COVID19)PCR Not Detected (NotDetected); Coronavirus HKU1 PCR Not Detected (NotDetected); Coronavirus NL63 PCR Not Detected (NotDetected); Coronavirus OC43PCR Not Detected (NotDetected); Human Metapneumovirus PCR Not Detected (NotDetected); Influenza A PCR Not Detected (NotDetected); Influenza B PCR Not Detected (NotDetected); Mycoplasma pneumoniae PCR Not Detected (NotDetected); Parainfluenza Virus 1 PCR Not Detected (NotDetected); Parainfluenza Virus 2 PCR Not Detected (NotDetected); Parainfluenza Virus 3 PCR Not Detected (NotDetected); Parainfluenza Virus 4 PCR Not Detected (NotDetected); Respiratory Syncytial VirusPCR Not Detected (NotDetected); Rhinovirus/Enterovirus PCR Not Detected (NotDetected)
[2022-09-18] MEDS ORDERED: PANTOprazole 40 MG TAB PO PRN (00:37)
[2022-09-18] MEDS: ACETAMINOPHEN 325 MG TAB PO SCH ×4 (00:53→18:03)
[2022-09-18] MEDS: HYDROmorphone INJ 0.5 MG/0.5 ML SYR IV PRN ×3 (00:55→16:17)
[2022-09-18] MEDS: NICOTINE 14 MG/24 HR PATCH TD SCH ×2 (01:06→08:57)
[2022-09-18 06:23] LABS: Basophils # (auto) 0.08 K/uL (0-0.2); Basophils % (auto) 1.1 %; Eosinophils # (auto) 0.08 K/uL (0-0.50); Eosinophils % (auto) 1.1 %; Hematocrit (blood only) 38.7 % (37.0-47.0); Hemoglobin 13.2 g/dl (12.0-16.0); Immature Granulocytes # (auto) 0.08 K/uL (0.01-0.20); Immature Granulocytes % (auto) 1.1 %; Lymphocytes # (auto) 0.41 K/uL (1.2-3.4); Lymphocytes % (auto) 5.6 %; Mean Corpuscular Hemoglobin 31.5 pg (25.0-34.0); Mean Corpuscular Hgb Conc 34.1 g/dL (32.0-36.0); Mean Corpuscular Volume 92.4 fL (80.0-100.0); Monocytes # (auto) 0.52 K/uL (0.11-0.59); Monocytes % (auto) 7.1 %; Neutrophils # (auto) 6.13 K/uL (1.40-6.50); Platelet Count 123 K/uL (130-400); RDW Coefficient of Variation 12.9 % (11.5-14.5); RDW Standard Deviation 43.9 fL (36.4-46.3); Red Blood Count 4.19 M/uL (4.20-5.40)
[2022-09-18 06:36] LABS: Albumin Globulin Ratio 1.1 (0.9-2); BUN Creatinine Ratio 14.8 (10-20); Calcium 8.9 mg/dl (8.6-10.3); Creatinine Clr Calc Pharmacy 36.2 ml/min; Est GFR (African American) 50.2 ml/min; Est GFR (Non-African American) 43.4 ml/min; Globulin 2.7 gm/dl (2.5-4.0); Magnesium 1.7 mg/dl (1.7-2.4); Potassium 4.4 mmol/L (3.5-5.1); Total Protein 5.7 gm/dl (6.0-8.3)
[2022-09-18 06:42] LABS: INR 1.1 (0.9-1.1); Prothrombin Time 12.1 Seconds (9.0-12.0)
[2022-09-18] MEDS: ALBUT/IPRATROP 3MG/0.5MG NEB 3 ML VIAL NEB SCH ×4 (06:52→17:39)
[2022-09-18] MEDS: INSULIN ASPART PER UNIT CHARGE SC SCH ×4 (08:54→22:15)
[2022-09-18] MEDS: ATENOLOL 25 MG TABLET PO SCH (08:56)
[2022-09-18] MEDS: MAGNESIUM CHLORIDE W/CALCIUM 64MG DELAYED REL TAB PO SCH ×2 (08:56→22:16)
[2022-09-18] MEDS: POTASSIUM CHLORIDE CRTAB 20 MEQ TABCR PO SCH (08:56)
[2022-09-18] MEDS: ACYCLOVIR 400 MG TAB PO SCH ×2 (08:56→22:15)
[2022-09-18] MEDS: PANTOprazole 40 MG TAB PO SCH (08:56)
[2022-09-18] MEDS: UMECLIDINIUM BROMIDE 62.5MCG/BLISTER 7 PUFFS/INHALER INH SCH (08:57)
[2022-09-18] MEDS ORDERED: SITagliptin PHOSPHATE 100 MG TAB PO SCH (09:00)
[2022-09-18] MEDS ORDERED: LANTUS PER UNIT CHARGE SQ SCH (09:00)
--- NOTE | 2022-09-18 10:33 | Electrocardiogram Report ---
Test Reason : Blood Pressure : / mmHG Vent. Rate : 078 BPM Atrial Rate : 078 BPM P-R Int : 174 ms QRS Dur : 080 ms QT Int : 414 ms P-R-T Axes : 027 -01 019 degrees QTc Int : 471 ms Normal sinus rhythm Cannot rule out Anterior infarct (cited on or before 06-APR-2021) Abnormal ECG When compared with ECG of 06-APR-2021 07:29, No significant change was found Confirmed by Emanuel George ([id number]) on 09/18/2022 10:32:52 AM Referred By: Ezio Zabala Confirmed By:Emanuel George
[2022-09-18] MEDS ORDERED: LIDOCAINE 1% LOCAL 20 ML VIAL INFIL ONE (15:29)
[2022-09-18] MEDS ORDERED: LIDOCAINE 2% LOCAL 50 ML VIAL ONE (15:37)
[2022-09-18] MEDS ORDERED: LIDOCAINE 5% 1 PATCH TD STA (16:28)
--- NOTE | 2022-09-18 16:36 | Procedure Note ---
Procedure Note Date of Service September 18, 2022 Note This is a procedure note. Name of procedure: Right thoracentesis. Indications: Relief of large right pleural effusion with associated shortness of breath. Consent: The patient was able to provide her own consent. After discussing the risks and benefits and options with her and her that the patient decided to proceed. Alternatives included waiting for placement of a Pleurx catheter but it was unclear when that was going to happen. Risks included pneumothorax, bleeding pain and infection. Benefits include relief of large fluid accumulation and some improvement in shortness of breath. But it was made clear that she had other pulmonary involvement that could lead to shortness of breath including pulmonary masses in her very extensive smoking history. Timeout was performed. The pleural fluid was identified with ultrasound guidance and the area was marked. The area was then prepped and draped in the usual sterile manner. Anesthesia: 2% lidocaine was instilled subcutaneously. The fluid was then identified with a finder needle. A small incision was made with a scalpel. The needle with the overlying catheter was inserted and when fluid was withdrawn the catheter was advanced without complication. The fluid was bloody and turbid. 6 approximately 300 mL was withdrawn for specimens. Then the catheter was connected to a Vacutainer bottle. 1 L of bloody fluid was withdrawn and then a second Vacutainer bottle was applied with only approximately 400 mL returned. When no more fluid was recoverable the catheter was removed. Her back was washed and dried and a Band-Aid applied. The patient tolerated the procedure well. She had some pleuritic pain with expansion of her lungs and some coughing which improved. Chest x-ray is pending for postoperative procedure to assess reexpansion. Estimated blood loss: None. Specimens: Pleural fluid was sent for cytology and request for flow cytometry given her B-cell lymphoma diagnosis. Bacteriuria, fungal and AFB smear and culture were sent. CBC with differential, LDH, total protein, glucose and albumin as well as triglycerides were sent. Lipase was deferred. Coding CPT Codes Pulmonary/Thoracic - Pulmonary and Thoracic: 12539 Thoracentesis w imaging ([id number]) [facility] [place] Procedure Codes (Charges) Pulmonary/Thoracic Procedure 1: Pulmonary and Thoracic: 34280 Thoracentesis w imaging
[2022-09-18] MEDS: LIDOCAINE 5% 1 PATCH TD SCH (16:47)
--- NOTE | 2022-09-18 16:52 | Hospitalist Progress Note ---
Date of Service September 18, 2022 Assessment & Plan (1) Pleural effusion: Plan: Right thoracentesis completed today with aspiration of 1700 cc of fluid that is probably malignant from the underlying non-Hodgkin's lymphoma. Pleurx catheter placement will have to be done at a later date when physicians are available. (2) B-cell lymphoma: Plan: Continue outpatient oncology follow-up and treatment (3) Acute respiratory failure with hypoxia: Plan: Currently on supplemental oxygen per nasal cannula. Incentive spirometry ordered. Hopefully this can be discontinued before discharge. (4) COPD (chronic obstructive pulmonary disease): Plan: Stable. Continue current management (5) Type 2 diabetes mellitus, controlled: Plan: ADA diet. Sliding scale coverage. Continue current medical management (6) Tobacco abuse disorder: Plan: Smoking cessation recommended Plan Hopeful discharge to home tomorrow, September 19. She may need supplemental oxygen Admission and Anticipated Discharge Date Admission Date: September 17, 2022 Subjective Alert and oriented. No distress. She underwent right thoracentesis short while ago with aspiration of 1700 cc of fluid. Suspected malignant effusion from underlying B-cell non-Hodgkin's lymphoma. She is currently requiring santiago pplemental oxygen. Suspect some degree of pulmonary atelectasis in the right lower lobe due to the malignant effusion. Incentive spirometry has been ordered. Pleurx catheter placement was recommended by pulmonary medicine but we do not have a physician available in-house at this time who can insert a Pleurx catheter. This can be done at a later date. Hopefully she can go home tomorrow, September 19 Review of Systems Review of Systems: Constitutional-no fever or chills ENT-no blurred vision, no double vision, no epistaxis, no sore throat Respiratory-no cough, no wheezing. Shortness of breath with minimal exertion. No hemoptysis Cardiac-no palpitations, no chest pain, no syncope GI-no nausea, vomiting, diarrhea, melena, hematochezia -no urinary retention, no urinary incontinence, no dysuria, no hematuria Musculoskeletal-no joint pain, no muscle tenderness Skin-no bruising, no rashes, no pruritus Neuro-no isolated weakness, no paresthesia, no weakness Psych-no depression, no anxiety Physical Exam Physical Exam: General-alert and oriented x3, no fevers, no chills HEENT-head atraumatic and normocephalic, pupils equal and reactive to light, extraocular muscles intact Neck-no lymphadenopathy or thyromegaly, trachea midline Chest-dullness and diminished breath sounds in the lower right lung field. No rales, wheezing or rhonchi Cardiac-regular rate and rhythm, normal S1 and S2 Abdomen-normal bowel sounds, nontender, no hepatosplenomegaly Extremities-no cyanosis, clubbing, or edema Neuro-cranial nerves II through XII intact, motor and sensory function within normal limits, strength symmetrical , no focal deficits Psych-normal affect, normal mood Results & Data Results & Data Vital Signs (Past 12 Hours) Vital Signs Temp Pulse Pulse Resp BP Pulse Ox O2 Del Method 09/18/22 16:20 36.4 C 83 20 99/43 L 97 Room Air 09/18/22 15:13 87 09/18/22 12:16 75 94 Nasal Cannula 09/18/22 11:46 36.3 C L 92 H 21 130/66 93 Nasal Cannula 09/18/22 10:50 80 18 95 Nasal Cannula 09/18/22 08:00 Nasal Cannula 09/18/22 07:16 83 09/18/22 07:14 36.5 C 86 19 145/66 H 89 L Nasal Cannula 09/18/22 06:54 110 H 20 92 Nasal Cannula O2 Flow Rate 09/18/22 16:20 2 09/18/22 15:13 09/18/22 12:16 2 09/18/22 11:46 2 09/18/22 10:50 4 09/18/22 08:00 4 09/18/22 07:16 09/18/22 07:14 4 09/18/22 06:54 4 Laboratory Results 09/18/22 06:01 09/18/22 06:01 PG Care Time/CCT Total # of Minutes Spent Total Time Spent with Patient: Total time spent is greater than 50% in coordination of care (as documented) at patient's floor/unit and/or counseling patient: Coding Level of Care Code 79011 SUB INP/OBS CARE 3/50MIN Diagnoses Pleural effusion J90 B-cell lymphoma C85.10 Acute respiratory failure with hypoxia J96.01 COPD (chronic obstructive pulmonary disease) J44.9 Type 2 diabetes mellitus, controlled E11.9 Tobacco abuse disorder Z72.0
--- NOTE | 2022-09-18 17:14 | Pulmonary Consultation ---
Date of Consultation September 18, 2022 Assessment & Plan (1) Pleural effusion: Most likely this recurrent pleural effusion is secondary to the B-cell lymphoma. There is clear progression on the PET scan compared to since 5 months ago. There are even and large masses that are seen in the right pleural space. Her procalcitonin is only 0.12 so this unlikely represents an infection. We talked about the options for her to deal with the pleural effusion. The first was to drain it and alternatively, we could wait in order to perform a Pleurx catheter try to relieve her shortness of breath and so in the interim it may be painful and causing more pleuritic discomfort when the lung is reexpanded. Also there is some nodular contour of the pleural fluid more apically implying that there may be some trapped component to it. Clearly the fluid will be an exudate. The other option is to wait and to perform a Pleurx catheter because it will be inevitable that this fluid will reaccumulate especially with the pleural-based masses. Pleural the left side did not reaccumulate. It is possible that with the chest tube that they put in for several days there was a process of pleurodesis. Of course now there is much more pathology on the right. Again, I do not know when this can be performed so again is recommended that we just do a drainage thoracentesis at this time. The thoracentesis was performed and approximately 1700 mL of very bloody turbid fluid was evacuated. Specimen was sent for culture though again it is unlikely that it represents an infection. Flow cytometry was also sent this likely represents the lymphoma. The patient tolerated the procedure well but there was reexpansion pain and pleuritic component as there may be a component opponent of trapped lung physiology. A Pleurx catheter or pleurodesis would be highly recommended. (2) Hypoxia: (3) Chest pain: Chest pain type: unspecified Qualified Code(s): R07.9 - Chest pain, unspecified (4) Mass of right lung: (5) Current smoker: (6) B-cell lymphoma: (7) Metastatic cancer: History of Present Illness Reason for Consultation: The patient is an 87-year-old woman who has known widely metastatic B-cell lymphoma who reaccumulated a right pleural effusion with associated shortness of breath and hypoxemia and request for thoracentesis. Attending Physician: Jose Antonio Harris MD History of Present Illness The patient is an 87-year-old female who presented to the emergency department at the request of her pulmonary physician for evaluation due to increased shortness of breath. She has B-cell lymphoma with significant involvement in many organs throughout her body including her lung and pleura. She had a prior right thoracentesis in March 2021 and apparently had a catheter in place for several days and then it was removed which was very painful. She was treated with Rituxan and then another chemotherapeutic agent but unfortunately it has progressed. She may need to start on traditional chemotherapy. Over the past month there has been progressive difficulty breathing and chest discomfort. No significant phlegm production. But a lot of pleuritic component. Just last week on September 09 that she had a PET CT scan which showed significant involvement. There was marked progression of the extensive multifocal metastatic disease compared to March 2022. There was a right upper lung lesion that has increased in size with now numerous additional FDG and right-sided pulmonary nodules. There is also a pleural-based metastatic disease of the right lung base with moderate right pleural effusion. This has increased in size from previous. There are multifocal osseous metastatic disease and multiple hepatic metastatic disease. There is enlarging left adrenal metastasis and mediastinal, and abdominal lymphadenopathy which has progressed. Left-sided pulmonary lesions are stable. There is also cardiomegaly and emphysema. Allergies Allergy/AdvReac Type Severity Reaction Status Date / Time cephalexin [From Keflex] Allergy Mild Aches,drows Verified 09/17/22 19:40 iness clarithromycin Allergy Mild Hives Verified 09/17/22 19:40 fluoxetine Allergy Mild Increased Verified 09/17/22 19:40 anxiety latex Allergy Mild RASH Verified 09/17/22 19:40 olmesartan [From Benicar] Allergy Mild Rash Verified 09/17/22 19:40 Penicillins Allergy Mild RASH Verified 09/17/22 19:40 doxycycline AdvReac Intermediate Gastrointestinal Verified 09/17/22 21:54 Upset tiotropium AdvReac Intermediate Anxiety Verified 09/17/22 21:55 [From Spiriva with HandiHaler] atorvastatin AdvReac Mild aches Verified 09/17/22 21:55 escitalopram [From Lexapro] AdvReac Mild Shakiness Verified 09/17/22 21:55 lisinopril AdvReac Mild Cough Verified 09/17/22 21:55 nefazodone [From Serzone] AdvReac Mild ankle Verified 09/17/22 21:55 swelling paroxetine AdvReac Mild Bad Verified 09/17/22 21:55 dreams, low energy Home Medications Medication Instructions Recorded Confirmed Type lorazepam 0.5 mg tablet (Ativan) 0.5 mg PO TID PRN Anxiety 12/27/18 09/17/22 History magnesium chloride 64 mg 64 mg PO BID 12/27/18 09/17/22 History (magnesium chloride) tablet,delayed release cholecalciferol (vitamin D3) 50 2,000 unit PO QDL 11/19/20 09/17/22 History mcg (2,000 unit) capsule blood sugar diagnostic (OneTouch 01/06/21 09/17/22 History Ultra Test strips) amlodipine 10 mg tablet 10 mg PO QAM 03/28/21 09/17/22 History potassium chloride 10 mEq 20 meq PO QAM 03/28/21 09/17/22 History tablet,extended release(part/cryst) sitagliptin phosphate 100 mg 100 mg PO DAILY 03/28/21 09/17/22 History tablet (Januvia) Flutter Valve #1 ea 05/20/21 09/17/22 Rx albuterol sulfate 90 mcg/actuation 2 puff inhalation Q6H PRN 05/20/21 09/17/22 Rx aerosol inhaler Shortness Of Breath Or Wheezing #18 grams umeclidinium 62.5 mcg/actuation 1 inh inhalation DAILY #30 ea 04/23/22 09/17/22 Rx blister powder for inhalation (Incruse Ellipta) acyclovir 400 mg tablet 400 mg PO AMHS 09/17/22 09/17/22 History atenolol 25 mg tablet 25 mg PO QAM 09/17/22 09/17/22 History cyanocobalamin (vitamin B-12) 1,000 mcg PO DAILY 09/17/22 09/17/22 History 1,000 mcg tablet (Vitamin B-12) mecdbnjk-gdm-tfdhdb 5 mg-zeaxanth 1 cap PO DAILY 09/17/22 09/17/22 History 1 mg-bilberry 7.5 mg-herbal capsule ([employer] Formula) omeprazole 20 mg capsule,delayed 20 mg PO DAILY PRN Acid Reflux 09/17/22 09/17/22 History release umeclidinium 62.5 mcg/actuation 1 inh inhalation DAILY 09/17/22 09/17/22 History blister powder for inhalation (Incruse Ellipta) Patient History Medical History Anxiety Breast cancer, left breast 2001--SX AND RADIATION, NO CHEMO Chronic back pain Chronic ITP (idiopathic thrombocytopenia) Elevated bilirubin per pt reason for scheduled EGD Hearing deficit BILT Hypertension Obesity Osteomyelitis of fifth toe of left foot Spinal stenosis Statin myopathy Type 2 diabetes mellitus, controlled Surgical History Difficult airway for intubation SMALL AIRWAY H/O left breast biopsy History of angioplasty (~01/29/19) stenting of bilateral common iliac artery by Dr. Allred History of bilateral tubal ligation History of cholecystectomy History of dilatation and curettage History of tooth extraction WISDOM TEETH Hx of lumpectomy 2001--L BREAST CANCER Status post epidural steroid injection Family History Daughter Family history of reaction to anesthesia NAUSEA/VOMITING Social History Smoking Status: Current every day smoker Tobacco Type: Cigarettes Age Started Using Tobacco: 32; packs per day: 1; Cigarettes Per Day: 30; Second Hand Exposure: No; Do You Dip or Chew Tobacco: No; Hx Alcohol Use: No Hx Substance Use: No Preferred Language: Italian Communication Ability: Effective Dough Molder Required: No Beliefs That Will Affect Care: None Current Living Situation: Spouse Feels Safe at Home: Yes Assistive Devices: Glasses and Hearing Aid - Bilateral Review of Systems Review of Systems: The patient is experiencing pleuritic pain and pressure all over her thorax including also her left side but also on her right. She has increasing shortness of breath with some cough but is nonproductive without hemoptysis. Some abdominal discomfort but no nausea vomiting or diarrhea. No lower extremity edema. No arm or jaw pain. Physical Exam Physical Exam: Is awake alert and interactive. Normocephalic atraumatic extraocular muscles intact pupils equal round and reactive sclera nonicteric lungs are diminished breath sounds senior care up on the right with dullness clear on the left heart is regular rate and rhythm without murmurs rubs or gallops abdomen is soft nontender no right upper quadrant and mid epigastric tenderness though is slightly distended. Extremities are with 1+ edema bilaterally. Results & Data Results & Data Vital Signs (Past 12 Hours) Vital Signs Temp Pulse Pulse Resp BP Pulse Ox O2 Del Method 09/18/22 16:20 36.4 C 83 20 99/43 L 97 Room Air 09/18/22 15:13 87 09/18/22 12:16 75 94 Nasal Cannula 09/18/22 11:46 36.3 C L 92 H 21 130/66 93 Nasal Cannula 09/18/22 10:50 80 18 95 Nasal Cannula 09/18/22 08:00 Nasal Cannula 09/18/22 07:16 83 09/18/22 07:14 36.5 C 86 19 145/66 H 89 L Nasal Cannula 09/18/22 06:54 110 H 20 92 Nasal Cannula O2 Flow Rate 09/18/22 16:20 2 09/18/22 15:13 09/18/22 12:16 2 09/18/22 11:46 2 09/18/22 10:50 4 09/18/22 08:00 4 09/18/22 07:16 09/18/22 07:14 4 09/18/22 06:54 4 PG Care Time/CCT Total # of Minutes Spent Total Time Spent with Patient: Total time spent is greater than 50% in coordination of care (as documented) at patient's floor/unit and/or counseling patient: Coding Level of Care Code 71248 IN/OBS CONSULT LVL 2,35M History Problem Focused Exam Problem Focused Medical Decision Making Low Complexity Diagnoses Pleural effusion J90 Hypoxia R09.02 Chest pain R07.9 Chest pain type: unspecified Mass of right lung R91.8 Current smoker F17.200 B-cell lymphoma C85.10 Metastatic cancer C79.9 Time Spent (min) 35
[2022-09-18 17:22] LABS: Appearance Pleural Fluid Cloudy; Color Pleural Fluid Amber; Eosinophils, Fluid 4 %; Lymphocytes, Fluid 18 %; Mono,Macrophage,Mesothelial 26 %; Neutrophils, Fluid 52 %; RBC Pleural Fluid Auto 22000 /uL; Source Pleural Fluid Right Lung; WBC Pleural Fluid Auto 889 /uL
[2022-09-18 17:37] LABS: Total Protein Pleural Fluid 3.4 gm/dl
--- NOTE | 2022-09-18 18:04 | XRay Report ---
SINGLE VIEW CHEST CLINICAL HISTORY: Status post thoracentesis. FINDINGS: 2 AP, portable, upright chest radiographs are compared to chest x-ray and chest CT dated . The heart is enlarged noting atherosclerotic calcification of the thoracic aorta. The pulmon rosalva vasculature is noncongested. A right upper lobe mass lesion is again noted. This measures at leas t 3 cm. Emphysema and chronic interstitial thickening is similar to previous. There is only trace res idual right pleural effusion. The right pleural effusion seen yesterday has almost completely resolve d. Scarring/atelectasis is noted at both lung bases. An indeterminant line projects over the right th orax. There appear to be lung markings beyond this, and this represent a skin fold versus a loculated pneumothorax. No left-sided pneumothorax is seen. The skeletal structures are osteopenic. The bony t horax is grossly intact. Surgical clips are noted in the left axilla. IMPRESSION: 1. Cardiomegaly, emphysema, and a right upper lobe lung mass are again noted. 2. The right pleural effusion has almost completely resolved. 3. A vertical line projecting over the right hemithorax is indeterminant. This could represent a skin fold versus a loculated pneumothorax. Short-term follow-up is recommended. ACT 112: Negative or not required by law. Electronically signed by: Alexei Gerber M.D. 09/18/2022 6:01 PM
[2022-09-18] MEDS: ONDANSETRON INJ 2 MG/ML 2 ML VIAL IV PRN (18:54)
[2022-09-19] MEDS: ACETAMINOPHEN 325 MG TAB PO SCH ×4 (00:22→11:57)
[2022-09-19] MEDS: ONDANSETRON INJ 2 MG/ML 2 ML VIAL IV PRN (00:37)
[2022-09-19] MEDS: ALBUT/IPRATROP 3MG/0.5MG NEB 3 ML VIAL NEB SCH ×2 (06:48→11:17)
[2022-09-19] MEDS: INSULIN ASPART PER UNIT CHARGE SC SCH ×2 (07:30→11:55)
--- NOTE | 2022-09-19 08:05 | XRay Report ---
XR chest 1V portable HISTORY: Abnormal chest x-ray. Follow-up. Pneumothorax?, effusion COMPARISON: Chest 09/18/2022. FINDINGS: No pneumothorax. The heart remains enlarged. There is diffuse interstitial/vascular thicken ing consistent with mild pulmonary edema. Trace bilateral pleural effusions. Patchy bibasilar densiti es persist. There is a 3 cm right upper lobe mass again noted. There are calcifications within the ao rtic knob. IMPRESSION: 1. No pneumothorax. 2. Redemonstration of the 3 cm right upper lobe mass. 3. Mild interstitial pulmonary edema and trace bilateral pleural effusions. 4. Patchy bibasilar densities persist. ACT 112: Negative or not required by law. Electronically signed by: Desean Sanchez M.D. 09/19/2022 8:03 AM
[2022-09-19 08:14] LABS: Albumin Globulin Ratio 1.1 (0.9-2); BUN Creatinine Ratio 22.5 (10-20); Bilirubin,Total 1.1 mg/dl (0.2-1.0); Calcium 9.3 mg/dl (8.6-10.3); Creatinine Clr Calc Pharmacy 32.2 ml/min; Est GFR (African American) 43.7 ml/min; Est GFR (Non-African American) 37.7 ml/min; Globulin 2.7 gm/dl (2.5-4.0); Potassium 4.8 mmol/L (3.5-5.1); Total Protein 5.7 gm/dl (6.0-8.3)
[2022-09-19 08:17] LABS: Basophils # (auto) 0.02 K/uL (0-0.2); Basophils % (auto) 0.3 %; Echinocytes 3+; Eosinophils # (auto) 0.01 K/uL (0-0.50); Eosinophils % (auto) 0.1 %; Hematocrit (blood only) 40.5 % (37.0-47.0); Hemoglobin 13.3 g/dl (12.0-16.0); Immature Granulocytes # (auto) 0.03 K/uL (0.01-0.20); Immature Granulocytes % (auto) 0.4 %; Lymphocytes # (auto) 0.28 K/uL (1.2-3.4); Lymphocytes % (auto) 4.1 %; Mean Corpuscular Hemoglobin 31.2 pg (25.0-34.0); Mean Corpuscular Hgb Conc 32.8 g/dL (32.0-36.0); Mean Corpuscular Volume 95.1 fL (80.0-100.0); Mean Platelet Volume 13.1 fL (9.4-12.4); Monocytes # (auto) 0.27 K/uL (0.11-0.59); Monocytes % (auto) 3.9 %; Neutrophils # (auto) 6.26 K/uL (1.40-6.50); Neutrophils % (auto) 91.2 %; Platelet Count 133 K/uL (130-400); RDW Coefficient of Variation 13.1 % (11.5-14.5); RDW Standard Deviation 45.7 fL (36.4-46.3); Red Blood Count 4.26 M/uL (4.20-5.40); White Blood Count 6.87 K/ul (4.8-10.8)
[2022-09-19] MEDS: ATENOLOL 25 MG TABLET PO SCH (08:41)
[2022-09-19] MEDS: NICOTINE 14 MG/24 HR PATCH TD SCH (08:41)
[2022-09-19] MEDS: PANTOprazole 40 MG TAB PO SCH (08:41)
[2022-09-19] MEDS: POTASSIUM CHLORIDE CRTAB 20 MEQ TABCR PO SCH (08:41)
[2022-09-19] MEDS: UMECLIDINIUM BROMIDE 62.5MCG/BLISTER 7 PUFFS/INHALER INH SCH (08:41)
[2022-09-19] MEDS: ACYCLOVIR 400 MG TAB PO SCH (08:41)
[2022-09-19] MEDS: MAGNESIUM CHLORIDE W/CALCIUM 64MG DELAYED REL TAB PO SCH (08:41)
[2022-09-19] MEDS: LIDOCAINE 5% 1 PATCH TD SCH (09:46)
--- NOTE | 2022-09-19 12:13 | Discharge Summary ---
Date of Service September 19, 2022 Admission HPI Per Admitting Provider Elva is an 87 year old female with a PMH significant for Left-sided breast CA 2001 s/p lumpectomy and radiation, B-cell lymphoma diagnosed 03/30/2021 S/P Rituxan therapy, type 2 diabetes, hypertension,ITP, tachy-génesis syndrome and tobacco abuse who presented to the [facility] ED on 09/17 due to back pain, abdominal pain, and SOB. In the ED the patient was found to be hypoxic at 87% on RA but otherwise stable. Labs were significant for a lymphocyte count of 0.48, sodium of 132, total bili of 1.5. Xray of the chest was read as "1. Cardiomegaly with pulmonary vascular congestion. 2. Moderate to large right pleural effusion with right lung volume loss. The right pleural effusion has increased in size compared to the 09/09/2022 exam 3. Right upper lobe mass again noted. 4. Emphysema.". CTA of the chest was read as "Negative for PE, 1. Right upper lobe pulmonary mass likely representing primary lung neoplasm with metastatic lymphadenopathy. 2. Probable left adrenal gland metastatic lesion as well.". Prior to admission the patient was given a 500 mL NSS bolus and 50 mcg of IV fentanyl. At the time of the exam the patient was sitting in bed in no acute distress with her sitting bedside, history was obtained from both. The patient is very hard of hearing. The patient states that she knows about her recurrent malignancy and states that she is working with Dr. Ballesteros to setup mediport placement and chemotherapy next month. She states that she has had progressive SOB, VINSON, orthopnea, upper abdominal pain, and mid back pain over the past few weeks. She does not use oxygen at baseline and is still smoking approximately 1- 2 PPD. She denies recent fever, chills, productive cough, nausea, vomiting, dysuria, hematuria, melena, diarrhea, and recent trauma. She has noticed significant loss of appetite and feelings of early satiety for the past 2-3 months. During our discussion I was concerned that the patient and her were unaware of the severity of her malignancy and the significant amount of metastases she has been having. She knows that she has the right lung mass but did not understand previously that she has extensive metastases to the bone, liver, pelvis, and adrenal glands, and mediastinal lymph nodes. I also explained that she was noted to have chronic pancreatitis on her PET scan from 09/09. She and her were very surprised by the extent of her disease burden at this time. I explained to her that we will need to have her evaluated for thoracentesis to have the fluid from her lungs drained and that she may need a catheter moving forward if she continues to have these issues. We had a long discussion regarding code status, the patient and her would like her to be a DNR/DNI as they do not think that her quality of life would be adequate if she were to undergo CPR and or intubation. Please refer to Dr. Rosales's attestation for any changes to the treatment plan Principal Diagnosis Malignant right pleural effusion, suspected right lower lobe pulmonary atelectasis with acute hypoxic respiratory failure, known non-Hodgkin's lymphoma Discharge Exam General-alert and oriented x3, no fevers, no chills HEENT-head atraumatic and normocephalic, pupils equal and reactive to light, extraocular muscles intact Neck-no lymphadenopathy or thyromegaly, trachea midline Chest-right lung breath sounds improved after thoracentesis. Dullness and diminished breath sounds in the right lower lung field have resolved. No rales, wheezing or rhonchi Cardiac-regular rate and rhythm, normal S1 and S2 Abdomen-normal bowel sounds, nontender, no hepatosplenomegaly Extremities-no cyanosis, clubbing, or edema Neuro-cranial nerves II through XII intact, motor and sensory function within normal limits, strength symmetrical , no focal deficits Psych-normal affect, normal mood Discharge Data Allergies Allergy/AdvReac Type Severity Reaction Status Date / Time cephalexin [From Keflex] Allergy Mild Aches,drows Verified 09/17/22 19:40 iness clarithromycin Allergy Mild Hives Verified 09/17/22 19:40 fluoxetine Allergy Mild Increased Verified 09/17/22 19:40 anxiety latex Allergy Mild RASH Verified 09/17/22 19:40 olmesartan [From Benicar] Allergy Mild Rash Verified 09/17/22 19:40 Penicillins Allergy Mild RASH Verified 09/17/22 19:40 doxycycline AdvReac Intermediate Gastrointestinal Verified 09/17/22 21:54 Upset tiotropium AdvReac Intermediate Anxiety Verified 09/17/22 21:55 [From Spiriva with HandiHaler] atorvastatin AdvReac Mild aches Verified 09/17/22 21:55 escitalopram [From Lexapro] AdvReac Mild Shakiness Verified 09/17/22 21:55 lisinopril AdvReac Mild Cough Verified 09/17/22 21:55 nefazodone [From Serzone] AdvReac Mild ankle Verified 09/17/22 21:55 swelling paroxetine AdvReac Mild Bad Verified 09/17/22 21:55 dreams, low energy Consultations 09/17/22 21:48 ED Decision to Admit Stat 09/17/22 22:32 Consult Oncology Routine 09/17/22 22:34 Consult Pulmonology Routine Ordered Studies 09/17/22 18:26 CT angio chest PE protocol Stat Hospital Course (1) Pleural effusion: Right thoracentesis completed on September 18 with aspiration of 1700 cc of fluid that is probably malignant from the underlying non-Hodgkin's lymphoma. Pleurx catheter placement will have to be done at a later date when physicians are available. (2) B-cell lymphoma: Continue outpatient oncology follow-up and treatment (3) Acute respiratory failure with hypoxia: Two-step evaluation completed. She only requires 1 L of oxygen with exertion but her oxygen levels will improve as the atelectasis further resolves. Will not send her home on home oxygen at this time. (4) COPD (chronic obstructive pulmonary disease): Stable. Continue current management (5) Type 2 diabetes mellitus, controlled: ADA diet. Sliding scale coverage. Continue current medical management (6) Tobacco abuse disorder: Smoking cessation recommended Plan Home today, September 19. Follow-up with PCP to coordinate placement of right Pleurx catheter Total Time Total Time Spent Total Time Spent (In Minutes): 45-minute Discharge Plan Discharge Items Patient Disposition: Home - Self-Care Reason For Visit: ACUTE HYPOXIC RESPIRATORY FAILURE Discharge Diagnosis: Malignant right pleural effusion secondary to non-Hodgkin's lymphoma, transient acute hypoxic respiratory failure, pulmonary atelectasis right lower lobe secondary to pleural effusion Activity: Resume your previous activity Non-emergency contact: Primary Care Provider Call non-emergency contact if: your symptoms worsen Follow-up/Referrals: Augustina Hernandez, [Primary Care Provider] - Diet: Carb Consistent or DM2 and Heart Healthy Addtl Attending Provider Instructions: You may notice some shortness of breath with exertion until lung function returns to baseline. Your primary care provider or oncologist will order periodic chest x-rays to reevaluate any recurrence of right pleural effusion. Your primary care provider or oncologist can coordinate placement of a right chest Pleurx catheter if needed for further drainage of any recurrent fluid collection Pending Studies at Discharge: No Stand-Alone Forms: My [facility], Smoking Cessation Medications and DC Order Prescriptions: Continued lorazepam [Ativan] 0.5 mg tablet 0.5 mg PO TID PRN (Reason: Anxiety) magnesium chloride 64 mg tablet,delayed release (DR/EC) 64 mg PO BID cholecalciferol (vitamin D3) 50 mcg (2,000 unit) capsule 2,000 unit PO QDL (DME) OneTouch Ultra Test Strip See Rx Instructions .Route Rx Instructions: test 1 time daily Incruse Ellipta 62.5 mcg/actuation blister with device 1 inh inhalation DAILY Qty: 30 7RF albuterol sulfate 90 mcg/actuation HFA aerosol inhaler 2 puff inhalation Q6H PRN (Reason: Shortness Of Breath Or Wheezing) Qty: 18 3RF (DME) Flutter Valve Device See Rx Instructions .MEDSUPPLY Qty: 1 0RF Rx Instructions: Use it every 6 hours when awake. amlodipine 10 mg tablet 10 mg PO QAM Januvia 100 mg tablet 100 mg PO DAILY potassium chloride 10 mEq tablet,ER particles/crystals 20 meq PO QAM atenolol 25 mg tablet 25 mg PO QAM cyanocobalamin (vitamin B-12) [Vitamin B-12] 1,000 mcg Tablet 1,000 mcg PO DAILY acyclovir 400 mg tablet 400 mg PO AMHS Rx Instructions: Patient does not remember this med. In [facility] it was ordered 09/15/22 & is also filled in dr 1st omeprazole 20 mg capsule,delayed release(DR/EC) 20 mg PO DAILY PRN (Reason: Acid Reflux) Incruse Ellipta 62.5 mcg/actuation blister with device 1 inh INHALATION DAILY Macular Health Formula 5-1-7.5 mg Capsule 1 cap PO DAILY Discharge Orders: Discharge Order (Routine); Ordered 09/19/22 Ordered By: Jose Antonio Harris Admission Data Admit Date/Time: 09/17/22 21:52 Attending Provider: Jose Antonio Harris Admit Provider: Serafin Sims Primary Care Provider: Augustina Hernandez Other Providers: Hoang Rosales ; David Ballesteros ; Yvonne Dial Coding Level of Care Code 95519 INP/OBS DISCH >30 MIN Diagnoses Pleural effusion J90 B-cell lymphoma C85.10 Acute respiratory failure with hypoxia J96.01 COPD (chronic obstructive pulmonary disease) J44.9 Type 2 diabetes mellitus, controlled E11.9 Tobacco abuse disorder Z72.0
== END 2022-09-19 14:05 | disposition home or self-care (01) | DRG 840 ==
LOC: ED 16:30 → SUATTDRO 21:52 → 2E 21:52

== ENCOUNTER 2022-09-27 15:58 | Inpatient (IN) ==
--- NOTE | 2022-09-27 16:15 | ED Triage Note ---
Date of Service September 27, 2022 History of Present Illness This patient was briefly evaluated while in triage. An abbreviated physical exam was performed. This patient is a 87-year-old Female who presents to the ED following referral by Dr Vj jeter due to worsening pleural effusion and SOB. History of B cell Lymphoma. Physical Exam Constitutional: alert and oriented x3. no acute distress. HEENT: normocephalic, atraumatic. normal conjunctiva.PERRLA. EOM's grossly intact. Respiratory: lungs are clear to auscultation without wheezes, rhonchi, or rales bilaterally. equal chest rise. normal respiratory effort, no accessory muscle use. On NC Cardiovascular: normal heart sounds without murmur. regular rate and rhythm. GI: abdomen is soft, nontender. No palpable masses. No rebound tenderness or guarding. MSK: moves all 4 extremities spontaneously Psych:appropriate mood and affect. Initial orders for labs and / or imaging were placed and patient was placed in the waiting area until a bed is available. Please see further documentation for the full ED course.
--- NOTE | 2022-09-27 17:01 | XRay Report ---
SINGLE VIEW CHEST CLINICAL HISTORY: Dyspnea FINDINGS: An AP, portable, upright chest radiograph is compared to study dated 09/25/2022 and correlate d with chest CT dated 09/17/2022. The examination is degraded by portable technique and apical lordoti c positioning. The heart is enlarged noting atherosclerotic calcification of the thoracic aorta. Ther e is pulmonary vascular congestion. Emphysema and chronic interstitial thickening is similar to previ ous. There is a moderate right pleural effusion with right basilar consolidation. A suprahilar right upper lobe mass lesion is again noted. Question trace pleural effusion on the left with left basilar scarring/atelectasis. No pneumothorax is seen. The skeletal structures are osteopenic. The bony thora x is grossly intact. Surgical clips are noted in the left axilla. IMPRESSION: 1. Cardiomegaly with mild pulmonary vascular congestion. 2. Layering right pleural effusion with right basilar consolidation. This is unchanged to modestly in creased in size from 09/25/2022. 3. Emphysema and a right upper lobe lung mass are similar to previous. ACT 112: Negative or not required by law. Electronically signed by: Alexei Gerber M.D. 09/27/2022 5:00 PM
[2022-09-27 17:13] LABS: Basophils % (auto) 1.4 %; Eosinophils % (auto) 1.4 %; Hematocrit (blood only) 44.5 % (37.0-47.0); Hemoglobin 15.3 g/dl (12.0-16.0); Immature Granulocytes # (auto) 0.12 K/uL (0.01-0.20); Immature Granulocytes % (auto) 1.6 %; Lymphocytes # (auto) 0.44 K/uL (1.2-3.4); Mean Corpuscular Hgb Conc 34.4 g/dL (32.0-36.0); Mean Corpuscular Volume 93.1 fL (80.0-100.0); Mean Platelet Volume 11.8 fL (9.4-12.4); Monocytes # (auto) 0.59 K/uL (0.11-0.59); Neutrophils # (auto) 5.99 K/uL (1.40-6.50); Neutrophils % (auto) 81.6 %; Platelet Count 182 K/uL (130-400); RDW Coefficient of Variation 13.8 % (11.5-14.5); RDW Standard Deviation 47.1 fL (36.4-46.3); Red Blood Count 4.78 M/uL (4.20-5.40); White Blood Count 7.34 K/ul (4.8-10.8)
--- NOTE | 2022-09-27 17:13 | Emergency Department Note ---
Impression & Plan Pleural effusion, Metastatic adenocarcinoma, COPD (chronic obstructive pulmonary disease), Shortness of breath ED Provider Note NAME: NANCY FANG AGE: 87 SEX: F : 1935 ARRIVES VIA: Walk-In INFORMANT: Patient ED PROVIDER(S): Renzo Powell DO CHIEF COMPLAINT: Shortness of breath HPI: Patient is an 87-year-old female who presents to the ER for shortness of breath. 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 Patient called pulmonology due to the shortness of breath and was referred in for thoracentesis. She denies any headache or change in vision. Chronically on 2 L since being discharged. No belly pain, nausea, vomiting, or diarrhea. No dysuria, urgency, or frequency. No other exacerbating or remitting factors. PAST MEDICAL HISTORY:See Below PAST SURGICAL HISTORY:See Below FAMILY HISTORY:See Below SOCIAL HISTORY:See Below HOME MEDICATIONS:See Below ALLERGIES:See Below VITALS:See Below PHYSICAL EXAMINATION: GENERAL: Sitting up in bed, alert, well appearing, well nourished, no distress, non-toxic EYE EXAM: normal conjunctiva. OROPHARYNX: mucous membranes are moist NECK: supple, no nuchal rigidity, no adenopathy, non-tender LUNGS: Diminished on the right. Normal chest wall mechanics HEART: no murmurs, S1 normal and S2 normal ABDOMEN: abdomen soft, non-tender, normo-active bowel sounds, no masses, no rebound or guarding. UPPER EXTREMITIES: upper extremities are grossly normal. LOWER EXTREMITIES: No pitting edema. NEURO EXAM: Normal sensorium, cranial nerves II-XII grossly intact, normal speech, no gross weakness of arms, no gross weakness of legs. No drift. Finger to nose intact. Gross sensation intact. MEDICAL DECISION MAKING: Patient is an 87-year-old female with metastatic adenocarcinoma who is referred in by pulmonology for thoracentesis due to shortness of breath secondary to pleural effusion. She discussed with the office per patient and was referred in. IV was established blood work was obtained. Labs show no significant leukocytosis or anemia. INR unremarkable. BMP with mild hyponatremia at 129. LFTs bilirubin was unremarkable. Troponin was mildly elevated at 16. Patient on her prescribed 2 L. Chest x-ray with a pleural effusion which is not significantly increased from 2 days ago. Discussed the case with the on-call plywood patcher Dr. Adams and he cannot perform this at this time. Discussed with the patient and they would prefer to stay to get this done tomorrow morning. I discussed case with the hospitalist Dr. Serafin Sims for further evaluation management treatment. Triage Nursing notes reviewed. Limited review of prior medical records performed Vital Signs: reviewed and remarkable for HTN and tachy Differential diagnosis: Differential diagnoses includes but is not limited to pneumonia, bronchitis, COPD/Asthma exacerbation, pneumothorax, pulmonary embolism, congestive heart failure, acute coronary syndrome ER treatment provided: See below Diagnostics interpreted by me include EKG and cardiac monitoring as listed below: -Cardiac Monitoring: An order was placed for continuous cardiac monitoring. The monitor shows a rate of 101 with sinus rhythm. -ECG: Sinus rhythm rate of 91 Left axis No PVCs QTc 464 -Laboratory studies:Interpreted by me as stated above in MDM and shown below. Imaging studies: Xrays: As interpreted by me: Portable AP upright 1 view of the chest shows large pleural effusion CTs show: none Consultation(s): As described in MDM Procedures:none Critical Care: None Past Med/Surg History Medical History Anxiety Breast cancer, left breast 2001--SX AND RADIATION, NO CHEMO Cancer related pain Chronic back pain Chronic ITP (idiopathic thrombocytopenia) Depression with anxiety Elevated bilirubin per pt reason for scheduled EGD Hearing deficit BILT Hypertension Obesity Osteomyelitis of fifth toe of left foot Palliative care by specialist Pleuritic chest pain Spinal stenosis Statin myopathy Type 2 diabetes mellitus, controlled Weakness generalized Surgical History Difficult airway for intubation SMALL AIRWAY H/O left breast biopsy History of angioplasty (~01/29/19) stenting of bilateral common iliac artery by Dr. Allred History of bilateral tubal ligation History of cholecystectomy History of dilatation and curettage History of tooth extraction WISDOM TEETH Hx of lumpectomy 2001--L BREAST CANCER Status post epidural steroid injection Family History Daughter Family history of reaction to anesthesia NAUSEA/VOMITING Social History Smoking Status: Never smoker Tobacco Type: Cigarettes Age Started Using Tobacco: 32; packs per day: 1; Cigarettes Per Day: 30; Second Hand Exposure: No; Do You Dip or Chew Tobacco: No; Hx Alcohol Use: No Hx Substance Use: No Preferred Language: Hebrew Communication Ability: Effective Medical Equipment Technician Required: No Beliefs That Will Affect Care: None Current Living Situation: Spouse Feels Safe at Home: Yes Assistive Devices: Glasses and Hearing Aid - Bilateral Allergies Allergies Allergy/AdvReac Type Severity Reaction Status Date / Time cephalexin [From Keflex] Allergy Mild Aches,drows Verified 09/27/22 17:23 iness clarithromycin Allergy Mild Hives Verified 09/27/22 17:23 fluoxetine Allergy Mild Increased Verified 09/27/22 17:23 anxiety latex Allergy Mild RASH Verified 09/27/22 17:23 olmesartan [From Benicar] Allergy Mild Rash Verified 09/27/22 17:23 Penicillins Allergy Mild RASH Verified 09/27/22 17:23 doxycycline AdvReac Intermediate Gastrointestinal Verified 09/27/22 17:23 Upset tiotropium AdvReac Intermediate Anxiety Verified 09/27/22 17:23 [From Spiriva with HandiHaler] atorvastatin AdvReac Mild aches Verified 09/27/22 17:23 escitalopram [From Lexapro] AdvReac Mild Shakiness Verified 09/27/22 17:23 lisinopril AdvReac Mild Cough Verified 09/27/22 17:23 nefazodone [From Serzone] AdvReac Mild ankle Verified 09/27/22 17:23 swelling paroxetine AdvReac Mild Bad Verified 09/27/22 17:23 dreams, low energy Home Meds Home Medications Medication Instructions Recorded Confirmed lorazepam 0.5 mg tablet (Ativan) 0.5 mg PO TID PRN Anxiety 12/27/18 09/27/22 magnesium chloride 64 mg 64 mg PO BID 12/27/18 09/27/22 (magnesium chloride) tablet,delayed release cholecalciferol (vitamin D3) 50 2,000 unit PO QDL 11/19/20 09/27/22 mcg (2,000 unit) capsule blood sugar diagnostic (OneTouch 01/06/21 09/27/22 Ultra Test strips) amlodipine 10 mg tablet 10 mg PO QAM 03/28/21 09/27/22 potassium chloride 10 mEq 20 meq PO QAM 03/28/21 09/27/22 tablet,extended release(part/cryst) sitagliptin phosphate 100 mg 100 mg PO DAILY 03/28/21 09/27/22 tablet (Januvia) acyclovir 400 mg tablet 400 mg PO AMHS 09/17/22 09/27/22 atenolol 25 mg tablet 25 mg PO QAM 09/17/22 09/27/22 cyanocobalamin (vitamin B-12) 1,000 mcg PO DAILY 09/17/22 09/27/22 1,000 mcg tablet (Vitamin B-12) [id number] 5 mg-zeaxanth 1 cap PO DAILY 09/17/22 09/27/22 1 mg-bilberry 7.5 mg-herbal capsule (Macular Health Formula) omeprazole 20 mg capsule,delayed 20 mg PO DAILY PRN Acid Reflux 09/17/22 09/27/22 release nicotine 7 mg/24 hr daily 1 patch transdermal DAILY 09/27/22 09/27/22 transdermal patch Previous Rx's Medication Instructions Recorded Flutter Valve #1 ea 05/20/21 albuterol sulfate 90 mcg/actuation 2 puff inhalation Q6H PRN 05/20/21 aerosol inhaler Shortness Of Breath Or Wheezing #18 grams umeclidinium 62.5 mcg/actuation 1 inh inhalation DAILY #30 ea 04/23/22 blister powder for inhalation (Incruse Ellipta) lidocaine 5 % topical patch 1 patch topical DAILY #15 ea 09/20/22 tramadol 50 mg tablet 50 mg PO Q8H PRN pain #30 tabs 09/20/22 Results & Data (ED) Vital Signs Vital Signs - 24 hr 09/27/22 16:10 09/27/22 16:10 09/27/22 17:07 Temperature 36.5 C Temperature Source Temporal Artery Scan Pulse Rate 89 Pulse Rate [Apical] 104 H Pulse Rate from SpO2 Sensor Respiratory Rate 18 20 Respiratory Effort / Characteristics Non-Labored Spontaneous Respiratory Depth Normal Respiratory Pattern Regular Blood Pressure 134/71 Blood Pressure [Right Arm] 155/71 H Blood Pressure Mean 92 Blood Pressure Mean [Right Arm] 99 Blood Pressure Position [Right Arm] Lying Pulse Oximetry 93 96 Oxygen Delivery Method Room Air Room Air Nasal Cannula Oxygen Flow Rate 3 Sepsis Recent Fever Within 48 Hours No Sepsis New/Unexplained Change in Mental Status No Sepsis Action Taken by Nursing No Action Required 09/27/22 17:09 09/27/22 17:06 09/27/22 17:06 Temperature Temperature Source Pulse Rate 108 H 109 H Pulse Rate [Apical] Pulse Rate from SpO2 Sensor 109 H Respiratory Rate 17 Respiratory Effort / Characteristics Respiratory Depth Respiratory Pattern Blood Pressure 155/71 H Blood Pressure [Right Arm] Blood Pressure Mean 94 Blood Pressure Mean [Right Arm] Blood Pressure Position [Right Arm] Pulse Oximetry 96 Oxygen Delivery Method Oxygen Flow Rate Sepsis Recent Fever Within 48 Hours Sepsis New/Unexplained Change in Mental Status Sepsis Action Taken by Nursing 09/27/22 17:30 09/27/22 18:00 09/27/22 18:30 Temperature Temperature Source Pulse Rate 103 H 78 76 Pulse Rate [Apical] Pulse Rate from SpO2 Sensor 99 H 78 Respiratory Rate 24 26 H 33 H Respiratory Effort / Characteristics Respiratory Depth Respiratory Pattern Blood Pressure Blood Pressure [Right Arm] Blood Pressure Mean Blood Pressure Mean [Right Arm] Blood Pressure Position [Right Arm] Pulse Oximetry 96 96 Oxygen Delivery Method Room Air Oxygen Flow Rate Sepsis Recent Fever Within 48 Hours Sepsis New/Unexplained Change in Mental Status Sepsis Action Taken by Nursing 09/27/22 19:00 Temperature Temperature Source Pulse Rate 78 Pulse Rate [Apical] Pulse Rate from SpO2 Sensor Respiratory Rate 29 H Respiratory Effort / Characteristics Respiratory Depth Respiratory Pattern Blood Pressure Blood Pressure [Right Arm] Blood Pressure Mean Blood Pressure Mean [Right Arm] Blood Pressure Position [Right Arm] Pulse Oximetry Oxygen Delivery Method Oxygen Flow Rate Sepsis Recent Fever Within 48 Hours Sepsis New/Unexplained Change in Mental Status Sepsis Action Taken by Nursing Laboratory Data 09/27/22 16:43 09/27/22 16:43 Lab Results 09/27/22 09/27/22 09/27/22 Range/Units 16:43 16:43 16:43 WBC 7.34 (4.8-10.8) K/ul RBC 4.78 (4.20-5.40) M/uL Hgb 15.3 (12.0-16.0) g/dl Hct 44.5 (37.0-47.0) % MCV 93.1 (80.0-100.0) fL MCH 32.0 (25.0-34.0) pg MCHC 34.4 (32.0-36.0) g/dL RDW Std Deviation 47.1 H (36.4-46.3) fL RDW Coeff of Ej 13.8 (11.5-14.5) % Plt Count 182 (130-400) K/uL MPV 11.8 (9.4-12.4) fL Immature Gran % (Auto) 1.6 % Neut % (Auto) 81.6 % Lymph % (Auto) 6.0 % [place] % (Auto) 8.0 % Eos % (Auto) 1.4 % Baso % (Auto) 1.4 % Neut # (Auto) 5.99 (1.40-6.50) K/uL Lymph # (Auto) 0.44 L (1.2-3.4) K/uL [place] # (Auto) 0.59 (0.11-0.59) K/uL Eos # (Auto) 0.10 (0-0.50) K/uL Baso # (Auto) 0.10 (0-0.2) K/uL Immature Gran # (Auto) 0.12 (0.01-0.20) K/uL PT 12.3 H (9.0-12.0) Seconds INR 1.1 (0.9-1.1) APTT 29.7 (21.0-31.0) Seconds PTT Ratio 1.1 Sodium 129 L (136-145) mmol/L Potassium 4.3 (3.5-5.1) mmol/L Chloride 92 L (98-107) mmol/L Carbon Dioxide 26 (21-32) mmol/L Anion Gap 11 (3-11) BUN 16 (6-23) mg/dl Creatinine 0.92 (0.6-1.2) mg/dl Est Cr Clr Drug Dosing Not Reportable Est GFR ( Amer) 65.8 ml/min Est GFR (Non-Af Amer) 56.8 ml/min BUN/Creatinine Ratio 17.4 (10-20) Glucose 106 H (70-99(Fasting)) mg/dl Calcium 9.7 (8.6-10.3) mg/dl Total Bilirubin 1.0 (0.2-1.0) mg/dl AST 40 H (13-39) U/L ALT 15 (7-52) U/L Alkaline Phosphatase 138 H (34-104) U/L Troponin I High Sens 16.0 H (0-14) pg/ml Total Protein 6.3 (6.0-8.3) gm/dl Albumin 3.1 L (3.4-5.0) gm/dl Globulin 3.2 (2.5-4.0) gm/dl Albumin/Globulin Ratio 1.0 (0.9-2) Administered Medications Insulin Aspart (Insulin Aspart Per Unit Charge) 0 units SC Q6 KURTIS Stop: 10/27/22 19:14 Last Admin: 09/27/22 20:08 Dose: Not Given Documented By: LISA Co-signed By: AB Discontinued Medications Lidocaine (Lidocaine 5% 1 Patch) 1 patch TD NOW STA Stop: 09/27/22 20:14 Last Admin: 09/27/22 20:35 Dose: 1 patch Documented By: LISA Morphine Sulfate (Morphine Sulfate 2 Mg/Ml Carp) 2 mg IV NOW STA Stop: 09/27/22 18:53 Last Admin: 09/27/22 18:55 Dose: 2 mg Documented By: SMITH Tramadol HCl (Tramadol Hcl 50 Mg Tablet) 25 mg PO NOW STA Stop: 09/27/22 20:14 Last Admin: 09/27/22 20:33 Dose: 25 mg Documented By: LISA Imaging Data Radiologist's Impression: Chest X-Ray 09/27/22 16:12 SINGLE VIEW CHEST CLINICAL HISTORY: Dyspnea FINDINGS: An AP, portable, upright chest radiograph is compared to study dated 09/25/2022 and correlated with chest CT dated 09/17/2022. The examination is degraded by portable technique and apical lordotic positioning. The heart is enlarged noting atherosclerotic calcification of the thoracic aorta. There is pulmonary vascular congestion. Emphysema and chronic interstitial thickening is similar to previous. There is a moderate right pleural effusion with right basilar consolidation. A suprahilar right upper lobe mass lesion is again noted. Question trace pleural effusion on the left with left basilar scarring/atelectas is. No pneumothorax is seen. The skeletal structures are osteopenic. The bony thorax is grossly intact. Surgical clips are noted in the left axilla. IMPRESSION: 1. Cardiomegaly with mild pulmonary vascular congestion. 2. Layering right pleural effusion with right basilar consolidation. This is unchanged to modestly increased in size from 09/25/2022. 3. Emphysema and a right upper lobe lung mass are similar to previous. ACT 112: Negative or not required by law. Electronically signed by: Alexei Gerber M.D. 09/27/2022 5:00 PM Discharge Plan Visit Data Chief Complaint: Shortness of Breath/Dyspnea Stated Complaint: SOB ED Provider: Renzo Powell Discharge Problem: Pleural effusion, Metastatic adenocarcinoma, COPD (chronic obstructive pulmonary disease), Shortness of breath Patient Disposition: Admitted As Inpatient Discharge Instructions Interventions: ED Discharge Assessment Last Done: 09/27/22 20:54
[2022-09-27 17:26] LABS: Alanine Aminotransferase 15 U/L (7-52); Albumin Level 3.1 gm/dl (3.4-5.0); Alkaline Phosphatase 138 U/L (34-104); Anion Gap 11 (3-11); Aspartate Aminotransferase 40 U/L (13-39); BUN Creatinine Ratio 17.4 (10-20); Blood Urea Nitrogen 16 mg/dl (6-23); Calcium 9.7 mg/dl (8.6-10.3); Carbon Dioxide 26 mmol/L (21-32); Chloride 92 mmol/L (98-107); Est GFR (African American) 65.8 ml/min; Est GFR (Non-African American) 56.8 ml/min; Globulin 3.2 gm/dl (2.5-4.0); Glucose 106 mg/dl (70-99(Fasting)); Potassium 4.3 mmol/L (3.5-5.1); Sodium 129 mmol/L (136-145); Total Protein 6.3 gm/dl (6.0-8.3)
--- NOTE | 2022-09-27 18:44 | History & Physical Report ---
Date of Service September 27, 2022 Assessment & Plan (1) Hypoxia: Plan: -Admit to the PCU on tele and pulse oximetry -Currently stable on 3L NC -Patient has known metastatic adenocarcinoma of the lung, now with recurrent malignant pleural effusion -Was recently admitted from 09/17-09/19 due to right pleural effusion and underwent thoracentesis of with 1700 cc removed -Will likely need a Pleurx cath placed before discharge -Pulmonology consult placed, can try and wait until tomorrow for Pleurx placed as she is currently stable -Incentive spirometry, flutter therapy, prn O2 to keep SpO2 between 88-92% -Pulmonology consult placed -Hold chemical DVT PPX for now in case of thoracentesis tomorrow, BL ARASELI's for now -Clear liquid diet then NPO at midnight -AM CBC, CMP, Mag, PT/INR (2) Cancer related pain: Plan: -Patient continues to have chronic abdominal and lower back pain from her cancer -She and her confirm that the prn tramadol has been working at home -Will give her 25 mg PO tramadol now then continue her home q4h prn dose -PRN narcan ordered for increased sedation (3) Malignant pleural effusion: Plan: -See hypoxia (4) Elevated troponin: Plan: -Initial high sen trop elevated at 16 -Patient is without chest pain and without acute ST segment or T-wave changes -Likely due to demand from acute illness -Will repeat a second trop to ensure it does not continue to increase -Continue to monitor on tele (5) Hyponatremia: Plan: -Noted to be 129 today -Has been a chronic issue over the past 2 months -Likely continues to be a combination of poor oral intake and possible SIADH from her known cancer and narcotics for chronic pain -Will let her drink liquids for now but hold IV fluids overnight to prevent progression of her pleural effusion -Monitor am sodium level (6) Depression with anxiety: Plan: -Will hold prn home ativan for now to avoid over sedation with prn narcotic analgesics (7) Type 2 diabetes mellitus, controlled: Plan: -Hold Januvia -Monitor BSg q6h overnight, goal is 110-160 -Will start CF of 50 q6h for now as she is insulin naive -Adjust regimen as needed (8) Current smoker: Plan: -Working on cessation -Spoke to her about not smoking while wearing oxygen to prevent fire/explosion at home, she and her confirmed she does not smoke with oxygen on -Will continue nicotine patches (9) B-cell lymphoma: Plan: -Following with [facility] -Scheduled to have first dose of chemotherapy on 09/29 -Will consult Dr. Ballesteros to assist with coordination of chemotherapy (10) COPD (chronic obstructive pulmonary disease): Plan: -Continue home breathing treatments -Pulm hygiene -PRN O2 per hypoxia plan (11) Hypertension: Plan: -Stable -Continue amlodipine Plan The patient was discussed with Dr. Sims at the time of the admission History of Present Illness Chief Complaint: SOB Primary Care Provider: Augustina Hernandez DO Elva is an 87 year old female with a PMH significant for Left-sided breast CA 2001 s/p lumpectomy and radiation, recurrent B-cell lymphoma diagnosed 03/30/2021 S/P Rituxan therapy, recently restarted chemotherapy and follows with [facility], recurrent malignant pleural effusion, type 2 diabetes, hypertension,ITP, tachy-génesis syndrome and current tobacco abuse who presented to [facility] ED on 09/27 at the recommendation of Dr. Zabala's office due to prog ressive SOB. In the ED the patient was noted to be hypoxic on RA, tachycardic at 104, and otherwise stable. Labs were significant for a sodium of 129 (up from 128 as of 09/25), and inital high sen trop of 16. Chest xray was read as "1. Cardiomegaly with mild pulmonary vascular congestion. 2. Layering right pleural effusion with right basilar consolidation. This is unchanged to modestly increased in size from 09/25/2022. 3. Emphysema and a right upper lobe lung mass are similar to previous.". Prior to admission the patient was given 2mg IV morphine. At the time of the exam the patient was lying in bed and appears uncomfortable. She states that her chronic cancer related pain in her back and abdomen are currently an 8 after the morphine she received earlier. Her tells me that they have an oxygen machine at home and the patient has been on 3L NC recently, he had to increased her O2 over the past week as her SpO2 was falling to the mid 80's on 1-2L NC. She is scheduled to have her first dose of chemotherapy on 09/29. They tell me this first dose will be IV as her cancer has been aggressive and she has not been able to have a mediport placed yet. She has been having progressive SOB over the past week, she had some initial relief in SOB after her thoracentesis last admission. She has been working on smoking cessation, she has been using daily nicotine patches which have been helping. She denies fever, chills, chest pain, increased cough, nausea, vomiting, dysuria, hematuria, melena, diarrhea, LE swelling and recent trauma. She would like to try this initial dose of IV chemotherapy to see if she gets any benefits in her symptoms. But if she continues to decline clinically, they would like to look further into hospice. When asked about her dry mouth and white substance on her mucus membranes, her explains that she had two doses of an antacid prior to coming into the ED. He confirms that it is white and chalky in texture. She is a DNR/DNI and her would make medical decisions for her if she cannot make decisions herself. Please refer to Dr. Sims's attestation for any changes to the treatment plan Allergies Allergy/AdvReac Type Severity Reaction Status Date / Time cephalexin [From Keflex] Allergy Mild Aches,drows Verified 09/27/22 17:23 iness clarithromycin Allergy Mild Hives Verified 09/27/22 17:23 fluoxetine Allergy Mild Increased Verified 09/27/22 17:23 anxiety latex Allergy Mild RASH Verified 09/27/22 17:23 olmesartan [From Benicar] Allergy Mild Rash Verified 09/27/22 17:23 Penicillins Allergy Mild RASH Verified 09/27/22 17:23 doxycycline AdvReac Intermediate Gastrointestinal Verified 09/27/22 17:23 Upset tiotropium AdvReac Intermediate Anxiety Verified 09/27/22 17:23 [From Spiriva with HandiHaler] atorvastatin AdvReac Mild aches Verified 09/27/22 17:23 escitalopram [From Lexapro] AdvReac Mild Shakiness Verified 09/27/22 17:23 lisinopril AdvReac Mild Cough Verified 09/27/22 17:23 nefazodone [From Serzone] AdvReac Mild ankle Verified 09/27/22 17:23 swelling paroxetine AdvReac Mild Bad Verified 09/27/22 17:23 dreams, low energy Home Medications Medication Instructions Recorded Confirmed Type lorazepam 0.5 mg tablet (Ativan) 0.5 mg PO TID PRN Anxiety 12/27/18 09/27/22 History magnesium chloride 64 mg 64 mg PO BID 12/27/18 09/27/22 History (magnesium chloride) tablet,delayed release cholecalciferol (vitamin D3) 50 2,000 unit PO QDL 11/19/20 09/27/22 History mcg (2,000 unit) capsule blood sugar diagnostic (OneTouch 01/06/21 09/27/22 History Ultra Test strips) amlodipine 10 mg tablet 10 mg PO QAM 03/28/21 09/27/22 History potassium chloride 10 mEq 20 meq PO QAM 03/28/21 09/27/22 History tablet,extended release(part/cryst) sitagliptin phosphate 100 mg 100 mg PO DAILY 03/28/21 09/27/22 History tablet (Januvia) Flutter Valve #1 ea 05/20/21 09/27/22 Rx albuterol sulfate 90 mcg/actuation 2 puff inhalation Q6H PRN 05/20/21 09/27/22 Rx aerosol inhaler Shortness Of Breath Or Wheezing #18 grams umeclidinium 62.5 mcg/actuation 1 inh inhalation DAILY #30 ea 04/23/22 09/27/22 Rx blister powder for inhalation (Incruse Ellipta) acyclovir 400 mg tablet 400 mg PO AMHS 09/17/22 09/27/22 History atenolol 25 mg tablet 25 mg PO QAM 09/17/22 09/27/22 History cyanocobalamin (vitamin B-12) 1,000 mcg PO DAILY 09/17/22 09/27/22 History 1,000 mcg tablet (Vitamin B-12) [id number]-wnq-ukodsp 5 mg-zeaxanth 1 cap PO DAILY 09/17/22 09/27/22 History 1 mg-bilberry 7.5 mg-herbal capsule (Macular Health Formula) omeprazole 20 mg capsule,delayed 20 mg PO DAILY PRN Acid Reflux 09/17/22 09/27/22 History release lidocaine 5 % topical patch 1 patch topical DAILY #15 ea 09/20/22 09/27/22 Rx tramadol 50 mg tablet 50 mg PO Q8H PRN pain #30 tabs 09/20/22 09/27/22 Rx nicotine 7 mg/24 hr daily 1 patch transdermal DAILY 09/27/22 09/27/22 History transdermal patch Past Med/Surg History Medical History Anxiety Breast cancer, left breast 2001--SX AND RADIATION, NO CHEMO Cancer related pain Chronic back pain Chronic ITP (idiopathic thrombocytopenia) Depression with anxiety Elevated bilirubin per pt reason for scheduled EGD Hearing deficit BILT Hypertension Obesity Osteomyelitis of fifth toe of left foot Palliative care by specialist Pleuritic chest pain Spinal stenosis Statin myopathy Type 2 diabetes mellitus, controlled Weakness generalized Surgical History Difficult airway for intubation SMALL AIRWAY H/O left breast biopsy History of angioplasty (~01/29/19) stenting of bilateral common iliac artery by Dr. Allred History of bilateral tubal ligation History of cholecystectomy History of dilatation and curettage History of tooth extraction WISDOM TEETH Hx of lumpectomy 2001--L BREAST CANCER Status post epidural steroid injection Family History Daughter Family history of reaction to anesthesia NAUSEA/VOMITING Social History Smoking Status: Former smoker Tobacco Type: Cigarettes Age Started Using Tobacco: 32; packs per day: 1; Cigarettes Per Day: 1-2 ppd - quit smoking 'couple weeks ago' smoked for 50 years; Smoking End Date: 1-2 weeks ago - wearing patches; Second Hand Exposure: No; Do You Dip or Chew Tobacco: No; Hx Alcohol Use: No Hx Substance Use: No Preferred Language: Zambian Communication Ability: Effective Signal Timer Required: No Beliefs That Will Affect Care: Mu-Ism Mu-Ism Beliefs: Harvey Current Living Situation: Spouse Current Living Situation Comment: lives with Delroy Other Information That Helps Us Care for You: No Feels Safe at Home: Yes Safety Concerns: Feels Safe At This Time Assistive Devices: Cane, Glasses, Hearing Aid - Bilateral, Hearing Aid - Left, Nebulizer and Oxygen - Continuous Physical Exam Physical Exam: Physical Exam: General: In distress due to pain, chronically ill-appearing but non-toxic HEENT: Normocephalic, atraumatic, no scleral icterus, pupils around round, symmetrical, and reactive to light, dry mucus membranes, white substance on the lips and mucus membranes which is easily removed with wet swab and without underlying erythema or bleeding, trachea midline, no thyromegaly Chest/Pulm: No acute respiratory distress, symmetrical chest expansion, experiences pain with deep inspiration, decreased breath sounds in the right lower and middle lobes otherwise clear throughout Cardiac: RRR, no murmurs noted Abdomen: Negative for ascites and bruising, normoactive bowel sounds, soft, non-tender to palpation throughout Musculoskeletal: Symmetrical and without signs of acute trauma, upper and lower extremities with full ROM, no atrophy, spasticity, or flaccidity Extremities: Radial, dorsalis pedis, and posterior tibial pulses are intact and symmetrical, no edema noted in the BL LE's Skin: Warm, dry, no rashes , lesions, or scars noted Neuro: Alert and oriented to person, place, month, year, and president, no focal defects, no tremors noted Psych: Uncomfortable due to pain, fatigued, cooperative during exam Results & Data Results & Data Vital Signs (Past 12 Hours) Vital Signs Temp Pulse Pulse Resp BP BP Pulse Ox 09/27/22 17:09 108 H 09/27/22 17:07 104 H 20 155/71 H 96 09/27/22 16:10 09/27/22 16:10 36.5 C 89 18 134/71 93 O2 Del Method O2 Flow Rate 09/27/22 17:09 09/27/22 17:07 Nasal Cannula 3 09/27/22 16:10 Room Air 09/27/22 16:10 Room Air Laboratory Results Abnormal lab results 09/27/22 09/27/22 09/27/22 Range/Units 16:43 16:43 16:43 RDW Std Deviation 47.1 H (36.4-46.3) fL Lymph # (Auto) 0.44 L (1.2-3.4) K/uL PT 12.3 H (9.0-12.0) Seconds Sodium 129 L (136-145) mmol/L Chloride 92 L (98-107) mmol/L Glucose 106 H (70-99(Fasting)) mg/dl POC Glucose (70-99) mg/dl AST 40 H (13-39) U/L Alkaline Phosphatase 138 H (34-104) U/L Troponin I High Sens 16.0 H (0-14) pg/ml Albumin 3.1 L (3.4-5.0) gm/dl 09/27/22 Range/Units 19:56 RDW Std Deviation (36.4-46.3) fL Lymph # (Auto) (1.2-3.4) K/uL PT (9.0-12.0) Seconds Sodium (136-145) mmol/L Chloride (98-107) mmol/L Glucose (70-99(Fasting)) mg/dl POC Glucose 124 H (70-99) mg/dl AST (13-39) U/L Alkaline Phosphatase (34-104) U/L Troponin I High Sens (0-14) pg/ml Albumin (3.4-5.0) gm/dl Diagnostic Findings Chest X-Ray 09/27/22 16:12 SINGLE VIEW CHEST CLINICAL HISTORY: Dyspnea FINDINGS: An AP, portable, upright chest radiograph is compared to study dated 09/25/2022 and correlated with chest CT dated 09/17/2022. The examination is degraded by portable technique and apical lordotic positioning. The heart is enlarged noting atherosclerotic calcification of the thoracic aorta. There is pulmonary vascular congestion. Emphysema and chronic interstitial thickening is similar to previous. There is a moderate right pleural effusion with right basilar consolidation. A suprahilar right upper lobe mass lesion is again noted. Question trace pleural effusion on the left with left basilar scarring/atelectasis. No pneumothorax is seen. The skeletal structures are osteopenic. The bony thorax is grossly intact. Surgical clips are noted in the left axilla. IMPRESSION: 1. Cardiomegaly with mild pulmonary vascular congestion. 2. Layering right pleural effusion with right basilar consolidation. This is unchanged to modestly increased in size from 09/25/2022. 3. Emphysema and a right upper lobe lung mass are similar to previous. ACT 112: Negative or not required by law. Electronically signed by: Alexei Gerber M.D. 09/27/2022 5:00 PM ECG Additional Comments: Normal sinus rhythm Normal ECG When compared with ECG of 25-SEP-2022 13:25, Criteria for Anteroseptal infarct are no longer Present Code Status & VTE Plan Code Status DNR/DNI VTE Prophylaxis Plan VTE Prophylaxis will be ordered: Yes Supervising Physician Co-Signing Physician Notes I personally saw and examined the patient. I verified all gore points and agree with Jaspreet Morris PA-C with the following exceptions and/or additions: 87 year old female with recurrent B-cell lymphoma presents to the ER with shortness of breath slowly progressively getting worse. O/E Alert, HS RRR, no murmurs, Chest right base breath sounds absent, Abdo SNT A/P Dyspnea with malignant pleural effusion - consult pulmonology to consider Pleurx PG Care Time/CCT Total # of Minutes Spent Total Time Spent with Patient: Total time spent is greater than 50% in coordination of care (as documented) at patient's floor/unit and/or counseling patient: Coding [place] [address] INT INP/OBS CARE 3/75MIN Patient Type Established Medical Decision Making High Complexity Diagnoses Hypoxia R09.02 Cancer related pain G89.3 Malignant pleural effusion J91.0 Elevated troponin R77.8 Hyponatremia E87.1 Depression with anxiety F41.8 Type 2 diabetes mellitus, controlled E11.9 Current smoker F17.200 B-cell lymphoma C85.10 COPD (chronic obstructive pulmonary disease) J44.9 Hypertension I10
[2022-09-27] MEDS ORDERED: MoRPHine SULFATE 2 MG/ML CARP IV STA (18:52)
[2022-09-27 18:54] LABS: INR 1.1 (0.9-1.1); Partial Thromboplastin Ratio 1.1; Partial Thromboplastin Time 29.7 Seconds (21.0-31.0); Prothrombin Time 12.3 Seconds (9.0-12.0)
[2022-09-27] MEDS ORDERED: CARBOHYDRATES FOR HYPOGLYCEMIA PO PRN (19:04)
[2022-09-27] MEDS ORDERED: GLUCAGON FOR INJ 1 MG VIAL SQ PRN (19:04)
[2022-09-27] MEDS ORDERED: GLUCOSE 10 TAB/TUBE PO PRN (19:04)
[2022-09-27] MEDS ORDERED: GLUCOSE 40% GEL 15 GM TUBE PO PRN (19:04)
[2022-09-27] MEDS ORDERED: DEXTROSE 50% 50 ML SYRINGE IV PRN (19:04)
[2022-09-27] MEDS ORDERED: NALOXONE HCL 0.4 MG/1 ML VIAL/CARP IV PRN (19:49)
[2022-09-27] MEDS ORDERED: ACETAMINOPHEN 325 MG TAB PO PRN ×2 (20:08→21:30)
[2022-09-27] MEDS: INSULIN ASPART PER UNIT CHARGE SC SCH (20:08)
[2022-09-27] MEDS ORDERED: LIDOCAINE 5% 1 PATCH TD STA (20:13)
[2022-09-27] MEDS ORDERED: traMADol HCL 50 MG TABLET PO STA (20:13)
[2022-09-27] MEDS ORDERED: traMADol HCL 50 MG TABLET PO PRN (21:30)
[2022-09-27] MEDS ORDERED: PANTOprazole 40 MG TAB PO PRN (21:35)
[2022-09-27] MEDS: ACYCLOVIR 400 MG TAB PO SCH (22:28)
[2022-09-27] MEDS: MAGNESIUM CHLORIDE W/CALCIUM 64MG DELAYED REL TAB PO SCH (22:29)
[2022-09-28] MEDS: INSULIN ASPART PER UNIT CHARGE SC SCH ×4 (00:01→16:28)
[2022-09-28 07:02] LABS: Basophils # (auto) 0.06 K/uL (0-0.2); Basophils % (auto) 0.8 %; Eosinophils # (auto) 0.08 K/uL (0-0.50); Eosinophils % (auto) 1.1 %; Hematocrit (blood only) 40.6 % (37.0-47.0); Immature Granulocytes # (auto) 0.13 K/uL (0.01-0.20); Immature Granulocytes % (auto) 1.8 %; Lymphocytes # (auto) 0.31 K/uL (1.2-3.4); Lymphocytes % (auto) 4.3 %; Mean Corpuscular Hemoglobin 32.1 pg (25.0-34.0); Mean Corpuscular Hgb Conc 34.5 g/dL (32.0-36.0); Mean Corpuscular Volume 93.1 fL (80.0-100.0); Mean Platelet Volume 11.2 fL (9.4-12.4); Monocytes # (auto) 0.53 K/uL (0.11-0.59); Monocytes % (auto) 7.3 %; Neutrophils # (auto) 6.13 K/uL (1.40-6.50); Neutrophils % (auto) 84.7 %; Platelet Count 160 K/uL (130-400); RDW Coefficient of Variation 13.7 % (11.5-14.5); RDW Standard Deviation 46.6 fL (36.4-46.3); Red Blood Count 4.36 M/uL (4.20-5.40); White Blood Count 7.24 K/ul (4.8-10.8)
[2022-09-28 07:19] LABS: BUN Creatinine Ratio 17.2 (10-20); Calcium 9.7 mg/dl (8.6-10.3); Creatinine Clr Calc Pharmacy 31.6 ml/min; Est GFR (African American) 46.8 ml/min; Est GFR (Non-African American) 40.4 ml/min; Magnesium 1.5 mg/dl (1.7-2.4); Potassium 4.6 mmol/L (3.5-5.1)
[2022-09-28 07:51] LABS: INR 1.1 (0.9-1.1); Prothrombin Time 12.4 Seconds (9.0-12.0)
--- NOTE | 2022-09-28 08:05 | Hospitalist Progress Note ---
Date of Service September 28, 2022 Assessment & Plan (1) Hypoxia: Plan: acute on chronic respiratory failure with hypoxia, has copd and also R lung mass and effusion. malignant pleural effusion -Patient has known metastatic carcinoma know B cell Lymphoma, now with recurrent malignant pleural effusion -Scheduled to have first dose of chemotherapy on 09/29 sees [facility] -Pulmonology consult -Hold chemical DVT PPX for now in case of thoracentesis tomorrow, BL ARASELI's for now PT is current smoker, counselling for cessation and safety with oxygen use (2) Cancer related pain: Plan: -Patient continues to have chronic abdominal and lower back pain from her cancer -She and her confirm that the prn tramadol has been working at home (3) Type 2 diabetes mellitus, controlled: Plan: -Hold Januvia -Monitor BSg q6h overnight, goal is 110-160 -Will start CF of 50 q6h for now as she is insulin naive -Adjust regimen as needed (4) Elevated troponin: Plan: -Initial high sen trop elevated at 16, repeat 16.9 -Patient is without chest pain and without acute ST segment or T-wave changes -Likely due to demand ischemia (5) Hyponatremia: Plan: -chronic and stable -Has been a chronic issue over the past 2 months - (6) Depression with anxiety: Plan: -Will hold prn home ativan for now to avoid over sedation with prn narcotic analgesics (7) Hypertension: Plan: -Stable -Continue amlodipine Admission and Anticipated Discharge Date Admission Date: September 27, 2022 Results & Data Results & Data Vital Signs (Past 12 Hours) Vital Signs Temp Pulse Pulse Resp BP BP Pulse Ox 09/28/22 03:04 97.7 F 96 H 18 156/66 H 93 09/27/22 21:30 09/27/22 22:04 80 09/27/22 22:35 97.7 F 85 20 118/61 94 09/27/22 21:24 85 09/27/22 21:37 97.7 F 87 22 164/70 H 91 09/27/22 20:30 80 23 94 09/27/22 20:30 126/61 O2 Del Method O2 Flow Rate 09/28/22 03:04 Nasal Cannula 09/27/22 21:30 Nasal Cannula 2 09/27/22 22:04 09/27/22 22:35 Room Air 2 09/27/22 21:24 09/27/22 21:37 Nasal Cannula 2 09/27/22 20:30 Nasal Cannula 2 09/27/22 20:30 PG Care Time/CCT Total # of Minutes Spent Total Time Spent with Patient: Total time spent is greater than 50% in coordination of care (as documented) at patient's floor/unit and/or counseling patient: Coding Diagnoses Hypoxia R09.02 Cancer related pain G89.3 Type 2 diabetes mellitus, controlled E11.9 Elevated troponin R77.8 Hyponatremia E87.1 Depression with anxiety F41.8 Hypertension I10
[2022-09-28] MEDS ORDERED: NICOTINE 21 MG/24 HR TDSY TD SCH (09:00)
[2022-09-28] MEDS ORDERED: ATENOLOL 25 MG TABLET PO SCH (09:00)
[2022-09-28] MEDS ORDERED: POTASSIUM CHLORIDE CRTAB 20 MEQ TABCR PO SCH (09:00)
[2022-09-28] MEDS ORDERED: amLODIPine BESYLATE 5 MG TAB PO SCH (09:00)
[2022-09-28] MEDS: ACYCLOVIR 400 MG TAB PO SCH (09:51)
[2022-09-28] MEDS: MAGNESIUM CHLORIDE W/CALCIUM 64MG DELAYED REL TAB PO SCH (09:51)
--- NOTE | 2022-09-28 11:49 | Pulmonary Consultation ---
Date of Consultation September 28, 2022 Assessment & Plan (1) Shortness of breath: (2) Malignant pleural effusion: (3) Hypoxia: (4) Lung mass: Plan Impression: 87-year-old female with low-grade B-cell lymphoma and breast cancer recently admitted with thoracentesis showing atypical cells suspicious for metastatic malignancy. She returns to the hospital with reaccumulation of the pleural fluid and increasing shortness of breath. Recommendations: 1. Malignant pleural effusion: Discussed options with patient as well as with her spouse at bedside. Could pursue repeat thoracentesis however given the rapid reaccumulation of pleural fluid, I think a Pleurx catheter would best serve the patient. She has multiple questions which were answered to the best my ability and after some degree of hesitancy the patient is agreeable to undergo Pleurx catheter placement. She is scheduled to undergo chemotherapy tomorrow so would like to get her out of the hospital as quickly as possible. We will ask case management to assist in getting home health set up for the patient to assist with drainage of the Pleurx catheter at home. 2. Dyspnea on exertion, multifactorial. Hopefully VQ mismatch and will improve with alleviation of the malignant effusion. 3. The patient may need to be assessed for supplemental oxygen prior to discharge. She can follow-up with Dr. Zabala in the outpatient setting. Thanks for the opportunity participating in the care of this patient. Feel free to contact us with questions or concerns. History of Present Illness Attending Physician: Hansel Novoa MD History of Present Illness Asked by hospitalist to evaluate this patient with reaccumulation of malignant pleural effusion and shortness of breath. History is obtained from discussion with the patient and her at bedside as well as review the electronic medical record. The patient is an 87-year-old female who follows with Dr. Zabala in the outpatient setting. She was admitted in August with shortness of breath and found to have a pleural effusion. She underwent thoracentesis. She was dismissed home. She has been seen in the emergency room on 2 separate occasions and is scheduled to undergo initiation of chemotherapy tomorrow. She contacted the pulmonary office yesterday due to increasing shortness of breath and was referred back to the emergency room. Chest x-ray demonstrated reaccumulation of the pleural fluid. The patient was placed on oxygen and admitted to the hospitalist service. The patient does not report fevers chills night sweats or other constitutional symptoms. She states she had significant pain associated with her prior thoracentesis. She is open to the prospect of a Pleurx catheter which had been discussed with her in the outpatient setting by her instrumentation manager previously. She does not want to pursue thoracentesis again due to the significant pain she had last time. Allergies Allergy/AdvReac Type Severity Reaction Status Date / Time cephalexin [From Keflex] Allergy Mild Aches,drows Verified 09/27/22 17:23 iness clarithromycin Allergy Mild Hives Verified 09/27/22 17:23 fluoxetine Allergy Mild Increased Verified 09/27/22 17:23 anxiety latex Allergy Mild RASH Verified 09/27/22 17:23 olmesartan [From Benicar] Allergy Mild Rash Verified 09/27/22 17:23 Penicillins Allergy Mild RASH Verified 09/27/22 17:23 doxycycline AdvReac Intermediate Gastrointestinal Verified 09/27/22 17:23 Upset tiotropium AdvReac Intermediate Anxiety Verified 09/27/22 17:23 [From Spiriva with HandiHaler] atorvastatin AdvReac Mild aches Verified 09/27/22 17:23 escitalopram [From Lexapro] AdvReac Mild Shakiness Verified 09/27/22 17:23 lisinopril AdvReac Mild Cough Verified 09/27/22 17:23 nefazodone [From Serzone] AdvReac Mild ankle Verified 09/27/22 17:23 swelling paroxetine AdvReac Mild Bad Verified 09/27/22 17:23 dreams, low energy Home Medications Medication Instructions Recorded Confirmed Type lorazepam 0.5 mg tablet (Ativan) 0.5 mg PO TID PRN Anxiety 12/27/18 09/27/22 History magnesium chloride 64 mg 64 mg PO BID 12/27/18 09/27/22 History (magnesium chloride) tablet,delayed release cholecalciferol (vitamin D3) 50 2,000 unit PO QDL 11/19/20 09/27/22 History mcg (2,000 unit) capsule blood sugar diagnostic (OneTouch 01/06/21 09/27/22 History Ultra Test strips) amlodipine 10 mg tablet 10 mg PO QAM 03/28/21 09/27/22 History potassium chloride 10 mEq 20 meq PO QAM 03/28/21 09/27/22 History tablet,extended release(part/cryst) sitagliptin phosphate 100 mg 100 mg PO DAILY 03/28/21 09/27/22 History tablet (Januvia) Flutter Valve #1 ea 05/20/21 09/27/22 Rx albuterol sulfate 90 mcg/actuation 2 puff inhalation Q6H PRN 05/20/21 09/27/22 Rx aerosol inhaler Shortness Of Breath Or Wheezing #18 grams umeclidinium 62.5 mcg/actuation 1 inh inhalation DAILY #30 ea 04/23/22 09/27/22 Rx blister powder for inhalation (Incruse Ellipta) acyclovir 400 mg tablet 400 mg PO AMHS 09/17/22 09/27/22 History atenolol 25 mg tablet 25 mg PO QAM 09/17/22 09/27/22 History cyanocobalamin (vitamin B-12) 1,000 mcg PO DAILY 09/17/22 09/27/22 History 1,000 mcg tablet (Vitamin B-12) glrbmcdx-ycx-wkbapm 5 mg-zeaxanth 1 cap PO DAILY 09/17/22 09/27/22 History 1 mg-bilberry 7.5 mg-herbal capsule (Macular Health Formula) omeprazole 20 mg capsule,delayed 20 mg PO DAILY PRN Acid Reflux 09/17/22 09/27/22 History release lidocaine 5 % topical patch 1 patch topical DAILY #15 ea 09/20/22 09/27/22 Rx tramadol 50 mg tablet 50 mg PO Q8H PRN pain #30 tabs 09/20/22 09/27/22 Rx nicotine 7 mg/24 hr daily 1 patch transdermal DAILY 09/27/22 09/27/22 History transdermal patch Patient History Medical History Anxiety Breast cancer, left breast 2001--SX AND RADIATION, NO CHEMO Cancer related pain Chronic back pain Chronic ITP (idiopathic thrombocytopenia) Depression with anxiety Elevated bilirubin per pt reason for scheduled EGD Hearing deficit BILT Hypertension Obesity Osteomyelitis of fifth toe of left foot Palliative care by specialist Pleuritic chest pain Spinal stenosis Statin myopathy Type 2 diabetes mellitus, controlled Weakness generalized Surgical History Difficult airway for intubation SMALL AIRWAY H/O left breast biopsy History of angioplasty (~01/29/19) stenting of bilateral common iliac artery by Dr. Allred History of bilateral tubal ligation History of cholecystectomy History of dilatation and curettage History of tooth extraction WISDOM TEETH Hx of lumpectomy 2002--L BREAST CANCER Status post epidural steroid injection Family History Daughter Family history of reaction to anesthesia NAUSEA/VOMITING Social History Smoking Status: Former smoker Tobacco Type: Cigarettes Age Started Using Tobacco: 32; packs per day: 1; Cigarettes Per Day: 1-2 ppd - quit smoking 'couple weeks ago' smoked for 50 years; Smoking End Date: 1-2 weeks ago - wearing patches; Second Hand Exposure: No; Do You Dip or Chew Tobacco: No; Hx Alcohol Use: No Hx Substance Use: No Preferred Language: Mexican Communication Ability: Effective Clip Loading Machine Adjuster Required: No Beliefs That Will Affect Care: Sabianism Sabianism Beliefs: Harvey Current Living Situation: Spouse Current Living Situation Comment: lives with Delroy Other Information That Helps Us Care for You: No Feels Safe at Home: Yes Safety Concerns: Feels Safe At This Time Assistive Devices: Cane, Glasses, Hearing Aid - Bilateral, Hearing Aid - Left, Nebulizer and Oxygen - Continuous Review of Systems Review of Systems: Please refer to admission H&P. No additions or deletions Physical Exam Constitutional: WD/WN, vitals as above Neck: trachea midline, no thyromegaly Respiratory: no respiratory distress, no labored breathing and not tachypneic Auscultation: + diminished lung sounds Decreased breath sounds with dullness to percussion on the right. Cardiovascular: RRR, no murmur, no edema Gastrointestinal (Abdomen): normal bowel sounds, soft, nontender, no hepatosplenomegaly Musculoskeletal: Extremities: extremities normal to inspection Skin: no rashes, warm and dry Neurologic: Nonfocal exam Lymphatic: no cervical lymphadenopathy Results & Data Results & Data Vital Signs (Past 12 Hours) Vital Signs Temp Pulse Resp BP Pulse Ox O2 Del Method O2 Flow Rate 09/28/22 03:04 36.5 C 96 H 18 156/66 H 93 Nasal Cannula 09/27/22 22:35 36.5 C 85 20 118/61 94 Room Air 2 Critical Care Results & Data Vital Signs (Past 12 Hours) Vital Signs Temp Pulse Resp BP Pulse Ox O2 Del Method O2 Flow Rate 09/28/22 11:26 36.5 C 89 19 142/57 H 93 Nasal Cannula 2 09/28/22 10:23 Nasal Cannula 3 09/28/22 03:04 36.5 C 96 H 18 156/66 H 93 Nasal Cannula Lab & Micro Results (Past 24 Hours) RBC 4.36 M/uL (4.20-5.40) 09/28/22 WBC 7.24 K/ul (4.8-10.8) 09/28/22 Hgb 14.0 g/dl (12.0-16.0) 09/28/22 Hct 40.6 % (37.0-47.0) 09/28/22 MCV 93.1 fL (80.0-100.0) 09/28/22 MCH 32.1 pg (25.0-34.0) 09/28/22 MCHC 34.5 g/dL (32.0-36.0) 09/28/22 RDW Standard Deviation 46.6 fL (36.4-46.3) H 09/28/22 RDW Coefficient of Variation 13.7 % (11.5-14.5) 09/28/22 Plt Count 160 K/uL (130-400) 09/28/22 MPV 11.2 fL (9.4-12.4) 09/28/22 Neutrophils (%) (Auto) 84.7 % 09/28/22 Lymphocytes (%) (Auto) 4.3 % 09/28/22 Monocytes # (Auto) 0.53 K/uL (0.11-0.59) 09/28/22 Eosinophils # (Auto) 0.08 K/uL (0-0.50) 09/28/22 Immature Granulocyte % (Auto) 1.8 % 09/28/22 Neutrophils # (Auto) 6.13 K/uL (1.40-6.50) 09/28/22 Lymphocytes # (Auto) 0.31 K/uL (1.2-3.4) L 09/28/22 Monocytes # (Auto) 0.53 K/uL (0.11-0.59) 09/28/22 Eosinophils # (Auto) 0.08 K/uL (0-0.50) 09/28/22 Basophils # (Auto) 0.06 K/uL (0-0.2) 09/28/22 Immature Granulocyte # (Auto) 0.13 K/uL (0.01-0.20) 3 Na 130 mmol/L (136-145) L 09/28/22 K 4.6 mmol/L (3.5-5.1) 09/28/22 Cl 93 mmol/L (98-107) L 09/28/22 CO2 24 mmol/L (21-32) 09/28/22 Anion Gap 13 (3-11) H 09/28/22 BUN 21 mg/dl (6-23) 09/28/22 Creatinine 1.22 mg/dl (0.6-1.2) H 09/28/22 Estimated GFR ( Amer) 46.8 ml/min 09/28/22 Estimated GFR (Non-Af Amer) 40.4 ml/min 09/28/22 BUN/Creatinine Ratio 17.2 (10-20) 09/28/22 Glu 107 mg/dl (70-99(Fasting)) H 09/28/22 Ca 9.7 mg/dl (8.6-10.3) 09/28/22 Total Bilirubin 1.0 mg/dl (0.2-1.0) 09/27/22 AST 40 U/L (13-39) H 09/27/22 ALT 15 U/L (7-52) 09/27/22 Alkaline Phosphatase 138 U/L (34-104) H 09/27/22 TP 6.3 gm/dl (6.0-8.3) 09/27/22 Albumin 3.1 gm/dl (3.4-5.0) L 09/27/22 Globulin 3.2 gm/dl (2.5-4.0) 09/27/22 Albumin/Globulin Ratio 1.0 (0.9-2) 09/27/22 Mg 1.5 mg/dl (1.7-2.4) L 09/28/22 06:33 Calcium Level 9.7 mg/dl (8.6-10.3) 09/28/22 06:33 Prothromb Time International Ratio 1.1 (0.9-1.1) 09/28/22 06:3 3 Diagnostic Findings (Past 24 Hours) Chest X-Ray 09/27/22 16:12 SINGLE VIEW CHEST CLINICAL HISTORY: Dyspnea FINDINGS: An AP, portable, upright chest radiograph is compared to study dated 09/25/2022 and correlated with chest CT dated 09/17/2022. The examination is degraded by portable technique and apical lordotic positioning. The heart is enlarged noting atherosclerotic calcification of the thoracic aorta. There is pulmonary vascular congestion. Emphysema and chronic interstitial thickening is similar to previous. There is a moderate right pleural effusion with right basilar consolidation. A suprahilar right upper lobe mass lesion is again noted. Question trace pleural effusion on the left with left basilar scarring/atelectasis. No pneumothorax is seen. The skeletal structures are osteopenic. The bony thorax is grossly intact. Surgical clips are noted in the left axilla. IMPRESSION: 1. Cardiomegaly with mild pulmonary vascular congestion. 2. Layering right pleural effusion with right basilar consolidation. This is unchanged to modestly increased in size from 09/25/2022. 3. Emphysema and a right upper lobe lung mass are similar to previous. ACT 112: Negative or not required by law. Electronically signed by: Alexei Gerber M.D. 09/27/2022 5:00 PM I & O Totals 24 Hours 09/27/22 09/28/22 09/29/22 06:59 06:59 06:59 Output Total 100 / 100 Balance -100 / -100 Cumulative 09/27/22 15:58 thru 09/28/22 06:11 Output Total 100 Balance -100 RT Ventilator Mngmt (Last Documented) Ventilator Ordered Settings Respiratory Rate 19 09/28/22 11:26 Ventilator - PT Measurements Respiratory Rate 19 PG Care Time/CCT Total # of Minutes Spent Total Time Spent with Patient: Total time spent is greater than 50% in coordination of care (as documented) at patient's floor/unit and/or counseling patient: Coding Level of Care Code 21318 INT INP/OBS CARE 3/75MIN Diagnoses Shortness of breath R06.02 Malignant pleural effusion J91.0 Hypoxia R09.02 Lung mass R91.8
--- NOTE | 2022-09-28 11:57 | Electrocardiogram Report ---
Test Reason : Blood Pressure : / mmHG Vent. Rate : 091 BPM Atrial Rate : 091 BPM P-R Int : 150 ms QRS Dur : 074 ms QT Int : 378 ms P-R-T Axes : -12 -09 022 degrees QTc Int : 464 ms Normal sinus rhythm Normal ECG When compared with ECG of 25-SEP-2022 13:25, Criteria for Anteroseptal infarct are no longer Present Confirmed by Bertram Dobbins ([id number]) on 09/28/2022 11:56:38 AM Referred By: REFERRED SELF Confirmed By:Checo Dobbins
[2022-09-28] MEDS ORDERED: fentaNYL citrate PF 100 MCG/2 ML VIAL ONE (12:41)
[2022-09-28] MEDS ORDERED: fentaNYL citrate PF 100 MCG/2 ML VIAL IV ONE (12:46)
--- NOTE | 2022-09-28 13:22 | Procedure Note ---
Procedure Note Date of Service September 28, 2022 Note Procedure: Ultrasound guided right Pleurx catheter placement. Indication: Recurrent malignant effusion Consent: Signed by patient and verified with timeout prior to procedure. Anesthesia: 15 mL's 1% lidocaine without epinephrine locally. Sedation: 25 mcg fentanyl. Pony Rougher: Dr. Huan Adams Procedure: The patient seen and evaluated. Standard monitoring was applied. Appropriate radiographic films had been reviewed prior to commencement of the procedure. Risks and benefits were again discussed with patient consent was verified. Consent was signed by the patient's at her request The patient was placed in the right side up lateral decubitus position. Limited thoracic ultrasound was performed which revealed a large right-sided effusion with compressive atelectasis. Site appropriate for the pleurotomy was marked. Skin was prepped and draped in normal sterile fashion. Using 1% lidocaine, the skin and soft tissues down to the pleura were anesthetized. A tract extending approximately 8 to 10 cm anteriorly from the pleurotomy site was also infiltrated and a site appropriate for the exit of the Pleurx catheter was marked. A 1 cm skin julius was made at the posterior site. The catheter over the needle apparatus was advanced into the pleural space with pleural fluid easily aspirated. A wire was passed through the catheter after the needle was removed. The Pleurx catheter was then loaded on the tunneling device. A 1cm skin incision was made at the anterior catheter exit site. The tunneling device with the attached Pleurx catheter were passed from the anterior incision back to the posterior incision until the cuff of the Pleurx catheter resided within the subcutaneous tissues. The catheter was palpated along its course and no kinking was identified. Serial dilatation was then performed over the wire with the pull-away catheter being left in place. The Pleurx was removed from the tunneling mechanism and advanced through the peel-away catheter. The catheter sheath was then peeled back as the Pleurx catheter was advanced into the pleural space. The Pleurx catheter course was palpated and no kinks were felt. It was attached to wall suction and a total of 1000 mL's was removed. Using 1-0 silk, 2 stitches were placed at the exit Pleurx site and the catheter secured in place. 2 small Vicryl sutures were used to close the posterior incision. A sterile dressing was applied. The patient tolerated the procedure well without obvious complication. Post procedure x-ray is pending. Estimated blood loss: Less than 10 mL's Coding CPT Codes Pulmonary/Thoracic - Pulmonary and Thoracic: 23766 Insert pleural cathereter w/cuff ([id number]) [facility] [place] Procedure Codes (Charges) Pulmonary/Thoracic Procedure 1: Pulmonary and Thoracic: 31673 Insert pleural cathereter w/cuff
--- NOTE | 2022-09-28 13:49 | XRay Report ---
SINGLE VIEW CHEST CLINICAL HISTORY: Pleural catheter placement. FINDINGS: An AP, portable, upright chest radiograph is compared to study dated 09/27/2022 and correlate d with chest CT dated 09/17/2022. The examination is degraded by portable technique and apical lordoti c positioning. The heart is enlarged noting atherosclerotic calcification of the thoracic aorta. Ther e is mild pulmonary vascular congestion. Emphysema and chronic interstitial thickening is similar to previous. A pleural catheter is in place at the right lung base. There is a small to moderate residua l right pleural effusion with right basilar consolidation. A suprahilar right upper lobe mass lesion is again noted. Question trace pleural effusion on the left with left basilar scarring/atelectasis. T here is trace right apical pneumothorax. The skeletal structures are osteopenic. The bony thorax is g rossly intact. Surgical clips are noted in the left axilla. IMPRESSION: 1. Cardiomegaly with mild pulmonary vascular congestion. 2. A right pleural catheter has been placed. The right pleural effusion has decreased in size from ye sterday, and there is persistent right basilar consolidation. 3. Trace right apical pneumothorax. 4. Emphysema and a right upper lobe lung mass are similar to previous. ACT 112: Negative or not required by law. Electronically signed by: Alexei Gerber M.D. 09/28/2022 1:47 PM
--- NOTE | 2022-09-28 15:14 | Discharge Summary ---
Date of Service September 28, 2022 Admission HPI Per Admitting Provider Elva is an 87 year old female with a PMH significant for Left-sided breast CA 2002 s/p lumpectomy and radiation, recurrent B-cell lymphoma diagnosed 03/30/2021 S/P Rituxan therapy, recently restarted chemotherapy and follows with [facility], recurrent malignant pleural effusion, type 2 diabetes, hypertension,ITP, tachy-génesis syndrome and current tobacco abuse who presented to the [facility] ED on 09/27 at the recommendation of Dr. Zabala's office due to progressive SOB. In the ED the patient was noted to be hypoxic on RA, tachycardic at 104, and otherwise stable. Labs were significant for a sodium of 129 (up from 128 as of 09/25), and inital high sen trop of 16. Chest xray was read as "1. Cardiomegaly with mild pulmonary vascular congestion. 2. Layering right pleural effusion with right basilar consolidation. This is unchanged to modestly increased in size from 09/25/2022. 3. Emphysema and a right upper lobe lung mass are similar to previous.". Prior to admission the patient was given 2mg IV morphine. At the time of the exam the patient was lying in bed and appears uncomfortable. She states that her chronic cancer related pain in her back and abdomen are currently an 8/10 after the morphine she received earlier. Her tells me that they have an oxygen machine at home and the patient has been on 3L NC recently, he had to increased her O2 over the past week as her SpO2 was falling to the mid 80's on 1-2L NC. She is scheduled to have her first dose of chemotherapy on 09/29. They tell me this first dose will be IV as her cancer has been aggressive and she has not been able to have a mediport placed yet. She has been having progressive SOB over the past week, she had some initial relief in SOB after her thoracentesis last admission. She has been working on smoking cessation, she has been using daily nicotine patches which have been helping. She denies fever, chills, chest pain, increased cough, nausea, vomiting, dysuria, hematuria, melena, diarrhea, LE swelling and recent trauma. She would like to try this initial dose of IV chemotherapy to see if she gets any benefits in her symptoms. But if she continues to decline clinically, they would like to look further into hospice. When asked about her dry mouth and white substance on her mucus membranes, her explains that she had two doses of an antacid prior to coming into the ED. He confirms that it is white and chalky in texture. She is a DNR/DNI and her would make medical decisions for her if she cannot make decisions herself. Please refer to Dr. Sims's attestation for any changes to the treatment plan Principal Diagnosis Malignant pleural effusion status post thoracentesis and Pleurx catheter placement Metastatic lymphoma with upcoming chemotherapy Discharge Exam Examination lung exchange since drainage of fluid at the right base now has airs breath sounds were previously did not Discharge Data Allergies Allergy/AdvReac Type Severity Reaction Status Date / Time cephalexin [From Keflex] Allergy Mild Aches,drows Verified 09/27/22 17:23 iness clarithromycin Allergy Mild Hives Verified 09/27/22 17:23 fluoxetine Allergy Mild Increased Verified 09/27/22 17:23 anxiety latex Allergy Mild RASH Verified 09/27/22 17:23 olmesartan [From Benicar] Allergy Mild Rash Verified 09/27/22 17:23 Penicillins Allergy Mild RASH Verified 09/27/22 17:23 doxycycline AdvReac Intermediate Gastrointestinal Verified 09/27/22 17:23 Upset tiotropium AdvReac Intermediate Anxiety Verified 09/27/22 17:23 [From Spiriva with HandiHaler] atorvastatin AdvReac Mild aches Verified 09/27/22 17:23 escitalopram [From Lexapro] AdvReac Mild Shakiness Verified 09/27/22 17:23 lisinopril AdvReac Mild Cough Verified 09/27/22 17:23 nefazodone [From Serzone] AdvReac Mild ankle Verified 09/27/22 17:23 swelling paroxetine AdvReac Mild Bad Verified 09/27/22 17:23 dreams, low energy Consultations 09/27/22 17:28 ED Decision to Admit Stat 09/27/22 19:49 Consult Oncology Routine 09/27/22 21:30 Consult Pulmonology Routine Hospital Course (1) Hypoxia: Hypoxia: Plan: acute on chronic respiratory failure with hypoxia, has copd and also R lung mass and effusion. malignant pleural effusion -Patient has known metastatic carcinoma know B cell Lymphoma, now with recurrent malignant pleural effusion -Scheduled to have first dose of chemotherapy on 09/29 sees [facility]ology -Pulmonology consult -Hold chemical DVT PPX for now in case of thoracentesis tomorrow, BL ARASELI's for now PT is current smoker, counselling for cessation and safety with oxygen use (2) Cancer related pain: -Patient continues to have chronic abdominal and lower back pain from her cancer -She and her confirm that the prn tramadol has been working at home - (3) Elevated troponin: Initial high sen trop elevated at 16, repeat 16.9 -Patient is without chest pain and without acute ST segment or T-wave changes -Likely due to demand ischemia (4) Hyponatremia: -Chronic and stable (5) Depression with anxiety: (6) Type 2 diabetes mellitus, controlled: Resume home outpatient regimen including Januvia (7) Current smoker: -Working on cessation -Spoke to her about not smoking while wearing oxygen to prevent fire/explosion at home, she and her confirmed she does not smoke with oxygen on - continue nicotine patches (8) B-cell lymphoma: -Following with [facility] -Scheduled to have first dose of chemotherapy on 09/29 -Will consult Dr. Ballesteros to assist with coordination of chemotherapy (9) COPD (chronic obstructive pulmonary disease): -Continue home breathing treatments -Pulm hygiene -PRN O2 per hypoxia plan (10) Hypertension: -Stable -Continue amlodipine Total Time Total Time Spent Total Time Spent (In Minutes): It required greater than 30 minutes to prepare this patient for discharge Discharge Plan Discharge Items Patient Disposition: Home - Home Health Services Reason For Visit: RECURRENT RIGHT MALIGNANT PLEURAL EFFUSION Discharge Diagnosis: right pleural effusion with drainage and catheter placement Activity: Per Instructions section Activity Comment: no submersion bathing Non-emergency contact: Primary Care Provider and Oncologist Call non-emergency contact if: your symptoms worsen Follow-up/Referrals: Augustina Hernandez DO [Primary Care Provider] - Diet: Regular Addtl Attending Provider Instructions: please follow up with home health company to help with your pleurex catheter drainage please follow up with your oncologist Dr Ballesteros Pending Studies at Discharge: No Stand-Alone Forms: My [employer], Smoking Cessation Medications and DC Order Prescriptions: Continued lorazepam [Ativan] 0.5 mg tablet 0.5 mg PO TID PRN (Reason: Anxiety) magnesium chloride 64 mg tablet,delayed release (DR/EC) 64 mg PO BID cholecalciferol (vitamin D3) 50 mcg (2,000 unit) capsule 2,000 unit PO QDL (DME) OneTouch Ultra Test Strip See Rx Instructions .Route Rx Instructions: test 1 time daily Incruse Ellipta 62.5 mcg/actuation blister with device 1 inh inhalation DAILY Qty: 30 7RF albuterol sulfate 90 mcg/actuation HFA aerosol inhaler 2 puff inhalation Q6H PRN (Reason: Shortness Of Breath Or Wheezing) Qty: 18 3RF (DME) Flutter Valve Device See Rx Instructions .MEDSUPPLY Qty: 1 0RF Rx Instructions: Use it every 6 hours when awake. tramadol 50 mg tablet 50 mg PO Q8H PRN (Reason: pain) Qty: 30 0RF lidocaine 5 % adhesive patch,medicated 1 patch topical DAILY Qty: 15 0RF Rx Instructions: leave on most painful area for up to 12 hrs amlodipine 10 mg tablet 10 mg PO QAM Januvia 100 mg tablet 100 mg PO DAILY potassium chloride 10 mEq tablet,ER particles/crystals 20 meq PO QAM atenolol 25 mg tablet 25 mg PO QAM cyanocobalamin (vitamin B-12) [Vitamin B-12] 1,000 mcg Tablet 1,000 mcg PO DAILY acyclovir 400 mg tablet 400 mg PO AMHS Rx Instructions: Per omeprazole 20 mg capsule,delayed release(DR/EC) 20 mg PO DAILY PRN (Reason: Acid Reflux) Macular Health Formula 5-1-7.5 mg Capsule 1 cap PO DAILY nicotine [Nicoderm] 7 mg/24 hr Patch 24 Hour 1 patch TRANSDERMAL DAILY Rx Instructions: unknown strength Discharge Orders: Discharge Order (Routine); Ordered 09/28/22 Ordered By: Hansel Novoa Admission Data Admit Date/Time: 09/27/22 19:04 Attending Provider: Hansel Novoa Admit Provider: Serafin Sims Primary Care Provider: Augustina Hernandez Other Providers: Serafin Sims ; David Ballesteros ; Huan Adams ; [facility] Coding Level of Care Code 10406 INP/OBS DISCH >30 MIN Diagnoses Hypoxia R09.02 Cancer related pain G89.3 Elevated troponin R77.8 Hyponatremia E87.1 Depression with anxiety F41.8 Type 2 diabetes mellitus, controlled E11.9 Current smoker F17.200 B-cell lymphoma C85.10 COPD (chronic obstructive pulmonary disease) J44.9 Hypertension I10
== END 2022-09-28 17:56 | disposition home health service (06) | DRG 840 ==
LOC: ED 15:58 → SUATTDRO 19:04 → 2E 19:04

== ENCOUNTER 2022-10-17 07:05 | Inpatient (IN) ==
[2022-10-17] MEDS ORDERED: SODIUM CHLORIDE 0.9% 250 ML IV ONE (07:46)
[2022-10-17 07:52] LABS: Basophils # (auto) 0.14 K/uL (0.00-0.20); Basophils % (auto) 1.2 %; Eosinophils # (auto) 0.02 K/uL (0.00-0.50); Eosinophils % (auto) 0.2 %; Hematocrit (blood only) 42.3 % (37.0-47.0); Hemoglobin 14.1 g/dl (12.0-16.0); Immature Granulocytes # (auto) 0.36 K/uL (0.01-0.20); Immature Granulocytes % (auto) 3.1 %; Lymphocytes # (auto) 0.63 K/uL (1.20-3.40); Lymphocytes % (auto) 5.4 %; Mean Corpuscular Hgb Conc 33.3 g/dL (32.0-36.0); Mean Corpuscular Volume 95.9 fL (80.0-100.0); Monocytes % (auto) 4.3 %; Neutrophils # (auto) 10.11 K/uL (1.40-6.50); Neutrophils % (auto) 85.8 %; Platelet Count 150 K/uL (130-400); RDW Coefficient of Variation 14.9 % (11.5-14.5); RDW Standard Deviation 51.1 fL (36.4-46.3); Red Blood Count 4.41 M/uL (4.20-5.40); White Blood Count 11.76 K/ul (4.8-10.8)
[2022-10-17] MEDS ORDERED: SODIUM CHLORIDE 0.9% 1,000 ML IV SCH (08:00)
--- NOTE | 2022-10-17 08:02 | XRay Report ---
XR chest 1V portable HISTORY: weakness COMPARISON: Chest 10/04/2022. FINDINGS: Right basilar pleural catheter remains unchanged in position. No pneumothorax. There are sm all to moderate bilateral pleural effusions and bibasilar densities. This has slightly progressed in the interval. The heart remains enlarged. No evidence for pulmonary edema. There are calcifications w ithin the aortic knob. IMPRESSION: 1. Right basilar pleural catheter remains unchanged in position. 2. Small to moderate bilateral pleural effusions and bibasilar densities have slightly progressed. ACT 112: Negative or not required by law. Electronically signed by: Desean Sanchez M.D. 10/17/2022 8:00 AM
[2022-10-17] MEDS ORDERED: fentaNYL citrate PF 100 MCG/2 ML VIAL IV PRN (08:14)
[2022-10-17] MEDS ORDERED: ONDANSETRON INJ 2 MG/ML 2 ML VIAL IV STA (08:14)
[2022-10-17 08:18] LABS: Albumin Level 2.8 gm/dl (3.4-5.0); BUN Creatinine Ratio 36.7 (10-20); Bilirubin,Total 1.2 mg/dl (0.2-1.0); Calcium 9.7 mg/dl (8.6-10.3); Creatinine Clr Calc Pharmacy 32.1 ml/min; Est GFR (African American) 47.7 ml/min; Est GFR (Non-African American) 41.2 ml/min; Globulin 2.8 gm/dl (2.5-4.0); Magnesium 1.6 mg/dl (1.7-2.4); Potassium 4.5 mmol/L (3.5-5.1); Total Protein 5.6 gm/dl (6.0-8.3)
[2022-10-17 08:25] LABS: Troponin I High Sensitivity 27.8 pg/ml (0-14)
--- NOTE | 2022-10-17 08:56 | CT Scan Report ---
ABDOMEN AND PELVIS CT WITHOUT CONTRAST CT DOSE: 939.33 mGy.cm HISTORY: abd pain, lower, hx of CA TECHNIQUE: Multiaxial CT images of the abdomen and pelvis were performed without contrast. A dose lo wering technique was utilized adhering to the principles of ALARA. COMPARISON STUDY: PET CT 09/09/2022. Abdomen and pelvis CT 03/30/2021. FINDINGS: There is a right basilar pleural catheter is noted. Extensive pleural metastatic disease hudson s progressed in the interval. Small bilateral pleural effusions are noted. This is decreased in size on the right. No pneumoperitoneum. No pneumatosis. Mild inferior endplate compression deformity at L1 . This is likely subacute. Body wall edema again noted. Multiple hepatic metastases have progressed i n the interval. Nodular contour to the liver consistent with cirrhosis. The unenhanced spleen is unre markable. Calcifications within the pancreas persist consistent with a chronic pancreatitis. There ar e few punctate bilateral renal calculi. No hydronephrosis. Stable right renal cysts. Prior cholecyste ctomy. Retroperitoneal lymphadenopathy is again noted. A left adrenal gland metastasis has slightly d ecreased in size. Soft tissue nodule of the umbilicus remains unchanged. Peritoneal nodularity/implan ts has progressed. There is a small amount of ascites. This is also new compared the prior study. Rig ht pelvic sidewall lymphadenopathy/soft tissue implant encasing the right iliac arteries has increase d in size. The bladder is decompressed. This may account for the bladder wall thickening. The uterus is unremarkable. Colonic diverticulosis. Suboptimal evaluation for bowel pathology due to the lack of intravenous and oral contrast. However, there is no evidence for bowel obstruction. Normal appendix. Small focus of gas within the left side of the abdomen on image 212. This is indeterminate but could represent a normal jejunal diverticulum. A small focus of microperforation the setting of a jejunal diverticulitis is not excluded. Additional thickened loops of jejunum within the left side of the abd omen which could also be seen in the setting of a nonspecific enteritis or jejunal diverticulitis. IMPRESSION: 1. Interval progression of metastatic disease as described above. 2. Small amount of ascites is new from the prior study. This is likely due to the metastatic disease. 3. Decrease in size in the small right pleural effusion. A right basilar pleural catheter appears in good position. 4. Small focus of gas within the left side of the abdomen. This is indeterminate but could represent a normal jejunal diverticulum. A small focus of microperforation and the setting of a jejunal diverti culitis is not excluded. Additional thickened loops of jejunum within the left side of the abdomen wh ich could also be seen in the setting of a nonspecific enteritis or jejunal diverticulitis. 5. A mild inferior endplate compression fracture at L1. This is likely subacute. 6. Additional findings as described above. ACT 112: Negative or not required by law. Electronically signed by: Desean Sanchez M.D. 10/17/2022 8:54 AM
[2022-10-17] MEDS ORDERED: CIPROFLOXACIN / D5W 400 MG/200 ML BAG IV STA (09:41)
[2022-10-17] MEDS ORDERED: metroNIDAZOLE 500 MG/100 ML BAG IV STA (09:41)
[2022-10-17] MEDS ORDERED: SODIUM CHLORIDE 0.9% 500 ML IV ONE (09:50)
--- NOTE | 2022-10-17 10:10 | History & Physical Report ---
Date of Service October 17, 2022 Assessment & Plan (1) Sepsis: Plan: -Admit to the PCU on tele and pulse oximetry -Currently stable -Patient noted to have respirations of 24, HR of 104, and her acute gastrointestinal infection as the source -Leukocytosis of 11, initial lactate of 6 -S/P one dose of flagyl and ciprofloxacin, as-well-as 1.25 L NSS in the ED -Will give another 1L Normosol bolus STAT -Continue Ciprofloxacin and flagyl -Will obtain STAT Procal, continue to trend lactate -Will continue maintenance fluids after her bolus -Will hold chemical DVT PPX for now with possible microperforation -BL SCDs for now -NPO, q4h oral hygiene -AM CBC, CMP, Mag, PT/INR (2) Diverticulitis of jejunum: Plan: -Pain is currently well-controlled -General Surgery consult placed -Strict NPO for now -Continue cipro and flagyl -IV fluids while NPO -If she developed diarrhea will obtain stool studies -Morphine and IV tylenol for pain (3) High anion gap metabolic acidosis: Plan: -Initial AG of 13 with bicarb of 26 -Likely due to her lactic acidosis of 6 -Due to severe dehydration and sepsis -Continue IV fluid resuscitation and maintenance IV fluids -Continue to trend lactate until WNL (4) Elevated troponin: Plan: -Initial high sen trop elevated at 27 -Asymptomatic, no acute ST segment or T-wave changes on ECG -Likely due to demand some sepsis -Will repeat a 2 hour high sen trop now -Continue to monitor on tele (5) Hypomagnesemia: Plan: -Noted to be 1.6 -Likely due to poor oral intake -Will give 2 bags of 1gm IV mag sulfate -Monitor daily mag level (6) COPD (chronic obstructive pulmonary disease): Plan: -Stable on 3L NC -Will continue with duoneb treatments -Prn O2 for SpO2 between 88-92% -Incentive spirometry, flutter therapy (7) Malignant pleural effusion: Plan: -currently stable -Still with right sided pleurex cath in place -Monitor with serial CXR as needed (8) Elevated bilirubin: Plan: -Total bili elevated at 1.2 -No acute findings on CT -Likely due to cancer and chemotherapy treatment -Monitor daily CMP (9) Weakness generalized: Plan: -Likely multifactorial including active cancer, chemotherapy treatment, sepsis, and poor oral intake/dehydration -Infection treatment as above, IV fluids, oncology and palliative med consults (10) Metastatic adenocarcinoma: Plan: -Oncology consult placed Plan The patient was discussed with Dr. Sims at the time of the admission History of Present Illness Chief Complaint: Nausea, vomiting, epigastric abdominal pain, generalized weakness Primary Care Provider: Augustina HernandezDO Stevenson is an 87 year old female with a PMH significant for Left-sided breast CA 2001 s/p lumpectomy and radiation, recurrent B-cell lymphoma diagnosed 03/30/2021 S/P Rituxan therapy, recently restarted chemotherapy and follows with [facility], recurrent malignant pleural effusion S/P plurex cath placement, type 2 diabetes, hypertension, ITP, tachy-génesis syndrome and current tobacco abuse who presented to the [facility] ED on 10/17 via EMS with complaints of weakness, epigastric pain, and decline in functional status. In the ED the patient was noted to be tachycardic with a HR of 105 and BP of 96/74 but otherwise stable. Labs were significant for a leukocytosis of 11.7 with neutrophil predominance of 10, AG of 13 with bicarb WNL, BUN of 44, mag of 1.6, total bili of 1.2, alk phos of 166, initial high sen trop of 27. Chest xray was read as 1. Right basilar pleural catheter remains unchanged in position. 2. Small to moderate bilateral pleural effusions and bibasilar densities have slightly progressed.. CT of the abd/pelvis wo con was read as 1. Interval progression of metastatic disease as described above. 2. Small amount of ascites is new from the prior study. This is likely due to the metastatic disease. 3. Decrease in size in the small right pleural effusion. A right basilar pleural catheter appears in good position.4. Small focus of gas within the left side of the abdomen. This is indeterminate but could represent a normal jejunal diverticulum. A small focus of microperforation and the setting of a jejunal diverticulitis is not excluded. Additional thickened loops of jejunum within the left side of the abdomen which could also be seen in the setting of a nonspecific enteritis or jejunal diverticulitis. 5. A mild inferior endplate compression fracture at L1. This is likely subacute. 6. Additional findings as described above. The ED staff spoke with General surgery who recommended conservative treatment with NPO status and IV antibiotics. Prior to admission the patient was given a dose of ciprofloxacin and flagyl, 4 mg IV Zofran, 50 mcg IV fentanyl, 750 mL NSS and ordered an additional 1L NSS. At the time of the exam the patient was lying in bed in no acute distress with her and brother sitting bedside. She has had one round of chemotherapy so far. She has had chronic abdominal pain with her known metastases. For the past weak she has been too weak to safely take oral medications. She has had very little oral intake over this time as well. She developed acute, 7-8/10 lower abdominal pain last night which progressed into this am. She has been having nausea but only dry-heaving. Denies fever, chills, chest pain, increased SOB, diarrhea, dysuria, hematuria, melena, LE swelling, and recent trauma. She has been able to successfully wean her self off cigarettes over the past week with the use of nicotine patches. She is still using prn oxygen. I explained that her CT shows an intraabdominal infection with possible microperforation which will be treated conservatively for now. Her next round of chemo is scheduled for next ; I explained that this will likely have to be delayed with her acute infection. I asked her what her goals are moving forward as she has had a start clinical decline over the past 2 months. She states that "I want to get rid of the cancer". I am still concerned she has poor insight into her prognosis as I explained that the CT scan shows progression of her cancer. She is still a DNR/DNI. Please refer to Dr. Sims's attestation for any changes to the treatment plan Allergies Allergy/AdvReac Type Severity Reaction Status Date / Time cephalexin [From Keflex] Allergy Mild Aches,drows Verified 09/30/22 15:12 iness clarithromycin Allergy Mild Hives Verified 09/30/22 15:12 fluoxetine Allergy Mild Increased Verified 09/30/22 15:12 anxiety latex Allergy Mild RASH Verified 09/30/22 15:12 olmesartan [From Benicar] Allergy Mild Rash Verified 09/30/22 15:12 Penicillins Allergy Mild RASH Verified 09/30/22 15:12 doxycycline AdvReac Intermediate Gastrointestinal Verified 09/30/22 15:12 Upset tiotropium AdvReac Intermediate Anxiety Verified 09/30/22 15:12 [From Spiriva with HandiHaler] atorvastatin AdvReac Mild aches Verified 09/30/22 15:12 escitalopram [From Lexapro] AdvReac Mild Shakiness Verified 09/30/22 15:12 lisinopril AdvReac Mild Cough Verified 09/30/22 15:12 nefazodone [From Serzone] AdvReac Mild ankle Verified 09/30/22 15:12 swelling paroxetine AdvReac Mild Bad Verified 09/30/22 15:12 dreams, low energy Home Medications Medication Instructions Recorded Confirmed Type lorazepam 0.5 mg tablet (Ativan) 0.5 mg PO TID PRN Anxiety 12/27/18 10/17/22 History magnesium chloride 64 mg 64 mg PO BID 12/27/18 10/17/22 History (magnesium chloride) tablet,delayed release cholecalciferol (vitamin D3) 50 2,000 unit PO QDL 11/19/20 10/17/22 History mcg (2,000 unit) capsule blood sugar diagnostic (OneTouch 01/06/21 09/27/22 History Ultra Test strips) amlodipine 10 mg tablet 10 mg PO QAM 03/28/21 10/17/22 History potassium chloride 10 mEq 20 meq PO QAM 03/28/21 10/17/22 History tablet,extended release(part/cryst) sitagliptin phosphate 100 mg 100 mg PO DAILY 03/28/21 10/17/22 History tablet (Januvia) Flutter Valve #1 ea 05/20/21 09/27/22 Rx albuterol sulfate 90 mcg/actuation 2 puff inhalation Q6H PRN 05/20/21 10/17/22 Rx aerosol inhaler Shortness Of Breath Or Wheezing #18 grams umeclidinium 62.5 mcg/actuation 1 inh inhalation DAILY #30 ea 04/23/22 10/17/22 Rx blister powder for inhalation (Incruse Ellipta) acyclovir 400 mg tablet 400 mg PO AMHS 09/17/22 10/17/22 History atenolol 25 mg tablet 25 mg PO QAM 09/17/22 10/17/22 History cyanocobalamin (vitamin B-12) 1,000 mcg PO DAILY 09/17/22 10/17/22 History 1,000 mcg tablet (Vitamin B-12) [id number] 5 mg-zeaxanth 1 cap PO DAILY 09/17/22 10/17/22 History 1 mg-bilberry 7.5 mg-herbal capsule (Macular Health Formula) omeprazole 20 mg capsule,delayed 20 mg PO DAILY PRN Acid Reflux 09/17/22 10/17/22 History release lidocaine 5 % topical patch 1 patch topical DAILY #15 ea 09/20/22 10/17/22 Rx nicotine 7 mg/24 hr daily 1 patch transdermal DAILY 09/27/22 10/17/22 History transdermal patch tramadol 50 mg tablet 50 mg PO Q8H PRN pain #30 tabs 10/07/22 10/17/22 Rx Past Med/Surg History Medical History Acute respiratory failure with hypoxia Anxiety B-cell lymphoma Breast cancer, left breast 2001--SX AND RADIATION, NO CHEMO Cancer related pain Chronic back pain Chronic ITP (idiopathic thrombocytopenia) COPD (chronic obstructive pulmonary disease) Current smoker Depression with anxiety Elevated bilirubin per pt reason for scheduled EGD Hearing deficit BILT Hypertension Hyponatremia Metastatic cancer Obesity Osteomyelitis of fifth toe of left foot Palliative care by specialist Pleuritic chest pain Spinal stenosis Statin myopathy Tobacco abuse disorder Type 2 diabetes mellitus, controlled Weakness generalized Surgical History Difficult airway for intubation SMALL AIRWAY H/O left breast biopsy History of angioplasty (~01/29/19) stenting of bilateral common iliac artery by Dr. Allred History of bilateral tubal ligation History of cholecystectomy History of dilatation and curettage History of tooth extraction WISDOM TEETH Hx of lumpectomy 2001--L BREAST CANCER Status post epidural steroid injection Family History Daughter Family history of reaction to anesthesia NAUSEA/VOMITING Social History Smoking Status: Former smoker Tobacco Type: Cigarettes Age Started Using Tobacco: 32; packs per day: 1; Cigarettes Per Day: 1-2 ppd - quit smoking 'couple weeks ago' smoked for 50 years; Second Hand Exposure: No; Do You Dip or Chew Tobacco: No; Hx Alcohol Use: No Hx Substance Use: No Preferred Language: Yi Communication Ability: Effective Humidifier Maintenance Worker Required: No Beliefs That Will Affect Care: None Current Living Situation: Spouse Current Living Situation Comment: lives with Pablo, [facility] Home health services 2x/wk Feels Safe at Home: Yes Safety Concerns: Feels Safe At This Time Assistive Devices: Cane and Oxygen - Continuous Physical Exam Physical Exam: Physical Exam: General: In no acute distress, cachectic and malnourished, she is ill appearing HEENT: Normocephalic, atraumatic, no scleral icterus, pupils around round, symmetrical, and reactive to light, dry mucus membranes, trachea midline, no thyromegaly Chest/Pulm: No respiratory distress, symmetrical chest expansion, decreased breath sounds in the BL lower lung [place] with expiratory rhonchi and wheezing Cardiac: irregular rate and rhythm, no murmurs noted Abdomen: Negative for ascites and bruising, normoactive bowel sounds, soft, tender to palpation in the BL lower abdominal [place] Musculoskeletal: Symmetrical and without signs of acute trauma, upper and lower extremities with full ROM, no atrophy, spasticity, or flaccidity Extremities: Radial, dorsalis pedis, and posterior tibial pulses are intact and symmetrical, no edema noted in the BL LE's Skin: Warm, dry, no rashes , lesions, or scars noted Neuro: Alert and oriented to person, place, month, year, and president, no focal defects, no tremors noted Psych: No acute distress, fatigued, calm and cooperative during the exam Results & Data Results & Data Vital Signs (Past 12 Hours) Vital Signs Temp Pulse Resp BP Pulse Ox O2 Del Method O2 Flow Rate 10/17/22 09:30 95 H 22 96/74 L 91 10/17/22 09:00 105 H 16 113/56 L 91 10/17/22 08:00 87 23 105/47 L 92 3 10/17/22 07:51 75 22 95/48 L 93 3 10/17/22 07:25 36.7 C 95 H 20 113/56 L 92 Nasal Cannula 2 10/17/22 07:17 98 H Laboratory Results Abnormal lab results 10/17/22 10/17/22 10/17/22 Range/Units 07:24 07:24 10:05 WBC 11.76 H (4.8-10.8) K/ul RDW Std Deviation 51.1 H (36.4-46.3) fL RDW Coeff of Ej 14.9 H (11.5-14.5) % MPV 13.0 H (9.4-12.4) fL Neut # (Auto) 10.11 H (1.40-6.50) K/uL Lymph # (Auto) 0.63 L (1.20-3.40) K/uL Immature Gran # (Auto) 0.36 H (0.01-0.20) K/uL Anion Gap 13 H (3-11) BUN 44 H (6-23) mg/dl BUN/Creatinine Ratio 36.7 H (10-20) Glucose 119 H (70-99(Fasting)) mg/dl Lactate 6.2 H* (0.4-2.0) mmol/L Magnesium 1.6 L (1.7-2.4) mg/dl Total Bilirubin 1.2 H (0.2-1.0) mg/dl Alkaline Phosphatase 166 H (34-104) U/L Troponin I High Sens 27.8 H (0-14) pg/ml Total Protein 5.6 L (6.0-8.3) gm/dl Albumin 2.8 L (3.4-5.0) gm/dl Diagnostic Findings Chest X-Ray 10/17/22 07:25 XR chest 1V portable HISTORY: weakness COMPARISON: Chest 10/04/2022. FINDINGS: Right basilar pleural catheter remains unchanged in position. No pneumothorax. There are small to moderate bilateral pleural effusions and bibasilar densities. This has slightly progressed in the interval. The heart remains enlarged. No evidence for pulmonary edema. There are calcifications within the aortic knob. IMPRESSION: 1. Right basilar pleural catheter remains unchanged in position. 2. Small to moderate bilateral pleural effusions and bibasilar densities have slightly progressed. ACT 112: Negative or not required by law. Electronically signed by: Desean Sanchez M.D. 10/17/2022 8:00 AM Abdomen/Pelvis CT 10/17/22 07:[address] WITHOUT CONTRAST CT DOSE: 939.33 mGy.cm HISTORY: abd pain, lower, hx of CA TECHNIQUE: Multiaxial CT images of the abdomen and pelvis were performed without contrast. A dose lowering technique was utilized adhering to the principles of ALARA. COMPARISON STUDY: PET CT 09/09/2022. Abdomen and pelvis CT 03/30/2021. FINDINGS: There is a right basilar pleural catheter is noted. Extensive pleural metastatic disease has progressed in the interval. Small bilateral pleural effusions are noted. This is decreased in size on the right. No pneumoperitoneum. No pneumatosis. Mild inferior endplate compression deformity at L1. This is likely subacute. Body wall edema again noted. Multiple hepatic metastases have progressed in the interval. Nodular contour to the liver consistent with cirrhosis. The unenhanced spleen is unremarkable. Calcifications within the pancreas persist consistent with a chronic pancreatitis. There are few punctate bilateral renal calculi. No hydronephrosis. Stable right renal cysts. Prior cholecystectomy. Retroperitoneal lymphadenopathy is again noted. A left adrenal gland metastasis has slightly decreased in size. Soft tissue nodule of the umbilicus remains unchanged. Peritoneal nodularity/implants has progressed. There is a small amount of ascites. This is also new compared the prior study. Right pelvic sidewall lymphadenopathy/soft tissue implant encasing the right iliac arteries has increased in size. The bladder is decompressed. This may account for the bladder wall thickening. The uterus is unremarkable. Colonic diverticulosis. Suboptimal evaluation for bowel pathology due to the lack of intravenous and oral contrast. However, there is no evidence for bowel obstruction. Normal appendix. Small focus of gas within the left side of the abdomen on image 212. This is indeterminate but could represent a normal jejunal diverticulum. A small focus of microperforation the setting of a jejunal diverticulitis is not excluded. Additional thickened loops of jejunum within the left side of the abdomen which could also be seen in the setting of a nonspecific enteritis or jejunal diverticulitis. IMPRESSION: 1. Interval progression of metastatic disease as described above. 2. Small amount of ascites is new from the prior study. This is likely due to the metastatic disease. 3. Decrease in size in the small right pleural effusion. A right basilar pleural catheter appears in good position. 4. Small focus of gas within the left side of the abdomen. This is indeterminate but could represent a normal jejunal diverticulum. A small focus of microperforation and the setting of a jejunal diverticulitis is not excluded. Additional thickened loops of jejunum within the left side of the abdomen which could also be seen in the setting of a nonspecific enteritis or jejunal diverticulitis. 5. A mild inferior endplate compression fracture at L1. This is likely subacute. 6. Additional findings as described above. ACT 112: Negative or not required by law. Electronically signed by: Desean Sanchez M.D. 10/17/2022 8:54 AM ECG Additional Comments: Normal sinus rhythm Septal infarct , age undetermined Abnormal ECG When compared with ECG of 27-SEP-2022 16:41, No significant change was found Code Status & VTE Plan Code Status DNR/DNI VTE Prophylaxis Plan VTE Prophylaxis will be ordered: Yes Supervising Physician Co-Signing Physician Notes I personally saw and examined the patient. I verified all gore points and agree with Jaspreet Morris PA-C with the following exceptions and/or additions: 87 year old female with B cell lymphoma presents to the ER with generalized weakness and acute on chronic abdominal pain O/E A&Ox3, dry mucus membranes, HS RRR, no murmurs, Chest bibasal coarse crackles, Abdo generalized tenderness, BS normal, LLE 4/5 hip flexion otherwise b/l equal throughout A/P Jejunal microperforation - consult surgery, ciprofloxacin and metronidazole for antibiotic prophylaxis, follow up blood cultures. Procalcitonin normal. Generalized weakness - since left lower extremity is worse than right will get CT head for completeness although notes this has been going on for 2 weeks Otherwise as above PG Care Time/CCT Total # of Minutes Spent Total Time Spent with Patient: Total time spent is greater than 50% in coordination of care (as documented) at patient's floor/unit and/or counseling patient: Coding [place] [address] INT INP/OBS CARE 3/75MIN Patient Type Established Medical Decision Making High Complexity Diagnoses Sepsis A41.9 Diverticulitis of jejunum K57.12 High anion gap metabolic acidosis E87.29 Elevated troponin R77.8 Hypomagnesemia E83.42 COPD (chronic obstructive pulmonary disease) J44.9 Malignant pleural effusion J91.0 Elevated bilirubin R17 Weakness generalized R53.1 Metastatic adenocarcinoma C79.9
[2022-10-17] MEDS ORDERED: MoRPHine SULFATE 2 MG/ML CARP IV PRN (10:43)
[2022-10-17] MEDS ORDERED: LACTATED RINGER'S 1,000 ML IV ONE (10:43)
[2022-10-17] MEDS ORDERED: MAGNESIUM SULFATE / D5W 1 GM/100 ML BAG IV STA (10:44)
[2022-10-17] MEDS ORDERED: FAMOTIDINE 20MG IV PUSH 20 MG/5 ML SYR IV STA (10:55)
[2022-10-17] MEDS ORDERED: GLUCOSE 40% GEL 15 GM TUBE PO PRN (10:57)
[2022-10-17] MEDS ORDERED: DEXTROSE 50% 50 ML SYRINGE IV PRN (10:57)
[2022-10-17] MEDS ORDERED: GLUCAGON FOR INJ 1 MG VIAL SQ PRN (10:57)
[2022-10-17] MEDS ORDERED: CARBOHYDRATES FOR HYPOGLYCEMIA PO PRN (10:57)
[2022-10-17] MEDS ORDERED: GLUCOSE 10 TAB/TUBE PO PRN (10:57)
[2022-10-17] MEDS: ALBUT/IPRATROP 3MG/0.5MG NEB 3 ML VIAL NEB SCH ×3 (11:08→19:56)
[2022-10-17] MEDS ORDERED: PLASMA-LYTE A 1,000 ML IV ONE (11:08)
[2022-10-17] MEDS ORDERED: ACETAMINOPHEN 1,000 MG/100 ML VIAL IV PRN (11:24)
[2022-10-17] MEDS: INSULIN ASPART PER UNIT CHARGE SC SCH ×2 (11:59→17:02)
[2022-10-17] MEDS ORDERED: PANTOprazole 40 MG in SYRINGE 0 ML IV ONE (12:00)
--- NOTE | 2022-10-17 12:51 | Emergency Department Note ---
Impression & Plan Weakness, Metastatic adenocarcinoma, Pleural effusion, Diverticulitis of jejunum, Acute dehydration, Elevated lactic acid level ED Provider Note INFORMANT: Patient and family ED PROVIDER(S): Manuel Valverde MD CHIEF COMPLAINT: Weakness PLAN: Disposition: Admitted Condition: Guarded Outpatient prescription management: none Referral: None MEDICAL DECISION MAKING: Patient is a unfortunate history of metastatic cancer. She has not been doing well at home. A work-up was initiated. She was found to have a nonischemic ECG. Chest x-ray showed bilateral effusions without focal infiltrate. She was found to have a slight leukocytosis on CBC. She was dehydrated on chemistry panel. Patient did have a significant elevation of lactate which certainly could be from her dehydration and sepsis was considered. She was initially given a 250 mL bolus and started on 125 mL an hour IV of normal saline. An additional 1 L bolus was ordered due to the dehydration. CT scan of the abdomen pelvis was concerning for possible jejunal diverticulitis with questionable microperforation. She was treated with Cipro and Flagyl IV for this. I did consult with Dr. Maxwell of general surgery. She agreed with medical management and antibiotics. Consultation was made with the [facility] hospitalist service. Case was discussed and diagnostics were reviewed. The patient will be admitted under Dr. Sims service for further management. The hospital service did order an additional liter of fluid due to the elevated lactate. This would meet for her 30 mL/kg. Discussed with airport operations manager After review of the information above and other included data, I feel the patient requires admission. Triage Nursing notes reviewed and agree them. Vital Signs: reviewed and remarkable for no significant abnormalities Prior /Outside records reviewed: Prior hospitalization record reviewed. Differential diagnosis: Infection, dehydration, metabolic abnormality, hypo/hyperglycemia, electrolyte disturbance, anemia, hypoxia, cardiac sources, intracerebral event, toxicologic, neurologic, as well as other pathologies. Diagnostics, as interpreted by me: ECG: Twelve-lead ECG reveals a normal sinus rhythm at 98 bpm. Septal Q wave present. No ST elevation or depression. Cardiac Monitoring: Cardiac monitoring ordered by me: The patient was placed on continuous cardiac monitoring and observed. It revealed a normal sinus rhythm at 99 beats per minute without ectopy or evidence of dysrhythmia. Medical decision rules: none Imaging studies: Chest x-ray and CT scan of the abdomen pelvis as above. I refer you to the EMR for further details. HPI: The patient is a 87year old female with a history of metastatic cancer who presents to the Emergency Room with complaints of because of weakness. is present and helps with the history. He notes that she has been getting progressively more weak. She has been dealing with twice weekly drainages of her Pleurx catheter due to pleural effusions. Patient was complaining of some intermittent abdominal pains over the last several weeks per the . Today the patient was trying to go to the bathroom and nearly fell due to weakness. The noted he had a difficult time getting her back into bed. Pt denies LOC, headache, fevers, chills, diaphoresis, visual changes, neck pain, chest pain, new breathing difficulties, vomiting, back pain, melena, hematochezia, urinary symptoms, numbness, focal weakness, or other complaints. PAST MEDICAL HISTORY: See Below, metastatic cancer PAST SURGICAL HISTORY: See Below, Mediport SOCIAL HISTORY: See Below, HOME MEDICATIONS: See Below ALLERGIES: See Below VITALS: See Below PHYSICAL EXAMINATION: GENERAL: Awake, alert, cachectic-appearing, in no distress HENT: Normocephalic, atraumatic. Oropharynx unremarkable. EYES: Normal conjunctiva. Sclera non-icteric. PERRLA NECK: Inspection normal. Non-tender. Supple. No nuchal rigidity. FROM. No masses. RESPIRATORY: Clear to auscultation. No wheezes. No rales. Normal respiratory effort. CARDIAC: Normal rate. Normal rhythm. No murmurs. No rubs. Extremities warm and well perfused. Pulses equal. No JVD. GI: Soft, non-distended. Bilateral lower tenderness to palpation. No rebound or guarding. No masses. RECTAL: Deferred. MUSCULOSKELETAL: Atraumatic. Chest examination reveals no tenderness. Mediport in the right upper chest the back is symmetrical on inspection without obvious abnormality. There is no CVA tenderness to palpation. No joint edema. LOWER EXTREMITIES: Calves are equal size bilaterally and non-tender. No edema. No discoloration. NEURO: Normal sensorium. Generally weak but no focal sensory or motor deficits noted. SKIN: No rash or jaundice noted. CRITICAL CARE: I have personally spent 30 minutes of critical care time in the direct management of this patient. This includes bedside care, interpretation of diagnostic studies, and testing, discussion with consultants, patient, and famil y members, and other required patient management activities. These minutes are in excess of all separately billable procedures. Past Med/Surg History Medical History (Updated 10/17/22 @ 13:01 by Manuel Valverde MD) Acute respiratory failure with hypoxia Anxiety B-cell lymphoma Breast cancer, left breast 2001--SX AND RADIATION, NO CHEMO Cancer related pain Chronic back pain Chronic ITP (idiopathic thrombocytopenia) COPD (chronic obstructive pulmonary disease) Current smoker Depression with anxiety Elevated bilirubin per pt reason for scheduled EGD Hearing deficit BILT Hypertension Hyponatremia Metastatic cancer Obesity Osteomyelitis of fifth toe of left foot Palliative care by specialist Pleuritic chest pain Spinal stenosis Statin myopathy Tobacco abuse disorder Type 2 diabetes mellitus, controlled Weakness generalized Surgical History Difficult airway for intubation SMALL AIRWAY H/O left breast biopsy History of angioplasty (~01/29/19) stenting of bilateral common iliac artery by Dr. Allred History of bilateral tubal ligation History of cholecystectomy History of dilatation and curettage History of tooth extraction WISDOM TEETH Hx of lumpectomy 2001--L BREAST CANCER Status post epidural steroid injection Family History Daughter Family history of reaction to anesthesia NAUSEA/VOMITING Social History Smoking Status: Former smoker Tobacco Type: Cigarettes Age Started Using Tobacco: 32; packs per day: 1; Cigarettes Per Day: 1-2 ppd - quit smoking 'couple weeks ago' smoked for 50 years; Second Hand Exposure: No; Do You Dip or Chew Tobacco: No; Hx Alcohol Use: No Hx Substance Use: No Preferred Language: Portuguese Communication Ability: Effective Fondant Puff Maker Required: No Beliefs That Will Affect Care: Jew Jew Beliefs: Harvey Current Living Situation: Spouse Current Living Situation Comment: lives with Delroy Feels Safe at Home: Yes Assistive Devices: None Allergies Allergies Allergy/AdvReac Type Severity Reaction Status Date / Time cephalexin [From Keflex] Allergy Mild Aches,drows Verified 09/30/22 15:12 iness clarithromycin Allergy Mild Hives Verified 09/30/22 15:12 fluoxetine Allergy Mild Increased Verified 09/30/22 15:12 anxiety latex Allergy Mild RASH Verified 09/30/22 15:12 olmesartan [From Benicar] Allergy Mild Rash Verified 09/30/22 15:12 Penicillins Allergy Mild RASH Verified 09/30/22 15:12 doxycycline AdvReac Intermediate Gastrointestinal Verified 09/30/22 15:12 Upset tiotropium AdvReac Intermediate Anxiety Verified 09/30/22 15:12 [From Spiriva with HandiHaler] atorvastatin AdvReac Mild aches Verified 09/30/22 15:12 escitalopram [From Lexapro] AdvReac Mild Shakiness Verified 09/30/22 15:12 lisinopril AdvReac Mild Cough Verified 09/30/22 15:12 nefazodone [From Serzone] AdvReac Mild ankle Verified 09/30/22 15:12 swelling paroxetine AdvReac Mild Bad Verified 09/30/22 15:12 dreams, low energy Home Meds Home Medications Medication Instructions Recorded Confirmed lorazepam 0.5 mg tablet (Ativan) 0.5 mg PO TID PRN Anxiety 12/27/18 10/17/22 magnesium chloride 64 mg 64 mg PO BID 12/27/18 10/17/22 (magnesium chloride) tablet,delayed release cholecalciferol (vitamin D3) 50 2,000 unit PO QDL 11/19/20 10/17/22 mcg (2,000 unit) capsule blood [facility] 01/06/21 09/27/22 Ultra Test strips) amlodipine 10 mg tablet 10 mg PO QAM 03/28/21 10/17/22 potassium chloride 10 mEq 20 meq PO QAM 03/28/21 10/17/22 tablet,extended release(part/cryst) sitagliptin phosphate 100 mg 100 mg PO DAILY 03/28/21 10/17/22 tablet (Januvia) acyclovir 400 mg tablet 400 mg PO AMHS 09/17/22 10/17/22 atenolol 25 mg tablet 25 mg PO QAM 09/17/22 10/17/22 cyanocobalamin (vitamin B-12) 1,000 mcg PO DAILY 09/17/22 10/17/22 1,000 mcg tablet (Vitamin B-12) [id number] 5 mg-zeaxanth 1 cap PO DAILY 09/17/22 10/17/22 1 mg-bilberry 7.5 mg-herbal capsule (Macular Health Formula) omeprazole 20 mg capsule,delayed 20 mg PO DAILY PRN Acid Reflux 09/17/22 10/17/22 release nicotine 7 mg/24 hr daily 1 patch transdermal DAILY 09/27/22 10/17/22 transdermal patch Previous Rx's Medication Instructions Recorded Flutter Valve #1 ea 05/20/21 albuterol sulfate 90 mcg/actuation 2 puff inhalation Q6H PRN 05/20/21 aerosol inhaler Shortness Of Breath Or Wheezing #18 grams umeclidinium 62.5 mcg/actuation 1 inh inhalation DAILY #30 ea 04/23/22 blister powder for inhalation (Incruse Ellipta) lidocaine 5 % topical patch 1 patch topical DAILY #15 ea 09/20/22 tramadol 50 mg tablet 50 mg PO Q8H PRN pain #30 tabs 10/07/22 Results & Data (ED) Vital Signs Vital Signs - 24 hr 10/17/22 07:17 10/17/22 07:25 10/17/22 07:51 Temperature 36.7 C Temperature Source Oral Pulse Rate 98 H 95 H 75 Pulse Rate from SpO2 Sensor 74 Respiratory Rate 20 22 Respiratory Effort / Characteristics Spontaneous SOB on Exertion Respiratory Depth Normal Respiratory Pattern Regular Blood Pressure 113/56 L 95/48 L Blood Pressure Mean 75 63 Pulse Oximetry 92 93 Oxygen Delivery Method Nasal Cannula Oxygen Flow Rate 2 3 Sepsis Recent Fever Within 48 Hours No Sepsis New/Unexplained Change in Mental Status No Sepsis Action Taken by Nursing No Action Required 10/17/22 08:00 10/17/22 09:00 10/17/22 09:30 Temperature Temperature Source Pulse Rate 87 105 H 95 H Pulse Rate from SpO2 Sensor 87 90 94 H Respiratory Rate 23 16 22 Respiratory Effort / Characteristics Respiratory Depth Respiratory Pattern Blood Pressure 105/47 L 113/56 L 96/74 L Blood Pressure Mean 66 75 81 Pulse Oximetry 92 91 91 Oxygen Delivery Method Oxygen Flow Rate 3 Sepsis Recent Fever Within 48 Hours Sepsis New/Unexplained Change in Mental Status Sepsis Action Taken by Nursing 10/17/22 10:30 10/17/22 11:10 10/17/22 11:12 Temperature Temperature Source Pulse Rate 104 H 85 Pulse Rate from SpO2 Sensor 104 H Respiratory Rate 24 20 Respiratory Effort / Characteristics Spontaneous Respiratory Depth Respiratory Pattern Blood Pressure 126/53 L Blood Pressure Mean 77 Pulse Oximetry 94 93 Oxygen Delivery Method Nasal Cannula Oxygen Flow Rate 3 3 Sepsis Recent Fever Within 48 Hours Sepsis New/Unexplained Change in Mental Status Sepsis Action Taken by Nursing Laboratory Data 10/17/22 07:24 10/17/22 07:24 Lab Results 10/17/22 10/17/22 10/17/22 Range/Units 07:24 07:24 07:24 WBC 11.76 H (4.8-10.8) K/ul RBC 4.41 (4.20-5.40) M/uL Hgb 14.1 (12.0-16.0) g/dl Hct 42.3 (37.0-47.0) % MCV 95.9 (80.0-100.0) fL MCH 32.0 (25.0-34.0) pg MCHC 33.3 (32.0-36.0) g/dL RDW Std Deviation 51.1 H (36.4-46.3) fL RDW Coeff of Ej 14.9 H (11.5-14.5) % Plt Count 150 (130-400) K/uL MPV 13.0 H (9.4-12.4) fL Immature Gran % (Auto) 3.1 % Neut % (Auto) 85.8 % Lymph % (Auto) 5.4 % [place] % (Auto) 4.3 % Eos % (Auto) 0.2 % Baso % (Auto) 1.2 % Neut # (Auto) 10.11 H (1.40-6.50) K/uL Lymph # (Auto) 0.63 L (1.20-3.40) K/uL [place] # (Auto) 0.50 (0.11-0.59) K/uL Eos # (Auto) 0.02 (0.00-0.50) K/uL Baso # (Auto) 0.14 (0.00-0.20) K/uL Immature Gran # (Auto) 0.36 H (0.01-0.20) K/uL Sodium 138 (136-145) mmol/L Potassium 4.5 (3.5-5.1) mmol/L Chloride 99 (98-107) mmol/L Carbon Dioxide 26 (21-32) mmol/L Anion Gap 13 H (3-11) BUN 44 H (6-23) mg/dl Creatinine 1.20 (0.6-1.2) mg/dl Est Cr Clr Drug Dosing 32.1 ml/min Est GFR ( Amer) 47.7 ml/min Est GFR (Non-Af Amer) 41.2 ml/min BUN/Creatinine Ratio 36.7 H (10-20) Glucose 119 H (70-99(Fasting)) mg/dl POC Glucose (70-99) mg/dl Lactate (0.4-2.0) mmol/L Calcium 9.7 (8.6-10.3) mg/dl Magnesium 1.6 L (1.7-2.4) mg/dl Total Bilirubin 1.2 H (0.2-1.0) mg/dl AST 35 (13-39) U/L ALT 14 (7-52) U/L Alkaline Phosphatase 166 H (34-104) U/L Troponin I High Sens 27.8 H (0-14) pg/ml Total Protein 5.6 L (6.0-8.3) gm/dl Albumin 2.8 L (3.4-5.0) gm/dl Globulin 2.8 (2.5-4.0) gm/dl Albumin/Globulin Ratio 1.0 (0.9-2) TSH 3.038 (0.300-4.500) uIu/ml SARS-CoV-2, RNA, NAAT (NEGATIVE) 10/17/22 10/17/22 10/17/22 Range/Units 07:47 10:05 11:55 WBC (4.8-10.8) K/ul RBC (4.20-5.40) M/uL Hgb (12.0-16.0) g/dl Hct (37.0-47.0) % MCV (80.0-100.0) fL MCH (25.0-34.0) pg MCHC (32.0-36.0) g/dL RDW Std Deviation (36.4-46.3) fL RDW Coeff of Ej (11.5-14.5) % Plt Count (130-400) K/uL MPV (9.4-12.4) fL Immature Gran % (Auto) % Neut % (Auto) % Lymph % (Auto) % [place] % (Auto) % Eos % (Auto) % Baso % (Auto) % Neut # (Auto) (1.40-6.50) K/uL Lymph # (Auto) (1.20-3.40) K/uL [place] # (Auto) (0.11-0.59) K/uL Eos # (Auto) (0.00-0.50) K/uL Baso # (Auto) (0.00-0.20) K/uL Immature Gran # (Auto) (0.01-0.20) K/uL Sodium (136-145) mmol/L Potassium (3.5-5.1) mmol/L Chloride (98-107) mmol/L Carbon Dioxide (21-32) mmol/L Anion Gap (3-11) BUN (6-23) mg/dl Creatinine (0.6-1.2) mg/dl Est Cr Clr Drug Dosing ml/min Est GFR ( Amer) ml/min Est GFR (Non-Af Amer) ml/min BUN/Creatinine Ratio (10-20) Glucose (70-99(Fasting)) mg/dl POC Glucose 141 H (70-99) mg/dl Lactate 6.2 H* (0.4-2.0) mmol/L Calcium (8.6-10.3) mg/dl Magnesium (1.7-2.4) mg/dl Total Bilirubin (0.2-1.0) mg/dl AST (13-39) U/L ALT (7-52) U/L Alkaline Phosphatase (34-104) U/L Troponin I High Sens (0-14) pg/ml Total Protein (6.0-8.3) gm/dl Albumin (3.4-5.0) gm/dl Globulin (2.5-4.0) gm/dl Albumin/Globulin Ratio (0.9-2) TSH (0.300-4.500) uIu/ml SARS-CoV-2, RNA, NAAT NEGATIVE (NEGATIVE) 10/17/22 Range/Units 12:07 WBC (4.8-10.8) K/ul RBC (4.20-5.40) M/uL Hgb (12.0-16.0) g/dl Hct (37.0-47.0) % MCV (80.0-100.0) fL MCH (25.0-34.0) pg MCHC (32.0-36.0) g/dL RDW Std Deviation (36.4-46.3) fL RDW Coeff of Ej (11.5-14.5) % Plt Count (130-400) K/uL MPV (9.4-12.4) fL Immature Gran % (Auto) % Neut % (Auto) % Lymph % (Auto) % [place] % (Auto) % Eos % (Auto) % Baso % (Auto) % Neut # (Auto) (1.40-6.50) K/uL Lymph # (Auto) (1.20-3.40) K/uL [place] # (Auto) (0.11-0.59) K/uL Eos # (Auto) (0.00-0.50) K/uL Baso # (Auto) (0.00-0.20) K/uL Immature Gran # (Auto) (0.01-0.20) K/uL Sodium (136-145) mmol/L Potassium (3.5-5.1) mmol/L Chloride (98-107) mmol/L Carbon Dioxide (21-32) mmol/L Anion Gap (3-11) BUN (6-23) mg/dl Creatinine (0.6-1.2) mg/dl Est Cr Clr Drug Dosing ml/min Est GFR ( Amer) ml/min Est GFR (Non-Af Amer) ml/min BUN/Creatinine Ratio (10-20) Glucose (70-99(Fasting)) mg/dl POC Glucose (70-99) mg/dl Lactate 5.3 H* (0.4-2.0) mmol/L Calcium (8.6-10.3) mg/dl Magnesium (1.7-2.4) mg/dl Total Bilirubin (0.2-1.0) mg/dl AST (13-39) U/L ALT (7-52) U/L Alkaline Phosphatase (34-104) U/L Troponin I High Sens (0-14) pg/ml Total Protein (6.0-8.3) gm/dl Albumin (3.4-5.0) gm/dl Globulin (2.5-4.0) gm/dl Albumin/Globulin Ratio (0.9-2) TSH (0.300-4.500) uIu/ml SARS-CoV-2, RNA, NAAT (NEGATIVE) Administered Medications Albuterol (Albut/Ipratrop 3mg/0.5mg Neb 3 Ml Vial) 3 ml NEB QIDR KURTIS; Protocol Stop: 11/16/22 10:59 Last Admin: 10/17/22 11:08 Dose: 3 ml Documented By: DICK Insulin Aspart (Insulin Aspart Per Unit Charge) 0 units SC ACHS [facility] Stop: 11/16/22 11:29 Last Admin: 10/17/22 11:59 Dose: Not Given Documented By: LISA Co-signed By: MYRNA Discontinued Medications Fentanyl Citrate (Fentanyl Citrate Pf 100 Mcg/2 Ml Vial) 50 mcg IV Q15M PRN PRN Reason: Pain Stop: 10/31/22 08:13 Last Admin: 10/17/22 08:23 Dose: 50 mcg Documented By: MT Sodium Chloride (Nss 1000ml) 1,000 mls @ 125 mls/hr IV .Q8H [facility] Stop: 11/16/22 07:59 Last Admin: 10/17/22 10:12 Dose: 125 mls/hr Documented By: MT Sodium Chloride (Nss 1000ml) 250 mls @ 999 mls/hr IV .Q16M ONE Stop: 10/17/22 08:01 Last Admin: 10/17/22 08:23 Dose: 999 mls/hr Documented By: MT Ciprofloxacin (Cipro / D5w) 400 mg in 200 mls @ 100 mls/hr IV NOW STA; Protocol Stop: 10/17/22 11:40 Last Admin: 10/17/22 10:06 Dose: 100 mls/hr Documented By: MT Metronidazole (Flagyl) 500 mg in 100 mls @ 100 mls/hr IV NOW STA; Protocol Stop: 10/17/22 10:40 Last Admin: 10/17/22 10:06 Dose: 100 mls/hr Documented By: MT Sodium Chloride (Nss 1000ml) 500 mls @ 999 mls/hr IV .Q31M ONE Stop: 10/17/22 10:20 Last Admin: 10/17/22 10:06 Dose: 999 mls/hr Documented By: MT Magnesium Sulfate/Dextrose (Magnesium Sulfate / D5w) 1 gm in 100 mls @ 100 mls/hr IV NOW STA Stop: 10/17/22 11:43 Last Admin: 10/17/22 12:07 Dose: 100 mls/hr Documented By: LISA Pantoprazole Sodium 40 mg/ (Syringe) 10 mls @ 5 mls/min IV NOW ONE Stop: 10/17/22 12:01 Last Admin: 10/17/22 12:05 Dose: 5 mls/min Documented By: LISA Famotidine (Pepcid 20mg Iv Push) 20 mg in 5 mls @ 2.5 mls/min IV NOW STA Stop: 10/17/22 10:56 Last Admin: 10/17/22 12:03 Dose: 2.5 mls/min Documented By: LISA Parenteral Electrolytes (Plasma-Lyte A Ph 7.4) 1,000 mls @ 999 mls/hr IV .Q1H1M ONE Stop: 10/17/22 12:08 Last Admin: 10/17/22 12:02 Dose: 999 mls/hr Documented By: LISA Ondansetron HCl (Ondansetron Inj 2 Mg/Ml 2 Ml Vial) 4 mg IV NOW STA Stop: 10/17/22 08:15 Last Admin: 10/17/22 08:22 Dose: 4 mg Documented By: AVA Imaging Data Radiologist's Impression: Chest X-Ray 10/17/22 07:25 XR chest 1V portable HISTORY: weakness COMPARISON: Chest 10/04/2022. FINDINGS: Right basilar pleural catheter remains unchanged in position. No pneumothorax. There are small to moderate bilateral pleural effusions and bibasilar densities. This has slightly progressed in the interval. The heart remains enlarged. No evidence for pulmonary edema. There are calcifications within the aortic knob. IMPRESSION: 1. Right basilar pleural catheter remains unchanged in position. 2. Small to moderate bilateral pleural effusions and bibasilar densities have slightly progressed. ACT 112: Negative or not required by law. Electronically signed by: Desean Sanchez M.D. 10/17/2022 8:00 AM Abdomen/Pelvis CT 10/17/22 07:[address] WITHOUT CONTRAST CT DOSE: 939.33 mGy.cm HISTORY: abd pain, lower, hx of CA TECHNIQUE: Multiaxial CT images of the abdomen and pelvis were performed without contrast. A dose lowering technique was utilized adhering to the principles of ALARA. COMPARISON STUDY: PET CT 09/09/2022. Abdomen and pelvis CT 03/30/2021. FINDINGS: There is a right basilar pleural catheter is noted. Extensive pleural metastatic disease has progressed in the interval. Small bilateral pleural effusions are noted. This is decreased in size on the right. No pneumoperitoneum. No pneumatosis. Mild inferior endplate compression deformity at L1. This is likely subacute. Body wall edema again noted. Multiple hepatic metastases have progressed in the interval. Nodular contour to the liver consistent with cirrhosis. The unenhanced spleen is unremarkable. Calcifications within the pancreas persist consistent with a chronic pancreatitis. There are few punctate bilateral renal calculi. No hydronephrosis. Stable right renal c ysts. Prior cholecystectomy. Retroperitoneal lymphadenopathy is again noted. A left adrenal gland metastasis has slightly decreased in size. Soft tissue nodule of the umbilicus remains unchanged. Peritoneal nodularity/implants has progressed. There is a small amount of ascites. This is also new compared the prior study. Right pelvic sidewall lymphadenopathy/soft tissue implant encasing the right iliac arteries has increased in size. The bladder is decompressed. This may account for the bladder wall thickening. The uterus is unremarkable. Colonic diverticulosis. Suboptimal evaluation for bowel pathology due to the lack of intravenous and oral contrast. However, there is no evidence for bowel obstruction. Normal appendix. Small focus of gas within the left side of the abdomen on image 212. This is indeterminate but could represent a normal jejunal diverticulum. A small focus of microperforation the setting of a jejunal diverticulitis is not excluded. Additional thickened loops of jejunum within the left side of the abdomen which could also be seen in the setting of a nonspecific enteritis or jejunal diverticulitis. IMPRESSION: 1. Interval progression of metastatic disease as described above. 2. Small amount of ascites is new from the prior study. This is likely due to the metastatic disease. 3. Decrease in size in the small right pleural effusion. A right basilar pleural catheter appears in good position. 4. Small focus of gas within the left side of the abdomen. This is indeterminate but could represent a normal jejunal diverticulum. A small focus of microperforation and the setting of a jejunal diverticulitis is not excluded. Additional thickened loops of jejunum within the left side of the abdomen which could also be seen in the setting of a nonspecific enteritis or jejunal diver ticulitis. 5. A mild inferior endplate compression fracture at L1. This is likely subacute. 6. Additional findings as described above. ACT 112: Negative or not required by law. Electronically signed by: Desean Sanchez M.D. 10/17/2022 8:54 AM Discharge Plan Visit Data Chief Complaint: Weakness ED Provider: Manuel Valverde Discharge Problem: Weakness, Metastatic adenocarcinoma, Pleural effusion, Diverticulitis of jejunum, Acute dehydration, Elevated lactic acid level Forms Stand Alone Forms: [facility] Prescriptions Prescriptions: No Action lorazepam [Ativan] 0.5 mg tablet 0.5 mg PO TID PRN (Reason: Anxiety) magnesium chloride 64 mg tablet,delayed release (DR/EC) 64 mg PO BID cholecalciferol (vitamin D3) 50 mcg (2,000 unit) capsule 2,000 unit PO QDL (DME) OneTouch Ultra Test Strip See Rx Instructions .Route Rx Instructions: test 1 time daily Incruse Ellipta 62.5 mcg/actuation blister with device 1 inh inhalation DAILY Qty: 30 7RF albuterol sulfate 90 mcg/actuation HFA aerosol inhaler 2 puff inhalation Q6H PRN (Reason: Shortness Of Breath Or Wheezing) Qty: 18 3RF (DME) Flutter Valve Device See Rx Instructions .MEDSUPPLY Qty: 1 0RF Rx Instructions: Use it every 6 hours when awake. lidocaine 5 % adhesive patch,medicated 1 patch topical DAILY Qty: 15 0RF Rx Instructions: leave on most painful area for up to 12 hrs tramadol 50 mg tablet 50 mg PO Q8H PRN (Reason: pain) Qty: 30 0RF amlodipine 10 mg tablet 10 mg PO QAM Januvia 100 mg tablet 100 mg PO DAILY potassium chloride 10 mEq tablet,ER particles/crystals 20 meq PO QAM atenolol 25 mg tablet 25 mg PO QAM cyanocobalamin (vitamin B-12) [Vitamin B-12] 1,000 mcg Tablet 1,000 mcg PO DAILY acyclovir 400 mg tablet 400 mg PO AMHS Rx Instructions: Per omeprazole 20 mg capsule,delayed release(DR/EC) 20 mg PO DAILY PRN (Reason: Acid Reflux) Macular Health Formula 5-1-7.5 mg Capsule 1 cap PO DAILY nicotine 7 mg/24 hr Patch 24 Hour 1 patch TRANSDERMAL DAILY Rx Instructions: unknown strength Referrals Referrals: Augustina Hernandez DO [Primary Care Provider] -
[2022-10-17] MEDS: LACTATED RINGER'S 1,000 ML IV SCH (15:00)
[2022-10-17 16:05] LABS: Appearance Urine Cloudy (Clear); Blood Urine Negative (Negative); Color Urine Dark Yellow; Epithelial Cell Urine Auto >30 /lpf (0-5); Glucose Urine UA Negative (Negative); Ketones Urine Trace (Negative); Leukocyte Esterase Urine Negative (Negative); Nitrite Urine Negative (Negative); Protein Urine 1+ (Negative); Specific Gravity Urine 1.024 (1.000-1.030); Urobilinogen Urine Negative (Negative)
[2022-10-17 16:19] LABS: Bilirubin Urine 2+ (Negative)
[2022-10-17 16:30] LABS: Bacteria Urine Automated 1+ (Negative); Cast Urine Automated >30 /lpf (0-5); RBC Urine Automated 0-4 /hpf (0-4)
[2022-10-17] MEDS ORDERED: MAGNESIUM SULFATE / D5W 1 GM/100 ML BAG IV ONE (16:37)
--- NOTE | 2022-10-17 16:50 | Surgery Consultation ---
Date of Consultation October 17, 2022 Assessment & Plan (1) Diverticulitis of jejunum: In setting of progressive metastatic cancer with worsening intra-abdominal metastases. Appears to be improved slightly already with benign abdomen and less pain. Agree with bowel rest, IV antibiotics and IVF resuscitation. Poor overall prognosis and not a good surgical candidate so hopefully will resolve with conservative treatement. History of Present Illness Reason for Consultation: abdominal pain in setting of metastatic disease Requesting Physician: Serafin Sims MD Attending Physician: Serafin Sims MD History of Present Illness This is an 87-year-old woman who was admitted with abdominal pain. This is in the setting of metastatic cancer. 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 She presents with abdominal pain that is worse in the lower abdomen. This is on top of her chronic abdominal pain from her metastatic disease. The pain was acute, it was sharp, it did not radiate, it was associated with nausea and dry heaving. She did not note any fevers or chills. She presented to the emergency room because of the symptoms. CT scan showed inflammation of the jejunum with possibly a microperforation versus normal air and a small jejunal diverticula. It also shows progression of the metastatic disease with worsening hepatic mets and new peritoneal nodules. Allergies Allergy/AdvReac Type Severity Reaction Status Date / Time cephalexin [From Keflex] Allergy Mild Aches,drows Verified 09/30/22 15:12 iness clarithromycin Allergy Mild Hives Verified 09/30/22 15:12 fluoxetine Allergy Mild Increased Verified 09/30/22 15:12 anxiety latex Allergy Mild RASH Verified 09/30/22 15:12 olmesartan [From Benicar] Allergy Mild Rash Verified 09/30/22 15:12 Penicillins Allergy Mild RASH Verified 09/30/22 15:12 doxycycline AdvReac Intermediate Gastrointestinal Verified 09/30/22 15:12 Upset tiotropium AdvReac Intermediate Anxiety Verified 09/30/22 15:12 [From Spiriva with HandiHaler] atorvastatin AdvReac Mild aches Verified 09/30/22 15:12 escitalopram [From Lexapro] AdvReac Mild Shakiness Verified 09/30/22 15:12 lisinopril AdvReac Mild Cough Verified 09/30/22 15:12 nefazodone [From Serzone] AdvReac Mild ankle Verified 09/30/22 15:12 swelling paroxetine AdvReac Mild Bad Verified 09/30/22 15:12 dreams, low energy Home Medications Medication Instructions Recorded Confirmed Type lorazepam 0.5 mg tablet (Ativan) 0.5 mg PO TID PRN Anxiety 12/27/18 10/17/22 History magnesium chloride 64 mg 64 mg PO BID 12/27/18 10/17/22 History (magnesium chloride) tablet,delayed release cholecalciferol (vitamin D3) 50 2,000 unit PO QDL 11/19/20 10/17/22 History mcg (2,000 unit) capsule blood sugar diagnostic (OneTouch 01/06/21 09/27/22 History Ultra Test strips) amlodipine 10 mg tablet 10 mg PO QAM 03/28/21 10/17/22 History potassium chloride 10 mEq 20 meq PO QAM 03/28/21 10/17/22 History tablet,extended release(part/cryst) sitagliptin phosphate 100 mg 100 mg PO DAILY 03/28/21 10/17/22 History tablet (Januvia) Flutter Valve #1 ea 05/20/21 09/27/22 Rx albuterol sulfate 90 mcg/actuation 2 puff inhalation Q6H PRN 05/20/21 10/17/22 Rx aerosol inhaler Shortness Of Breath Or Wheezing #18 grams umeclidinium 62.5 mcg/actuation 1 inh inhalation DAILY #30 ea 04/23/22 10/17/22 Rx blister powder for inhalation (Incruse Ellipta) acyclovir 400 mg tablet 400 mg PO AMHS 09/17/22 10/17/22 History atenolol 25 mg tablet 25 mg PO QAM 09/17/22 10/17/22 History cyanocobalamin (vitamin B-12) 1,000 mcg PO DAILY 09/17/22 10/17/22 History 1,000 mcg tablet (Vitamin B-12) [id number]-qba-[id number] 5 mg-zeaxanth 1 cap PO DAILY 09/17/22 10/17/22 History 1 mg-bilberry 7.5 mg-herbal capsule (Macular Health Formula) omeprazole 20 mg capsule,delayed 20 mg PO DAILY PRN Acid Reflux 09/17/22 10/17/22 History release lidocaine 5 % topical patch 1 patch topical DAILY #15 ea 09/20/22 10/17/22 Rx nicotine 7 mg/24 hr daily 1 patch transdermal DAILY 09/27/22 10/17/22 History transdermal patch tramadol 50 mg tablet 50 mg PO Q8H PRN pain #30 tabs 10/07/22 10/17/22 Rx Patient History Medical History Acute respiratory failure with hypoxia Anxiety B-cell lymphoma Breast cancer, left breast 2001--SX AND RADIATION, NO CHEMO Cancer related pain Chronic back pain Chronic ITP (idiopathic thrombocytopenia) COPD (chronic obstructive pulmonary disease) Current smoker Depression with anxiety Elevated bilirubin per pt reason for scheduled EGD Hearing deficit BILT Hypertension Hyponatremia Metastatic cancer Obesity Osteomyelitis of fifth toe of left foot Palliative care by specialist Pleuritic chest pain Spinal stenosis Statin myopathy Tobacco abuse disorder Type 2 diabetes mellitus, controlled Weakness generalized Surgical History Difficult airway for intubation SMALL AIRWAY H/O left breast biopsy History of angioplasty (~01/29/19) stenting of bilateral common iliac artery by Dr. Allred History of bilateral tubal ligation History of cholecystectomy History of dilatation and curettage History of tooth extraction WISDOM TEETH Hx of lumpectomy 2001--L BREAST CANCER Status post epidural steroid injection Family History Daughter Family history of reaction to anesthesia NAUSEA/VOMITING Social History Smoking Status: Former smoker Tobacco Type: Cigarettes Age Started Using Tobacco: 32; packs per day: 1; Cigarettes Per Day: 1-2 ppd - quit smoking 'couple weeks ago' smoked for 50 years; Second Hand Exposure: No; Do You Dip or Chew Tobacco: No; Hx Alcohol Use: No Hx Substance Use: No Preferred Language: Faroese Communication Ability: Effective Pit Recorder Required: No Beliefs That Will Affect Care: Nondenominational Nondenominational Beliefs: Lutheryn Current Living Situation: Spouse Current Living Situation Comment: lives with Delroy Feels Safe at Home: Yes Assistive Devices: None Physical Exam Constitutional: no acute distress Respiratory: normal respiratory effort, lungs clear to auscultation Cardiovascular: Rate/Rhythm: regular rate and regular rhythm Gastrointestinal (Abdomen): Inspection/Auscultation: abdomen normal to inspection and normal bowel sounds; abdomen not distended Percussio n/Palpation: + abdomen tender (very mild in left upper abdomen) and abdomen soft; no guarding Neurologic: awake; no focal motor deficits Results & Data Vital Signs (Past 12 Hours) Vital Signs Temp Pulse Pulse Resp BP Pulse Ox O2 Del Method 10/17/22 15:30 101 H 20 93 Nasal Cannula 10/17/22 15:30 143/59 H 10/17/22 15:00 99 H 26 H 92 10/17/22 15:00 113/57 L 10/17/22 14:30 98 H 20 93 Nasal Cannula 10/17/22 14:30 106/50 L 10/17/22 14:46 97 H 17 91 Nasal Cannula 10/17/22 14:00 100 H 25 H 92 Nasal Cannula 10/17/22 14:00 107/49 L 10/17/22 13:30 100 H 22 92 10/17/22 13:30 107/46 L 10/17/22 13:00 86 21 94 10/17/22 13:00 108/42 L 10/17/22 12:30 99 H 23 93 Nasal Cannula 10/17/22 12:30 113/45 L 10/17/22 12:00 96 H 21 92 10/17/22 12:00 105/51 L 10/17/22 11:30 102 H 22 93 10/17/22 11:30 114/47 L 10/17/22 11:00 93 H 22 93 10/17/22 11:00 116/46 L 10/17/22 11:12 85 10/17/22 11:10 20 93 Nasal Cannula 10/17/22 10:30 104 H 24 126/53 L 94 10/17/22 09:30 95 H 22 96/74 L 91 10/17/22 09:00 105 H 16 113/56 L 91 10/17/22 08:00 87 23 105/47 L 92 10/17/22 07:51 75 22 95/48 L 93 10/17/22 07:25 36.7 C 95 H 20 113/56 L 92 Nasal Cannula 10/17/22 07:17 98 H O2 Flow Rate 10/17/22 15:30 3 10/17/22 15:30 10/17/22 15:00 10/17/22 15:00 10/17/22 14:30 3 10/17/22 14:30 10/17/22 14:46 3 10/17/22 14:00 3 10/17/22 14:00 10/17/22 13:30 10/17/22 13:30 10/17/22 13:00 10/17/22 13:00 10/17/22 12:30 3 10/17/22 12:30 10/17/22 12:00 10/17/22 12:00 10/17/22 11:30 10/17/22 11:30 10/17/22 11:00 10/17/22 11:00 10/17/22 11:12 10/17/22 11:10 3 10/17/22 10:30 3 10/17/22 09:30 10/17/22 09:00 10/17/22 08:00 3 10/17/22 07:51 3 10/17/22 07:25 2 10/17/22 07:17 Laboratory Results 10/17/22 10/17/22 10/17/22 Range/Units 16:45 16:25 15:30 WBC (4.8-10.8) K/ul RBC (4.20-5.40) M/uL Hgb (12.0-16.0) g/dl Hct (37.0-47.0) % MCV (80.0-100.0) fL MCH (25.0-34.0) pg MCHC (32.0-36.0) g/dL RDW Std Deviation (36.4-46.3) fL RDW Coeff of Ej (11.5-14.5) % Plt Count (130-400) K/uL MPV (9.4-12.4) fL Immature Gran % (Auto) % Neut % (Auto) % Lymph % (Auto) % [place] % (Auto) % Eos % (Auto) % Baso % (Auto) % Neut # (Auto) (1.40-6.50) K/uL Lymph # (Auto) (1.20-3.40) K/uL [place] # (Auto) (0.11-0.59) K/uL Eos # (Auto) (0.00-0.50) K/uL Baso # (Auto) (0.00-0.20) K/uL Immature Gran # (Auto) (0.01-0.20) K/uL Sodium (136-145) mmol/L Potassium (3.5-5.1) mmol/L Chloride (98-107) mmol/L Carbon Dioxide (21-32) mmol/L Anion Gap (3-11) BUN (6-23) mg/dl Creatinine (0.6-1.2) mg/dl Est Cr Clr Drug Dosing ml/min Est GFR ( Amer) ml/min Est GFR (Non-Af Amer) ml/min BUN/Creatinine Ratio (10-20) Glucose (70-99(Fasting)) mg/dl POC Glucose 108 H (70-99) mg/dl Lactate Pending (0.4-2.0) mmol/L Calcium (8.6-10.3) mg/dl Magnesium (1.7-2.4) mg/dl Total Bilirubin (0.2-1.0) mg/dl AST (13-39) U/L ALT (7-52) U/L Alkaline Phosphatase (34-104) U/L Troponin I High Sens (0-14) pg/ml Total Protein (6.0-8.3) gm/dl Albumin (3.4-5.0) gm/dl Globulin (2.5-4.0) gm/dl Albumin/Globulin Ratio (0.9-2) Procalcitonin (0-0.5) ng/ml TSH (0.300-4.500) uIu/ml Urine Color Dark Yellow Urine Appearance Cloudy A (Clear) Urine pH 5.0 (4.5-7.5) Ur Specific [place] 1.024 (1.000-1.030) Urine Protein 1+ H (Negative) Urine Glucose (UA) Negative (Negative) Urine Ketones Trace H (Negative) Urine Blood Negative (Negative) Urine Nitrite Negative (Negative) Urine Bilirubin 2+ H (Negative) Urine Urobilinogen Negative (Negative) Ur Leukocyte Esterase Negative (Negative) Urine WBC (Auto) 5-10 H (0-5) /hpf Urine RBC (Auto) 0-4 (0-4) /hpf U Hyaline Cast (Auto) >30 H (0-5) /lpf U Epithel Cells (Auto) >30 H (0-5) /lpf Urine Bacteria (Auto) 1+ H (Negative) SARS-CoV-2, RNA, NAAT (NEGATIVE) 10/17/22 10/17/22 10/17/22 Range/Units 14:12 12:07 12:07 WBC (4.8-10.8) K/ul RBC (4.20-5.40) M/uL Hgb (12.0-16.0) g/dl Hct (37.0-47.0) % MCV (80.0-100.0) fL MCH (25.0-34.0) pg MCHC (32.0-36.0) g/dL RDW Std Deviation (36.4-46.3) fL RDW Coeff of Ej (11.5-14.5) % Plt Count (130-400) K/uL MPV (9.4-12.4) fL Immature Gran % (Auto) % Neut % (Auto) % Lymph % (Auto) % [place] % (Auto) % Eos % (Auto) % Baso % (Auto) % Neut # (Auto) (1.40-6.50) K/uL Lymph # (Auto) (1.20-3.40) K/uL [place] # (Auto) (0.11-0.59) K/uL Eos # (Auto) (0.00-0.50) K/uL Baso # (Auto) (0.00-0.20) K/uL Immature Gran # (Auto) (0.01-0.20) K/uL Sodium (136-145) mmol/L Potassium (3.5-5.1) mmol/L Chloride (98-107) mmol/L Carbon Dioxide (21-32) mmol/L Anion Gap (3-11) BUN (6-23) mg/dl Creatinine (0.6-1.2) mg/dl Est Cr Clr Drug Dosing ml/min Est GFR ( Amer) ml/min Est GFR (Non-Af Amer) ml/min BUN/Creatinine Ratio (10-20) Glucose (70-99(Fasting)) mg/dl POC Glucose (70-99) mg/dl Lactate 4.9 H* 5.3 H* (0.4-2.0) mmol/L Calcium (8.6-10.3) mg/dl Magnesium (1.7-2.4) mg/dl Total Bilirubin (0.2-1.0) mg/dl AST (13-39) U/L ALT (7-52) U/L Alkaline Phosphatase (34-104) U/L Troponin I High Sens (0-14) pg/ml Total Protein (6.0-8.3) gm/dl Albumin (3.4-5.0) gm/dl Globulin (2.5-4.0) gm/dl Albumin/Globulin Ratio (0.9-2) Procalcitonin 0.38 (0-0.5) ng/ml TSH (0.300-4.500) uIu/ml Urine Color Urine Appearance (Clear) Urine pH (4.5-7.5) Ur Specific [place] (1.000-1.030) Urine Protein (Negative) Urine Glucose (UA) (Negative) Urine Ketones (Negative) Urine Blood (Negative) Urine Nitrite (Negative) Urine Bilirubin (Negative) Urine Urobilinogen (Negative) Ur Leukocyte Esterase (Negative) Urine WBC (Auto) (0-5) /hpf Urine RBC (Auto) (0-4) /hpf U Hyaline Cast (Auto) (0-5) /lpf U Epithel Cells (Auto) (0-5) /lpf Urine Bacteria (Auto) (Negative) SARS-CoV-2, RNA, NAAT (NEGATIVE) 10/17/22 10/17/22 10/17/22 Range/Units 12:07 11:55 10:05 WBC (4.8-10.8) K/ul RBC (4.20-5.40) M/uL Hgb (12.0-16.0) g/dl Hct (37.0-47.0) % MCV (80.0-100.0) fL MCH (25.0-34.0) pg MCHC (32.0-36.0) g/dL RDW Std Deviation (36.4-46.3) fL RDW Coeff of Ej (11.5-14.5) % Plt Count (130-400) K/uL MPV (9.4-12.4) fL Immature Gran % (Auto) % Neut % (Auto) % Lymph % (Auto) % [place] % (Auto) % Eos % (Auto) % Baso % (Auto) % Neut # (Auto) (1.40-6.50) K/uL Lymph # (Auto) (1.20-3.40) K/uL [place] # (Auto) (0.11-0.59) K/uL Eos # (Auto) (0.00-0.50) K/uL Baso # (Auto) (0.00-0.20) K/uL Immature Gran # (Auto) (0.01-0.20) K/uL Sodium (136-145) mmol/L Potassium (3.5-5.1) mmol/L Chloride (98-107) mmol/L Carbon Dioxide (21-32) mmol/L Anion Gap (3-11) BUN (6-23) mg/dl Creatinine (0.6-1.2) mg/dl Est Cr Clr Drug Dosing ml/min Est GFR ( Amer) ml/min Est GFR (Non-Af Amer) ml/min BUN/Creatinine Ratio (10-20) Glucose (70-99(Fasting)) mg/dl POC Glucose 141 H (70-99) mg/dl Lactate 6.2 H* (0.4-2.0) mmol/L Calcium (8.6-10.3) mg/dl Magnesium (1.7-2.4) mg/dl Total Bilirubin (0.2-1.0) mg/dl AST (13-39) U/L ALT (7-52) U/L Alkaline Phosphatase (34-104) U/L Troponin I High Sens 17.2 H D (0-14) pg/ml Total Protein (6.0-8.3) gm/dl Albumin (3.4-5.0) gm/dl Globulin (2.5-4.0) gm/dl Albumin/Globulin Ratio (0.9-2) Procalcitonin (0-0.5) ng/ml TSH (0.300-4.500) uIu/ml Urine Color Urine Appearance (Clear) Urine pH (4.5-7.5) Ur Specific [place] (1.000-1.030) Urine Protein (Negative) Urine Glucose (UA) (Negative) Urine Ketones (Negative) Urine Blood (Negative) Urine Nitrite (Negative) Urine Bilirubin (Negative) Urine Urobilinogen (Negative) Ur Leukocyte Esterase (Negative) Urine WBC (Auto) (0-5) /hpf Urine RBC (Auto) (0-4) /hpf U Hyaline Cast (Auto) (0-5) /lpf U Epithel Cells (Auto) (0-5) /lpf Urine Bacteria (Auto) (Negative) SARS-CoV-2, RNA, NAAT (NEGATIVE) 10/17/22 10/17/22 10/17/22 Range/Units 07:47 07:24 07:24 WBC (4.8-10.8) K/ul RBC (4.20-5.40) M/uL Hgb (12.0-16.0) g/dl Hct (37.0-47.0) % MCV (80.0-100.0) fL MCH (25.0-34.0) pg MCHC (32.0-36.0) g/dL RDW Std Deviation (36.4-46.3) fL RDW Coeff of Ej (11.5-14.5) % Plt Count (130-400) K/uL MPV (9.4-12.4) fL Immature Gran % (Auto) % Neut % (Auto) % Lymph % (Auto) % [place] % (Auto) % Eos % (Auto) % Baso % (Auto) % Neut # (Auto) (1.40-6.50) K/uL Lymph # (Auto) (1.20-3.40) K/uL [place] # (Auto) (0.11-0.59) K/uL Eos # (Auto) (0.00-0.50) K/uL Baso # (Auto) (0.00-0.20) K/uL Immature Gran # (Auto) (0.01-0.20) K/uL Sodium 138 (136-145) mmol/L Potassium 4.5 (3.5-5.1) mmol/L Chloride 99 (98-107) mmol/L Carbon Dioxide 26 (21-32) mmol/L Anion Gap 13 H (3-11) BUN 44 H (6-23) mg/dl Creatinine 1.20 (0.6-1.2) mg/dl Est Cr Clr Drug Dosing 32.1 ml/min Est GFR ( Amer) 47.7 ml/min Est GFR (Non-Af Amer) 41.2 ml/min BUN/Creatinine Ratio 36.7 H (10-20) Glucose 119 H (70-99(Fasting)) mg/dl POC Glucose (70-99) mg/dl Lactate (0.4-2.0) mmol/L Calcium 9.7 (8.6-10.3) mg/dl Magnesium 1.6 L (1.7-2.4) mg/dl Total Bilirubin 1.2 H (0.2-1.0) mg/dl AST 35 (13-39) U/L ALT 14 (7-52) U/L Alkaline Phosphatase 166 H (34-104) U/L Troponin I High Sens 27.8 H (0-14) pg/ml Total Protein 5.6 L (6.0-8.3) gm/dl Albumin 2.8 L (3.4-5.0) gm/dl Globulin 2.8 (2.5-4.0) gm/dl Albumin/Globulin Ratio 1.0 (0.9-2) Procalcitonin (0-0.5) ng/ml TSH 3.038 (0.300-4.500) uIu/ml Urine Color Urine Appearance (Clear) Urine pH (4.5-7.5) Ur Specific [place] (1.000-1.030) Urine Protein (Negative) Urine Glucose (UA) (Negative) Urine Ketones (Negative) Urine Blood (Negative) Urine Nitrite (Negative) Urine Bilirubin (Negative) Urine Urobilinogen (Negative) Ur Leukocyte Esterase (Negative) Urine WBC (Auto) (0-5) /hpf Urine RBC (Auto) (0-4) /hpf U Hyaline Cast (Auto) (0-5) /lpf U Epithel Cells (Auto) (0-5) /lpf Urine Bacteria (Auto) (Negative) SARS-CoV-2, RNA, NAAT NEGATIVE (NEGATIVE) 10/17/22 Range/Units 07:24 WBC 11.76 H (4.8-10.8) K/ul RBC 4.41 (4.20-5.40) M/uL Hgb 14.1 (12.0-16.0) g/dl Hct 42.3 (37.0-47.0) % MCV 95.9 (80.0-100.0) fL MCH 32.0 (25.0-34.0) pg MCHC 33.3 (32.0-36.0) g/dL RDW Std Deviation 51.1 H (36.4-46.3) fL RDW Coeff of Ej 14.9 H (11.5-14.5) % Plt Count 150 (130-400) K/uL MPV 13.0 H (9.4-12.4) fL Immature Gran % (Auto) 3.1 % Neut % (Auto) 85.8 % Lymph % (Auto) 5.4 % [place] % (Auto) 4.3 % Eos % (Auto) 0.2 % Baso % (Auto) 1.2 % Neut # (Auto) 10.11 H (1.40-6.50) K/uL Lymph # (Auto) 0.63 L (1.20-3.40) K/uL [place] # (Auto) 0.50 (0.11-0.59) K/uL Eos # (Auto) 0.02 (0.00-0.50) K/uL Baso # (Auto) 0.14 (0.00-0.20) K/uL Immature Gran # (Auto) 0.36 H (0.01-0.20) K/uL Sodium (136-145) mmol/L Potassium (3.5-5.1) mmol/L Chloride (98-107) mmol/L Carbon Dioxide (21-32) mmol/L Anion Gap (3-11) BUN (6-23) mg/dl Creatinine (0.6-1.2) mg/dl Est Cr Clr Drug Dosing ml/min Est GFR ( Amer) ml/min Est GFR (Non-Af Amer) ml/min BUN/Creatinine Ratio (10-20) Glucose (70-99(Fasting)) mg/dl POC Glucose (70-99) mg/dl Lactate (0.4-2.0) mmol/L Calcium (8.6-10.3) mg/dl Magnesium (1.7-2.4) mg/dl Total Bilirubin (0.2-1.0) mg/dl AST (13-39) U/L ALT (7-52) U/L Alkaline Phosphatase (34-104) U/L Troponin I High Sens (0-14) pg/ml Total Protein (6.0-8.3) gm/dl Albumin (3.4-5.0) gm/dl Globulin (2.5-4.0) gm/dl Albumin/Globulin Ratio (0.9-2) Procalcitonin (0-0.5) ng/ml TSH (0.300-4.500) uIu/ml Urine Color Urine Appearance (Clear) Urine pH (4.5-7.5) Ur Specific [place] (1.000-1.030) Urine Protein (Negative) Urine Glucose (UA) (Negative) Urine Ketones (Negative) Urine Blood (Negative) Urine Nitrite (Negative) Urine Bilirubin (Negative) Urine Urobilinogen (Negative) Ur Leukocyte Esterase (Negative) Urine WBC (Auto) (0-5) /hpf Urine RBC (Auto) (0-4) /hpf U Hyaline Cast (Auto) (0-5) /lpf U Epithel Cells (Auto) (0-5) /lpf Urine Bacteria (Auto) (Negative) SARS-CoV-2, RNA, NAAT (NEGATIVE) Diagnostic Findings ABDOMEN AND PELVIS CT WITHOUT CONTRAST CT DOSE: 939.33 mGy.cm HISTORY: abd pain, lower, hx of CA TECHNIQUE: Multiaxial CT images of the abdomen and pelvis were performed without contrast. A dose lowering technique was utilized adhering to the principles of ALARA. COMPARISON STUDY: PET CT 09/09/2022. Abdomen and pelvis CT 03/30/2021. FINDINGS: There is a right basilar pleural catheter is noted. Extensive pleural metastatic disease has progressed in the interval. Small bilateral pleural effusions are noted. This is decreased in size on the right. No pneumoperitoneum. No pneumatosis. Mild inferior endplate compression deformity at L1. This is likely subacute. Body wall edema again noted. Multiple hepatic metastases have progressed in the interval. Nodular contour to the liver consistent with cirrhosis. The unenhanced spleen is unremarkable. Calcifications within the pancreas persist consistent with a chronic pancreatitis. There are few punctate bilateral renal calculi. No hydronephrosis. Stable right renal cysts. Prior cholecystectomy. Retroperitoneal lymphadenopathy is again noted. A left adrenal gland metastasis has slightly decreased in size. Soft tissue nodule of the umbilicus remains unchanged. Peritoneal nodularity/implants has progressed. There is a small amount of ascites. This is also new compared the prior study. Right pelvic sidewall lymphadenopathy/soft tissue implant encasing the right iliac arteries has increased in size. The bladder is decompressed. This may account for the bladder wall thickening. The uterus is unremarkable. Colonic diverticulosis. Suboptimal evaluation for bowel pathology due to the lack of intravenous and oral contrast. However, there is no evidence for bowel obstruction. Normal appendix. Small focus of gas within the left side of the abdomen on image 212. This is indeterminate but could represent a normal jejunal diverticulum. A small focus of microperforation the setting of a jejunal diverticulitis is not excluded. Additional thickened loops of jejunum within the left side of the abdomen which could also be seen in the setting of a nonspecific enteritis or jejunal diverticulitis. IMPRESSION: 1. Interval progression of metastatic disease as described above. 2. Small amount of ascites is new from the prior study. This is likely due to the metastatic disease. 3. Decrease in size in the small right pleural effusion. A right basilar pleural catheter appears in good position. 4. Small focus of gas within the left side of the abdomen. This is indeterminate but could represent a normal jejunal diverticulum. A small focus of microperforation and the setting of a jejunal diverticulitis is not excluded. Additional thickened loops of jejunum within the left side of the abdomen which could also be seen in the setting of a nonspecific enteritis or jejunal diverticulitis. 5. A mild inferior endplate compression fracture at L1. This is likely subacute. 6. Additional findings as described above.
[2022-10-17] MEDS: NICOTINE 7 MG/24 HR TDSY TD SCH (17:11)
[2022-10-17] MEDS: metroNIDAZOLE 500 MG/100 ML BAG IV SCH (17:19)
[2022-10-17] MEDS ORDERED: Nursing to Pharmacy Communication SCH (20:00)
--- NOTE | 2022-10-17 21:36 | Electrocardiogram Report ---
Test Reason : Blood Pressure : / mmHG Vent. Rate : 098 BPM Atrial Rate : 098 BPM P-R Int : 162 ms QRS Dur : 074 ms QT Int : 366 ms P-R-T Axes : 009 -08 027 degrees QTc Int : 467 ms Normal sinus rhythm Septal infarct , age undetermined Abnormal ECG When compared with ECG of 27-SEP-2022 16:41, No significant change was found Confirmed by Raul Howard ([id number] on 10/17/2022 9:35:32 PM Referred By: REFERRED SELF Confirmed By:Raul Howard
[2022-10-17] MEDS ORDERED: CIPROFLOXACIN / D5W 400 MG/200 ML BAG IV SCH (22:00)
[2022-10-18] MEDS: INSULIN ASPART PER UNIT CHARGE SC SCH ×5 (00:19→21:01)
[2022-10-18] MEDS: metroNIDAZOLE 500 MG/100 ML BAG IV SCH ×3 (02:50→17:23)
[2022-10-18] MEDS: LACTATED RINGER'S 1,000 ML IV SCH ×3 (05:12→17:24)
[2022-10-18] MEDS: ALBUT/IPRATROP 3MG/0.5MG NEB 3 ML VIAL NEB SCH ×4 (07:00→20:25)
[2022-10-18 07:38] LABS: Basophils # (auto) 0.17 K/uL (0.00-0.20); Eosinophils # (auto) 0.01 K/uL (0.00-0.50); Eosinophils % (auto) 0.1 %; Hematocrit (blood only) 40.3 % (37.0-47.0); Hemoglobin 13.2 g/dl (12.0-16.0); Immature Granulocytes # (auto) 0.37 K/uL (0.01-0.20); Immature Granulocytes % (auto) 2.3 %; Lymphocytes # (auto) 0.37 K/uL (1.20-3.40); Lymphocytes % (auto) 2.3 %; Mean Corpuscular Hemoglobin 31.9 pg (25.0-34.0); Mean Corpuscular Hgb Conc 32.8 g/dL (32.0-36.0); Mean Corpuscular Volume 97.3 fL (80.0-100.0); Mean Platelet Volume 12.3 fL (9.4-12.4); Monocytes # (auto) 0.76 K/uL (0.11-0.59); Monocytes % (auto) 4.6 %; Neutrophils # (auto) 14.75 K/uL (1.40-6.50); Neutrophils % (auto) 89.7 %; Platelet Count 146 K/uL (130-400); RDW Coefficient of Variation 15.1 % (11.5-14.5); Red Blood Count 4.14 M/uL (4.20-5.40); White Blood Count 16.43 K/ul (4.8-10.8)
[2022-10-18 07:44] LABS: INR 1.2 (0.9-1.1); Prothrombin Time 12.9 Seconds (9.0-12.0)
[2022-10-18 07:56] LABS: Albumin Level 2.6 gm/dl (3.4-5.0); BUN Creatinine Ratio 32.4 (10-20); Calcium 9.3 mg/dl (8.6-10.3); Globulin 2.5 gm/dl (2.5-4.0); Magnesium 1.6 mg/dl (1.7-2.4); Potassium 4.5 mmol/L (3.5-5.1); Total Protein 5.1 gm/dl (6.0-8.3)
[2022-10-18] MEDS ORDERED: LORazepam 2 MG/1 ML VIAL IV PRN (08:07)
[2022-10-18] MEDS: NICOTINE 7 MG/24 HR TDSY TD SCH (08:10)
[2022-10-18] MEDS: LIDOCAINE 5% 1 PATCH TD SCH (08:10)
[2022-10-18] MEDS: MAGNESIUM SULFATE / D5W 1 GM/100 ML BAG IV SCH ×2 (08:21→09:52)
[2022-10-18] MEDS: UMECLIDINIUM BROMIDE 62.5MCG/BLISTER 7 PUFFS/INHALER INH SCH (10:48)
--- NOTE | 2022-10-18 11:03 | Surgery Progress Note ---
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 Appears to be improved slightly already with benign abdomen and less pain. Agree with bowel rest, IV antibiotics and IVF resuscitation. Poor overall prognosis and not a good surgical candidate so hopefully will resolve with conservative treatment. 10/18/2022 11:05 AM, Dr. Sommers F/U metastatic diseases. Diverticulitis of Jejunum possible micro-perforation. pt said she has no abdominal pain now. lactate 6.5. based on pt's H/P, labs and CT scan finding. Poor overall prognosis and not a go od surgical candidate. continue conservative treatment, continue iv antibiotic. may consult palliative care. pt and her understood, I answered all questions, repeat labs in morning. will F/U, Admission and Anticipated Discharge Date Admission Date: October 17, 2022 Supervising Physician Co-Signing Physician Notes I personally saw and examined the patient. I verified all gore points and agree with Jaspreet Morris PA-C with the following exceptions and/or additions: 87 year old female presents to the ER with O/E A/P Subjective 10/18/2022 10:[address] Sommers F/U metastatic diseases. Diverticulitis of Jejunum possible micro-perforation. pt said she feels better, no abdominal pain now. no fever. pt's at bedside. Physical Exam Constitutional: WD/WN, vitals as above Eyes: PERRL, conjunctivae normal, anicteric sclerae Neck: trachea midline, no thyromegaly Respiratory: normal respiratory effort, lungs clear to auscultation Cardiovascular: RRR, no murmur, no edema Gastrointestinal (Abdomen): soft. no significant tenderness or distend at abdomen. no rebound pain, BS +. Neurologic: patellar DTR's 2+ bilat, sensation intact Psychiatric: A+Ox3, euthymic affect Results & Data Vital Signs (Past 12 Hours) Vital Signs Temp Pulse Pulse Pulse Resp BP Pulse Ox 10/18/22 08:58 109 H 10/18/22 07:46 36.6 C 111 H 20 137/57 L 94 10/18/22 07:44 10/18/22 07:03 109 H 18 98 10/18/22 00:00 106 H 10/18/22 03:00 36.5 C 90 18 119/72 96 O2 Del Method O2 Flow Rate 10/18/22 08:58 10/18/22 07:46 Nasal Cannula 2 10/18/22 07:44 Nasal Cannula 2 10/18/22 07:03 Nasal Cannula 5 10/18/22 00:00 10/18/22 03:00 Nasal Cannula Laboratory Results Lab Results 10/17/22 10/17/22 10/17/22 Range/Units 07:24 07:24 07:24 WBC 11.76 H (4.8-10.8) K/ul RBC 4.41 (4.20-5.40) M/uL Hgb 14.1 (12.0-16.0) g/dl Hct 42.3 (37.0-47.0) % MCV 95.9 (80.0-100.0) fL MCH 32.0 (25.0-34.0) pg MCHC 33.3 (32.0-36.0) g/dL RDW Std Deviation 51.1 H (36.4-46.3) fL RDW Coeff of Ej 14.9 H (11.5-14.5) % Plt Count 150 (130-400) K/uL MPV 13.0 H (9.4-12.4) fL Immature Gran % (Auto) 3.1 % Neut % (Auto) 85.8 % Lymph % (Auto) 5.4 % [place] % (Auto) 4.3 % Eos % (Auto) 0.2 % Baso % (Auto) 1.2 % Neut # (Auto) 10.11 H (1.40-6.50) K/uL Lymph # (Auto) 0.63 L (1.20-3.40) K/uL [place] # (Auto) 0.50 (0.11-0.59) K/uL Eos # (Auto) 0.02 (0.00-0.50) K/uL Baso # (Auto) 0.14 (0.00-0.20) K/uL Immature Gran # (Auto) 0.36 H (0.01-0.20) K/uL PT (9.0-12.0) Seconds INR (0.9-1.1) Sodium 138 (136-145) mmol/L Potassium 4.5 (3.5-5.1) mmol/L Chloride 99 (98-107) mmol/L Carbon Dioxide 26 (21-32) mmol/L Anion Gap 13 H (3-11) BUN 44 H (6-23) mg/dl Creatinine 1.20 (0.6-1.2) mg/dl Est Cr Clr Drug Dosing 32.1 ml/min Est GFR ( Amer) 47.7 ml/min Est GFR (Non-Af Amer) 41.2 ml/min BUN/Creatinine Ratio 36.7 H (10-20) Glucose 119 H (70-99(Fasting)) mg/dl POC Glucose (70-99) mg/dl Lactate (0.4-2.0) mmol/L Calcium 9.7 (8.6-10.3) mg/dl Magnesium 1.6 L (1.7-2.4) mg/dl Total Bilirubin 1.2 H (0.2-1.0) mg/dl AST 35 (13-39) U/L ALT 14 (7-52) U/L Alkaline Phosphatase 166 H (34-104) U/L Troponin I High Sens 27.8 H (0-14) pg/ml Total Protein 5.6 L (6.0-8.3) gm/dl Albumin 2.8 L (3.4-5.0) gm/dl Globulin 2.8 (2.5-4.0) gm/dl Albumin/Globulin Ratio 1.0 (0.9-2) Procalcitonin (0-0.5) ng/ml TSH 3.038 (0.300-4.500) uIu/ml Urine Color Urine Appearance (Clear) Urine pH (4.5-7.5) Ur Specific [place] (1.000-1.030) Urine Protein (Negative) Urine Glucose (UA) (Negative) Urine Ketones (Negative) Urine Blood (Negative) Urine Nitrite (Negative) Urine Bilirubin (Negative) Urine Urobilinogen (Negative) Ur Leukocyte Esterase (Negative) Urine WBC (Auto) (0-5) /hpf Urine RBC (Auto) (0-4) /hpf U Hyaline Cast (Auto) (0-5) /lpf U Epithel Cells (Auto) (0-5) /lpf Urine Bacteria (Auto) (Negative) SARS-CoV-2, RNA, NAAT (NEGATIVE) 10/17/22 10/17/22 10/17/22 Range/Units 07:47 10:05 11:55 WBC (4.8-10.8) K/ul RBC (4.20-5.40) M/uL Hgb (12.0-16.0) g/dl Hct (37.0-47.0) % MCV (80.0-100.0) fL MCH (25.0-34.0) pg MCHC (32.0-36.0) g/dL RDW Std Deviation (36.4-46.3) fL RDW Coeff of Ej (11.5-14.5) % Plt Count (130-400) K/uL MPV (9.4-12.4) fL Immature Gran % (Auto) % Neut % (Auto) % Lymph % (Auto) % [place] % (Auto) % Eos % (Auto) % Baso % (Auto) % Neut # (Auto) (1.40-6.50) K/uL Lymph # (Auto) (1.20-3.40) K/uL [place] # (Auto) (0.11-0.59) K/uL Eos # (Auto) (0.00-0.50) K/uL Baso # (Auto) (0.00-0.20) K/uL Immature Gran # (Auto) (0.01-0.20) K/uL PT (9.0-12.0) Seconds INR (0.9-1.1) Sodium (136-145) mmol/L Potassium (3.5-5.1) mmol/L Chloride (98-107) mmol/L Carbon Dioxide (21-32) mmol/L Anion Gap (3-11) BUN (6-23) mg/dl Creatinine (0.6-1.2) mg/dl Est Cr Clr Drug Dosing ml/min Est GFR ( Amer) ml/min Est GFR (Non-Af Amer) ml/min BUN/Creatinine Ratio (10-20) Glucose (70-99(Fasting)) mg/dl POC Glucose 141 H (70-99) mg/dl Lactate 6.2 H* (0.4-2.0) mmol/L Calcium (8.6-10.3) mg/dl Magnesium (1.7-2.4) mg/dl Total Bilirubin (0.2-1.0) mg/dl AST (13-39) U/L ALT (7-52) U/L Alkaline Phosphatase (34-104) U/L Troponin I High Sens (0-14) pg/ml Total Protein (6.0-8.3) gm/dl Albumin (3.4-5.0) gm/dl Globulin (2.5-4.0) gm/dl Albumin/Globulin Ratio (0.9-2) Procalcitonin (0-0.5) ng/ml TSH (0.300-4.500) uIu/ml Urine Color Urine Appearance (Clear) Urine pH (4.5-7.5) Ur Specific [place] (1.000-1.030) Urine Protein (Negative) Urine Glucose (UA) (Negative) Urine Ketones (Negative) Urine Blood (Negative) Urine Nitrite (Negative) Urine Bilirubin (Negative) Urine Urobilinogen (Negative) Ur Leukocyte Esterase (Negative) Urine WBC (Auto) (0-5) /hpf Urine RBC (Auto) (0-4) /hpf U Hyaline Cast (Auto) (0-5) /lpf U Epithel Cells (Auto) (0-5) /lpf Urine Bacteria (Auto) (Negative) SARS-CoV-2, RNA, NAAT NEGATIVE (NEGATIVE) 10/17/22 10/17/22 10/17/22 Range/Units 12:07 12:07 12:07 WBC (4.8-10.8) K/ul RBC (4.20-5.40) M/uL Hgb (12.0-16.0) g/dl Hct (37.0-47.0) % MCV (80.0-100.0) fL MCH (25.0-34.0) pg MCHC (32.0-36.0) g/dL RDW Std Deviation (36.4-46.3) fL RDW Coeff of Ej (11.5-14.5) % Plt Count (130-400) K/uL MPV (9.4-12.4) fL Immature Gran % (Auto) % Neut % (Auto) % Lymph % (Auto) % [place] % (Auto) % Eos % (Auto) % Baso % (Auto) % Neut # (Auto) (1.40-6.50) K/uL Lymph # (Auto) (1.20-3.40) K/uL [place] # (Auto) (0.11-0.59) K/uL Eos # (Auto) (0.00-0.50) K/uL Baso # (Auto) (0.00-0.20) K/uL Immature Gran # (Auto) (0.01-0.20) K/uL PT (9.0-12.0) Seconds INR (0.9-1.1) Sodium (136-145) mmol/L Potassium (3.5-5.1) mmol/L Chloride (98-107) mmol/L Carbon Dioxide (21-32) mmol/L Anion Gap (3-11) BUN (6-23) mg/dl Creatinine (0.6-1.2) mg/dl Est Cr Clr Drug Dosing ml/min Est GFR ( Amer) ml/min Est GFR (Non-Af Amer) ml/min BUN/Creatinine Ratio (10-20) Glucose (70-99(Fasting)) mg/dl POC Glucose (70-99) mg/dl Lactate 5.3 H* (0.4-2.0) mmol/L Calcium (8.6-10.3) mg/dl Magnesium (1.7-2.4) mg/dl Total Bilirubin (0.2-1.0) mg/dl AST (13-39) U/L ALT (7-52) U/L Alkaline Phosphatase (34-104) U/L Troponin I High Sens 17.2 H D (0-14) pg/ml Total Protein (6.0-8.3) gm/dl Albumin (3.4-5.0) gm/dl Globulin (2.5-4.0) gm/dl Albumin/Globulin Ratio (0.9-2) Procalcitonin 0.38 (0-0.5) ng/ml TSH (0.300-4.500) uIu/ml Urine Color Urine Appearance (Clear) Urine pH (4.5-7.5) Ur Specific [place] (1.000-1.030) Urine Protein (Negative) Urine Glucose (UA) (Negative) Urine Ketones (Negative) Urine Blood (Negative) Urine Nitrite (Negative) Urine Bilirubin (Negative) Urine Urobilinogen (Negative) Ur Leukocyte Esterase (Negative) Urine WBC (Auto) (0-5) /hpf Urine RBC (Auto) (0-4) /hpf U Hyaline Cast (Auto) (0-5) /lpf U Epithel Cells (Auto) (0-5) /lpf Urine Bacteria (Auto) (Negative) SARS-CoV-2, RNA, NAAT (NEGATIVE) 10/17/22 10/17/22 10/17/22 Range/Units 14:12 15:30 16:25 WBC (4.8-10.8) K/ul RBC (4.20-5.40) M/uL Hgb (12.0-16.0) g/dl Hct (37.0-47.0) % MCV (80.0-100.0) fL MCH (25.0-34.0) pg MCHC (32.0-36.0) g/dL RDW Std Deviation (36.4-46.3) fL RDW Coeff of Ej (11.5-14.5) % Plt Count (130-400) K/uL MPV (9.4-12.4) fL Immature Gran % (Auto) % Neut % (Auto) % Lymph % (Auto) % [place] % (Auto) % Eos % (Auto) % Baso % (Auto) % Neut # (Auto) (1.40-6.50) K/uL Lymph # (Auto) (1.20-3.40) K/uL [place] # (Auto) (0.11-0.59) K/uL Eos # (Auto) (0.00-0.50) K/uL Baso # (Auto) (0.00-0.20) K/uL Immature Gran # (Auto) (0.01-0.20) K/uL PT (9.0-12.0) Seconds INR (0.9-1.1) Sodium (136-145) mmol/L Potassium (3.5-5.1) mmol/L Chloride (98-107) mmol/L Carbon Dioxide (21-32) mmol/L Anion Gap (3-11) BUN (6-23) mg/dl Creatinine (0.6-1.2) mg/dl Est Cr Clr Drug Dosing ml/min Est GFR ( Amer) ml/min Est GFR (Non-Af Amer) ml/min BUN/Creatinine Ratio (10-20) Glucose (70-99(Fasting)) mg/dl POC Glucose 108 H (70-99) mg/dl Lactate 4.9 H* (0.4-2.0) mmol/L Calcium (8.6-10.3) mg/dl Magnesium (1.7-2.4) mg/dl Total Bilirubin (0.2-1.0) mg/dl AST (13-39) U/L ALT (7-52) U/L Alkaline Phosphatase (34-104) U/L Troponin I High Sens (0-14) pg/ml Total Protein (6.0-8.3) gm/dl Albumin (3.4-5.0) gm/dl Globulin (2.5-4.0) gm/dl Albumin/Globulin Ratio (0.9-2) Procalcitonin (0-0.5) ng/ml TSH (0.300-4.500) uIu/ml Urine Color Dark Yellow Urine Appearance Cloudy A (Clear) Urine pH 5.0 (4.5-7.5) Ur Specific [place] 1.024 (1.000-1.030) Urine Protein 1+ H (Negative) Urine Glucose (UA) Negative (Negative) Urine Ketones Trace H (Negative) Urine Blood Negative (Negative) Urine Nitrite Negative (Negative) Urine Bilirubin 2+ H (Negative) Urine Urobilinogen Negative (Negative) Ur Leukocyte Esterase Negative (Negative) Urine WBC (Auto) 5-10 H (0-5) /hpf Urine RBC (Auto) 0-4 (0-4) /hpf U Hyaline Cast (Auto) >30 H (0-5) /lpf U Epithel Cells (Auto) >30 H (0-5) /lpf Urine Bacteria (Auto) 1+ H (Negative) SARS-CoV-2, RNA, NAAT (NEGATIVE) 10/17/22 10/18/22 10/18/22 Range/Units 16:45 00:09 06:15 WBC (4.8-10.8) K/ul RBC (4.20-5.40) M/uL Hgb (12.0-16.0) g/dl Hct (37.0-47.0) % MCV (80.0-100.0) fL MCH (25.0-34.0) pg MCHC (32.0-36.0) g/dL RDW Std Deviation (36.4-46.3) fL RDW Coeff of Ej (11.5-14.5) % Plt Count (130-400) K/uL MPV (9.4-12.4) fL Immature Gran % (Auto) % Neut % (Auto) % Lymph % (Auto) % [place] % (Auto) % Eos % (Auto) % Baso % (Auto) % Neut # (Auto) (1.40-6.50) K/uL Lymph # (Auto) (1.20-3.40) K/uL [place] # (Auto) (0.11-0.59) K/uL Eos # (Auto) (0.00-0.50) K/uL Baso # (Auto) (0.00-0.20) K/uL Immature Gran # (Auto) (0.01-0.20) K/uL PT (9.0-12.0) Seconds INR (0.9-1.1) Sodium (136-145) mmol/L Potassium (3.5-5.1) mmol/L Chloride (98-107) mmol/L Carbon Dioxide (21-32) mmol/L Anion Gap (3-11) BUN (6-23) mg/dl Creatinine (0.6-1.2) mg/dl Est Cr Clr Drug Dosing ml/min Est GFR ( Amer) ml/min Est GFR (Non-Af Amer) ml/min BUN/Creatinine Ratio (10-20) Glucose (70-99(Fasting)) mg/dl POC Glucose 128 H 129 H (70-99) mg/dl Lactate 5.1 H* (0.4-2.0) mmol/L Calcium (8.6-10.3) mg/dl Magnesium (1.7-2.4) mg/dl Total Bilirubin (0.2-1.0) mg/dl AST (13-39) U/L ALT (7-52) U/L Alkaline Phosphatase (34-104) U/L Troponin I High Sens (0-14) pg/ml Total Protein (6.0-8.3) gm/dl Albumin (3.4-5.0) gm/dl Globulin (2.5-4.0) gm/dl Albumin/Globulin Ratio (0.9-2) Procalcitonin (0-0.5) ng/ml TSH (0.300-4.500) uIu/ml Urine Color Urine Appearance (Clear) Urine pH (4.5-7.5) Ur Specific [place] (1.000-1.030) Urine Protein (Negative) Urine Glucose (UA) (Negative) Urine Ketones (Negative) Urine Blood (Negative) Urine Nitrite (Negative) Urine Bilirubin (Negative) Urine Urobilinogen (Negative) Ur Leukocyte Esterase (Negative) Urine WBC (Auto) (0-5) /hpf Urine RBC (Auto) (0-4) /hpf U Hyaline Cast (Auto) (0-5) /lpf U Epithel Cells (Auto) (0-5) /lpf Urine Bacteria (Auto) (Negative) SARS-CoV-2, RNA, NAAT (NEGATIVE) 10/18/22 10/18/22 10/18/22 Range/Units 07:07 07:07 07:07 WBC 16.43 H (4.8-10.8) K/ul RBC 4.14 L (4.20-5.40) M/uL Hgb 13.2 (12.0-16.0) g/dl Hct 40.3 (37.0-47.0) % MCV 97.3 (80.0-100.0) fL MCH 31.9 (25.0-34.0) pg MCHC 32.8 (32.0-36.0) g/dL RDW Std Deviation 52.0 H (36.4-46.3) fL RDW Coeff of Ej 15.1 H (11.5-14.5) % Plt Count 146 (130-400) K/uL MPV 12.3 (9.4-12.4) fL Immature Gran % (Auto) 2.3 % Neut % (Auto) 89.7 % Lymph % (Auto) 2.3 % [place] % (Auto) 4.6 % Eos % (Auto) 0.1 % Baso % (Auto) 1.0 % Neut # (Auto) 14.75 H (1.40-6.50) K/uL Lymph # (Auto) 0.37 L (1.20-3.40) K/uL [place] # (Auto) 0.76 H (0.11-0.59) K/uL Eos # (Auto) 0.01 (0.00-0.50) K/uL Baso # (Auto) 0.17 (0.00-0.20) K/uL Immature Gran # (Auto) 0.37 H (0.01-0.20) K/uL PT 12.9 H (9.0-12.0) Seconds INR 1.2 H (0.9-1.1) Sodium 138 (136-145) mmol/L Potassium 4.5 (3.5-5.1) mmol/L Chloride 101 (98-107) mmol/L Carbon Dioxide 21 (21-32) mmol/L Anion Gap 16 H (3-11) BUN 48 H (6-23) mg/dl Creatinine 1.48 H (0.6-1.2) mg/dl Est Cr Clr Drug Dosing 26.0 ml/min Est GFR ( Amer) 37.0 ml/min Est GFR (Non-Af Amer) 32.0 ml/min BUN/Creatinine Ratio 32.4 H (10-20) Glucose 133 H (70-99(Fasting)) mg/dl POC Glucose (70-99) mg/dl Lactate (0.4-2.0) mmol/L Calcium 9.3 (8.6-10.3) mg/dl Magnesium 1.6 L (1.7-2.4) mg/dl Total Bilirubin 1.0 (0.2-1.0) mg/dl AST 44 H (13-39) U/L ALT 19 (7-52) U/L Alkaline Phosphatase 139 H (34-104) U/L Troponin I High Sens (0-14) pg/ml Total Protein 5.1 L (6.0-8.3) gm/dl Albumin 2.6 L (3.4-5.0) gm/dl Globulin 2.5 (2.5-4.0) gm/dl Albumin/Globulin Ratio 1.0 (0.9-2) Procalcitonin (0-0.5) ng/ml TSH (0.300-4.500) uIu/ml Urine Color Urine Appearance (Clear) Urine pH (4.5-7.5) Ur Specific [place] (1.000-1.030) Urine Protein (Negative) Urine Glucose (UA) (Negative) Urine Ketones (Negative) Urine Blood (Negative) Urine Nitrite (Negative) Urine Bilirubin (Negative) Urine Urobilinogen (Negative) Ur Leukocyte Esterase (Negative) Urine WBC (Auto) (0-5) /hpf Urine RBC (Auto) (0-4) /hpf U Hyaline Cast (Auto) (0-5) /lpf U Epithel Cells (Auto) (0-5) /lpf Urine Bacteria (Auto) (Negative) SARS-CoV-2, RNA, NAAT (NEGATIVE) 10/18/22 10/18/22 Range/Units 07:07 07:11 WBC (4.8-10.8) K/ul RBC (4.20-5.40) M/uL Hgb (12.0-16.0) g/dl Hct (37.0-47.0) % MCV (80.0-100.0) fL MCH (25.0-34.0) pg MCHC (32.0-36.0) g/dL RDW Std Deviation (36.4-46.3) fL RDW Coeff of Ej (11.5-14.5) % Plt Count (130-400) K/uL MPV (9.4-12.4) fL Immature Gran % (Auto) % Neut % (Auto) % Lymph % (Auto) % [place] % (Auto) % Eos % (Auto) % Baso % (Auto) % Neut # (Auto) (1.40-6.50) K/uL Lymph # (Auto) (1.20-3.40) K/uL [place] # (Auto) (0.11-0.59) K/uL Eos # (Auto) (0.00-0.50) K/uL Baso # (Auto) (0.00-0.20) K/uL Immature Gran # (Auto) (0.01-0.20) K/uL PT (9.0-12.0) Seconds INR (0.9-1.1) Sodium (136-145) mmol/L Potassium (3.5-5.1) mmol/L Chloride (98-107) mmol/L Carbon Dioxide (21-32) mmol/L Anion Gap (3-11) BUN (6-23) mg/dl Creatinine (0.6-1.2) mg/dl Est Cr Clr Drug Dosing ml/min Est GFR ( Amer) ml/min Est GFR (Non-Af Amer) ml/min BUN/Creatinine Ratio (10-20) Glucose (70-99(Fasting)) mg/dl POC Glucose 137 H (70-99) mg/dl Lactate 6.5 H* (0.4-2.0) mmol/L Calcium (8.6-10.3) mg/dl Magnesium (1.7-2.4) mg/dl Total Bilirubin (0.2-1.0) mg/dl AST (13-39) U/L ALT (7-52) U/L Alkaline Phosphatase (34-104) U/L Troponin I High Sens (0-14) pg/ml Total Protein (6.0-8.3) gm/dl Albumin (3.4-5.0) gm/dl Globulin (2.5-4.0) gm/dl Albumin/Globulin Ratio (0.9-2) Procalcitonin (0-0.5) ng/ml TSH (0.300-4.500) uIu/ml Urine Color Urine Appearance (Clear) Urine pH (4.5-7.5) Ur Specific [place] (1.000-1.030) Urine Protein (Negative) Urine Glucose (UA) (Negative) Urine Ketones (Negative) Urine Blood (Negative) Urine Nitrite (Negative) Urine Bilirubin (Negative) Urine Urobilinogen (Negative) Ur Leukocyte Esterase (Negative) Urine WBC (Auto) (0-5) /hpf Urine RBC (Auto) (0-4) /hpf U Hyaline Cast (Auto) (0-5) /lpf U Epithel Cells (Auto) (0-5) /lpf Urine Bacteria (Auto) (Negative) SARS-CoV-2, RNA, NAAT (NEGATIVE) Diagnostic Findings ABDOMEN AND PELVIS CT WITHOUT CONTRAST CT DOSE: 939.33 mGy.cm HISTORY: abd pain, lower, hx of CA TECHNIQUE: Multiaxial CT images of the abdomen and pelvis were performed without contrast. A dose lowering technique was utilized adhering to the principles of ALARA. COMPARISON STUDY: PET CT 09/09/2022. Abdomen and pelvis CT 03/30/2021. FINDINGS: There is a right basilar pleural catheter is noted. Extensive pleural metastatic disease has progressed in the interval. Small bilateral pleural effusions are noted. This is decreased in size on the right. No pneumoperitoneum. No pneumatosis. Mild inferior endplate compression deformity at L1. This is likely subacute. Body wall edema again noted. Multiple hepatic metastases have progressed in the interval. Nodular contour to the liver consistent with cirrhosis. The unenhanced spleen is unremarkable. Calcifications within the pancreas persist consistent with a chronic pancreatitis. There are few punctate bilateral renal calculi. No hydronephrosis. Stable right renal cysts. Prior cholecystectomy. Retroperitoneal lymphadenopathy is again noted. A left adrenal gland metastasis has slightly decreased in size. Soft tissue nodule of the umbilicus remains unchanged. Peritoneal nodularity/implants has progressed. There is a small amount of ascites. This is also new compared the prior study. Right pelvic sidewall lymphadenopathy/soft tissue implant encasing the right iliac arteries has increased in size. The bladder is decompressed. This may account for the bladder wall thickening. The uterus is unremarkable. Colonic diverticulosis. Suboptimal evaluation for bowel pathology due to the lack of intravenous and oral contrast. However, there is no evidence for bowel obstruction. Normal appendix. Small focus of gas within the left side of the abdomen on image 212. This is indeterminate but could represent a normal jejunal diverticulum. A small focus of microperforation the setting of a jejunal diverticulitis is not excluded. Additional thickened loops of jejunum within the left side of the abdomen which could also be seen in the setting of a nonspecific enteritis or jejunal diverticulitis. IMPRESSION: 1. Interval progression of metastatic disease as described above. 2. Small amount of ascites is new from the prior study. This is likely due to the metastatic disease. 3. Decrease in size in the small right pleural effusion. A right basilar pleural catheter appears in good position. 4. Small focus of gas within the left side of the abdomen. This is indeterminate but could represent a normal jejunal diverticulum. A small focus of microperforation and the setting of a jejunal diverticulitis is not excluded. Additional thickened loops of jejunum within the left side of the abdomen which could also be seen in the setting of a nonspecific enteritis or jejunal diverticulitis. 5. A mild inferior endplate compression fracture at L1. This is likely subacute. 6. Additional findings as described above.
--- NOTE | 2022-10-18 11:46 | Hospitalist Progress Note ---
Date of Service October 18, 2022 Assessment & Plan (1) Sepsis: Plan: On admission with respirations of 24, HR of 104, and her acute gastrointestinal infection as the source. Also with WBC count now up to 16 - lactate of 6 and stable on multiple draws and more likely related to her metastatic cancer/lymphoma and not due to sepsis -BPs normal -continue IVFs while with poor po intake -Continue Ciprofloxacin and flagyl for diverticulitis -no need to continue to trend lactate -monitor on tele -follow BCxs-NGTD, Ur cx-pending (2) Diverticulitis of jejunum: Plan: -with possible microperforation. Pain improved and no nausea now with bowel rest and tx with Cipro and Flagyl -General Surgery consult placed -continue conservative management, no need for surgery now nad would be a poor surgical candidate given abdominal mets -adv diet to clear liquids today -Continue cipro and flagyl -continue maintenance IV fluids until taking po better -Morphine and IV tylenol for pain -add ZOfran as needed for nausea and IV Protonix given sterss and GI issues -follow CBC, BMP, magnesium (3) Elevated troponin: Plan: -Initial high sen trop elevated at 27 then trended downward to 17 -Asymptomatic, no acute ST segment or T-wave changes on ECG -Likely due to myocardial demand ischemia some sepsis (4) Hypertension: Plan: restart home atenolol for elevated BPs and for tachycardia both rebound sinus and PATs runs (5) Hypomagnesemia: Plan: -Noted to be 1.6 -Likely due to poor oral intake -was given 2 bags of 1gm IV mag sulfate and remains low today--give 2 more grams IV magnesium -Monitor daily mag level (6) COPD (chronic obstructive pulmonary disease): Plan: -Stable on 3L NC -Will continue with duoneb treatments -Prn O2 for SpO2 between 88-92% -Incentive spirometry, flutter therapy -add home lorazepam prn back (7) Malignant pleural effusion: Plan: -currently stable -Still with right sided pleurex cath in place -placed order to drain on Tue/, 400mL -Monitor with serial CXR as needed (8) Weakness generalized: Plan: -Likely multifactorial including active cancer, chemotherapy treatment, sepsis, and poor oral intake/dehydration -Infection treatment as above, IV fluids, palliative med consults PT/OT consults placed -consult Speech for possible aspiration noted by family (9) 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 -hold any further chemo right now (10) Elevated bilirubin: Plan: -Total bili elevated at 1.2 on admission and now normal -No acute findings on CT Plan DVT proph-add Lovenox given high risk for VTE with cancer, immobility, acute infection Dispo-continued stay on PCU Admission and Anticipated Discharge Date Admission Date: October 17, 2022 Subjective Pt hard of hearing and confused at times. and brother at bedside help with answering questions. Pt denies abdominal pain except for some mild pain when she sits up. Denies nausea and asks multiple times for a drink. Is passing stool and flatus, nonbloody. asks for something to help "keep her more comfortable." I offered pain medicine but she denies pain, really. When I offered her usual home ativan, they both agreed that was what she needed as she is feeling anxious. Pt and also inquire about the drainage of her PleurX catheter to be done on Tue/. Later in the day, the Patient Access Coordinator reached out and told me that the patient's family relayed to her that the pt often chokes on food and some drinks at home and has only been eating minimal amounts of toast for the last 2- [address], NSR, rates 90-100s, small burst of PAT Physical Exam Constitutional: WD/WN, vitals as above Neck: trachea midline, no thyromegaly Respiratory: normal respiratory effort; no cough Auscultation: + diminished lung sounds (at bases bilat); no crackles and no wheezes Cardiovascular: RRR, no murmur, no edema Chest (Breasts): Chest: normal inspection of chest Gastrointestinal (Abdomen): Inspection/Auscultation: normal bowel sounds; abdomen not distended Percussion/Palpation: abdomen soft; abdomen nontender and no guarding Musculoskeletal: Extremities: extremities normal to inspection; no cyanosis and no clubbing Skin: no rashes, warm and dry Neurologic: moves all extremities and awake; no focal motor deficits Psychiatric: Orientation: alert, oriented to person, oriented to place and cooperative; + not oriented to time Results & Data Results & Data Vital Signs (Past 12 Hours) Vital Signs Temp Pulse Pulse Pulse Resp BP Pulse Ox 10/18/22 11:43 36.6 C 104 H 20 138/61 92 10/18/22 08:58 109 H 10/18/22 07:46 36.6 C 111 H 20 137/57 L 94 10/18/22 07:44 10/18/22 07:03 109 H 18 98 10/18/22 00:00 106 H 10/18/22 03:00 36.5 C 90 18 119/72 96 O2 Del Method O2 Flow Rate 10/18/22 11:43 Room Air 10/18/22 08:58 10/18/22 07:46 Nasal Cannula 2 10/18/22 07:44 Nasal Cannula 2 10/18/22 07:03 Nasal Cannula 5 10/18/22 00:00 10/18/22 03:00 Nasal Cannula Laboratory Results CBC, CMP,Procal, TSH, lactate, troponin , UA, Blood and urine cultures all reviewed PG Care Time/CCT Total # of Minutes Spent Total Time Spent with Patient: Total time spent is greater than 50% in coordination of care (as documented) at patient's floor/unit and/or counseling patient: Coding Level of Care Code 64084 SUB INP/OBS CARE 3/50MIN Diagnoses Sepsis A41.9 Diverticulitis of jejunum K57.12 Elevated troponin R77.8 Hypertension I10 Hypomagnesemia E83.42 COPD (chronic obstructive pulmonary disease) J44.9 Malignant pleural effusion J91.0 Weakness generalized R53.1 Metastatic adenocarcinoma C79.9 Elevated bilirubin R17
[2022-10-18] MEDS: LORazepam 0.5 MG TAB PO PRN (12:25)
[2022-10-18] MEDS: ATENOLOL 25 MG TABLET PO SCH (12:32)
[2022-10-18] MEDS ORDERED: ONDANSETRON INJ 2 MG/ML 2 ML VIAL IV PRN (17:22)
[2022-10-18] MEDS: PANTOprazole 40 MG in SYRINGE 0 ML IV SCH (17:51)
[2022-10-18] MEDS ORDERED: Nursing to Pharmacy Communication SCH (21:00)
[2022-10-18] MEDS: CIPROFLOXACIN / D5W 400 MG/200 ML BAG IV SCH (21:45)
[2022-10-18] MEDS ORDERED: ENOXAPARIN INJ 30 MG/0.3 ML SYR SQ SCH (23:00)
[2022-10-19] MEDS: metroNIDAZOLE 500 MG/100 ML BAG IV SCH ×3 (02:11→18:08)
[2022-10-19] MEDS: LACTATED RINGER'S 1,000 ML IV SCH ×2 (04:54→18:08)
[2022-10-19] MEDS: ALBUT/IPRATROP 3MG/0.5MG NEB 3 ML VIAL NEB SCH ×4 (07:11→19:51)
[2022-10-19 07:14] LABS: Basophils # (auto) 0.11 K/uL (0.00-0.20); Eosinophils # (auto) 0.02 K/uL (0.00-0.50); Eosinophils % (auto) 0.2 %; Hematocrit (blood only) 36.1 % (37.0-47.0); Hemoglobin 12.1 g/dl (12.0-16.0); Immature Granulocytes % (auto) 2.7 %; Lymphocytes # (auto) 0.49 K/uL (1.20-3.40); Lymphocytes % (auto) 4.4 %; Mean Corpuscular Hemoglobin 31.8 pg (25.0-34.0); Mean Corpuscular Hgb Conc 33.5 g/dL (32.0-36.0); Mean Corpuscular Volume 94.8 fL (80.0-100.0); Mean Platelet Volume 12.6 fL (9.4-12.4); Monocytes # (auto) 0.74 K/uL (0.11-0.59); Monocytes % (auto) 6.6 %; Neutrophils # (auto) 9.59 K/uL (1.40-6.50); Neutrophils % (auto) 85.1 %; Platelet Count 158 K/uL (130-400); RDW Coefficient of Variation 15.2 % (11.5-14.5); RDW Standard Deviation 50.8 fL (36.4-46.3); Red Blood Count 3.81 M/uL (4.20-5.40); White Blood Count 11.25 K/ul (4.8-10.8)
[2022-10-19 07:25] LABS: Albumin Globulin Ratio 1.1 (0.9-2); Albumin Level 2.5 gm/dl (3.4-5.0); BUN Creatinine Ratio 31.4 (10-20); Bilirubin,Total 0.8 mg/dl (0.2-1.0); Calcium 9.1 mg/dl (8.6-10.3); Creatinine Clr Calc Pharmacy 22.4 ml/min; Est GFR (African American) 30.9 ml/min; Est GFR (Non-African American) 26.6 ml/min; Globulin 2.3 gm/dl (2.5-4.0); Magnesium 2.1 mg/dl (1.7-2.4); Potassium 4.4 mmol/L (3.5-5.1); Total Protein 4.8 gm/dl (6.0-8.3)
[2022-10-19] MEDS: ATENOLOL 25 MG TABLET PO SCH (08:47)
[2022-10-19] MEDS: LIDOCAINE 5% 1 PATCH TD SCH (08:48)
[2022-10-19] MEDS: UMECLIDINIUM BROMIDE 62.5MCG/BLISTER 7 PUFFS/INHALER INH SCH (08:50)
[2022-10-19] MEDS: NICOTINE 7 MG/24 HR TDSY TD SCH (08:52)
[2022-10-19] MEDS: INSULIN ASPART PER UNIT CHARGE SC SCH ×4 (08:54→20:23)
--- NOTE | 2022-10-19 09:53 | Palliative Care Consultation ---
Date of Consultation October 19, 2022 Assessment & Plan (1) Altered mental status: improving (2) Cancer related pain: (3) Generalized abdominal pain: (4) Palliative care by specialist: Met with pt/family. Provided overview of Palliative Medicine, a subspecialty that provides specialized medical care for people living with a serious illness by offering a focus on quality of life. Palliative Medicine is often conflated with hospice: I advised patient/family that Palliative and hospice can be partners but we are not the same. It is important to understand the difference so that we may be informed, and not afraid. Palliative Medicine works to improve QOL through reduction of symptom burden/more control over their illness, for both the patient and family. Palliative medicine clinicians are board certified, specially-trained and another member of the patient's medical care team. We often provide an extra layer of support because our care is based on the needs of the patient, not the prognosis; as such, it's appropriate at any age/advancing stage of a serious illness and can be provided along with curative treatment. Palliative Medicine clinicians are also trained in advanced communication methodologies, to facilitate complex discussions about advanced illness planning, which are needed to help assure that the treatment choices match the patient's goals, aka delivering Goal Concordant care. Finally, we discussed that hospice is a visiting nurse service that focuses on care delivered at the very end of life for patients with terminal illness, with life expectancy less than 6 month. (5) Advanced care planning/counseling discussion: A 75 min extensive face to face discussion for ACP was held first with pt and Kade then also with them and their daughter. it is noted pt and are LAC COURTE OREILLES and often needed information repeated. Additionally, pt would occasionally lose focus and need re-review of prior discussions. I shared my concern that her condition is overall worsening. Since clinic, she has had more decline I met with her and then all of them with dtr; I shared Dr Ballesteros's thoughts on chemo - he does not feel she is a candidate for further chemo and he felt comfort care/hospice would be more appropriate. I spoke with them re:options including SNF rehab vs home with VNS or hospice. We discussed the goals of hospice as a patient service and the goals of care; we discussed EOL trajectories and transitions martine the emotional impact of realizing mortality as a concrete reality from prior abstract considerations. Pt was reassured that no matter where they are along this trajectory, they are not alone - their medical team will remain by their side through their journey. Discussed the pros/cons of accepting help when especially weakened and distressed by pain-which would also help provide relief/decrease caregiver burden/strain. I provided education about the hospice benefit: an interdisciplinary program offered by nurses, nurses aides, social workers, chaplains and a medical research scientist for patients with a terminal condition and a life expectancy of less than 6 months. This is covered by Medicare at 100%/no out of pocket expense to patient and all meds/supplies needed by patient for the reason they are on hospice are paid for/covered by hospice. The goal is assure quality of life of the patient in their home setting (home, penitentiary, inpatient hospice setting) by providing symptoms management, psychosocial and spiritual support. However, they cannot offer 24 hours care and if the family is unable to provide that care, they will have to consider personal care with out of pocket cost vs. penitentiary placement. We discussed the goals of hospice as a patient service and the goals of care; we discussed EOL trajectories and transitions martine the emotional impact of realizing mortality as a concrete reality from prior abstract considerations. Pt was reassured that no matter where they are along this trajectory, they are not alone - their medical team will remain by their side through their journey. Discussed the pros/cons of accepting help when especially weakened and distressed by pain-which would also help provide relief/decrease caregiver burden/strain. Elva is not ready to face/deal with mortality, she admits she only wants to think about living forever. She was fine with the no more chemo but refocused on what else will we do for the other issues. Elva and Kade perceive earlier discussion with another team as very optimistic: "we got great news, everything's getting better, I'll be just fine." I revisited this and clarified the more global issue of her declining PS against backdrop of worsening cancer. She also finally admitted that Dr Ballesteros had shared his worry during a recent clinic visit "this cancer is changing, it seems to be getting more aggressive." Elva stated she cannot think about end of life. She is not ready to face it. She wants to live forever and states she wants every minute of life with Kade, her of 51 yr. We spoke about how sometimes avoiding something unpleasant usually means it makes us feel vulnerable. And confronting ones mortality can mean different things to different people and different things to the same person at various stages of life. I suggested that rather than making blanket statements about confronting this mortality, that we instead try to focus on specific /individual episodes, and allow this to be a window to self- exploration. We also spoke about different ways to cope with mortality, noting that kyle, which she identifies as important to her, may be a powerful ways to help us deal with facing our own mortality - this can provide comfort and solace as well as strategies for accepting the reality of . I reassured her that fear of is normal to an extent, but a fear of is characteristically more debilitating in people who are overwhelmed by it, and suffer from anxiety, depressive disorders, etc. I reassured her we would have ongoing discussions, a nd that there was no need for her to absorb allof this right now. Mortality salience takes time. She is not alone, we are all here to help support her and family. Plan * Palliative Prognostic Score (PaP) Score = 11.5 points --> Interpretation: 30- day survival probability <30% * Palliative Prognostic Index Score (PPI) = 11 points ( PPI is greater than 6.0, survival is less than three weeks) * Pt aware of cancer related prognosis and that further chemo is not an option a this time. Dtr very supportive. Notes she wants pt to enjoy the time she has and make the most of it at home. pt states "what matters most to me, no matter what else is happening, is going home to be with this tete." () * Will continue daily dialogue * TS 120 min Thank you for allowing us to participate in the ongoing care of this patient. Please don't hesitate to call or page with any additional concerns. Dr. Verito Wolf DNP Director, Palliative Care History of Present Illness Reason for Consultation: clinical decline on chemo, acute jejunitis Attending Physician: Nohemi Harrison MD History of Present Illness Elva is known to me from outpatient [facility] clinic. She is an 87yo female with B cell lymphoma and has been under the care of Dr Ballesteros/[facility]. Allergies Allergy/AdvReac Type Severity Reaction Status Date / Time cephalexin [From Keflex] Allergy Mild Aches,drows Verified 09/30/22 15:12 iness clarithromycin Allergy Mild Hives Verified 09/30/22 15:12 fluoxetine Allergy Mild Increased Verified 09/30/22 15:12 anxiety latex Allergy Mild RASH Verified 09/30/22 15:12 olmesartan [From Benicar] Allergy Mild Rash Verified 09/30/22 15:12 Penicillins Allergy Mild RASH Verified 09/30/22 15:12 doxycycline AdvReac Intermediate Gastrointestinal Verified 09/30/22 15:12 Upset tiotropium AdvReac Intermediate Anxiety Verified 09/30/22 15:12 [From Spiriva with HandiHaler] atorvastatin AdvReac Mild aches Verified 09/30/22 15:12 escitalopram [From Lexapro] AdvReac Mild Shakiness Verified 09/30/22 15:12 lisinopril AdvReac Mild Cough Verified 09/30/22 15:12 nefazodone [From Serzone] AdvReac Mild ankle Verified 09/30/22 15:12 swelling paroxetine AdvReac Mild Bad Verified 09/30/22 15:12 dreams, low energy Home Medications Medication Instructions Recorded Confirmed Type lorazepam 0.5 mg tablet (Ativan) 0.5 mg PO TID PRN Anxiety 12/27/18 10/17/22 History magnesium chloride 64 mg 64 mg PO BID 12/27/18 10/17/22 History (magnesium chloride) tablet,delayed release cholecalciferol (vitamin D3) 50 2,000 unit PO QDL 11/19/20 10/17/22 History mcg (2,000 unit) capsule blood sugar diagnostic (OneTouch 01/06/21 09/27/22 History Ultra Test strips) amlodipine 10 mg tablet 10 mg PO QAM 03/28/21 10/17/22 History potassium chloride 10 mEq 20 meq PO QAM 03/28/21 10/17/22 History tablet,extended release(part/cryst) sitagliptin phosphate 100 mg 100 mg PO DAILY 03/28/21 10/17/22 History tablet (Januvia) Flutter Valve #1 ea 05/20/21 09/27/22 Rx albuterol sulfate 90 mcg/actuation 2 puff inhalation Q6H PRN 05/20/21 10/17/22 Rx aerosol inhaler Shortness Of Breath Or Wheezing #18 grams umeclidinium 62.5 mcg/actuation 1 inh inhalation DAILY #30 ea 04/23/22 10/17/22 Rx blister powder for inhalation (Incruse Ellipta) acyclovir 400 mg tablet 400 mg PO AMHS 09/17/22 10/17/22 History atenolol 25 mg tablet 25 mg PO QAM 09/17/22 10/17/22 History cyanocobalamin (vitamin B-12) 1,000 mcg PO DAILY 09/17/22 10/17/22 History 1,000 mcg tablet (Vitamin B-12) dnitlobz-ori-fgydha 5 mg-zeaxanth 1 cap PO DAILY 09/17/22 10/17/22 History 1 mg-bilberry 7.5 mg-herbal capsule (Macular Health Formula) omeprazole 20 mg capsule,delayed 20 mg PO DAILY PRN Acid Reflux 09/17/22 10/17/22 History release lidocaine 5 % topical patch 1 patch topical DAILY #15 ea 09/20/22 10/17/22 Rx nicotine 7 mg/24 hr daily 1 patch transdermal DAILY 09/27/22 10/17/22 History transdermal patch tramadol 50 mg tablet 50 mg PO Q8H PRN pain #30 tabs 10/07/22 10/17/22 Rx Patient History Medical History (Updated 10/19/22 @ 10:49 by Verito Wolf DNP) Acute respiratory failure with hypoxia Anxiety B-cell lymphoma Breast cancer, left breast 2001--SX AND RADIATION, NO CHEMO Cancer related pain Chronic back pain Chronic ITP (idiopathic thrombocytopenia) COPD (chronic obstructive pulmonary disease) Current smoker Depression with anxiety Elevated bilirubin per pt reason for scheduled EGD Hearing deficit BILT Hypertension Hyponatremia Metastatic cancer Obesity Osteomyelitis of fifth toe of left foot Palliative care by specialist Pleuritic chest pain Spinal stenosis Statin myopathy Tobacco abuse disorder Type 2 diabetes mellitus, controlled Weakness generalized Surgical History Difficult airway for intubation SMALL AIRWAY H/O left breast biopsy History of angioplasty (~01/29/19) stenting of bilateral common iliac artery by Dr. Allred History of bilateral tubal ligation History of cholecystectomy History of dilatation and curettage History of tooth extraction WISDOM TEETH Hx of lumpectomy 2001--L BREAST CANCER Status post epidural steroid injection Family History Daughter Family history of reaction to anesthesia NAUSEA/VOMITING Social History Smoking Status: Former smoker Tobacco Type: Cigarettes Age Started Using Tobacco: 32; packs per day: 1; Cigarettes Per Day: 1-2 ppd - quit smoking 'couple weeks ago' smoked for 50 years; Second Hand Exposure: No; Do You Dip or Chew Tobacco: No; Hx Alcohol Use: No Hx Substance Use: No Preferred Language: Ukrainian Communication Ability: Effective Interior Assemblies Installer Required: No Beliefs That Will Affect Care: None Current Living Situation: Spouse Current Living Situation Comment: lives with [facility] Home health services 2x/wk Feels Safe at Home: Yes Safety Concerns: Feels Safe At This Time Assistive Devices: Cane and Oxygen - Continuous Review of Systems 2 Review of Systems: All systems reviewed & are unremarkable except as noted in Subjective and Unobtainable due to cognitive status (mild to moderate intermittent confusion) Physical Exam Physical Exam: For Oncology Patients: Patient's Palliative Prognostic Score (PaP) Score = 11.5 points --> Interpretation: 30-day survival probability <30% (0 - 5.5: 30-day survival probability >70% / 5.6 - 11.0: 30-day survival probability 30-70% / 11.1 - 17.5: 30-day survival probability <30%); Access calculator here: [email or web address] Patient's Palliative Prognostic Index Score (PPI) = 11 points (Note: If the PPI is greater than 6.0, survival is less than three weeks (Sensitivity - 80%; Specificity - 85%). Access calculator here: [email or web address] Results & Data Vital Signs (Past 12 Hours) Vital Signs Temp Pulse Pulse Resp BP Pulse Ox O2 Del Method 10/19/22 08:00 85 10/19/22 07:36 36.6 C 84 15 116/70 95 Nasal Cannula 10/19/22 07:12 84 18 95 Nasal Cannula 10/19/22 03:26 36.6 C 83 18 114/65 97 Nasal Cannula 10/19/22 00:00 95 H 08/28/23 22:58 36.4 C L 95 H 18 102/54 L 94 Nasal Cannula O2 Flow Rate 10/19/22 08:00 10/19/22 07:36 2 10/19/22 07:12 2 10/19/22 03:26 2.0 10/19/22 00:00 10/18/22 22:58 2 PG Care Time/CCT Total # of Minutes Spent Total Time Spent: 120 Total Time Spent with Patient: Total time spent is greater than 50% in coordination of care (as documented) at patient's floor/unit and/or counseling patient: I spent 120 minutes overall addressing this complex case: 15 in medical data review/discussion with referring provider(s) and/or preparation for the visit incl Socitive EMR link and discussion with [facility] oncology 15 in direct interaction with the patient 75 Advance Care Planning/Goals of Care discussions as detailed above in note (must be >16min) 5 in subsequent review and synthesis of assessment and plan 10 in communicating with other providers regarding the patient's case: primary team and nursing Prolonged Care Time Prolonged Care Time: Yes Advanced Care Planning 59609 Advanced Care Planning 30 Min 19212 Advanced Care Planning Additional 30 [place] [address] IN/OBS CONSULT LVL 5,80M Patient Type New History Comprehensive Exam Comprehensive Medical Decision Making High Complexity Diagnoses Altered mental status R41.82 Cancer related pain G89.3 Generalized abdominal pain R10.84 Palliative care by specialist Z51.5 Advanced care planning/counseling discussion Z71.89 Additional Codes Advanced Care Planning - 49409 Advanced Care Planning 30 Min: 74139 Advanced Care Planning 30 Min ([id number]) Advanced Care Planning - 28846 Advanced Care Planning Additional 30 Min: 75684 Advanced Care Planning Additional 30 Min ([id number]) Prolonged Care Time - Prolonged Care Time: Yes ([id number])
[2022-10-19] MEDS: PANTOprazole 40 MG in SYRINGE 0 ML IV SCH (10:50)
--- NOTE | 2022-10-19 11:06 | Surgery Progress Note ---
Date of Service October 19, 2022 Assessment & Plan (1) Diverticulitis of jejunum: Plan: Possible microperforation In setting of progressive metastatic cancer with worsening intra-abdominal metastases. 10/19/2022 afebrile, vss leukocytosis improved today to 11k lactic acid still elevated but likely secondary to the metastatic disease benign abdominal exam Plan: No acute surgical intervention required, poor surgical candidate and would recommend continuatio of conservative management okay for clear liquids, speech eval today palliative care consult pending Continue IV abx continue medical management Dr. Sommers has seen patient and agrees with above. Admission and Anticipated Discharge Date Admission Date: October 17, 2022 Subjective feeling okay today no abdominal pain no nausea or vomiting family/friends at bedside states she is not taking in very much clear liquids, has been having issues with choking at home. Has not ate any solids for at least a week speech eval today palliative to see today Physical Exam Constitutional: WD/WN, vitals as above cooperative and comfortable; no acute distress and not ill appearing Respiratory: normal respiratory effort and + cough; no respiratory distress, no labored breathing and no retractions oxygen via nasal cannula Gastrointestinal (Abdomen): Inspection/Auscultation: abdomen normal to inspection; abdomen not distended Percussion/Palpation: abdomen soft; abdomen nontender, no guarding, abdomen not rigid and abdomen not firm Skin: no rashes, warm and dry Psychiatric: Orientation: alert, oriented to person and oriented to place Results & Data Vital Signs (Past 12 Hours) Vital Signs Temp Pulse Pulse Resp BP Pulse Ox O2 Del Method 10/19/22 08:30 Nasal Cannula 10/19/22 08:00 85 10/19/22 07:36 36.6 C 84 15 116/70 95 Nasal Cannula 10/19/22 07:12 84 18 95 Nasal Cannula 10/19/22 03:26 36.6 C 83 18 114/65 97 Nasal Cannula 10/19/22 00:00 95 H O2 Flow Rate 10/19/22 08:30 2 10/19/22 08:00 10/19/22 07:36 2 10/19/22 07:12 2 10/19/22 03:26 2.0 10/19/22 00:00 Laboratory Results 10/19/22 10/19/22 10/19/22 Range/Units 11:00 07:29 06:20 WBC (4.8-10.8) K/ul RBC (4.20-5.40) M/uL Hgb (12.0-16.0) g/dl Hct (37.0-47.0) % MCV (80.0-100.0) fL MCH (25.0-34.0) pg MCHC (32.0-36.0) g/dL RDW Std Deviation (36.4-46.3) fL RDW Coeff of Ej (11.5-14.5) % Plt Count (130-400) K/uL MPV (9.4-12.4) fL Immature Gran % (Auto) % Neut % (Auto) % Lymph % (Auto) % [place] % (Auto) % Eos % (Auto) % Baso % (Auto) % Neut # (Auto) (1.40-6.50) K/uL Lymph # (Auto) (1.20-3.40) K/uL [place] # (Auto) (0.11-0.59) K/uL Eos # (Auto) (0.00-0.50) K/uL Baso # (Auto) (0.00-0.20) K/uL Immature Gran # (Auto) (0.01-0.20) K/uL Sodium 137 (136-145) mmol/L Potassium 4.4 (3.5-5.1) mmol/L Chloride 101 (98-107) mmol/L Carbon Dioxide 23 (21-32) mmol/L Anion Gap 13 H (3-11) BUN 54 H (6-23) mg/dl Creatinine 1.72 H (0.6-1.2) mg/dl Est Cr Clr Drug Dosing 22.4 ml/min Est GFR ( Amer) 30.9 ml/min Est GFR (Non-Af Amer) 26.6 ml/min BUN/Creatinine Ratio 31.4 H (10-20) Glucose 106 H (70-99(Fasting)) mg/dl POC Glucose 109 H 110 H (70-99) mg/dl Lactate (0.4-2.0) mmol/L Calcium 9.1 (8.6-10.3) mg/dl Magnesium 2.1 (1.7-2.4) mg/dl Total Bilirubin 0.8 (0.2-1.0) mg/dl AST 64 H (13-39) U/L ALT 24 (7-52) U/L Alkaline Phosphatase 120 H (34-104) U/L Total Protein 4.8 L (6.0-8.3) gm/dl Albumin 2.5 L (3.4-5.0) gm/dl Globulin 2.3 L (2.5-4.0) gm/dl Albumin/Globulin Ratio 1.1 (0.9-2) 10/19/22 10/18/22 10/18/22 Range/Units 06:20 20:38 16:32 WBC 11.25 H (4.8-10.8) K/ul RBC 3.81 L (4.20-5.40) M/uL Hgb 12.1 (12.0-16.0) g/dl Hct 36.1 L (37.0-47.0) % MCV 94.8 (80.0-100.0) fL MCH 31.8 (25.0-34.0) pg MCHC 33.5 (32.0-36.0) g/dL RDW Std Deviation 50.8 H (36.4-46.3) fL RDW Coeff of Ej 15.2 H (11.5-14.5) % Plt Count 158 (130-400) K/uL MPV 12.6 H (9.4-12.4) fL Immature Gran % (Auto) 2.7 % Neut % (Auto) 85.1 % Lymph % (Auto) 4.4 % [place] % (Auto) 6.6 % Eos % (Auto) 0.2 % Baso % (Auto) 1.0 % Neut # (Auto) 9.59 H (1.40-6.50) K/uL Lymph # (Auto) 0.49 L (1.20-3.40) K/uL [place] # (Auto) 0.74 H (0.11-0.59) K/uL Eos # (Auto) 0.02 (0.00-0.50) K/uL Baso # (Auto) 0.11 (0.00-0.20) K/uL Immature Gran # (Auto) 0.30 H (0.01-0.20) K/uL Sodium (136-145) mmol/L Potassium (3.5-5.1) mmol/L Chloride (98-107) mmol/L Carbon Dioxide (21-32) mmol/L Anion Gap (3-11) BUN (6-23) mg/dl Creatinine (0.6-1.2) mg/dl Est Cr Clr Drug Dosing ml/min Est GFR ( Amer) ml/min Est GFR (Non-Af Amer) ml/min BUN/Creatinine Ratio (10-20) Glucose (70-99(Fasting)) mg/dl POC Glucose 121 H 127 H (70-99) mg/dl Lactate (0.4-2.0) mmol/L Calcium (8.6-10.3) mg/dl Magnesium (1.7-2.4) mg/dl Total Bilirubin (0.2-1.0) mg/dl AST (13-39) U/L ALT (7-52) U/L Alkaline Phosphatase (34-104) U/L Total Protein (6.0-8.3) gm/dl Albumin (3.4-5.0) gm/dl Globulin (2.5-4.0) gm/dl Albumin/Globulin Ratio (0.9-2) 10/18/22 10/18/22 Range/Units 11:13 10:21 WBC (4.8-10.8) K/ul RBC (4.20-5.40) M/uL Hgb (12.0-16.0) g/dl Hct (37.0-47.0) % MCV (80.0-100.0) fL MCH (25.0-34.0) pg MCHC (32.0-36.0) g/dL RDW Std Deviation (36.4-46.3) fL RDW Coeff of Ej (11.5-14.5) % Plt Count (130-400) K/uL MPV (9.4-12.4) fL Immature Gran % (Auto) % Neut % (Auto) % Lymph % (Auto) % [place] % (Auto) % Eos % (Auto) % Baso % (Auto) % Neut # (Auto) (1.40-6.50) K/uL Lymph # (Auto) (1.20-3.40) K/uL [place] # (Auto) (0.11-0.59) K/uL Eos # (Auto) (0.00-0.50) K/uL Baso # (Auto) (0.00-0.20) K/uL Immature Gran # (Auto) (0.01-0.20) K/uL Sodium (136-145) mmol/L Potassium (3.5-5.1) mmol/L Chloride (98-107) mmol/L Carbon Dioxide (21-32) mmol/L Anion Gap (3-11) BUN (6-23) mg/dl Creatinine (0.6-1.2) mg/dl Est Cr Clr Drug Dosing ml/min Est GFR ( Amer) ml/min Est GFR (Non-Af Amer) ml/min BUN/Creatinine Ratio (10-20) Glucose (70-99(Fasting)) mg/dl POC Glucose 148 H (70-99) mg/dl Lactate 6.8 H* (0.4-2.0) mmol/L Calcium (8.6-10.3) mg/dl Magnesium (1.7-2.4) mg/dl Total Bilirubin (0.2-1.0) mg/dl AST (13-39) U/L ALT (7-52) U/L Alkaline Phosphatase (34-104) U/L Total Protein (6.0-8.3) gm/dl Albumin (3.4-5.0) gm/dl Globulin (2.5-4.0) gm/dl Albumin/Globulin Ratio (0.9-2)
--- NOTE | 2022-10-19 18:27 | Hospitalist Progress Note ---
Date of Service October 19, 2022 Assessment & Plan (1) Sepsis: Plan: On admission with respirations of 24, HR of 104, and her acute gastrointestinal infection as the source. Also with WBC count up to 16And now improving - lactate of 6 and stable on multiple draws and more likely related to her metastatic cancer/lymphoma and not due to sepsis -BPs normal -continue IVFs due to acute kidney injury -Continue Ciprofloxacin and flagyl for diverticulitis x10-day course -no need to continue to trend lactate -monitor on tele -follow BCxs-NGTD, Ur cx-mixed aria Sepsis resolved (2) Diverticulitis of jejunum: Plan: -with possible microperforation. Pain Now resolved and no nausea now with bowel rest and tx with Cipro and Flagyl -General Surgery consult placed -continue conservative management, no need for surgery now and would be a poor surgical candidate given abdominal mets -adv diet to low fiber for tomorrow morning -Continue cipro and flagyl x10-day course -continue maintenance IV fluids until taking po better and acute kidney injury resolves -Morphine and IV tylenol for pain-not taking -Continue ZOfran as needed for nausea and IV Protonix given stress and GI issues -follow CBC, BMP, magnesium (3) Elevated troponin: Plan: -Initial high sen trop elevated at 27 then trended downward to 17 -Asymptomatic, no acute ST segment or T-wave changes on ECG -Likely due to myocardial demand ischemia some sepsis (4) Hypertension: Plan: Continue atenolol (5) Hypomagnesemia: Plan: -now resolved with replacement (6) COPD (chronic obstructive pulmonary disease): Plan: -Stable on 2-3L NC-she is on this at home -Will continue with duoneb treatments -Prn O2 for SpO2 between 88-92% -Incentive spirometry, flutter therapy -Continue home lorazepam prn anxiety (7) Malignant pleural effusion: Plan: -currently stable -Still with right sided pleurex cath in place -placed order to drain on Tue/, 400mL -Monitor with serial CXR as needed (8) Weakness generalized: Plan: -Likely multifactorial including active cancer, chemotherapy treatment, sepsis, and poor oral intake/dehydration -Infection treatment as above, IV fluids, palliative med consults PT/OT consults placed -consult Speech for possible aspiration noted by family- Okay for easy to chew diet (9) 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 -Palliative medicine consult appreciated-her oncologist is recommending no further chemotherapy and approach to hospice Long discussion was had with patient and her family today and they are considering hospice (10) Elevated bilirubin: Plan: -Total bili elevated at 1.2 on admission and now normal -No acute findings on CT (11) THOMAS (acute kidney injury): Plan: Creatinine rises to 1.7, BUN elevated Continue IV fluids and increase rate to 125 MLS per hour of LR No obstruction on imaging of abdomen/pelvis on admission Follow BMP Plan DVT proph- change to heparin due to worsening renal function Dispo-continued stay on PCU, PT/OT consulted to see if needs SNF versus home Admission and Anticipated Discharge Date Admission Date: October 17, 2022 Subjective Patient reports no abdominal pain at all, no nausea. She moved her bowels. Her PVR was 125 mL as per nursing but her renal function continues to worsen. She is having incontinence into briefs. Had a long discussion with palliative medicine as well as a palliative d iscussion with the patient and her daughter and at the bedside. We discussed what it means to go on hospice and to pursue comfort measures. She is hungry for regular food. She is much less confused today and significantly improved mentation. Physical Exam Constitutional: WD/WN, vitals as above Neck: trachea midline, no thyromegaly Respiratory: normal respiratory effort; no cough Auscultation: + diminished lung sounds (at bases bilat); no crackles and no wheezes Cardiovascular: RRR, no murmur, no edema Chest (Breasts): Chest: normal inspection of chest Gastrointestinal (Abdomen): Inspection/Auscultation: normal bowel sounds; abdomen not distended Percussion/Palpation: abdomen soft; abdomen nontender and no guarding Musculoskeletal: Extremities: extremities normal to inspection; no cyanosis and no clubbing Skin: no rashes, warm and dry Neurologic: moves all extremities and awake; no focal motor deficits Psychiatric: Orientation: alert, oriented x 3 and cooperative Results & Data Results & Data Vital Signs (Past 12 Hours) Vital Signs Temp Pulse Pulse Resp BP Pulse Ox O2 Del Method 10/19/22 16:12 36.6 C 94 H 17 100/52 L 94 Nasal Cannula 10/19/22 15:43 94 H 10/19/22 15:18 78 18 96 Nasal Cannula 10/19/22 11:31 95 H 18 91 Nasal Cannula 10/19/22 11:10 36.8 C 91 H 15 100/47 L 94 Room Air 10/19/22 08:30 Nasal Cannula 10/19/22 08:00 85 10/19/22 07:36 36.6 C 84 15 116/70 95 Nasal Cannula 10/19/22 07:12 84 18 95 Nasal Cannula O2 Flow Rate 10/19/22 16:12 2.0 10/19/22 15:43 10/19/22 15:18 2 10/19/22 11:31 2 10/19/22 11:10 10/19/22 08:30 2 10/19/22 08:00 10/19/22 07:36 2 10/19/22 07:12 2 Laboratory Results CBC, BMP reviewed PG Care Time/CCT Total # of Minutes Spent Total Time Spent with Patient: Total time spent is greater than 50% in coordination of care (as documented) at patient's floor/unit and/or counseling patient: Coding Level of Care Code 67805 SUB INP/OBS CARE 3/50MIN Diagnoses Sepsis A41.9 Diverticulitis of jejunum K57.12 Elevated troponin R77.8 Hypertension I10 Hypomagnesemia E83.42 COPD (chronic obstructive pulmonary disease) J44.9 Malignant pleural effusion J91.0 Weakness generalized R53.1 Metastatic adenocarcinoma C79.9 Elevated bilirubin R17 THOMAS (acute kidney injury) N17.9
[2022-10-19] MEDS: CIPROFLOXACIN / D5W 400 MG/200 ML BAG IV SCH (23:05)
[2022-10-19] MEDS: HEPARIN SOD 5,000 UNIT/0.5 ML VIAL SQ SCH (23:05)
[2022-10-19] MEDS: LORazepam 0.5 MG TAB PO PRN (23:14)
[2022-10-20] MEDS: metroNIDAZOLE 500 MG/100 ML BAG IV SCH ×3 (02:13→17:39)
[2022-10-20] MEDS: ALBUT/IPRATROP 3MG/0.5MG NEB 3 ML VIAL NEB SCH ×4 (07:33→19:57)
[2022-10-20 08:06] LABS: Basophils # (auto) 0.14 K/uL (0.00-0.20); Basophils % (auto) 1.4 %; Eosinophils # (auto) 0.01 K/uL (0.00-0.50); Eosinophils % (auto) 0.1 %; Hematocrit (blood only) 37.5 % (37.0-47.0); Hemoglobin 12.6 g/dl (12.0-16.0); Immature Granulocytes # (auto) 0.31 K/uL (0.01-0.20); Immature Granulocytes % (auto) 3.2 %; Lymphocytes # (auto) 0.47 K/uL (1.20-3.40); Lymphocytes % (auto) 4.8 %; Mean Corpuscular Hemoglobin 31.7 pg (25.0-34.0); Mean Corpuscular Hgb Conc 33.6 g/dL (32.0-36.0); Mean Corpuscular Volume 94.2 fL (80.0-100.0); Mean Platelet Volume 11.9 fL (9.4-12.4); Monocytes # (auto) 0.64 K/uL (0.11-0.59); Monocytes % (auto) 6.5 %; Neutrophils # (auto) 8.27 K/uL (1.40-6.50); Platelet Count 171 K/uL (130-400); RDW Coefficient of Variation 15.8 % (11.5-14.5); RDW Standard Deviation 51.5 fL (36.4-46.3); Red Blood Count 3.98 M/uL (4.20-5.40); White Blood Count 9.84 K/ul (4.8-10.8)
[2022-10-20 08:29] LABS: Albumin Level 2.5 gm/dl (3.4-5.0); Bilirubin,Total 0.9 mg/dl (0.2-1.0); Calcium 9.2 mg/dl (8.6-10.3); Creatinine Clr Calc Pharmacy 19.8 ml/min; Est GFR (African American) 26.7 ml/min; Globulin 2.4 gm/dl (2.5-4.0); Potassium 4.3 mmol/L (3.5-5.1); Total Protein 4.9 gm/dl (6.0-8.3)
[2022-10-20] MEDS: ATENOLOL 25 MG TABLET PO SCH (08:46)
[2022-10-20] MEDS: LIDOCAINE 5% 1 PATCH TD SCH (08:47)
[2022-10-20] MEDS: UMECLIDINIUM BROMIDE 62.5MCG/BLISTER 7 PUFFS/INHALER INH SCH (08:47)
[2022-10-20] MEDS: HEPARIN SOD 5,000 UNIT/0.5 ML VIAL SQ SCH ×2 (08:47→19:54)
[2022-10-20] MEDS: NICOTINE 7 MG/24 HR TDSY TD SCH (08:47)
[2022-10-20] MEDS: INSULIN ASPART PER UNIT CHARGE SC SCH ×4 (08:48→21:40)
[2022-10-20] MEDS: PANTOprazole 40 MG in SYRINGE 0 ML IV SCH (10:05)
[2022-10-20] MEDS: LACTATED RINGER'S 1,000 ML IV SCH ×4 (10:06→17:42)
--- NOTE | 2022-10-20 11:39 | Surgery Progress Note ---
Date of Service October 20, 2022 Assessment & Plan (1) Diverticulitis of jejunum: Plan: Possible microperforation In setting of progressive metastatic cancer with worsening intra-abdominal metastases. 10/20/2022 afebrile, vss leukocytosis resolved abdomen is soft, mildly tender in epigastrium on deep palpation Plan: No acute surgical intervention required, poor surgical candidate and would recommend continuation of conservative management cleared from speech eval, low fiber diet later today palliative care on board Continue IV abx Continue PT/OT Recommend boost/breeze BID, manager of training consult continue medical management Dr. Sommers has seen patient and agrees with above. Admission and Anticipated Discharge Date Admission Date: October 17, 2022 Subjective had slight twinge of right sided abdominal pain with orange juice this morning but did not persist no nausea or vomiting passing gas and having bowel movements no fevers or chills feels weak and has no strength Physical Exam Constitutional: WD/WN, vitals as above cooperative and comfortable; no acute distress and not ill appearing Respiratory: normal respiratory effort; no respiratory distress, no labored breathing and no retractions oxygen via nasal cannula Gastrointestinal (Abdomen): Inspection/Auscultation: abdomen normal to inspection; abdomen not distended and + abnormal bowel sounds Percussion/Palpation: + abdomen tender (mid epigastric region on deep palpation) and abdomen soft; no guarding, abdomen not rigid and abdomen not firm Skin: no rashes, warm and dry no jaundice Psychiatric: Orientation: alert and oriented x 3 Results & Data Vital Signs (Past 12 Hours) Vital Signs Temp Pulse Pulse Resp BP Pulse Ox O2 Del Method 10/20/22 10:52 83 18 94 Nasal Cannula 10/20/22 10:45 36.7 C 70 15 90/48 L 93 Nasal Cannula 10/20/22 08:30 Nasal Cannula 10/20/22 07:52 74 10/20/22 07:51 36.8 C 77 19 121/54 L 93 Nasal Cannula 10/20/22 07:33 92 H 18 95 Nasal Cannula 10/20/22 00:00 91 H 10/20/22 03:32 36.1 C L 74 18 96/43 L 93 Nasal Cannula O2 Flow Rate 10/20/22 10:52 2 10/20/22 10:45 2 10/20/22 08:30 2 10/20/22 07:52 10/20/22 07:51 2 10/20/22 07:33 2 10/20/22 00:00 10/20/22 03:32 2 Laboratory Results 10/20/22 10/20/22 10/20/22 Range/Units 11:15 07:43 07:43 WBC 9.84 (4.8-10.8) K/ul RBC 3.98 L (4.20-5.40) M/uL Hgb 12.6 (12.0-16.0) g/dl Hct 37.5 (37.0-47.0) % MCV 94.2 (80.0-100.0) fL MCH 31.7 (25.0-34.0) pg MCHC 33.6 (32.0-36.0) g/dL RDW Std Deviation 51.5 H (36.4-46.3) fL RDW Coeff of Ej 15.8 H (11.5-14.5) % Plt Count 171 (130-400) K/uL MPV 11.9 (9.4-12.4) fL Immature Gran % (Auto) 3.2 % Neut % (Auto) 84.0 % Lymph % (Auto) 4.8 % [place] % (Auto) 6.5 % Eos % (Auto) 0.1 % Baso % (Auto) 1.4 % Neut # (Auto) 8.27 H (1.40-6.50) K/uL Lymph # (Auto) 0.47 L (1.20-3.40) K/uL [place] # (Auto) 0.64 H (0.11-0.59) K/uL Eos # (Auto) 0.01 (0.00-0.50) K/uL Baso # (Auto) 0.14 (0.00-0.20) K/uL Immature Gran # (Auto) 0.31 H (0.01-0.20) K/uL Sodium 136 (136-145) mmol/L Potassium 4.3 (3.5-5.1) mmol/L Chloride 100 (98-107) mmol/L Carbon Dioxide 23 (21-32) mmol/L Anion Gap 13 H (3-11) BUN 64 H (6-23) mg/dl Creatinine 1.94 H (0.6-1.2) mg/dl Est Cr Clr Drug Dosing 19.8 ml/min Est GFR ( Amer) 26.7 ml/min Est GFR (Non-Af Amer) 23.0 ml/min BUN/Creatinine Ratio 33.0 H (10-20) Glucose 102 H (70-99(Fasting)) mg/dl POC Glucose 120 H (70-99) mg/dl Calcium 9.2 (8.6-10.3) mg/dl Magnesium 2.0 (1.7-2.4) mg/dl Total Bilirubin 0.9 (0.2-1.0) mg/dl AST 60 H (13-39) U/L ALT 27 (7-52) U/L Alkaline Phosphatase 114 H (34-104) U/L Total Protein 4.9 L (6.0-8.3) gm/dl Albumin 2.5 L (3.4-5.0) gm/dl Globulin 2.4 L (2.5-4.0) gm/dl Albumin/Globulin Ratio 1.0 (0.9-2) 10/20/22 10/19/22 10/19/22 Range/Units 07:26 20:20 16:18 WBC (4.8-10.8) K/ul RBC (4.20-5.40) M/uL Hgb (12.0-16.0) g/dl Hct (37.0-47.0) % MCV (80.0-100.0) fL MCH (25.0-34.0) pg MCHC (32.0-36.0) g/dL RDW Std Deviation (36.4-46.3) fL RDW Coeff of Ej (11.5-14.5) % Plt Count (130-400) K/uL MPV (9.4-12.4) fL Immature Gran % (Auto) % Neut % (Auto) % Lymph % (Auto) % [place] % (Auto) % Eos % (Auto) % Baso % (Auto) % Neut # (Auto) (1.40-6.50) K/uL Lymph # (Auto) (1.20-3.40) K/uL [place] # (Auto) (0.11-0.59) K/uL Eos # (Auto) (0.00-0.50) K/uL Baso # (Auto) (0.00-0.20) K/uL Immature Gran # (Auto) (0.01-0.20) K/uL Sodium (136-145) mmol/L Potassium (3.5-5.1) mmol/L Chloride (98-107) mmol/L Carbon Dioxide (21-32) mmol/L Anion Gap (3-11) BUN (6-23) mg/dl Creatinine (0.6-1.2) mg/dl Est Cr Clr Drug Dosing ml/min Est GFR ( Amer) ml/min Est GFR (Non-Af Amer) ml/min BUN/Creatinine Ratio (10-20) Glucose (70-99(Fasting)) mg/dl POC Glucose 98 99 97 (70-99) mg/dl Calcium (8.6-10.3) mg/dl Magnesium (1.7-2.4) mg/dl Total Bilirubin (0.2-1.0) mg/dl AST (13-39) U/L ALT (7-52) U/L Alkaline Phosphatase (34-104) U/L Total Protein (6.0-8.3) gm/dl Albumin (3.4-5.0) gm/dl Globulin (2.5-4.0) gm/dl Albumin/Globulin Ratio (0.9-2)
--- NOTE | 2022-10-20 13:36 | Ultrasound Report ---
US renal/blad retro comp CLINICAL HISTORY: renal failure TECHNIQUE: Multiple sonographic real-time images of the kidneys and bladder were obtained. COMPARISON: Comparison is made to CT abdomen pelvis 05/17/2022 FINDINGS: The right kidney measures 9.2 cm in length, and the left kidney measures 9.2 cm in length. The right kidney is normal in size, contour, cortical thickness, and echogenicity. No hydronephrosis is identified. A midpole septated cyst measures 2.1 x 1.9 x 1.7 cm. Limited evaluation of left kidney due to body habitus and shadowing bowel. The bladder is partially distended. No large intraluminal mass is seen. IMPRESSION: Minimally diminutive size of the bilateral kidneys. Right renal cyst with thin septation. ACT 112: Negative or not required by law. Electronically signed by: Raj Guerra M.D. 10/20/2022 1:35 PM
--- NOTE | 2022-10-20 14:07 | Hospitalist Progress Note ---
Date of Service October 20, 2022 Assessment & Plan (1) Sepsis: Plan: On admission with respirations of 24, HR of 104, and her acute gastrointestinal infection as the source. Also with WBC count up to 16And now improving - lactate of 6 and stable on multiple draws and more likely related to her metastatic cancer/lymphoma and not due to sepsis -BPs normal -continue IVFs due to acute kidney injury -Continue Ciprofloxacin and flagyl for diverticulitis x10-day course -no need to continue to trend lactate -monitor on tele -follow BCxs-NGTD, Ur cx-mixed aria Sepsis resolved (2) Diverticulitis of jejunum: Plan: -with possible microperforation. Pain Now resolved and no nausea now with bowel rest and tx with Cipro and Flagyl -General Surgery consult placed -continue conservative management, no need for surgery now and would be a poor surgical candidate given abdominal mets -tolerating low fiber diet -Continue cipro and flagyl x10-day course -continue maintenance IV fluids until taking po better and acute kidney injury resolves -Morphine and IV tylenol for pain-not taking -Continue ZOfran as needed for nausea and can dc IV Protonix -follow BMP (3) THOMAS (acute kidney injury): Plan: Creatinine continues to rise to 1.9, BUN further elevated Continue IV fluids at 100 MLS per hour of LR checked Renal US--> normal No obstruction on imaging of abdomen/pelvis on admission Follow BMP -encourage po fluids (4) Elevated troponin: Plan: -Initial high sen trop elevated at 27 then trended downward to 17 -Asymptomatic, no acute ST segment or T-wave changes on ECG -Likely due to myocardial demand ischemia some sepsis (5) Hypertension: Plan: Continue atenolol (6) Hypomagnesemia: Plan: -now resolved with replacement (7) COPD (chronic obstructive pulmonary disease): Plan: -Stable on 2-3L NC-she is on this at home -Will continue with duoneb treatments -Prn O2 for SpO2 between 88-92% -Incentive spirometry, flutter therapy -Continue home lorazepam prn anxiety (8) Malignant pleural effusion: Plan: -currently stable -Still with right sided pleurex cath in place -placed order to drain on Tue/, 400mL -Monitor with serial CXR as needed (9) Weakness generalized: Plan: -Likely multifactorial including active cancer, chemotherapy treatment, sepsis, and poor oral intake/dehydration -Infection treatment as above, IV fluids, palliative med consults PT/OT consults placed -consult Speech for possible aspiration noted by family- Okay for easy to chew diet (10) 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 -Palliative medicine consult appreciated-her oncologist is recommending no further chemotherapy and approach to hospice Long discussion was had with patient and her family today and they are considering hospice (11) Elevated bilirubin: Plan: -Total bili elevated at 1.2 on admission and now normal -No acute findings on CT Plan DVT proph-SQ heparin Dispo-continued stay but downgrade to med/surg. PT/OT consulted and recommend SNF. Spoke with CM about referrals for short term SNF with transition to home hospice. Spoke with and daughter at bedside at length Admission and Anticipated Discharge Date Admission Date: October 17, 2022 Subjective Pt denies any abdominal pain, no nausea. Is moving bowels and making urine. Worked with PT/OT and needs SNF. Pt fears she will end up in [facility] care as her cancer progresses. Her desire is to stay home on hospice but and daughter at bedside both state they cannot care for her at home. Tele with [facility], normal rates Physical Exam Constitutional: WD/WN, vitals as above Neck: trachea midline, no thyromegaly Respiratory: normal respiratory effort; no cough Auscultation: + diminished lung sounds (at bases bilat); no crackles and no wheezes Cardiovascular: RRR, no murmur, no edema Chest (Breasts): Chest: normal inspection of chest Gastrointestinal (Abdomen): Inspection/Auscultation: normal bowel sounds; abdomen not distended Percussion/Palpation: abdomen soft; abdomen nontender and no guarding Musculoskeletal: Extremities: extremities normal to inspection; no cyanosis and no clubbing Skin: no rashes, warm and dry Neurologic: moves all extremities and awake; no focal motor deficits Psychiatric: Orientation: alert, oriented x 3 and cooperative Results & Data Results & Data Vital Signs (Past 12 Hours) Vital Signs Temp Pulse Pulse Resp BP Pulse Ox O2 Del Method 10/20/22 10:52 83 18 94 Nasal Cannula 10/20/22 10:45 36.7 C 70 15 90/48 L 93 Nasal Cannula 10/20/22 08:30 Nasal Cannula 10/20/22 07:52 74 10/20/22 07:51 36.8 C 77 19 121/54 L 93 Nasal Cannula 10/20/22 07:33 92 H 18 95 Nasal Cannula 10/20/22 03:32 36.1 C L 74 18 96/43 L 93 Nasal Cannula O2 Flow Rate 10/20/22 10:52 2 10/20/22 10:45 2 10/20/22 08:30 2 10/20/22 07:52 10/20/22 07:51 2 10/20/22 07:33 2 10/20/22 03:32 2 Laboratory Results CBC, BMP, magnesium reviewed LFTs reviewed Ur cx mixed aria, Bcxs reviewed PG Care Time/CCT Total # of Minutes Spent Total Time Spent with Patient: Total time spent is greater than 50% in coordination of care (as documented) at patient's floor/unit and/or counseling patient: Coding Level of Care Code 69367 SUB INP/OBS CARE 2/35MIN Diagnoses Sepsis A41.9 Diverticulitis of jejunum K57.12 THOMAS (acute kidney injury) N17.9 Elevated troponin R77.8 Hypertension I10 Hypomagnesemia E83.42 COPD (chronic obstructive pulmonary disease) J44.9 Malignant pleural effusion J91.0 Weakness generalized R53.1 Metastatic adenocarcinoma C79.9 Elevated bilirubin R17
[2022-10-20] MEDS ORDERED: ACETAMINOPHEN 325 MG TAB PO PRN (18:14)
[2022-10-20] MEDS: LORazepam 0.5 MG TAB PO PRN (19:49)
[2022-10-20] MEDS: CIPROFLOXACIN / D5W 400 MG/200 ML BAG IV SCH (22:53)
[2022-10-21] MEDS ORDERED: ALBUT/IPRATROP 3MG/0.5MG NEB 3 ML VIAL NEB STA (00:59)
[2022-10-21] MEDS ORDERED: LORazepam 0.5 MG TAB PO STA (01:03)
[2022-10-21] MEDS: LORazepam 0.5 MG TAB PO PRN ×2 (01:17→08:35)
[2022-10-21] MEDS: LACTATED RINGER'S 1,000 ML IV SCH ×2 (01:17→15:14)
[2022-10-21] MEDS: metroNIDAZOLE 500 MG/100 ML BAG IV SCH ×3 (01:24→17:33)
[2022-10-21] MEDS: ALBUT/IPRATROP 3MG/0.5MG NEB 3 ML VIAL NEB SCH ×2 (07:31→19:50)
[2022-10-21] MEDS ORDERED: ALBUT/IPRATROP 3MG/0.5MG NEB 3 ML VIAL ONE (07:39)
[2022-10-21] MEDS: INSULIN ASPART PER UNIT CHARGE SC SCH ×2 (08:24→11:39)
[2022-10-21] MEDS: HEPARIN SOD 5,000 UNIT/0.5 ML VIAL SQ SCH (08:25)
[2022-10-21] MEDS: ATENOLOL 25 MG TABLET PO SCH (08:25)
[2022-10-21] MEDS: NICOTINE 7 MG/24 HR TDSY TD SCH (08:26)
[2022-10-21] MEDS: UMECLIDINIUM BROMIDE 62.5MCG/BLISTER 7 PUFFS/INHALER INH SCH (08:26)
[2022-10-21] MEDS: LIDOCAINE 5% 1 PATCH TD SCH (08:27)
[2022-10-21 11:42] LABS: BUN Creatinine Ratio 34.8 (10-20); Calcium 9.2 mg/dl (8.6-10.3); Creatinine Clr Calc Pharmacy 19.4 ml/min; Est GFR (Non-African American) 22.5 ml/min; Potassium 4.6 mmol/L (3.5-5.1)
--- NOTE | 2022-10-21 14:35 | Surgery Progress Note ---
Date of Service October 21, 2022 Assessment & Plan (1) Diverticulitis of jejunum: Plan: Possible microperforation In setting of progressive metastatic cancer with worsening intra-abdominal metastases. 10/21/2022 afebrile, vss leukocytosis resolved abdomen is soft, nontender today + anxiety Plan: no surgical intervention required, benign abdomen continue antibiotics continue medical management our services signing off, please call with questions/concerns Dr. Sommers was present during my examination and agrees with above. Admission and Anticipated Discharge Date Admission Date: October 17, 2022 Subjective concerned that she is not being made as comfortable as possible. Not regarding any pain but anxiety. patient states she gets very anxious at times. Scheduled to have pleurex catheter drained today denies of abdominal pain, n,v Physical Exam Constitutional: WD/WN, vitals as above cooperative and comfortable; no acute distress and not ill appearing Respiratory: normal respiratory effort; no respiratory distress Gastrointestinal (Abdomen): Inspection/Auscultation: abdomen normal to inspection; abdomen not distended Percussion/Palpation: abdomen soft; abdomen nontender, no guarding and abdomen not rigid Skin: no rashes, warm and dry Results & Data Vital Signs (Past 12 Hours) Vital Signs Temp Pulse Resp BP Pulse Ox O2 Del Method O2 Flow Rate 10/21/22 11:15 36.3 C L 74 16 106/54 L 95 Room Air 10/21/22 08:00 Nasal Cannula 2 10/21/22 08:01 36.3 C L 83 18 102/59 L 92 Room Air 10/21/22 07:32 64 18 92 Nasal Cannula 2 Laboratory Results 10/21/22 10/21/22 10/21/22 Range/Units 11:30 11:06 08:02 Sodium 133 L (136-145) mmol/L Potassium 4.6 (3.5-5.1) mmol/L Chloride 99 (98-107) mmol/L Carbon Dioxide 17 L (21-32) mmol/L Anion Gap 17 H (3-11) BUN 69 H (6-23) mg/dl Creatinine 1.98 H (0.6-1.2) mg/dl Est Cr Clr Drug Dosing 19.4 ml/min Est GFR ( Amer) 26.0 ml/min Est GFR (Non-Af Amer) 22.5 ml/min BUN/Creatinine Ratio 34.8 H (10-20) Glucose 114 H (70-99(Fasting)) mg/dl POC Glucose 103 H 108 H (70-99) mg/dl Calcium 9.2 (8.6-10.3) mg/dl 10/20/22 10/20/22 Range/Units 20:55 16:37 Sodium (136-145) mmol/L Potassium (3.5-5.1) mmol/L Chloride (98-107) mmol/L Carbon Dioxide (21-32) mmol/L Anion Gap (3-11) BUN (6-23) mg/dl Creatinine (0.6-1.2) mg/dl Est Cr Clr Drug Dosing ml/min Est GFR ( Amer) ml/min Est GFR (Non-Af Amer) ml/min BUN/Creatinine Ratio (10-20) Glucose (70-99(Fasting)) mg/dl POC Glucose 96 100 H (70-99) mg/dl Calcium (8.6-10.3) mg/dl
[2022-10-21] MEDS ORDERED: HYDROmorphone INJ 0.5 MG/0.5 ML SYR IV PRN (15:53)
[2022-10-21] MEDS ORDERED: LORazepam 1 MG TAB PO PRN (15:54)
--- NOTE | 2022-10-21 15:55 | Hospitalist Progress Note ---
Date of Service October 21, 2022 Assessment & Plan (1) Sepsis: Plan: On admission with respirations of 24, HR of 104, and her acute gastrointestinal infection as the source. Also with WBC count up to 16 and then improving - lactate of 6 and stable on multiple draws and more likely related to her metastatic cancer/lymphoma and not due to sepsis -BPs normal -with acute kidney injury/ATN -Continue Ciprofloxacin and flagyl for diverticulitis x10-day course -no need to continue to trend lactate -follow BCxs-NGTD, Ur cx-mixed aria Sepsis resolved dc IVFs (2) Diverticulitis of jejunum: Plan: -with possible microperforation. Pain Now resolved and no nausea now with bowel rest and tx with Cipro and Flagyl -General Surgery consult placed -continue conservative management, no need for surgery now and would be a poor surgical candidate given abdominal mets -tolerating low fiber diet -Continue cipro and flagyl x10-day course -dc IVFs -with worsening renal failure, dc Morphine--> trial of po oxycodone prn moderate-severe pain, IV dilaudid prn severe pain -Continue ZOfran as needed for nausea (3) THOMAS (acute kidney injury): Plan: Creatinine continues to rise to 1.98, BUN further elevated Likely ATN from sepsis or prerenal from poor po intake checked Renal US--> normal, No obstruction on imaging of abdomen/pelvis on ad mission With AG met acidosis, hyponatremia from renal failure -encourage po fluids -no further labs to be drawn (4) 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 -Palliative medicine consult appreciated-her oncologist is recommending no further chemotherapy and approach to hospice Long discussion was had with patient and her family today and they are considering hospice (5) Elevated troponin: Plan: -Initial high sen trop elevated at 27 then trended downward to 17 -Asymptomatic, no acute ST segment or T-wave changes on ECG -Likely due to myocardial demand ischemia some sepsis (6) Hypertension: Plan: Continue atenolol (7) Hypomagnesemia: Plan: -now resolved with replacement (8) COPD (chronic obstructive pulmonary disease): Plan: -Stable on 2-3L NC-she is on this at home -Will continue with duoneb treatments -Prn O2 for SpO2 between 88-92% -Incentive spirometry, flutter therapy -Continue home lorazepam prn anxiety but increase to 1mg po tid prn and make scheduled at bedtime for insomnia (9) Malignant pleural effusion: Plan: -currently stable -Still with right sided pleurex cath in place -placed order to drain on Tue/, 400mL (10) Weakness generalized: Plan: -Likely multifactorial including active cancer, chemotherapy treatment, sepsis, and poor oral intake/dehydration -Infection treatment as above, IV fluids given, palliative med consults PT/OT consults placed -consult Speech for possible aspiration noted by family- Okay for easy to chew diet (11) Elevated bilirubin: Plan: -Total bili elevated at 1.2 on admission and now normal -No acute findings on CT Plan DVT proph-dc SQ heparin now in effort to reduce needle sticks and focus on comfort Dispo-continued stay med/surg. PT/OT consulted and recommend SNF. Spoke with CM about referrals for short term SNF with transition to home hospice. Spoke with at bedside at length again on 10/21 Admission and Anticipated Discharge Date Admission Date: October 17, 2022 Subjective Pt mostly sleeping when I saw her mid-day today. Her reports she did not sleep all night and is having a lot of pain in her back, asking him to rub her back. He also says she is having a lot of anxiety and would like her to be made more comfortable.Pt and in agreement to stop checking labs even after discussing failing kidneys. She would like to focus more on comfort but is still determined to go to short term rehab to get strong enough to return home if possible. Denies abdominal pain or nausea but has minimal po intake. We again discussed what hospice looks like both at home or at a nursing facility. Physical Exam Constitutional: WD/WN, vitals as above appears chronically ill Neck: trachea midline, no thyromegaly Respiratory: normal respiratory effort; no cough Auscultation: + diminished lung sounds (at bases bilat); no crackles and no wheezes Cardiovascular: RRR, no murmur, no edema Chest (Breasts): Chest: normal inspection of chest Gastrointestinal (Abdomen): Inspection/Auscultation: normal bowel sounds; abdomen not distended Percussion/Palpation: abdomen soft; abdomen nontender and no guarding Musculoskeletal: Extremities: extremities normal to inspection; no cyanosis and no clubbing Skin: no rashes, warm and dry Neurologic: moves all extremities and awake; no focal motor deficits Psychiatric: Orientation: oriented x 3 and cooperative Results & Data Results & Data Vital Signs (Past 12 Hours) Vital Signs Temp Pulse Resp BP Pulse Ox O2 Del Method O2 Flow Rate 10/21/22 11:15 36.3 C L 74 16 106/54 L 95 Room Air 10/21/22 08:00 Nasal Cannula 2 10/21/22 08:01 36.3 C L 83 18 102/59 L 92 Room Air 10/21/22 07:32 64 18 92 Nasal Cannula 2 Laboratory Results BMP reviewed PG Care Time/CCT Total # of Minutes Spent Total Time Spent with Patient: Total time spent is greater than 50% in coordination of care (as documented) at patient's floor/unit and/or counseling patient: Coding Level of Care Code 45222 SUB INP/OBS CARE 2/35MIN Diagnoses Sepsis A41.9 Diverticulitis of jejunum K57.12 THOMAS (acute kidney injury) N17.9 Metastatic adenocarcinoma C79.9 Elevated troponin R77.8 Hypertension I10 Hypomagnesemia E83.42 COPD (chronic obstructive pulmonary disease) J44.9 Malignant pleural effusion J91.0 Weakness generalized R53.1 Elevated bilirubin R17
[2022-10-21] MEDS: oxyCODONE HCL IR 5 MG TAB (IMMEDIATE RELEASE) PO PRN (16:03)
--- NOTE | 2022-10-21 22:29 | Electrocardiogram Report ---
Test Reason : Blood Pressure : / mmHG Vent. Rate : 076 BPM Atrial Rate : 076 BPM P-R Int : 146 ms QRS Dur : 078 ms QT Int : 422 ms P-R-T Axes : -22 006 019 degrees QTc Int : 474 ms Normal sinus rhythm Septal infarct (cited on or before 17-OCT-2022) Poor R wave progression, consider anterior CT vs. lead placement vs. LVH Abnormal ECG When compared with ECG of 17-OCT-2022 07:14, No significant change was found Confirmed by Raul Howard ([id number]) on 10/21/2022 10:29:27 PM Referred By: REFERRED SELF Confirmed By:Raul Howard
[2022-10-21] MEDS: CIPROFLOXACIN / D5W 400 MG/200 ML BAG IV SCH (22:31)
[2022-10-21] MEDS: LORazepam 1 MG TAB PO SCH (22:44)
[2022-10-22] MEDS: oxyCODONE HCL IR 5 MG TAB (IMMEDIATE RELEASE) PO PRN ×2 (00:32→08:30)
[2022-10-22] MEDS: LORazepam 1 MG TAB PO SCH (00:32)
[2022-10-22] MEDS: metroNIDAZOLE 500 MG/100 ML BAG IV SCH ×3 (01:49→18:13)
[2022-10-22] MEDS: ALBUT/IPRATROP 3MG/0.5MG NEB 3 ML VIAL NEB SCH ×2 (07:10→19:58)
[2022-10-22] MEDS: NICOTINE 7 MG/24 HR TDSY TD SCH (10:28)
[2022-10-22] MEDS: ATENOLOL 25 MG TABLET PO SCH (10:28)
[2022-10-22] MEDS: UMECLIDINIUM BROMIDE 62.5MCG/BLISTER 7 PUFFS/INHALER INH SCH (10:28)
[2022-10-22] MEDS: LIDOCAINE 5% 1 PATCH TD SCH (10:28)
[2022-10-22] MEDS ORDERED: HYDROmorphone INJ 0.5 MG/0.5 ML SYR IV PRN (11:52)
[2022-10-22] MEDS ORDERED: GLYCOPYRROLATE 0.2 MG/ML VIAL IV PRN (11:52)
[2022-10-22] MEDS: HYDROmorphone INJ 0.5 MG/0.5 ML SYR IV PRN ×2 (12:28→16:29)
[2022-10-22] MEDS: LORazepam 2 MG/1 ML VIAL IV PRN (14:35)
--- NOTE | 2022-10-22 15:29 | Palliative Care Progress Note ---
Date of Service October 22, 2022 Assessment & Plan (1) Cancer related pain: Plan: Elva is demonstrating a steady and overall continued decline. She is weaker and less alert and interactive. She is not taking much p.o. Her weakness is increasing. Her family has had continued discussions and feels it is time to move to comfort. I met with her Kade at the bedside who requested that we transition patient over to a full comfort care regimen and assure that her pain and symptoms are more improved. To that end I have modified her symptom management regimen and added additional orders for Dilaudid at 0.5 and 1 mg dose options as well as Ativan IV for her anxiety which may escalate to more of a panic if her dyspnea worsens. (2) Dyspnea and respiratory abnormalities: Plan: See #1 (3) Generalized abdominal pain: (4) Metastatic adenocarcinoma: (5) Malignant pleural effusion: (6) Palliative care by specialist: (7) Advanced care planning/counseling discussion: Plan: I met with patient and her at the bedside for approximately 20 minutes and then with the and family meeting room for another 20 minutes [id number]. There is a total of 40 minutes spent in [id number] ACP discussion today. Patient tells me that she is tired and she just wants to be more comfortable. She states that everything hurts and she has had a hard time breathing. She also notes that she has not been sleeping well and this has made her extremely tired and even more anxious. She would like some medication to h elp relieve the symptoms. states he is watching her suffer and it is "breaking my heart." He acknowledges that he has been struggling with the issue of her mortality but after watching her condition decline in the last few days, he and his family have reached a conclusion that it is time to make her more comfortable and that this be about her that it is to try and extend any time they may have with her which may unnecessarily prolong suffering for her. We reviewed a comfort plan of care and I advised that we would stop the nonessential medications, interventions, labs and diagnostics which are not needed at this point moving forward to determine if someone is comfortable. I also added additional medications for pain and symptom management and reviewed this plan with the nursing team. Plan * Patient is now comfort measures only. For now, I have left her antibiotics to continue as they may contribute to her comfort given the potential microtear. If she continues to decline or refuse the medication, and this can be stopped and discontinued from the MAR. I have reviewed the medication regimen with nursing. * Palliative prognostic indices from yesterday indicate a short anticipated survival of likely weeks. Given her relatively fast decline in the hospital over the past few days, I suspect I suspect this may be shorter. I have updated her oncology, PCP and primary medicine team. * Please note: the above document was generated using voice recognition software. It may contain unintentional grammatical, syntax or spelling errors. Any formal questions or concerns about the content, text or information contained within the body of this dictation should be directly addressed to the provider for clarification. Thank you for allowing us to participate in the ongoing care of this patient. Please don't hesitate to call or page with any additional concerns. Dr. Verito Wolf DNP Director, Palliative Care Admission and Anticipated Discharge Date Admission Date: October 17, 2022 Subjective Patient's condition continues to decline. She is growing increasingly confused and weak. She is often grimacing or crying out in pain. remains at the bedside. Family has had continued discussions and feels that a transition to comfort care is most appropriate at this time. states he does not want to see her suffer like this. He also asks how long we think she has has his son is looking to make arrangements to come visit and lives in [place]. Patient is intermittently lucid but overall has declined in the last few days. She is pale and weak. She is not able to sense consistently follow commands. She will open eyes when her name is called. She has not been eating or drinking very much. She has not been mobilizing or ambulating in her room. Review of Systems Review of Systems: All systems reviewed & are unremarkable except as noted in Subjective Physical Exam Physical Exam: Frail, chronically ill, elderly female, resting on her side in bed. She is awake and intermittently lucid but easily drifts off to sleep. She is not able to follow any prolonged discussion or conversation. She is able to tell me that "everything hurts." She states that she has not been sleeping well and is extremely tired. Her anxiety is increasing. She admits that she is starting to feel panic. Sometimes she feels more breathless. She would like some improved symptom management. Respiratory effort is mildly increased. There is some grimacing and frowning noted. Her skin is pale but otherwise warm. There are some trace to mild edema to the lower extremities. Abdomen is soft but nontende r. Anterior chest wall has some generalized tenderness to palpation across the anterior [place]. Lung sounds are overall diminished and nearly absent along the mid to right lower lung [place]. Heart tones are S1-S2. There is no gross murmur. There is generalized weakness. She will arouse to voice but is unable to follow commands. Results & Data Vital Signs (Past 12 Hours) Vital Signs Temp Pulse Resp BP Pulse Ox O2 Del Method O2 Flow Rate 10/22/22 08:00 Nasal Cannula 3 10/22/22 07:32 36.3 C L 91 H 17 96/58 L 98 Nasal Cannula 2 10/22/22 07:11 89 18 95 Nasal Cannula 2 Laboratory Results Data reviewed Diagnostic Findings Data reviewed PG Care Time/CCT Total # of Minutes Spent Total Time Spent: 105 Total Time Spent with Patient: Total time spent is greater than 50% in coordination of care (as documented) at patient's floor/unit and/or counseling patient: I spent 105 minutes overall addressing this case: 15 in medical data review/discussion with referring provider(s) and/or preparation for the visit 25 in direct interaction with the patient 40 Advance Care Planning/Goals of Care discussions as detailed above in note (must be >16min) 10 in subsequent review and synthesis of assessment and plan 15 in communicating with other providers regarding the patient's case: [] Prolonged Care Time Prolonged Care Time: Yes Advanced Care Planning 17778 Advanced Care Planning 30 Min [id number] Advanced Care Planning Additional 30 Min [place] [address] SUB INP/OBS CARE 3/50MIN Patient Type Established Medical Decision Making High Complexity Diagnoses Cancer related pain G89.3 Dyspnea and respiratory abnormalities R06.00; R06.89 Generalized abdominal pain R10.84 Metastatic adenocarcinoma C79.9 Malignant pleural effusion J91.0 Palliative care by specialist Z51.5 Advanced care planning/counseling discussion Z71.89 Additional Codes Prolonged Care Time - Prolonged Care Time: Yes ([id number]) Advanced Care Planning - 84161 Advanced Care Planning 30 Min: 15126 Advanced Care Planning 30 Min ([id number]) Advanced Care Planning - 81837 Advanced Care Planning Additional 30 Min: 12469 Advanced Care Planning Additional 30 Min ([id number])
--- NOTE | 2022-10-22 17:46 | Hospitalist Progress Note ---
Date of Service October 22, 2022 Assessment & Plan (1) Sepsis: Plan: On admission with respirations of 24, HR of 104, and her acute gastrointestinal infection as the source. Also with WBC count up to 16 and then improving - lactate of 6 and stable on multiple draws and more likely related to her metastatic cancer/lymphoma and not due to sepsis -BPs normal -with acute kidney injury/ATN -Continue Ciprofloxacin and flagyl for diverticulitis x10-day course -no need to continue to trend lactate -follow BCxs-NGTD, Ur cx-mixed aria Sepsis resolved Spoke to and palliative care. Switch to comfort measures only. (2) Diverticulitis of jejunum: Plan: -with possible microperforation. Pain Now resolved and no nausea now with bowel rest and tx with Cipro and Flagyl -General Surgery consult placed -continue conservative management, no need for surgery now and would be a poor surgical candidate given abdominal mets -tolerating low fiber diet -Continue cipro and flagyl For now. -dc IVFs -with worsening renal failure, on IV dilaudid prn severe pain. Now switched to comfort measures only. 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 -Palliative medicine consult appreciated-her oncologist is recommending no further chemotherapy and approach to hospice switch to comfort measures only (5) Elevated troponin: Plan: -Initial high sen trop elevated at 27 then trended downward to 17 -Asymptomatic, no acute ST segment or T-wave changes on ECG -Likely due to myocardial demand ischemia some sepsis (6) Hypertension: Plan: Continue atenolol (7) Hypomagnesemia: Plan: -now resolved with replacement (8) COPD (chronic obstructive pulmonary disease): Plan: -Stable on 2-3L NC-she is on this at home -Will continue with duoneb treatments -Prn O2 for SpO2 between 88-92% -Incentive spirometry, flutter therapy -Continue home lorazepam prn anxiety but increase to 1mg po tid prn and make scheduled at bedtime for insomnia (9) Malignant pleural effusion: Plan: -currently stable -Still with right sided pleurex cath in place -placed order to drain on Tue/, 400mL Now switch to comfort measures only (10) Weakness generalized: Plan: -Likely multifactorial including active cancer, chemotherapy treatment, sepsis, and poor oral intake/dehydration -Infection treatment as above, IV fluids given, palliative med consults PT/OT consults placed -consult Speech for possible aspiration noted by family- Okay for easy to chew diet ultrasound manager working on placement. (11) Elevated bilirubin: Plan: -Total bili elevated at 1.2 on admission and now normal -No acute findings on CT Plan DVT proph-dc SQ heparin now in effort to reduce needle sticks and focus on comfort Dispo-continued stay med/surg. Patient is now comfort measures only. ultrasound manager working on placement. Spoke with at bedside at length Today 10/22. Switch to comfort measures only. Admission and Anticipated Discharge Date Admission Date: October 17, 2022 Subjective Patient is slightly altered today. Accompanied by her who wishes to switch goals of care to comfort measures only. He is asking for some pain medications to treat her pain. The patient is not able to communicate much Review of Systems Review of Systems: All systems reviewed & are unremarkable except as noted in Subjective Physical Exam Physical Exam: General appearance: Drowsy, arousable. Not able to hold a conversation. Falling asleep. Complains of pain in her belly and her back. Results & Data Results & Data Vital Signs (Past 12 Hours) Vital Signs Temp Pulse Resp BP Pulse Ox O2 Del Method O2 Flow Rate 10/22/22 08:00 Nasal Cannula 3 10/22/22 07:32 36.3 C L 91 H 17 96/58 L 98 Nasal Cannula 2 10/22/22 07:11 89 18 95 Nasal Cannula 2 PG Care Time/CCT Total # of Minutes Spent Total Time Spent with Patient: Total time spent is greater than 50% in coordination of care (as documented) at patient's floor/unit and/or counseling patient: Coding Level of Care Code 57819 SUB INP/OBS CARE 2/35MIN Diagnoses Sepsis A41.9 Diverticulitis of jejunum K57.12 THOMAS (acute kidney injury) N17.9 Metastatic adenocarcinoma C79.9 Elevated troponin R77.8 Hypertension I10 Hypomagnesemia E83.42 COPD (chronic obstructive pulmonary disease) J44.9 Malignant pleural effusion J91.0 Weakness generalized R53.1 Elevated bilirubin R17
[2022-10-23] MEDS: LORazepam 2 MG/1 ML VIAL IV PRN (00:36)
[2022-10-23] MEDS: metroNIDAZOLE 500 MG/100 ML BAG IV SCH (01:58)
[2022-10-23] MEDS: ALBUT/IPRATROP 3MG/0.5MG NEB 3 ML VIAL NEB SCH (07:19)
[2022-10-23] MEDS: NICOTINE 7 MG/24 HR TDSY TD SCH (09:33)
[2022-10-23] MEDS: ATENOLOL 25 MG TABLET PO SCH (09:33)
[2022-10-23] MEDS: LIDOCAINE 5% 1 PATCH TD SCH (09:34)
[2022-10-23] MEDS: UMECLIDINIUM BROMIDE 62.5MCG/BLISTER 7 PUFFS/INHALER INH SCH (09:34)
--- NOTE | 2022-10-23 12:29 | Death Pronouncement Note ---
Date of Service October 23, 2022 Pronouncement Note Admission Date October 17, 2022 Date and Time of Date of : 10/23/22 Time of : 11:08 Preliminary Cause of (1) Metastatic adenocarcinoma: (2) THOMAS (acute kidney injury): (3) Malignant pleural effusion: (4) Diverticulitis of jejunum: Summary please refer to the H&P dictated by Jaspreet Morris on 10/17 for details of presentation on admission. In brief, the patient was admitted with concern for sepsis, diverticulitis of jejunum, high anion gap metabolic acidosis, malignant pleural effusion, metastatic adenocarcinoma and electrolyte imbalances. She was started on IV antibiotics and surgery was consulted for her diverticulitis. Oncology was consulted for metastatic adenocarcinoma. Oncology recommended palliative care as there is no further chemotherapy to offer. Despite all efforts, her renal function continued to decline. Hospice was discussed and the decided on comfort measures only. Palliative care helped with a comfort care orders. I personally pronounced her . I examined her. she did not respond to vocal or tactile stimulus. No heart sounds or breath sounds noted. Pupils are fixed and dilated. She was pronounced at 11:08 AM today. She passed peacefully. Additional Data Attending physician: Holger Rausch MD
--- NOTE | 2022-10-27 17:23 | Discharge Summary ---
Date of Service October 27, 2022 Admission HPI Per Admitting Provider Elva is an 87 year old female with a PMH significant for Left-sided breast CA 2002 s/p lumpectomy and radiation, recurrent B-cell lymphoma diagnosed 03/30/2021 S/P Rituxan therapy, recently restarted chemotherapy and follows with [facility], recurrent malignant pleural effusion S/P plurex cath placement, type 2 diabetes, hypertension, ITP, tachy-génesis syndrome and current tobacco abuse who presented to the [facility] ED on 10/17 via EMS with complaints of weakness, epigastric pain, and decline in functional status. In the ED the patient was noted to be tachycardic with a HR of 105 and BP of 96/74 but otherwise stable. Labs were significant for a leukocytosis of 11.7 with neutrophil predominance of 10, AG of 13 with bicarb WNL, BUN of 44, mag of 1.6, total bili of 1.2, alk phos of 166, initial high sen trop of 27. Chest xray was read as 1. Right basilar pleural catheter remains unchanged in position. 2. Small to moderate bilateral pleural effusions and bibasilar densities have slightly progressed.. CT of the abd/pelvis wo con was read as 1. Interval progression of metastatic disease as described above. 2. Small amount of ascites is new from the prior study. This is likely due to the metastatic disease. 3. Decrease in size in the small right pleural effusion. A right basilar pleural catheter appears in good position.4. Small focus of gas within the left side of the abdomen. This is indeterminate but could represent a normal jejunal diverticulum. A small focus of microperforation and the setting of a jejunal diverticulitis is not excluded. Additional thickened loops of jejunum within the left side of the abdomen which could also be seen in the setting of a nonspecific enteritis or jejunal diverticulitis. 5. A mild inferior endplate compression fracture at L1. This is likely subacute. 6. Additional findings as described above. The ED staff spoke with General surgery who recommended conservative treatment with NPO status and IV antibiotics. Prior to admission the patient was given a dose of ciprofloxacin and flagyl, 4 mg IV Zofran, 50 mcg IV fentanyl, 750 mL NSS and ordered an additional 1L NSS. At the time of the exam the patient was lying in bed in no acute distress with her and brother sitting bedside. She has had one round of chemotherapy so far. She has had chronic abdominal pain with her known metastases. For the past weak she has been too weak to safely take oral medications. She has had very little oral intake over this time as well. She developed acute, 7-8/10 lower abdominal pain last night which progressed into this am. She has been having nausea but only dry-heaving. Denies fever, chills, chest pain, increased SOB, diarrhea, dysuria, hematuria, melena, LE swelling, and recent trauma. She has been able to successfully wean her self off cigarettes over the past week with the use of nicotine patches. She is still using prn oxygen. I explained that her CT shows an intraabdominal infection with possible microperforation which will be treated conservatively for now. Her next round of chemo is scheduled for next ; I explained that this will likely have to be delayed with her acute infection. I asked her what her goals are moving forward as she has had a start clinical decline over the past 2 months. She states that "I want to get rid of the cancer". I am still concerned she has poor insight into her prognosis as I explained that the CT scan shows progression of her cancer. She is still a DNR/DNI. Please refer to Dr. Sims's attestation for any changes to the treatment plan Admission Exam Per Admitting Provider Constitutional: WD/WN, vitals as above Neck: trachea midline, no thyromegaly Respiratory: normal respiratory effort; no cough Auscultation: + diminished lung sounds (at bases bilat); no crackles and no wheezes Cardiovascular: RRR, no murmur, no edema Chest (Breasts): Chest: normal inspection of chest Gastrointestinal (Abdomen): Inspection/Auscultation: normal bowel sounds; abdomen not distended Percussion/Palpation: abdomen soft; abdomen nontender and no guarding Musculoskeletal: Extremities: extremities normal to inspection; no cyanosis and no clubbing Skin: no rashes, warm and dry Neurologic: moves all extremities and awake; no focal motor deficits Psychiatric: Orientation: alert, oriented to person, oriented to place and cooperative; + not oriented to time Principal Diagnosis Metastatic cancer Acute kidney injury Discharge Exam please refer to the examination on the note Discharge Data Allergies Allergy/AdvReac Type Severity Reaction Status Date / Time cephalexin [From Keflex] Allergy Mild Aches,drows Verified 09/30/22 15:12 iness clarithromycin Allergy Mild Hives Verified 09/30/22 15:12 fluoxetine Allergy Mild Increased Verified 09/30/22 15:12 anxiety latex Allergy Mild RASH Verified 09/30/22 15:12 olmesartan [From Benicar] Allergy Mild Rash Verified 09/30/22 15:12 Penicillins Allergy Mild RASH Verified 09/30/22 15:12 doxycycline AdvReac Intermediate Gastrointestinal Verified 09/30/22 15:12 Upset tiotropium AdvReac Intermediate Anxiety Verified 09/30/22 15:12 [From Spiriva with HandiHaler] atorvastatin AdvReac Mild aches Verified 09/30/22 15:12 escitalopram [From Lexapro] AdvReac Mild Shakiness Verified 09/30/22 15:12 lisinopril AdvReac Mild Cough Verified 09/30/22 15:12 nefazodone [From Serzone] AdvReac Mild ankle Verified 09/30/22 15:12 swelling paroxetine AdvReac Mild Bad Verified 09/30/22 15:12 dreams, low energy Consultations 10/17/22 10:13 Consult General Surgery Routine 10/17/22 10:50 Consult Palliative Care Routine Ordered Studies 10/17/22 07:46 CT Abd and Pelvis [CT abd pelvis wo con] Stat 10/20/22 09:29 US renal/blad retro comp Urgent Hospital Course (1) THOMAS (acute kidney injury): (2) Generalized abdominal pain: (3) Altered mental status: (4) Malignant pleural effusion: (5) Cancer related pain: (6) Metastatic adenocarcinoma: Plan the patient was initially admitted with jejunal diverticulitis with sepsis, high anion gap metabolic acidosis, malignant pleural effusion, metastatic adenocarcinoma and electrolyte imbalances. She was treated with n.p.o., IV fluids, IV antibiotics. It was noted that her kidney function was declining. She was found to have tumor all through her abdomen. She became more more acidotic with increasing lactic acidosis. When I saw the patient, she was not severe pain and her was begging for comfort care medications. Palliative care was consulted and the patient was made hospice. She peacefully on 10/23/2022 at [id number] AM Total Time Total Time Spent Total Time Spent (In Minutes): 35 Discharge Plan Discharge Items Patient Disposition: Discharge Diagnosis: metastatic adenocarcinoma, malignant pleural effusion, diverticulitis of jejunum, acute kidney injury Other Date/Time: 10/23/22 11:08 Coding Level of Care Code 04669 INP/OBS DISCH >30 MIN Diagnoses THOMAS (acute kidney injury) N17.9 Generalized abdominal pain R10.84 Altered mental status R41.82 Malignant pleural effusion J91.0 Cancer related pain G89.3 Metastatic adenocarcinoma C79.9
== END 2022-10-23 12:43 | disposition expired | DRG 871 ==
LOC: ED 07:05 → 2S 15:49 → SUATTDRO 16:17 → 3W 10-20 18:05